=== PATIENT | male | born 2000 | race Caucasian/White ===

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

== ENCOUNTER 2019-06-29 08:34 | Observation (INO) ==
[2019-06-29 09:09] LABS: Basophils % 0.2 % (0.1-2.0); Eosinophils # 0.2 K/mm3 (0.0-0.4); Eosinophils % 1.6 % (0.1-12.0); Hemoglobin 16.1 g/dL (14.1-18.0); Lymphocytes # 2.2 K/mm3 (0.7-4.5); Lymphocytes % 22.7 % (10-50); Mean Corpuscular HGB Conc 34.2 g/dL (31.8-35.4); Mean Corpuscular Volume 86.5 fl (80-94); Mean Platelet Volume 7.3 fl (7.4-10.4); Monocytes # 0.6 K/mm3 (0.1-1.0); Monocytes % 6.2 % (1.7-9.3); Neutrophils # 6.8 K/mm3 (1.8-7.8); Neutrophils % 69.3 % (37.0-80.0); Platelet Count 238 K/mm3 (142-424); Red Blood Count 5.43 M/mm3 (4.60-6.20); Red Cell Distribution Width 12.7 % (11.5-17.5); White Blood Count 9.8 K/mm3 (4.5-13.0)
--- NOTE | 2019-06-29 09:09 | Emergency Department Note ---
ED Disposition Clinical Impression: Pneumothorax Qualifiers: Pneumothorax type: spontaneous, primary Qualified Code(s): J93.11 - Primary spontaneous pneumothorax Disposition: Admitted as Observation Condition on Discharge: Good - Critical Care Critical Care Time: No Attestation: On 06/29/19, the high probability of a clinically significant, sudden or life threatening deterioration of the following system(s) required my full and direct attention, intervention and personal management. The time I documented below is in addition to time spent performing reported procedures but includes the following listed in this critical care notation. Medical Decision Making - Chinmay Inquiry Pt receiving controlled substance: No Chinmay was queried for this patient: No Vital Signs: 06/29/19 08:35 06/29/19 09:31 06/29/19 10:00 Temperature 98.5 F Temperature Source Oral Pulse Rate [Left Radial] 89 69 80 Respiratory Rate 16 20 16 Blood Pressure [Right Arm] 116/36 L 124/65 120/65 Blood Pressure Mean [Right Arm] 62 84 83 Blood Pressure Source [Right Arm] Automatic Cuff Blood Pressure Position [Right Arm] Sitting Sitting Sitting 02 Sat by Pulse Oximetry 99 100 99 Oxygen Delivery Method Room Air Non-Rebreather Non-Rebreather - Lab Data Lab Results 06/29/19 08:35: WBC 9.8, RBC 5.43, Hgb 16.1, Hct 47.0, MCV 86.5, MCH 29.6, MCHC 34.2, RDW 12.7, Plt Count 238, MPV 7.3 L, Neut % (Auto) 69.3, Lymph % (Auto) 22.7, [place] % (Auto) 6.2, Eos % (Auto) 1.6, Baso % (Auto) 0.2, Neut # (Auto) 6.8, Lymph # (Auto) 2.2, [place] # (Auto) 0.6, Eos # (Auto) 0.2, Baso # (Auto) 0.0 06/29/19 08:35: Sodium 139, Potassium 3.2 L, Chloride 103, Carbon Dioxide 27, Anion Gap 12.2, BUN 7 L, Creatinine 0.80, Estimated Creat Clear 138, Estimated GFR 125, Est GFR ( Amer) 151, Glucose 115 H, Calcium 10.0, Troponin I < 0.01 Result diagrams: 06/29/19 08:35 06/29/19 08:35 Orders (Tests/Meds): ED MEDICATIONS Generic Name Dose Route Start Last Admin Trade Name Freq PRN Reason Stop Dose Admin Acetaminophen 500 mg 06/29/19 10:28 Tylenol 500mg Tablet PO 06/29/19 10:29 ONCE ONE Morphine Sulfate 4 mg 06/29/19 10:28 Morphine 4mg/Ml Syringe IV 07/29/19 09:04 Q2HP PRN Moderate to Severe Pain Discontinued Medications Generic Name Dose Route Start Last Admin Trade Name Freq PRN Reason Stop Dose Admin Acetaminophen 500 mg 06/29/19 10:24 Tylenol 500mg Tablet PO 06/29/19 10:25 ONCE ONE Morphine Sulfate 4 mg 06/29/19 09:05 06/29/19 09:05 Morphine 4mg/Ml Syringe IV 07/29/19 09:04 4 mg Q2HP PRN Administration Moderate to Severe Pain Morphine Sulfate 4 mg 06/29/19 09:08 06/29/19 09:11 Morphine 4mg/Ml Syringe IV 06/29/19 09:09 Not Given ONCE ONE Morphine Sulfate 4 mg 06/29/19 10:24 Morphine 4mg/Ml Syringe IV 07/29/19 09:04 Q2HP PRN Moderate to Severe Pain Ondansetron HCl 4 mg 06/29/19 09:09 06/29/19 09:05 Zofran 4mg/2ml Vial IV 06/29/19 09:10 4 mg ONCE ONE Administration ORDERS Category Date Time Status Chest XR 2 view (NOT portable) [XR chest 2V] Stat Exams 06/29/19 16:00 Ordered Troponin I Q3H Lab 06/29/19 12:00 Ordered Troponin I Q3H Lab 06/29/19 15:00 Ordered Medical Decision Narrative: In summary patient is a 18-year-old male in obvious pain, who presents the emergency department for evaluation of chest pain. Given patient's history of multiple pneumothorax, concerns for repeat spontaneous pneumothorax. CBC, CMP, troponin panel, chest x-ray, EKG. Patient complains of significant left-sided chest pain. Patient given IV morphine for symptomatic control here in the emergency department. EKG shows normal sinus rhythm, no ST elevation, depression, or QT prolongation noted. Patient's chest x-ray shows small left apical pneumothorax. Placed on 100% oxygen using nonrebreather. Labs returned and are nonactionable. Discussion had with Dr. Herman he agrees to admit the patient for further evaluation, pain control, and repeat chest x-ray. Patient admitted. Chest Pain HPI - General Chief Complaint: Chest Pain Stated Complaint: chest pain Time Seen by Provider: 06/29/19 08:40 Mode of Arrival: Ambulatory Limitations: No Limitations Description of Symptoms (Recalled from ER Triage Doc. by RN): to ed per pvt car with c/o sharp lt side chest pain radiating into back starting lastnight. pain worse with movement and inspiration. pt denies nausea, vomiting, fever, cough. - History of Present Illness HPI narrative: Patient is a 18-year-old male with a past medical history of 3 previous spontaneous pneumothorax's who presents to the emergency department for evaluation of chest pain. Patient states his chest pain started yesterday he localizes it to the left side of his chest. Patient states the chest pain radiates to his back. Is pleuritic in nature, also worse with movement. He denies any fevers, chills, shortness of breath, recent travel outside of the state or country, or contact with someone positive for the new novel coronavirus. Patient denies any cardiac history, or significant family history of cardiac disease. - Related Data Home Medications Medication Instructions Recorded Confirmed No Known Home Medications 06/29/19 06/29/19 Allergies Allergy/AdvReac Type Severity Reaction Status Date / Time ibuprofen [From Motrin] Allergy Verified 12/01/18 14:30 [facility] History - Hepatitis A Screen Drug use history?: No High risk sexual behaviors?: No History of sexually transmitted infection?: No Currently employed?: No Childcare worker?: No Do you have indoor plumbing?: Yes Do you have electricity?: Yes Attestation statement:: This patient has been screened for Hepatitis A risk factors. I have reviewed the patient's past medical history: Yes 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: Denies:: Diabetes Mellitus Type 1, Diabetes Mellitus Type 2, Hypertension Comment: pneumothorax 2x Other Surgeries: Yes: Other Comment: pneumothorax x2 - Social History Smoking Status: Current every day smoker Tobacco Type: cigarettes # Packs/Day (cigarettes): 1 Alcohol Intake: never Substance Use Type: marijuana, former substance user, denies use Occupational Status: other Housing: house Household Members: significant other Family Hx:: Stroke, Other ROS Obtained: Yes All systems reviewed & no additional complaints Physical Exam - General General appearance: alert Comment: in pain - Neck Neck exam: Present: normal inspection - Chest Chest inspection: Present: normal inspection - Respiratory Respiratory exam: Present: normal lung sounds bilaterally - Cardiovascular Cardiovascular exam: Present: regular rate, normal rhythm - Abdominal Exam Abdominal exam: Present: soft. Absent: distention, tenderness - Neurological Exam Neurological exam: Present: alert, oriented X3, CN II-XII intact - Psychiatric Psychiatric exam: Present: normal affect, normal mood
[2019-06-29 09:17] LABS: Chloride 103 mmol/L (98-107); Sodium 139 mmol/L (136-145)
[2019-06-29 09:20] LABS: Anion Gap 12.2 mEq/L (5-15); Blood Urea Nitrogen 7 mg/dl (9-20); Carbon Dioxide 27 mmol/L (22.0-30.0)
[2019-06-29 09:21] LABS: Glucose 115 mg/dl (74-100)
--- NOTE | 2019-06-29 12:00 | History & Physical Report ---
HPI HPI: Patient is a 18-year-old male who is well-known to me. Approximately 2 years ago he had developed a spontaneous right pneumothorax requiring chest tube. In September 2018 he had developed spontaneous left-sided pneumothorax which required chest tube placement. He ultimately convalesced and had been doing well. When he followed up in the office in October he was having some recurrent left-sided chest pain and he once again was found to have a recurrent left-sided pneumothorax at that time. This resolved without intervention however completely. Incidentally, the patient had presented to the emergency department in April of this year with chest pain and underwent chest x-ray and CT scan which revealed no evidence of any acute findings. He was in his usual state of health until overnight at which time he developed some left-sided pleuritic chest pain radiating to the left shoulder. He had increasing pain and presented to the emergency department today at which time he underwent chest x-ray which revealed small left apical pneumothorax. [facility] History 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: Denies:: Cancer, Diabetes Mellitus Type 1, Diabetes Mellitus Type 2, Hypertension, MRSA *Have you ever received a pneumonia vaccine?: No *Have you received a flu vaccine this season?: No Other Surgeries: Yes: Other Amputation: No Fractures: No - *Social History Educational Level: Completed High School Smoking Status: Current every day smoker Tobacco Type: cigarettes # Packs/Day (cigarettes): 1 Alcohol Intake: current Alcohol Intake Frequency:: holidays/special occasions only Substance Use Type: marijuana, former substance user, denies use *Occupational Status:: employed Housing: house Household Members: family *Travel in the last 8 weeks: None Family Hx:: Diabetes Review of Systems - Review of Systems Review of systems:: pertinent systems reviewed and negative unless documented below Meds Home Medications Medication Instructions Recorded Confirmed Type No Known Home Medications 06/29/19 06/29/19 History Allergies Allergy/AdvReac Type Severity Reaction Status Date / Time ibuprofen [From Motrin] Allergy Verified 12/01/18 14:30 Exam Vital signs and Labs for Last 24 Hours: Temp Pulse Resp BP Pulse Ox 98 F 78 16 120/69 99 06/29/19 11:15 06/29/19 11:15 06/29/19 11:15 06/29/19 11:15 06/29/19 10:00 Laboratory Results - last 24 hr 06/29/19 08:35: WBC 9.8, RBC 5.43, Hgb 16.1, Hct 47.0, MCV 86.5, MCH 29.6, MCHC 34.2, RDW 12.7, Plt Count 238, MPV 7.3 L, Neut % (Auto) 69.3, Lymph % (Auto) 22.7, [place] % (Auto) 6.2, Eos % (Auto) 1.6, Baso % (Auto) 0.2, Neut # (Auto) 6.8, Lymph # (Auto) 2.2, [place] # (Auto) 0.6, Eos # (Auto) 0.2, Baso # (Auto) 0.0 06/29/19 08:35: Sodium 139, Potassium 3.2 L, Chloride 103, Carbon Dioxide 27, Anion Gap 12.2, BUN 7 L, Creatinine 0.80, Estimated Creat Clear 138, Estimated GFR 125, Est GFR ( Amer) 151, Glucose 115 H, Calcium 10.0, Troponin I < 0.01 I & O for Last 24 hours: Intake & Output 06/26/19 06/27/19 06/28/19 06/29/19 11:59 11:59 11:59 11:59 Weight 145 lb - *Routine HEENT Exam Head: Present: normocephalic Eye: Present: EOMI, PERRL ENT: Present: mucous membranes moist - *Routine Neck Exam Present: supple. Absent: lymphadenopathy - *Routine Respiratory Exam Present: CTA bilaterally - *Routine Cardiovascular Exam Present: RRR - *Routine Abdominal Exam Present: soft, normoactive bowel sounds. Absent: tenderness - *Routine Extremities Exam Absent: cyanosis, clubbing, edema - *Routine Skin Exam Present: warm. Absent: rash - *Routine Neurological Exam Present: alert, oriented X3 Results - Results Lab Results Last 24 Hours:: Laboratory Results - last 24 hr 06/29/19 08:35: WBC 9.8, RBC 5.43, Hgb 16.1, Hct 47.0, MCV 86.5, MCH 29.6, MCHC 34.2, RDW 12.7, Plt Count 238, MPV 7.3 L, Neut % (Auto) 69.3, Lymph % (Auto) 22.7, [place] % (Auto) 6.2, Eos % (Auto) 1.6, Baso % (Auto) 0.2, Neut # (Auto) 6.8, Lymph # (Auto) 2.2, [place] # (Auto) 0.6, Eos # (Auto) 0.2, Baso # (Auto) 0.0 06/29/19 08:35: Sodium 139, Potassium 3.2 L, Chloride 103, Carbon Dioxide 27, Anion Gap 12.2, BUN 7 L, Creatinine 0.80, Estimated Creat Clear 138, Estimated GFR 125, Est GFR ( Amer) 151, Glucose 115 H, Calcium 10.0, Troponin I < 0.01 Assessment and Plan - Assessment and plan all Dx Assessment and Plan for all problems:: He does have very small spontaneous left pneumothorax. Plan will be for admission for observation with serial chest x-ray and supplemental oxygen. He seems to be aerating quite well with good breath sounds. I will give him Toradol for pain. Hopefully this resolves without the need for intervention.
--- NOTE | 2019-06-30 09:01 | Progress Note ---
Subjective Patient reports: feels better Exam Vital signs and Labs for Last 24 Hours: Temp Pulse Resp BP Pulse Ox 97.5 F L 50 L 20 112/58 L 100 06/30/19 07:33 06/30/19 07:55 06/30/19 07:55 06/30/19 07:33 06/30/19 07:55 Laboratory Results - last 24 hr 06/29/19 08:35: WBC 9.8, RBC 5.43, Hgb 16.1, Hct 47.0, MCV 86.5, MCH 29.6, MCHC 34.2, RDW 12.7, Plt Count 238, MPV 7.3 L, Neut % (Auto) 69.3, Lymph % (Auto) 22.7, [place] % (Auto) 6.2, Eos % (Auto) 1.6, Baso % (Auto) 0.2, Neut # (Auto) 6.8, Lymph # (Auto) 2.2, [place] # (Auto) 0.6, Eos # (Auto) 0.2, Baso # (Auto) 0.0 06/29/19 08:35: Sodium 139, Potassium 3.2 L, Chloride 103, Carbon Dioxide 27, Anion Gap 12.2, BUN 7 L, Creatinine 0.80, Estimated Creat Clear 138, Estimated GFR 125, Est GFR ( Amer) 151, Glucose 115 H, Calcium 10.0, Troponin I < 0.01 06/29/19 12:10: Troponin I < 0.01 06/29/19 15:15: Troponin I < 0.01 I & O for Last 24 hours: Intake & Output 06/27/19 06/28/19 06/29/19 06/30/19 11:59 11:59 11:59 11:59 Intake Total 540 / 540 Balance 540 / 540 Weight 129 lb 8 oz 130 lb 8 oz - *Routine Respiratory Exam Present: CTA bilaterally Progress Note: A&P Assessment and Plan for All Diagnoses:: Discharge home.
--- NOTE | 2019-06-30 09:05 | Discharge Summary ---
General - General Admission date:: 06/29/19 Discharge date: 06/30/19 HPI HPI: Patient is a 18-year-old male smoker who is well-known to me. Approximately 2 years ago he had developed a spontaneous right pneumothorax requiring chest tube. In September 2018 he had developed spontaneous left-sided pneumothorax which required chest tube placement. He ultimately convalesced and had been doing well. When he followed up in the office in October he was having some recurrent left-sided chest pain and he once again was found to have a recurrent left-sided pneumothorax at that time. This resolved without intervention however completely. Incidentally, the patient had presented to the emergency department in April of this year with chest pain and underwent chest x-ray and CT scan which revealed no evidence of any acute findings. He was in his usual state of health until overnight at which time he developed some left-sided pleuritic chest pain radiating to the left shoulder. He had increasing pain and presented to the emergency department today at which time he underwent chest x-ray which revealed small left apical pneumothorax. Hospital Course Hospital Course: Patient was found to have a small apical left pneumothorax, spontaneous. This measured approximately 1.5 cm. He was admitted for inpatient management. He has some pleuritic pain. He was started on Toradol. He was given nonrebreather supplemental oxygen. Approximately 6 hours after presentation to the emergency department he underwent follow-up chest x-ray which revealed no evidence of any progression with a stable pneumothorax. He continued on oxygen supplement overnight. Following morning he was feeling better with minimal pleuritic pain. He underwent PA and lateral chest x-ray which revealed smaller pneumothorax at the apex measuring approximately 1 cm. Oxygen saturations were good. Plan was made for discharge home with close outpatient follow-up. Patient was instructed to discontinue smoking. He is to refrain from work activity for the next few days. He is to follow-up in the office in 3 days with chest x-ray. Objective Vital signs: Temp Pulse Resp BP Pulse Ox 97.5 F L 50 L 20 112/58 L 100 06/30/19 07:33 06/30/19 07:55 06/30/19 07:55 06/30/19 07:33 06/30/19 07:55 Results Labs on day of discharge: Labs from last 24 hours 04/06/20 04/06/20 04/06/20 15:15 12:10 08:35 WBC RBC Hgb Hct MCV MCH MCHC RDW Plt Count MPV Neut % (Auto) Lymph % (Auto) [place] % (Auto) Eos % (Auto) Baso % (Auto) Neut # (Auto) Lymph # (Auto) [place] # (Auto) Eos # (Auto) Baso # (Auto) Sodium 139 Potassium 3.2 L Chloride 103 Carbon Dioxide 27 Anion Gap 12.2 BUN 7 L Creatinine 0.80 Estimated Creat Clear 138 Estimated GFR 125 Est GFR ( Amer) 151 Glucose 115 H Calcium 10.0 Troponin I < 0.01 < 0.01 < 0.01 06/29/19 08:35 WBC 9.8 RBC 5.43 Hgb 16.1 Hct 47.0 MCV 86.5 MCH 29.6 MCHC 34.2 RDW 12.7 Plt Count 238 MPV 7.3 L Neut % (Auto) 69.3 Lymph % (Auto) 22.7 [place] % (Auto) 6.2 Eos % (Auto) 1.6 Baso % (Auto) 0.2 Neut # (Auto) 6.8 Lymph # (Auto) 2.2 [place] # (Auto) 0.6 Eos # (Auto) 0.2 Baso # (Auto) 0.0 Sodium Potassium Chloride Carbon Dioxide Anion Gap BUN Creatinine Estimated Creat Clear Estimated GFR Est GFR ( Amer) Glucose Calcium Troponin I Discharge Plan - Patient Discharge Instructions ACTIVITY: No heavy lifting DIET: regular diet Additional Instructions: No work until after follow-up appointment. Patient Instructions: Pneumothorax, How to Quit Smoking - Follow up Plan Follow up with: Benny Herman MD [Staff Physician] - 07/03/19 Disposition: Home, Self-Alf Medications: Home Medications Medication Instructions Recorded Confirmed Type No Known Home Medications 06/29/19 06/29/19 History Prescriptions/Medication Reconciliation: Continued No Known Home Medications - Problem Reconciliation Problems Reviewed?: Yes
--- NOTE | 2019-06-30 14:59 | Electrocardiograph Report ---
APPROVED REPORT Exam: Resting ECG HR:79 bpm ECG Measurements Heart Rate 79 AXES AR 150 P 56 QRSd 84 QRS 69 QT 368 T58 QTc 421 <Conclusion> Normal sinus rhythm with sinus arrhythmia Normal ECG Electronically signed by : Tonny Cool, 06/30/2019 14:59:26
== END 2019-06-30 09:35 | disposition home or self-care (01) ==
LOC: 2ND 08:34 → ER 08:34 → 2ND 11:19
PROVIDERS: ADMIT Surgery; ATTEND Surgery
CPT/HCPCS: 36415; 71020; 71046; 80048; 84484; 85025; 93005; 96374; 96375; 96376; 99284; G0378; J2405

== ENCOUNTER → 2019-07-03 10:27 | Outpatient (CLI) | payer MEDICAID, SELFPAY ==
--- NOTE | 2019-07-03 10:34 | XR_ITS ---
PROCEDURE: XR CHEST 2V CLINICAL HISTORY: pneumothorax Follow-up pneumothorax COMPARISON: CT CHEST WO CON from 05/05/2019 XR CHEST 2V from 06/29/2019 XR CHEST 2V from 06/29/2019 XR CHEST 2V from 06/30/2019 FINDINGS: The cardiomediastinal silhouette and pulmonary vascularity are within normal limits. Left apical pneumothorax is no longer identified. There is some minimal pleural thickening at the apex consistent with a fashion adviser shadow. A pleural stripe however is no longer apparent. The right lung is clear. No acute bony abnormalities. IMPRESSION: Resolved left-sided pneumothorax Dictated by: Fortunato Sparks MD 07/03/2019 10:58 Electronically signed by Fortunato Sparks MD in [place] 07/03/2019 10:58
== END ==
PROVIDERS: PCP Emergency Medicine; Visit Provider Surgery
DX: J93.9 Pneumothorax, unspecified (principal)
CPT/HCPCS: 71046

== ENCOUNTER 2019-07-12 07:50 | Emergency (ER) | payer MEDICAID, SELFPAY ==
[2019-07-12 07:51] VITALS: BP 138/68; PULSE 66; RESP 18; TEMP 36.6; O2SAT 100; BMI 18.1
--- NOTE | 2019-07-12 08:02 | XR_ITS ---
PROCEDURE: XR CHEST 2V Patient Age:18Y CLINICAL HISTORY: PAIN Left chest pain COMPARISON: CT CHEST WO CON from 05/05/2019 XR CHEST 2V from 06/29/2019 XR CHEST 2V from 06/30/2019 XR CHEST 2V from 07/03/2019 CT CHEST WO CON from 07/12/2019 FINDINGS: A tiny recurrence left apical pneumothorax barely appreciable is suggested on this CXR. Noting the thin line just above the posterior 3rd rib reflecting the left lung apex and small pneumothorax. This PTX subsequent confirmed on CT chest studies from today.. It seemed to resolve on the 07/03/2019 CXR but is again evident today On the lungs otherwise clear with no new focal infiltrate. No evident pleural effusion. Ribs appear intact. Heart and mediastinal structures satisfactory. The small 5 mm calcified granuloma at the medial aspect of the left lung seen on CT is not readily apparent on this CXR, but I suspect may be faintly seen projected over the aortic arch and medial aspect posterior 5th rib. Associated small faint calcified nodes AP window faintly seen new 2 to who IMPRESSION: Very small left apical pneumothorax again evident Appears recurrence pneumothorax when compared to July 03 2019 CXR Dictated by: Jose Alberto Cabrales MD 07/12/2019 10:40 Electronically signed by Jose Alberto Cabrales MD in [place] 07/12/2019 10:40
--- NOTE | 2019-07-12 08:20 | CT_ITS ---
PROCEDURE: CT ANGIO CHEST Patient Age:18Y CLINCIAL INDICATION: PAIN left-sided chest pain. Previous pneumothorax on left last week is as seen on CXR 06/29/2019 COMPARISON: XR CHEST 2V from 06/29/2019 XR CHEST 2V from 06/29/2019 XR CHEST 2V from 07/03/2019 CT CHEST WO CON from 07/12/2019 XR CHEST 2V from 07/12/2019 TECHNIQUE: IV Contrast: 70ML OPTIRAY 350 bolus administration followed by 40 mL normal saline bolus Thin-section helical axial images obtained the thickened axial images along with volume slabMIPP sagittal and coronal reformats. All CT scans at the facility use one or more dose reduction, viz: automated exposure control, ma/kV adjustment per patient size (including targeted exams where dose is matched to indication, i.e. head), or iterative reconstruction technique. FINDINGS: Lungs small apical pneumothorax is evident.. best seen coronal images 28-the 36. It measures up to 11 mm maximum height on coronal image 29 This thin apical pneumothorax can also be seen on today's CT automotive service writer view.-using this along with today's CXR image this small apical pneumothorax it does appear to have recurred and again become evident vs 07/02/2009 CXR. Otherwise the lungs appear well expanded and clear with no focal infiltrate. No lesion evident. Airways unremarkable. No pleural effusion. No pleural lesions or abnormalities evident PULMONARY ARTERIES: Unremarkable. Good opacification and visualization of pulmonary arteries withNo pulmonary embolus evident. AORTA: Incidentally note aberrant right subclavian artery.-which arises last from the aortic arch and then passes posterior to the esophagus and trachea. On this can be a source of dysphagia or chest pain particularly as the patient mature and potential progressive ectasia of this vessel. I am not aware of the increased incidence of pneumothorax with this condition but it may be worth investigating HEART: Unremarkable. Normal heart size. No significant pericardial effusion. MEDIASTINAL AND HILAR STRUCTURES:Reema and mediastinal structures appear satisfactory No mediastinal or hilar mass evident. No pathologic nor dominant adenopathy I would note several calcified granulomatous nodes at the AP window region. . BONY STRUCTURES: No acute bony abnormalities apparent. But no rib fractures or lesions UPPER ABDOMEN: Unremarkable. IMPRESSION: 1.Small left Apical Pneumothorax (Appears to be small recurrence pneumothorax when comparing today's studies to the recent 07/03/2019 CXR) 2.Lungs otherwise clear. No pulmonary lesions evident. No pleural effusion 3 no evidence of pulmonary embolism on this CTA chest 4.Additional incidental observation: Aberrant Right Subclavian Artery. With this note right subclavian artery passing posterior to the trachea and esophagus Dictated by: Jose Alberto Cabrales MD 07/12/2019 10:08 Electronically signed by Jose Alberto Cabrales MD in [place] 07/12/2019 10:08
[2019-07-12 08:33] LABS: Basophils % 0.3 % (0.1-2.0); Eosinophils # 0.2 K/mm3 (0.0-0.4); Eosinophils % 2.3 % (0.1-12.0); Hematocrit 45.1 % (42.0-52.0); Hemoglobin 15.7 g/dL (14.1-18.0); Lymphocytes # 1.9 K/mm3 (0.7-4.5); Lymphocytes % 24.3 % (10-50); Mean Corpuscular HGB Conc 34.7 g/dL (31.8-35.4); Mean Corpuscular Hemoglobin 30.6 pg (27.0-31.2); Mean Corpuscular Volume 88.2 fl (80-94); Mean Platelet Volume 7.9 fl (7.4-10.4); Monocytes # 0.5 K/mm3 (0.1-1.0); Monocytes % 6.5 % (1.7-9.3); Neutrophils # 5.3 K/mm3 (1.8-7.8); Neutrophils % 66.6 % (37.0-80.0); Platelet Count 202 K/mm3 (142-424); Red Blood Count 5.11 M/mm3 (4.60-6.20); Red Cell Distribution Width 13.2 % (11.5-17.5); White Blood Count 7.9 K/mm3 (4.5-13.0)
--- NOTE | 2019-07-12 08:33 | PC.NURSE ---
PT TO RAD
--- NOTE | 2019-07-12 08:34 | CT_ITS ---
PROCEDURE: CT CHEST WO CON Patient Age:18Y CLINICAL INDICATION: PAIN left chest pain. Recent left pneumothorax COMPARISON: CT CHEST WO CON from 05/05/2019 CT ANGIO CHEST from 07/12/2019 TECHNIQUE: Helical axial images obtained with sagittal and coronal reformats. No IV contrast utilized on this CT chest study All CT scans at the facility use one or more dose reduction, viz: automated exposure control, ma/kV adjustment per patient size (including targeted exams where dose is matched to indication, i.e. head), or iterative reconstruction technique. FINDINGS: Lungs small apical pneumothorax is evident.. This small PTX actually appears slightly larger on this pre contrast CT chest study than on the subsequent CTA chest performed, and dictated in a separate report. The slight larger appearance of this PTX may reflect of may reflect the thicker summation slab image technique used on CTA, along with some slight variations in the degree of inspiration for this scan Of the PTX is best seen on coronal images on which it measures up to 15 mm height maximally at apical cap and 13 mm overlying the medial aspect left lung the apex. No associated pleural effusion. lungs otherwise appear clear with with no acute findings. No focal pneumonia. Airways upper normal thickness . Old granulomatous disease is evident.: With this a 5 mm calcified granuloma is seen anterior medial aspect of the left upper lobe (axial and coronal slice 22,). There are associated a few calcified granulomatous hilar nodes at the left AP window. The largest measures up to 7.5 mm.. As mentioned no pleural effusion. No pleural lesions or abnormalities evident AORTA: Incidentally note aberrant right subclavian artery even better seen on subsequent CTA the chest.-. This right subclavian artery arises last from the aortic arch and then passes posterior to the esophagus and trachea where typically yield slight indentation upon posterior esophagus. Thus may on this can be a source of dysphagia or chest pain particularly as the patient mature and and there is potential progressive ectasia of this vessel. HEART: Unremarkable. Normal heart size. No significant pericardial effusion. MEDIASTINAL AND HILAR STRUCTURES: Minimal residual thymus anteriorly appears normal daniele and mediastinal structures appear satisfactory No mediastinal or hilar mass evident. No pathologic nor dominant adenopathy I would note several calcified granulomatous nodes at the AP window region. . BONY STRUCTURES: No acute bony abnormalities apparent.. No rib fractures or lesions UPPER ABDOMEN: Unremarkable on this noncontrast sequence. IMPRESSION: 1.SMALL LEFT APICAL PNEUMOTHORAX-appears to be a recurrence pneumothorax (This PTX appears very slightly larger and slight more evident on this noncontrast CT chest than subsequent CTA chest. On this study it measuring 15 mm height overlying the left apical cap. I suspect this study is most u.s. representative.) 2.Lungs otherwise with no active disease. No pulmonary lesions evident. No pleural effusion 3. Old Granulomatous Disease is noted-with 5 mm calcified granuloma at medial/anterior aspect of the left lung apex; and associated small calcified nodes at the AP window 4. Aberrant Right Subclavian Artery incidentally noted IMPRESSION: Dictated by: Jose Alberto Cabrales MD 07/12/2019 10:32 Electronically signed by Jose Alberto Cabrales MD in [place] 07/12/2019 10:32
[2019-07-12 08:37] LABS: Chloride 103 mmol/L (98-107)
[2019-07-12 08:38] LABS: Sodium 140 mmol/L (136-145)
[2019-07-12 08:40] LABS: Alanine Aminotransferase 20 U/L (12-78); Alkaline Phosphatase 57 U/L (38-126); Aspartate Amino Transferase 25 U/L (17-59); Bilirubin,Total 0.4 mg/dl (0.2-1.3); Blood Urea Nitrogen 8 mg/dl (9-20); Creatinine Clearance Estimated 124 mL/min (50-200); Estimated Glomerular Filt Rate 125 ml/min (>60); GFR (African American) 151 ML/MIN (>60)
[2019-07-12 08:41] LABS: Albumin Level 4.7 g/dl (3.5-5.0); Albumin/Globulin Ratio 1.6 (1.1-1.8); Calcium 9.8 mg/dl (8.4-10.2); Carbon Dioxide 28 mmol/L (22.0-30.0); Glucose 115 mg/dl (74-100); Total Protein,Serum 7.7 g/dl (6.3-8.2)
[2019-07-12 08:51] VITALS: BP 125/87; PULSE 70; RESP 20; O2SAT 100
[2019-07-12 10:34] VITALS: BP 120/68; PULSE 62; RESP 20; O2SAT 100
[2019-07-12 11:04] VITALS: BP 123/87; PULSE 75; RESP 20; O2SAT 98
--- NOTE | 2019-07-12 11:10 | [facility].EDGENADL ---
ED Disposition Clinical Impression: Recurrent spontaneous pneumothorax Disposition: Home, Self-Care Condition on Discharge: Good Instructions: DI for Acute Pain -- Adult Additional Instructions: If condition starts to worsen as an shortness of breath more pain or tachycardia please return to the emergency department immediately Prescriptions: Ketorolac Tromethamine [Toradol 10mg tablet] 10 mg PO Q6H 5 Days #20 tab Transmission Status: Pending to [id number] Referrals: Gray Sharp MD [Primary Care Provider] - - Critical Care Critical Care Time: No Attestation: On 07/12/19, the high probability of a clinically significant, sudden or life threatening deterioration of the following system(s) required my full and direct attention, intervention and personal management. The time I documented below is in addition to time spent performing reported procedures but includes the following listed in this critical care notation. Medical Decision Making - Medical Records Medical records reviewed: Yes: I reviewed the patient's medical records. - [place] Inquiry Pt receiving controlled substance: No Vital Signs: 07/12/19 07:51 07/12/19 08:51 07/12/19 10:34 Temperature 97.8 F Temperature Source Oral Pulse Rate [Right] 66 70 62 Respiratory Rate 18 20 20 Blood Pressure [Right Arm] 138/68 125/87 120/68 Blood Pressure Mean [Right Arm] 91 99 85 02 Sat by Pulse Oximetry 100 100 100 Oxygen Delivery Method Room Air 07/12/19 11:04 Temperature Temperature Source Pulse Rate [Right] 75 Respiratory Rate 20 Blood Pressure [Right Arm] 123/87 Blood Pressure Mean [Right Arm] 99 02 Sat by Pulse Oximetry 98 Oxygen Delivery Method Room Air - Lab Data Lab results reviewed: Yes: I reviewed the patient's lab results. Lab Results 07/12/19 08:30: WBC 7.9, RBC 5.11, Hgb 15.7, Hct 45.1, MCV 88.2, MCH 30.6, MCHC 34.7, RDW 13.2, Plt Count 202, MPV 7.9, Neut % (Auto) 66.6, Lymph % (Auto) 24.3, [place] % (Auto) 6.5, Eos % (Auto) 2.3, Baso % (Auto) 0.3, Neut # (Auto) 5.3, Lymph # (Auto) 1.9, [place] # (Auto) 0.5, Eos # (Auto) 0.2, Baso # (Auto) 0.0 07/12/19 08:30: Sodium 140, Potassium 4.0, Chloride 103, Carbon Dioxide 28, Anion Gap 13.0, BUN 8 L, Creatinine 0.80, Estimated Creat Clear 124, Estimated GFR 125, Est GFR ( Amer) 151, Glucose 115 H, Calcium 9.8, Total Bilirubin 0.4, AST 25, ALT 20, Alkaline Phosphatase 57, Total Protein 7.7, Albumin 4.7, Globulin 3.0, Albumin/Globulin Ratio 1.6 Result diagrams: 07/12/19 08:30 07/12/19 08:30 Orders (Tests/Meds): ED MEDICATIONS Discontinued Medications Generic Name Dose Route Start Last Admin Trade Name Freq PRN Reason Stop Dose Admin Fentanyl Citrate 50 mcg 07/12/19 10:58 07/12/19 11:04 Fentanyl 100mcg/2ml Vial IV 07/12/19 10:59 50 mcg ONCE ONE Administration Ioversol 70 ml 07/12/19 09:10 07/12/19 09:11 Rad-Optiray 350 100ml Vial IV 07/12/19 09:11 70 ml ONCE ONE Administration Protocol Sodium Chloride 50 ml 07/12/19 09:10 07/12/19 09:11 Rad-Ns 50ml Vial IV 07/12/19 09:11 50 ml ONCE ONE Administration Sodium Chloride 10 ml 07/12/19 09:10 07/12/19 09:11 Rad-Saline Flush 10ml Syringe IV 07/12/19 09:11 10 ml ONCE ONE Administration - Radiology Data #1 Image(s): Chest Preliminary Findings: Abnormal (Patient has a very small apical pneumothorax on the left side.) Medical Decision Narrative: I explained to the patient that with a very small pneumothorax like the one he is presenting with that the medical management for this is watchful waiting and if symptoms progress please return to the ER for intervention. General Adult HPI - General Chief complaint: PAIN Stated complaint: lung pain Time Seen by Provider: 07/12/19 11:10 Mode of Arrival: Ambulatory Limitations: No Limitations Description of Symptoms (Recalled from ER Triage Doc. by RN): C/O SHARP PAIN IN HIS LEFT RIB HAT RADIATES TO
[2019-07-12 11:17] VITALS: BP 112/87; PULSE 70; RESP 20; TEMP 36.8; O2SAT 98
== END 2019-07-12 11:23 | disposition home or self-care (01) ==
PROVIDERS: Emergency Provider Family Medicine; PCP Emergency Medicine
DX: J93.83 Other pneumothorax (principal); F12.10 Cannabis abuse, uncomplicated; Z87.891 Personal history of nicotine dependence
CPT/HCPCS: 71046; 71250; 71275; 80053; 85025; 96374; 99283; Q9967

== ENCOUNTER 2019-10-25 14:25 | Emergency (ER) | payer MEDICAID, SELFPAY ==
[2019-10-25 15:03] VITALS: BP 117/70; PULSE 72; RESP 20; TEMP 36.8; O2SAT 98
--- NOTE | 2019-10-25 15:13 | HMH.EDUTC ---
[facility] [place] Disposition Clinical Impression: Viral gastritis Disposition: Home, Self-Care Condition on Discharge: Good Instructions: Gastritis (Alternative Therapy) Additional Instructions: Monitor temperature. Seek treatment if fever develops. Follow-up immediately if new or worse symptoms worsen or no noticeable improvement over 48 hours. Increase fluids such as water, Gatorade, Powerade, juice or Pedialyte with limited formula/dietary in children No food is okay as long as you are drinking. Once ready to eat start bland such as bananas, rice, applesauce, toast. Contagious until no diarrhea, vomiting, fever times 48 hours without medication Avoid antidiarrheals unless told otherwise. Best to let the virus run its course. Follow-up immediately for new or worsening symptoms or no noticeable improvement over the next 48 hours. Prescriptions: ondansetron HCL [Zofran 4mg Tab*] 4 mg PO Q8 PRN 4 Days #8 tab PRN Reason: Nausea Prescription Printed Referrals: Gray Sharp MD [Primary Care Provider] - Time of Disposition: 15:26 Medical Decision Making - Chinmay Inquiry Pt receiving controlled substance: No Vital Signs: 10/25/19 15:03 Temperature 98.3 F Temperature Source Oral Pulse Rate [Right Brachial] 72 Respiratory Rate 20 Blood Pressure [Right Arm] 117/70 Blood Pressure Mean [Right Arm] 85 Blood Pressure Source [Right Arm] Automatic Cuff Blood Pressure Position [Right Arm] Sitting 02 Sat by Pulse Oximetry 98 Oxygen Delivery Method Room Air [facility] [place] HPI - General Chief complaint: [facility] Stated complaint: stomch twisting feeling, vomiting Time Seen by Provider: 10/25/19 15:13 Mode of Arrival: Ambulatory Source of Information: Patient Limitations: No Limitations Description of Symptoms (Recalled from Triage Doc. by RN): PATIENT C/O NAUSEA, VOMITING AND STOMACH CRAMPS SINCE LAST NIGHT. NO FEVER, NO KNOWN SICK CONTACTS HEENT Symptoms (Recalled from RN notes): No Resp Symptoms (Recalled from RN notes): No Skin Symptoms (Recalled from RN notes): No MS Symptoms (Recalled from RN notes): No Functional Status (Recalled from RN notes): WNL - History of Present Illness Provider Complaint: 19 yr old male presents for nausea and vomiting x 3 today. pt states he was awaken in the night with cramping and started vomiting. pt denies fever or any other symptoms. or ill contacts - Related Data Previous Rx's Medication Instructions Recorded ondansetron HCL [Zofran 4mg Tab*] 4 mg PO Q8 PRN 4 Days #8 tab 10/25/19 Allergies Allergy/AdvReac Type Severity Reaction Status Date / Time ibuprofen [From Motrin] Allergy Verified 07/03/19 10:51 - Worker's Comp Is this a Worker's Comp case?: No H History - Hepatitis A Screen Drug use history?: No High risk sexual behaviors?: No History of sexually transmitted infection?: No Currently employed?: No Childcare worker?: No Do you have indoor plumbing?: Yes Do you have electricity?: Yes Attestation statement:: This patient has been screened for Hepatitis A risk factors. I have reviewed the patient's past medical history: No 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: Denies:: Cancer, Diabetes Mellitus Type 1, Diabetes Mellitus Type 2, Hypertension, MRSA Comment: pneumothorax 2x Other Surgeries: Yes: Other Amputation: No Fractures: No Comment: pneumothorax x2 - Social History Smoking Status: Current every day smoker Tobacco Type: cigarettes # Packs/Day (cigarettes): 1 Alcohol Intake: never Alcohol Intake Frequency:: holidays/special occasions only Substance Use Type: marijuana, former substance user, denies use Occupational Status: other Housing: house Household Members: family Family Hx:: Diabetes ROS Obtained: Yes Systems reviewed as appropriate & no additional complaints - Constitutional Constitutional: Reports system reviewed and no additional complaints, except as docu, Denies chills, Denies fatigue, Denies fever(s) - Eyes Eyes: Reports system reviewed
[2019-10-25 15:38] VITALS: BP 117/70; PULSE 72; RESP 20; TEMP 36.8; O2SAT 98
== END 2019-10-25 15:39 | disposition home or self-care (01) ==
PROVIDERS: Emergency Provider Nurse Practitioner Family; PCP Emergency Medicine
DX: K29.70 Gastritis, unspecified, without bleeding (principal); F17.210 Nicotine dependence, cigarettes, uncomplicated
CPT/HCPCS: 99201

== ENCOUNTER 2019-10-26 15:57 | Emergency (ER) | payer MEDICAID, SELFPAY ==
--- NOTE | 2019-10-26 15:54 | ECG_ITS ---
APPROVED REPORT Exam: Resting ECG HR:89 bpm ECG Measurements Heart Rate 89 AXES IA 168 P 79 QRSd 84 QRS 73 QT 342 T 65 QTc 416 <Conclusion> Normal sinus rhythm with sinus arrhythmia Normal ECG Electronically signed by : Jose Draper, 10/28/2019 06:43:26
[2019-10-26 15:57] VITALS: BP 123/70; PULSE 111; RESP 17; TEMP 37.2; O2SAT 99; BMI 27.0
--- NOTE | 2019-10-26 16:00 | XR_ITS ---
PROCEDURE: XR CHEST PORTABLE CLINICAL HISTORY: hx spontaneous pneumothorax, chest pain COMPARISON: XR CHEST 2V from 06/30/2019 XR CHEST 2V from 07/03/2019 CT ANGIO CHEST from 07/12/2019 XR CHEST 2V from 07/12/2019 FINDINGS: Inspiration and expiration images are obtained. The cardiomediastinal silhouette and pulmonary vascularity are within normal limits. There is no obvious apical pneumothorax. There is a curvilinear area of increased density in the left lung base at the CP angle. This does not have a typical appearance 4 pneumothorax as there are lung markings peripheral to this region however, a loculated anterior or posterior pneumothorax would be included in the differential diagnosis. This may be due to artifact such is something upon the patient. Pleural scarring is also consideration. IMPRESSION: 1. No evidence of apical pneumothorax. 2. Unusual density in the left lung base which could conceivably represent a loculated pneumothorax. Artifact is also consideration. Recommend follow-up. CT may provide more thorough evaluation. Alternatively, follow-up chest x-ray may also be of benefit. Dictated by: Fortunato Sparks MD 10/26/2019 17:24 Electronically signed by Fortunato Sparks MD in [place] 10/26/2019 17:24
--- NOTE | 2019-10-26 16:13 | HMH.EDGENADL ---
ED Disposition Clinical Impression: Palpitations, Marijuana use, Tobacco use disorder URI (upper respiratory infection) Qualifiers: URI type: unspecified viral URI Qualified Code(s): J06.9 - Acute upper respiratory infection, unspecified Disposition: Home, Self-Care Condition on Discharge: Good Additional Instructions: You have been evaluated for palpitations and atypical chest pain. You have been swabbed for COVID. Please self isolate until you have results. Take Tylenol for pain. Avoid tobacco use. Avoid marijuana. Return to the emergency department if you have any new or worsening symptoms, chest pain, shortness of breath, other concerns. Time of Disposition: 16:23 - Critical Care Critical Care Time: No Attestation: On , the high probability of a clinically significant, sudden or life threatening deterioration of the following system(s) required my full and direct attention, intervention and personal management. The time I documented below is in addition to time spent performing reported procedures but includes the following listed in this critical care notation. Medical Decision Making - Medical Records Medical records reviewed: Yes: I reviewed the patient's medical records. - Chinmay Inquiry Pt receiving controlled substance: No Vital Signs: 10/26/19 15:57 Temperature 99.0 F Temperature Source Oral Pulse Rate [Right Radial] 111 H Respiratory Rate 17 Blood Pressure [Right Arm] 123/70 Blood Pressure Mean [Right Arm] 87 02 Sat by Pulse Oximetry 99 Oxygen Delivery Method Room Air Orders (Tests/Meds): ORDERS Category Date Time Status SARS-CoV-2, ASHLEY Stat Lab 10/26/19 16:30 Received - ECG Data Tracing #1 Sinus rhythm with ventricular rate of 89 bpm. Sinus arrhythmia. No significant ST segment elevation or other abnormality. - JEANIE Score for Non-Stemi Age of Patient: <30 years old Heart Rate: 110-149 bpm Systolic Blood Pressure: 120-139 mmhg Serum Creatinine: 0.80-1.19 mg/dl CHF [place] Class: I-No CHF Other Risk Factors: None Non-Stemi Risk Score: 65 Medical Decision Narrative: In summary this is a 19-year-old male with history of spontaneous pneumothoraces presenting to the emergency department with shortness of breath. and palpitations. Patient is tachycardic to 110 on arrival. Other vital signs are stable. Oxygen saturations are 100% on room air. No tachypnea. Differential diagnoses include spontaneous pneumothorax, palpitations, anxiety, marijuana reaction, upper respiratory infection, COVID. Plan to obtain EKG and chest x-ray. Bedside ultrasound shows lung sliding present bilaterally. No significant pneumothorax. Limited echo shows adequate systolic ejection, no RV dilation. EKG shows sinus tachycardia. chest x-ray shows no large pneumothorax. There is a subtle irregularity at the left lung base that could be an old loculated pneumo. Patient recommended to follow-up with his primary physician.. COVID swab obtained. Patient counseled that his palpitations are likely due to anxiety, could be worsened by daily marijuana use. Recommended to avoid drugs and alcohol. Do not smoke. Self quarantine. Follow-up with PCP. General Adult HPI - General Chief complaint: Chest Pain Stated complaint: chest pain Time Seen by Provider: 10/26/19 16:03 Mode of Arrival: Ambulatory Limitations: No Limitations Description of Symptoms (Recalled from ER Triage Doc. by RN): pt presents to ed with c/o left chest pain that started last night and it is now radiating into his left back. pt states he has had 6 spontaneous pneumothorax and he feels like this is another one. - History of Present Illness HPI narrative: 19-year-old male with history of spontaneous pneumothoraces presenting to the emergency department with palpitations and shortness of breath. Symptoms started this morning. He felt well yesterday. Feels like it is difficult to take a deep breath. He and his girlfriend b
[2019-10-26 17:41] VITALS: BP 123/70; PULSE 111; RESP 17; TEMP 37.2; O2SAT 99
[2019-10-28 13:00] LABS: Covid-19 Nasal PCR Sendout Lex Not Detected
== END 2019-10-26 17:43 | disposition home or self-care (01) ==
PROVIDERS: Emergency Provider Emergency Medicine; PCP Emergency Medicine
DX: R00.2 Palpitations (principal); J06.9 Acute upper respiratory infection, unspecified; F12.10 Cannabis abuse, uncomplicated; F17.210 Nicotine dependence, cigarettes, uncomplicated
CPT/HCPCS: 71045; 93005; 99282; 99283; U0004

== ENCOUNTER 2019-11-10 14:31 | Emergency (ER) | payer MEDICAID, SELFPAY ==
[2019-11-10 15:11] VITALS: BP 119/74; PULSE 61; RESP 14; TEMP 36.9; O2SAT 99; BMI 20.5
--- NOTE | 2019-11-10 15:16 | HMH.EDUTC ---
[facility] [place] Disposition Clinical Impression: Nausea and vomiting Qualifiers: Vomiting type: unspecified Vomiting Intractability: unspecified Qualified Code(s): R11.2 - Nausea with vomiting, unspecified Disposition: Home, Self-Care Condition on Discharge: Good Instructions: DI for Nausea -- Adult, Nausea and Vomiting-Adult, Ondansetron Additional Instructions: ? Drink extra fluids with and between meals. If you have difficulty drinking, try very small amounts of water or suck on ice chips. ? Avoid fruit juices, as these do not replace minerals and can actually increase diarrhea. ? Children and adults can use sports drinks to replenish electrolytes. Younger children and infants should use products formulated for children, like oral rehydration solutions. ? Eat food in small amounts and let your stomach recover. ? Get lots of rest. You may feel tired or weak. ? No greasy or fried foods for the next 24-48 hours BRAT diet Bananas Rice Apples and [place] ? Make sure to drink plenty of liquids ? Return if needed ? Straight to ER if any life threatening symptoms ? Zofran as prescribed ? Follow up with family doctor in the next 48-72 hours if no improvement or any worsening of symptoms Prescriptions: Ondansetron [Zofran 4mg ODT] 4 mg PO Q8HP PRN #6 tab.rapdis PRN Reason: Nausea Transmission Status: Pending to [facility] Referrals: Gray Sharp MD [Primary Care Provider] - As needed Forms: Work/School Release Medical Decision Making - Chinmay Inquiry Pt receiving controlled substance: No Chinmay was queried for this patient: No Vital Signs: 11/10/19 15:11 Temperature 98.4 F Temperature Source Oral Pulse Rate [Right Brachial] 61 Respiratory Rate 14 Blood Pressure [Right Arm] 119/74 Blood Pressure Mean [Right Arm] 89 Blood Pressure Source [Right Arm] Automatic Cuff Blood Pressure Position [Right Arm] Sitting 02 Sat by Pulse Oximetry 99 Oxygen Delivery Method Room Air [facility] [place] HPI - General Stated complaint: abd pain voming Time Seen by Provider: 11/10/19 15:16 Mode of Arrival: Ambulatory Source of Information: Patient Limitations: No Limitations Description of Symptoms (Recalled from Triage Doc. by RN): PATIENT C/O VOMITING HEENT Symptoms (Recalled from RN notes): No Resp Symptoms (Recalled from RN notes): No Skin Symptoms (Recalled from RN notes): No MS Symptoms (Recalled from RN notes): No Functional Status (Recalled from RN notes): WNL - History of Present Illness Provider Complaint: Patient states that he woke up this morning sick at his stomach with nausea and had some vomiting States that he vomited several times after he got up and was unable to go to work States that he hasnt had any vomiting since around 9am but still having some nausea Denies abdominal pain - Related Data Previous Rx's Medication Instructions Recorded ondansetron HCL [Zofran 4mg Tab*] 4 mg PO Q8 PRN 4 Days #8 tab 10/25/19 Ondansetron [Zofran 4mg ODT] 4 mg PO Q8HP PRN #6 tab.rapdis 11/10/19 Allergies Allergy/AdvReac Type Severity Reaction Status Date / Time ibuprofen [From Motrin] Allergy Verified 07/03/19 10:51 - Worker's Comp Is this a Worker's Comp case?: No [facility] History - Hepatitis A Screen Drug use history?: No High risk sexual behaviors?: No History of sexually transmitted infection?: No Currently employed?: No Childcare worker?: No Do you have indoor plumbing?: Yes Do you have electricity?: Yes Attestation statement:: This patient has been screened for Hepatitis A risk factors. I have reviewed the patient's past medical history: Yes 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: Denies:: Cancer, Diabetes Mellitus Type 1, Diabetes Mellitus Type 2, Hypertension, MRSA Comment: pneumothorax 2x Other Surgeries: Yes: Other Amputation: No Fractures: No Comment: pneumothorax x2 - Social History Smoking Status: Current every day smoker Tobacco Type: cigarettes # Packs/Day (cigarettes): 1 Alcohol Intake: never
[2019-11-10 15:37] VITALS: BP 119/74; PULSE 61; RESP 14; TEMP 36.9; O2SAT 99
== END 2019-11-10 15:42 | disposition home or self-care (01) ==
PROVIDERS: Emergency Provider Nurse Practitioner; PCP Emergency Medicine
DX: R11.2 Nausea with vomiting, unspecified (principal); F17.210 Nicotine dependence, cigarettes, uncomplicated; F12.90 Cannabis use, unspecified, uncomplicated; Z88.6 Allergy status to analgesic agent
CPT/HCPCS: 99201

== ENCOUNTER 2019-11-19 16:46 | Emergency (ER) | payer MEDICAID, SELFPAY ==
--- NOTE | 2019-11-19 16:42 | ECG_ITS ---
APPROVED REPORT Exam: Resting ECG HR:87 bpm ECG Measurements Heart Rate 87 AXES MO 170 P 73 QRSd 82 QRS 74 QT 342 T 60 QTc 411 <Conclusion> Normal sinus rhythm with sinus arrhythmia Normal ECG Electronically signed by : Jose Draper, 11/21/2019 07:01:30
[2019-11-19 16:46] VITALS: BP 150/88; PULSE 97; RESP 18; O2SAT 97; BMI 21.1
--- NOTE | 2019-11-19 16:51 | XR_ITS ---
PROCEDURE: XR CHEST 2V CLINICAL HISTORY: shoulder pain Right-sided chest pain radiating into the shoulder, history of pneumothorax COMPARISON: CR XR CHEST 2V from 07/03/[address] ANGIO CHEST from 07/12/2019 CR XR CHEST 2V from 07/12/2019 CR XR CHEST PORTABLE from 10/26/2019 FINDINGS: The cardiomediastinal silhouette and pulmonary vascularity are within normal limits. The lungs are clear without infiltrates, suspicious nodules, or pleural effusions. No evidence of pneumothorax. No acute bony abnormalities. IMPRESSION: No acute findings. Dictated by: Fortunato Sparks MD 11/20/2019 06:45 Fortunato Sparks MD in [place] 11/20/2019 06:45
--- NOTE | 2019-11-19 16:54 | HMH.EDGENADL ---
ED Disposition Clinical Impression: Non-cardiac chest pain Disposition: Home, Self-Care Condition on Discharge: Good Instructions: How to Measure Pain-Adult Additional Instructions: You were seen on an emergency basis. It is very important that you follow up with your primary care provider and/or specialist as we discussed within 2 days. All labs and imaging were obtained and interpreted here to rule out life threatening emergencies, but your final results should be reviewed by your primary doctor at your follow up appointment. Please return to the emergency department if any of your symptoms worsen, or if they do not improve as we discussed. Referrals: Gray Sharp MD [Primary Care Provider] - - Critical Care Critical Care Time: No Attestation: On 11/19/19, the high probability of a clinically significant, sudden or life threatening deterioration of the following system(s) required my full and direct attention, intervention and personal management. The time I documented below is in addition to time spent performing reported procedures but includes the following listed in this critical care notation. Medical Decision Making - Chinmay Inquiry Pt receiving controlled substance: No Vital Signs: 11/19/19 16:46 11/19/19 17:26 11/19/19 17:53 Pulse Rate [Radial] 97 H 77 69 Respiratory Rate 18 Blood Pressure [Right Arm] 150/88 H 123/66 Blood Pressure Mean [Right Arm] 108 85 Blood Pressure Source [Right Arm] Automatic Cuff Automatic Cuff Blood Pressure Position [Right Arm] Sitting Sitting 02 Sat by Pulse Oximetry 97 97 97 Oxygen Delivery Method Room Air Non-Rebreather Room Air 11/19/19 18:31 Pulse Rate [Radial] 69 Respiratory Rate Blood Pressure [Right Arm] 121/66 Blood Pressure Mean [Right Arm] 84 Blood Pressure Source [Right Arm] Automatic Cuff Blood Pressure Position [Right Arm] Sitting 02 Sat by Pulse Oximetry 97 Oxygen Delivery Method - Lab Data Lab Results 11/19/19 16:50: WBC 7.5, RBC 5.14, Hgb 15.7, Hct 44.8, MCV 87.1, MCH 30.6, MCHC 35.2, RDW 12.6, Plt Count 204, MPV 7.0 L, Neut % (Auto) 65.7, Lymph % (Auto) 25.3, [place] % (Auto) 7.4, Eos % (Auto) 1.2, Baso % (Auto) 0.4, Neut # (Auto) 4.9, Lymph # (Auto) 1.9, [place] # (Auto) 0.6, Eos # (Auto) 0.1, Baso # (Auto) 0.0 11/19/19 16:50: Sodium 142, Potassium 3.5, Chloride 103, Carbon Dioxide 28, Anion Gap 14.5, BUN 11, Creatinine 0.80, Estimated Creat Clear 135, Estimated GFR 123, Est GFR ( Amer) 149, Glucose 103 H, Calcium 9.8, Total Bilirubin 0.6, AST 24, ALT 17, Alkaline Phosphatase 56, Total Protein 8.1, Albumin 4.9, Globulin 3.2, Albumin/Globulin Ratio 1.5 Result diagrams: 11/19/19 16:50 11/19/19 16:50 Orders (Tests/Meds): ED MEDICATIONS Discontinued Medications Generic Name Dose Route Start Last Admin Trade Name Freq PRN Reason Stop Dose Admin Hydrocodone Bitart/Acetaminophen 1 tab 11/19/19 16:52 11/19/19 16:56 [place] 5/325mg Tablet PO 11/19/19 16:53 1 tab ONCE ONE Administration ORDERS Category Date Time Status Chest XR 2 view (NOT portable) [XR chest 2V] Stat Exams 11/19/19 16:51 Taken Medical Decision Narrative: 19-year-old male with history of multiple pneumothoraces in the past presenting with right chest pain. Nontoxic, afebrile, hemodynamically stable, oxygenating well on room air, atraumatic. Bedside ultrasound by me was negative for pneumothorax. 2 views of the chest were likewise negative for pneumothorax and acute disease. CBC and CMP are nonactionable. Patient had symptomatic relief with 5 mg of oral [place]. Will follow up with PCP. General Adult HPI - General Chief complaint: PAIN Stated complaint: pain Time Seen by Provider: 11/19/19 16:54 Mode of Arrival: Ambulatory Limitations: No Limitations Description of Symptoms (Recalled from ER Triage Doc. by RN): right shoulder pain x 2 days. History of spontaneous pneumothorax. - History of Present Illness HPI narrative: This
[2019-11-19 17:04] LABS: Basophils % 0.4 % (0.1-2.0); Chloride 103 mmol/L (98-107); Eosinophils # 0.1 K/mm3 (0.0-0.4); Eosinophils % 1.2 % (0.1-12.0); Hematocrit 44.8 % (42.0-52.0); Hemoglobin 15.7 g/dL (14.1-18.0); Lymphocytes # 1.9 K/mm3 (0.7-4.5); Lymphocytes % 25.3 % (10-50); Mean Corpuscular HGB Conc 35.2 g/dL (31.8-35.4); Mean Corpuscular Hemoglobin 30.6 pg (27.0-31.2); Mean Corpuscular Volume 87.1 fl (80-94); Monocytes # 0.6 K/mm3 (0.1-1.0); Monocytes % 7.4 % (1.7-9.3); Neutrophils # 4.9 K/mm3 (1.8-7.8); Neutrophils % 65.7 % (37.0-80.0); Platelet Count 204 K/mm3 (142-424); Red Blood Count 5.14 M/mm3 (4.60-6.20); Red Cell Distribution Width 12.6 % (11.5-17.5); Sodium 142 mmol/L (136-145); White Blood Count 7.5 K/mm3 (4.5-13.0)
[2019-11-19 17:05] LABS: Potassium 3.5 mmoL/L (3.5-5.1)
[2019-11-19 17:07] LABS: Alanine Aminotransferase 17 U/L (12-78); Albumin Level 4.9 g/dl (3.5-5.0); Albumin/Globulin Ratio 1.5 (1.1-1.8); Alkaline Phosphatase 56 U/L (38-126); Anion Gap 14.5 mEq/L (5-15); Aspartate Amino Transferase 24 U/L (17-59); Bilirubin,Total 0.6 mg/dl (0.2-1.3); Blood Urea Nitrogen 11 mg/dl (9-20); Carbon Dioxide 28 mmol/L (22.0-30.0); Creatinine Clearance Estimated 135 mL/min (50-200); Estimated Glomerular Filt Rate 123 ml/min (>60); GFR (African American) 149 ML/MIN (>60); Globulin 3.2 g/dL (1.3-3.2); Total Protein,Serum 8.1 g/dl (6.3-8.2)
[2019-11-19 17:08] LABS: Calcium 9.8 mg/dl (8.4-10.2); Glucose 103 mg/dl (74-100)
--- NOTE | 2019-11-19 17:13 | PC.NURSE ---
Pt to rad.
--- NOTE | 2019-11-19 17:15 | PC.NURSE ---
Pt returned from rad.
[2019-11-19 17:26] VITALS: PULSE 77; O2SAT 97
[2019-11-19 17:53] VITALS: BP 123/66; PULSE 69; O2SAT 97
[2019-11-19 18:31] VITALS: BP 121/66; PULSE 69; O2SAT 97
[2019-11-19 19:36] VITALS: BP 136/65; PULSE 65; RESP 16; TEMP 36.9; O2SAT 98
== END 2019-11-19 19:36 | disposition home or self-care (01) ==
PROVIDERS: Emergency Provider Physician Assistant; PCP Emergency Medicine
DX: R07.89 Other chest pain (principal); M25.511 Pain in right shoulder; F17.290 Nicotine dependence, other tobacco product, uncomplicated
CPT/HCPCS: 71046; 80053; 85025; 93005; 99283

== ENCOUNTER 2019-12-18 20:23 | Emergency (ER) | payer MEDICAID, SELFPAY ==
--- NOTE | 2019-12-18 20:20 | ECG_ITS ---
APPROVED REPORT Exam: Resting ECG HR:82 bpm ECG Measurements Heart Rate 82 AXES [place] 170 P 66 QRSd 88 QRS 86 QT 356 T 40 QTc 415 <Conclusion> Normal sinus rhythm with sinus arrhythmia Normal ECG Electronically signed by : Jose Draper, 12/19/2019 06:23:46
[2019-12-18 20:23] VITALS: BP 145/79; PULSE 94; RESP 15; TEMP 36.8; O2SAT 98; BMI 19.5
--- NOTE | 2019-12-18 20:28 | XR_ITS ---
PROCEDURE: XR CHEST 2V CLINICAL HISTORY: chest pain COMPARISON: CT CT ANGIO CHEST from 07/12/2019 CR XR CHEST 2V from 07/12/2019 CR XR CHEST PORTABLE from 10/26/2019 CR XR CHEST 2V from 11/19/2019 FINDINGS: The cardiomediastinal silhouette and pulmonary vascularity are within normal limits. The lungs are clear without infiltrates, suspicious nodules, or pleural effusions. No acute bony abnormalities. IMPRESSION: No acute findings. Dictated by: Fortunato Sparks MD 12/19/2019 06:04 Fortunato Sparks MD in [place] 12/19/2019 06:04
--- NOTE | 2019-12-18 20:32 | PC.NURSE ---
patient to xray
--- NOTE | 2019-12-18 20:33 | PC.NURSE ---
pt back from xray
[2019-12-18 20:38] LABS: Basophils % 0.3 % (0.1-2.0); Eosinophils # 0.1 K/mm3 (0.0-0.4); Eosinophils % 0.7 % (0.1-12.0); Hematocrit 43.6 % (42.0-52.0); Hemoglobin 15.3 g/dL (14.1-18.0); Lymphocytes # 3.3 K/mm3 (0.7-4.5); Lymphocytes % 28.2 % (10-50); Mean Corpuscular HGB Conc 35.2 g/dL (31.8-35.4); Mean Corpuscular Hemoglobin 30.4 pg (27.0-31.2); Mean Corpuscular Volume 86.3 fl (80-94); Mean Platelet Volume 6.6 fl (7.4-10.4); Monocytes # 0.9 K/mm3 (0.1-1.0); Monocytes % 7.6 % (1.7-9.3); Neutrophils # 7.4 K/mm3 (1.8-7.8); Neutrophils % 63.2 % (37.0-80.0); Platelet Count 221 K/mm3 (142-424); Red Blood Count 5.05 M/mm3 (4.60-6.20); Red Cell Distribution Width 12.8 % (11.5-17.5); White Blood Count 11.7 K/mm3 (4.5-13.0)
[2019-12-18 20:39] LABS: Chloride 102 mmol/L (98-107)
[2019-12-18 20:40] LABS: Sodium 142 mmol/L (136-145)
[2019-12-18 20:42] LABS: Blood Urea Nitrogen 8 mg/dl (9-20); Creatinine Clearance Estimated 132 mL/min (50-200); Estimated Glomerular Filt Rate 123 ml/min (>60); GFR (African American) 149 ML/MIN (>60)
[2019-12-18 20:43] LABS: Anion Gap 12.9 mEq/L (5-15); Calcium 9.5 mg/dl (8.4-10.2); Carbon Dioxide 30 mmol/L (22.0-30.0); Glucose 112 mg/dl (74-100)
[2019-12-18 20:44] LABS: Potassium 2.9 mmoL/L (3.5-5.1)
--- NOTE | 2019-12-18 20:45 | HMH.EDGENADL ---
ED Disposition Clinical Impression: Hypokalemia Disposition: Home, Self-Care Condition on Discharge: Good Referrals: Gray Sharp MD [Primary Care Provider] - - Critical Care Critical Care Time: No Attestation: On 12/18/19, the high probability of a clinically significant, sudden or life threatening deterioration of the following system(s) required my full and direct attention, intervention and personal management. The time I documented below is in addition to time spent performing reported procedures but includes the following listed in this critical care notation. Medical Decision Making - Medical Records Medical records reviewed: Yes: I reviewed the patient's medical records. - Chinmay Inquiry Pt receiving controlled substance: No Vital Signs: 12/18/19 20:23 12/18/19 20:53 12/18/19 21:32 Temperature 98.3 F Temperature Source Oral Pulse Rate [Right Brachial] 94 H 72 73 Respiratory Rate 15 16 Blood Pressure [Right Arm] 145/79 H 123/69 120/57 L Blood Pressure Mean [Right Arm] 101 87 78 Blood Pressure Source [Right Arm] Automatic Cuff Automatic Cuff Blood Pressure Position [Right Arm] Sitting 02 Sat by Pulse Oximetry 98 96 98 Oxygen Delivery Method Room Air Room Air 12/18/19 22:30 Temperature Temperature Source Pulse Rate [Right Brachial] 70 Respiratory Rate 16 Blood Pressure [Right Arm] 110/63 Blood Pressure Mean [Right Arm] 78 Blood Pressure Source [Right Arm] Automatic Cuff Blood Pressure Position [Right Arm] Sitting 02 Sat by Pulse Oximetry 98 Oxygen Delivery Method Room Air - Lab Data Lab Results 12/18/19 20:25: WBC 11.7, RBC 5.05, Hgb 15.3, Hct 43.6, MCV 86.3, MCH 30.4, MCHC 35.2, RDW 12.8, Plt Count 221, MPV 6.6 L, Neut % (Auto) 63.2, Lymph % (Auto) 28.2, [place] % (Auto) 7.6, Eos % (Auto) 0.7, Baso % (Auto) 0.3, Neut # (Auto) 7.4, Lymph # (Auto) 3.3, [place] # (Auto) 0.9, Eos # (Auto) 0.1, Baso # (Auto) 0.0 12/18/19 20:25: Sodium 142, Potassium 2.9 L*, Chloride 102, Carbon Dioxide 30, Anion Gap 12.9, BUN 8 L, Creatinine 0.80, Estimated Creat Clear 132, Estimated GFR 123, Est GFR ( Amer) 149, Glucose 112 H, Calcium 9.5 12/18/19 20:25: Troponin I < 0.01 Result diagrams: 12/18/19 20:25 12/18/19 20:25 Orders (Tests/Meds): ED MEDICATIONS Discontinued Medications Generic Name Dose Route Start Last Admin Trade Name Yesi PRN Reason Stop Dose Admin Acetaminophen 1,000 mg 12/18/19 21:47 12/18/19 21:49 Tylenol 500mg Tablet PO 12/18/19 21:48 1,000 mg ONCE ONE Administration Magnesium Sulfate 2 gm/ Sodium 104 mls @ 100 mls/hr 12/18/19 21:04 12/18/19 21:14 Chloride IV 12/18/19 22:06 100 mls/hr ONCE ONE Administration Potassium Chloride 40 meq 12/18/19 21:03 12/18/19 21:14 Klor-Con 10meq Tablet PO 12/18/19 21:04 40 meq ONCE ONE Administration ORDERS Category Date Time Status XR chest 2V Stat Exams 12/18/19 20:28 Taken ECG Request by /Nse Stat Y 12/18/19 20:27 Ordered Medical Decision Narrative: 19-year-old male past medical history of pneumothorax presenting for right-sided chest pain after lifting furniture. Patient's pain is no musculoskeletal per patient. Patient has full range of motion of 6 extremities, she will EKG demonstrating [place] depressions in inferior and anterior leads with U wave in anteroseptal leads, upright, nonpathologic, likely related hypokalemia. Labs demonstrating potassium of 2.9, normal creatinine, normal bicarb and chloride, no concern for ongoing acidosis or alkalosis at this time. Patient not had any vomiting or diarrhea. Patient was given potassium, and magnesium supplements in the ER, patient will need to follow-up with his primary care doctor for further work-up. Other blood work nonactionable. Ultrasound demonstrating no pneumothorax. At this point, the exact cause of the patient's current symptom complex is unknown. At the present time, I doubt pulmonary embolus secondary to the lack of tachy
[2019-12-18 20:53] VITALS: BP 123/69; PULSE 72; O2SAT 96
--- NOTE | 2019-12-18 21:11 | PC.NURSE ---
Pt voiced no needs at this time, sitting up in bed resting
[2019-12-18 21:32] VITALS: BP 120/57; PULSE 73; RESP 16; O2SAT 98
[2019-12-18 22:30] VITALS: BP 110/63; PULSE 70; RESP 16; O2SAT 98
[2019-12-18 22:32] LABS: Troponin I < 0.01 ng/ml (0.00-0.034)
[2019-12-18 22:52] VITALS: BP 110/63; PULSE 63; RESP 18; TEMP 36.9; O2SAT 98
== END 2019-12-18 22:58 | disposition home or self-care (01) ==
PROVIDERS: Emergency Provider Emergency Medicine; PCP Emergency Medicine
DX: R07.9 Chest pain, unspecified (principal); E87.6 Hypokalemia; F12.10 Cannabis abuse, uncomplicated; F17.290 Nicotine dependence, other tobacco product, uncomplicated
CPT/HCPCS: 71046; 80048; 84484; 85025; 93005; 96365; 99284

== ENCOUNTER 2019-12-20 18:48 | Emergency (ER) | payer MEDICAID, SELFPAY ==
[2019-12-20 18:49] VITALS: BP 156/88; PULSE 108; RESP 20; TEMP 36.9; O2SAT 99; BMI 20.2
--- NOTE | 2019-12-20 18:52 | XR_ITS ---
PROCEDURE: XR CHEST 2V CLINICAL HISTORY: chest pain, palpitations COMPARISON: CT CT ANGIO CHEST from 07/12/2019 CR XR CHEST PORTABLE from 10/26/2019 CR XR CHEST 2V from 11/19/2019 CR XR CHEST 2V from 12/18/2019 FINDINGS: The cardiomediastinal silhouette and pulmonary vascularity are within normal limits. The lungs are clear without infiltrates, suspicious nodules, or pleural effusions. No acute bony abnormalities. IMPRESSION: No acute findings. Dictated by: Fortunato Sparks MD 12/20/2019 21:45 Fortunato Sparks MD in [place] 12/20/2019 21:45
--- NOTE | 2019-12-20 18:52 | ECG_ITS ---
APPROVED REPORT Exam: Resting ECG HR:87 bpm ECG Measurements Heart Rate 87 AXES NM 170 P 69 QRSd 84 QRS 69 QT 342 T 44 QTc 411 <Conclusion> Normal sinus rhythm RSR' or QR pattern in V1 suggests right ventricular conduction delay Borderline ECG Electronically signed by : Jose Draper, 12/21/2019 15:39:02
[2019-12-20 19:02] LABS: Microscopic, Urine URINE MICROSCOPIC (MICROSCOPIC)
[2019-12-20 19:05] LABS: Basophils % 0.4 % (0.1-2.0); Eosinophils # 0.1 K/mm3 (0.0-0.4); Eosinophils % 0.8 % (0.1-12.0); Hematocrit 44.8 % (42.0-52.0); Hemoglobin 15.8 g/dL (14.1-18.0); Lymphocytes # 2.9 K/mm3 (0.7-4.5); Lymphocytes % 27.8 % (10-50); Mean Corpuscular HGB Conc 35.3 g/dL (31.8-35.4); Mean Corpuscular Hemoglobin 30.6 pg (27.0-31.2); Mean Corpuscular Volume 86.7 fl (80-94); Mean Platelet Volume 6.7 fl (7.4-10.4); Monocytes # 0.7 K/mm3 (0.1-1.0); Monocytes % 6.2 % (1.7-9.3); Neutrophils # 6.8 K/mm3 (1.8-7.8); Neutrophils % 64.8 % (37.0-80.0); Platelet Count 225 K/mm3 (142-424); Red Blood Count 5.17 M/mm3 (4.60-6.20); Red Cell Distribution Width 12.9 % (11.5-17.5); White Blood Count 10.6 K/mm3 (4.5-13.0)
[2019-12-20 19:06] LABS: Appearance,Urine CLEAR (Clear); Bilirubin,Urine Negative (Negative); Blood, Urine Negative (Negative); Color,Urine YELLOW (Yellow); Glucose,Urine (UA) Negative (Negative); Ketones,Urine Negative (Negative); Leukocyte Esterase,Urine Negative (Negative); Nitrate,Urine Negative (Negative); Protein,Urine Negative (Negative)
--- NOTE | 2019-12-20 19:07 | PC.NURSE ---
received report from day nurse
[2019-12-20 19:14] LABS: Alanine Aminotransferase 17 U/L (12-78); Albumin Level 5.2 g/dl (3.5-5.0); Albumin/Globulin Ratio 1.5 (1.1-1.8); Alkaline Phosphatase 68 U/L (38-126); Anion Gap 14.1 mEq/L (5-15); Aspartate Amino Transferase 33 U/L (17-59); Bilirubin,Total 0.6 mg/dl (0.2-1.3); Blood Urea Nitrogen 13 mg/dl (9-20); Carbon Dioxide 29 mmol/L (22.0-30.0); Chloride 101 mmol/L (98-107); Creatinine Clearance Estimated 137 mL/min (50-200); Estimated Glomerular Filt Rate 123 ml/min (>60); GFR (African American) 149 ML/MIN (>60); Globulin 3.5 g/dL (1.3-3.2); Glucose 111 mg/dl (74-100); Potassium 3.1 mmoL/L (3.5-5.1); Sodium 141 mmol/L (136-145); Total Protein,Serum 8.7 g/dl (6.3-8.2)
[2019-12-20 19:16] LABS: Barbiturates Screen,Urine Negative ng/ml (<200)
[2019-12-20 19:17] LABS: Amorphous Sediment,Urine 2+ /lpf; Benzodiazepines Screen,Urine Negative ng/ml (<200); Squamous Epithelial Cell,Urine Occasional #/hpf (0-5); WBC,Urine Occasional #/hpf (0-3)
[2019-12-20 19:18] LABS: Amphetamine/Metha Screen,Urine Negative ng/ml (<1000); Cannabinoid Screen,Urine Positive ng/ml (<50)
[2019-12-20 19:19] LABS: C-Reactive Protein 0.4 mg/L (0-4); Cocaine Screen,Urine Negative ng/ml (<300)
[2019-12-20 19:20] LABS: Methadone Screen,Urine Negative ng/ml (<300); Opiate Screen,Urine Negative ng/ml (<300)
[2019-12-20 19:21] LABS: Phencyclidine Screen,Urine Negative ng/ml (<25)
[2019-12-20 19:30] LABS: Troponin I < 0.01 ng/ml (0.00-0.034)
[2019-12-20 19:33] LABS: Free T4 (Free Thyroxine) 1.08 ng/dl (0.78-2.19)
[2019-12-20 19:35] VITALS: BP 124/71; PULSE 86; RESP 18; O2SAT 97
[2019-12-20 19:40] LABS: Erythrocyte Sedimentation Rate 3 mm/hr (0-15)
[2019-12-20 19:46] LABS: Thyroid Stimulating Hormone 3.36 uIU/mL (0.465-4.68)
--- NOTE | 2019-12-20 19:50 | HMH.EDGENADL ---
ED Disposition Clinical Impression: Hypokalemia Chest pain Qualifiers: Chest pain type: chest pain on breathing Qualified Code(s): R07.1 - Chest pain on breathing Disposition: Still a Patient Condition on Discharge: Good Instructions: DI for Atypical Chest Pain, DI for Hypokalemia Additional Instructions: Additional instructions for CHEST PAIN: See your physician as soon as possible for further evaluation. Return immediately if worsening chest pain, vomiting, shortness of breath, fever, coughing of blood. Prescriptions: Potassium Chloride [K-Tab ER 20 mEq] 20 meq PO DAILY #7 tab Transmission Status: Received by [facility] Referrals: PCP,No [Primary Care Provider] - - Critical Care Critical Care Time: No Attestation: On 12/20/19, the high probability of a clinically significant, sudden or life threatening deterioration of the following system(s) required my full and direct attention, intervention and personal management. The time I documented below is in addition to time spent performing reported procedures but includes the following listed in this critical care notation. Medical Decision Making - Chinmay Inquiry Pt receiving controlled substance: No Vital Signs: 12/20/19 18:49 12/20/19 19:35 12/20/19 20:05 Temperature 98.5 F Temperature Source Oral Pulse Rate [Right Radial] 108 H 86 73 Respiratory Rate 20 18 18 Blood Pressure [Right Arm] 156/88 H 124/71 134/71 Blood Pressure Mean [Right Arm] 110 88 92 02 Sat by Pulse Oximetry 99 97 95 Oxygen Delivery Method Room Air Room Air Room Air - Lab Data Lab Results 12/20/19 18:55: Urine Color Yellow, Urine Appearance Clear, Urine pH 7.0, Ur Specific [place] 1.020, Urine Protein Negative, Urine Glucose (UA) Negative, Urine Ketones Negative, Urine Blood Negative, Urine Nitrate Negative, Urine Bilirubin Negative, Urine Urobilinogen 1.0, Ur Leukocyte Esterase Negative, Urine WBC Occasional, Ur Squamous Epith Cells Occasional, Amorphous Sediment 2+ 12/20/19 18:55: WBC 10.6, RBC 5.17, Hgb 15.8, Hct 44.8, MCV 86.7, MCH 30.6, MCHC 35.3, RDW 12.9, Plt Count 225, MPV 6.7 L, Neut % (Auto) 64.8, Lymph % (Auto) 27.8, [place] % (Auto) 6.2, Eos % (Auto) 0.8, Baso % (Auto) 0.4, Neut # (Auto) 6.8, Lymph # (Auto) 2.9, [place] # (Auto) 0.7, Eos # (Auto) 0.1, Baso # (Auto) 0.0, ESR 3 12/20/19 18:55: Sodium 141, Potassium 3.1 L, Chloride 101, Carbon Dioxide 29, Anion Gap 14.1, BUN 13 D, Creatinine 0.80, Estimated Creat Clear 137, Estimated GFR 123, Est GFR ( Amer) 149, Glucose 111 H, Calcium 10.0, Total Bilirubin 0.6, AST 33, ALT 17, Alkaline Phosphatase 68, Troponin I < 0.01, C-Reactive Protein 0.4, Total Protein 8.7 H, Albumin 5.2 H, Globulin 3.5 H, Albumin/Globulin Ratio 1.5, TSH 3.36 12/20/19 18:55: Free T4 1.08 12/20/19 18:55: Urine Opiates Screen Negative, Urine Methadone Screen Negative, Ur Barbituates Screen Negative, Ur Phencyclidine Scrn Negative, Ur Amphetamines Screen Negative, U Benzodiazepines Scrn Negative, Urine Cocaine Screen Negative, U Marijuana (THC) Screen Positive H Result diagrams: 12/20/19 18:55 12/20/19 18:55 Orders (Tests/Meds): ED MEDICATIONS Discontinued Medications Generic Name Dose Route Start Last Admin Trade Name Freq PRN Reason Stop Dose Admin Potassium Chloride 40 meq 12/20/19 20:00 12/20/19 20:06 Klor-Con 20meq Tablet PO 12/20/19 20:01 40 meq ONCE ONE Administration ORDERS Category Date Time Status XR chest 2V Stat Exams 12/20/19 18:52 Taken D-Dimer Stat Lab 12/20/19 18:55 Received Troponin I Q3H Lab 12/20/19 22:00 Ordered Troponin I Q3H Lab 12/21/19 01:00 Ordered - Radiology Data #1 Image(s): Chest Image Reviewed: Yes I reviewed the patient's radiology image Chest x-ray: No infiltrate, pneumothorax, pleural effusion, or wide mediastinum. - ECG Data Tracing #1 EKG interpreted by Vivek Saba MD: Rhythm: sinus Rate: 87 [place]: normal Ectopy: none Condu
[2019-12-20 20:05] VITALS: BP 134/71; PULSE 73; RESP 18; O2SAT 95
[2019-12-20 20:12] LABS: D-Dimer 0.55 ug/mL (0.15-8.0)
[2019-12-20 20:25] VITALS: BP 134/81; PULSE 88; RESP 18; TEMP 36.9; O2SAT 95
== END 2019-12-20 20:26 | disposition still patient (30) ==
PROVIDERS: Emergency Provider Emergency Medicine
DX: R07.9 Chest pain, unspecified (principal); E87.6 Hypokalemia; F12.10 Cannabis abuse, uncomplicated; F17.290 Nicotine dependence, other tobacco product, uncomplicated
CPT/HCPCS: 71046; 80053; 80305; 81001; 84439; 84443; 84484; 85025; 85378; 85651; 86140; 93005; 99284

== ENCOUNTER 2020-01-17 14:08 | Emergency (ER) | payer MEDICAID, SELFPAY ==
--- NOTE | 2020-01-17 14:06 | ECG_ITS ---
APPROVED REPORT Exam: Resting ECG HR:113 bpm ECG Measurements Heart Rate 113 AXES [place] 194 P 77 QRSd 86 QRS 78 QT 322 T 62 QTc 441 Conclusion Sinus tachycardia Otherwise normal ECG Electronically signed by : Tonny Cool, 01/22/2020 11:34:22
[2020-01-17 14:08] VITALS: BP 126/79; PULSE 122; RESP 17; TEMP 36.8; O2SAT 99; BMI 21.4
--- NOTE | 2020-01-17 14:19 | XR_ITS ---
PROCEDURE: XR CHEST PORTABLE CLINICAL HISTORY: cough COMPARISON: CT CT ANGIO CHEST from 07/12/2019 CR XR CHEST 2V from 11/19/2019 CR XR CHEST 2V from 12/18/2019 CR XR CHEST 2V from 12/20/2019 FINDINGS: The cardiomediastinal silhouette and pulmonary vascularity are within normal limits. The lungs are clear without infiltrates, suspicious nodules, or pleural effusions. The upper lung chambers are somewhat hyperlucent but there is no pneumothorax seen. No acute bony abnormalities. IMPRESSION: No acute findings. Dictated by: Dr. Sukumar Matta MD 01/17/2020 14:45 Dr. Sukumar Matta MD in [place] 01/17/2020 14:45
--- NOTE | 2020-01-17 14:29 | HMH.EDCP ---
ED Disposition Clinical Impression: Nonspecific chest pain Disposition: Home, Self-Care Condition on Discharge: Good Instructions: DI for Atypical Chest Pain Referrals: PCP,No [Primary Care Provider] - Gray Sharp MD [Staff Physician] - - Critical Care Critical Care Time: No Attestation: On , the high probability of a clinically significant, sudden or life threatening deterioration of the following system(s) required my full and direct attention, intervention and personal management. The time I documented below is in addition to time spent performing reported procedures but includes the following listed in this critical care notation. Medical Decision Making - Medical Records Medical records reviewed: Yes: I reviewed the patient's medical records. - Chinmay Inquiry Pt receiving controlled substance: No Vital Signs: 01/17/20 14:08 Temperature 98.2 F Temperature Source Oral Pulse Rate [Right Radial] 122 H Respiratory Rate 17 Blood Pressure [Right Arm] 126/79 Blood Pressure Mean [Right Arm] 94 02 Sat by Pulse Oximetry 99 Oxygen Delivery Method Room Air - Lab Data Lab Results 01/17/20 14:31: WBC 10.1, RBC 5.18, Hgb 15.1, Hct 45.2, MCV 87.3, MCH 29.1, MCHC 33.3, RDW 13.0, Plt Count 207, MPV 7.1 L, Neut % (Auto) 84.3 H, Lymph % (Auto) 12.1, [place] % (Auto) 3.4, Eos % (Auto) 0.1, Baso % (Auto) 0.1, Neut # (Auto) 8.5 H, Lymph # (Auto) 1.2, [place] # (Auto) 0.3, Eos # (Auto) 0.0, Baso # (Auto) 0.0 01/17/20 14:31: Sodium 141, Potassium 3.7, Chloride 104, Carbon Dioxide 27, Anion Gap 13.7, BUN 8 L, Creatinine 0.80, Estimated Creat Clear 133, Estimated GFR 123, Est GFR ( Amer) 149, Glucose 108 H, Calcium 10.0, Total Bilirubin 0.6, AST 26, ALT 15, Alkaline Phosphatase 69, Troponin I < 0.01, Total Protein 8.0, Albumin 5.1 H, Globulin 2.9, Albumin/Globulin Ratio 1.8, Lipase 48 Result diagrams: 01/17/20 14:31 01/17/20 14:31 Orders (Tests/Meds): ED MEDICATIONS Generic Name Dose Route Start Last Admin Trade Name Freq PRN Reason Stop Dose Admin Sodium Chloride 1,000 mls @ 999 mls/hr 01/17/20 14:30 01/17/20 14:23 Sod Chlor 0.9% 1000ml Bag IV 01/17/20 15:30 999 mls/hr .Q1H1M XIOMARA Administration Discontinued Medications Generic Name Dose Route Start Last Admin Trade Name Freq PRN Reason Stop Dose Admin Ondansetron HCl 4 mg 01/17/20 14:20 01/17/20 14:23 Ondansetron 4mg/2ml Vial IV 01/17/20 14:21 4 mg ONCE ONE Administration ORDERS Category Date Time Status Troponin I Q3H Lab 01/17/20 17:30 Ordered Troponin I Q3H Lab 01/17/20 20:30 Ordered - Radiology Data #1 Image(s): Chest Image Reviewed: Yes I reviewed the patient's radiology results, Yes I reviewed the patient's radiology image, Yes I have reviewed radiologist's interpretation Preliminary Findings: Normal/NAD - ECG Data Tracing #1 ECG initial impression date: 01/17/20 ECG initial impression time: 14:04 Arrhythmias present: sinus tach - Reevaluation(s) Time: 15:23 Reevaluation #1: On reevaluation, patient is feeling much better. Repeat exam is normal. Normal EKG. No significant ST changes. Patient is to follow-up with PCP. Given strict return precautions. Verbalized understanding. Chest Pain HPI - General Chief Complaint: Chest Pain Stated Complaint: CHEST PAIN/VOMITING Time Seen by Provider: 01/17/20 14:10 Mode of Arrival: Ambulatory Limitations: No Limitations Description of Symptoms (Recalled from ER Triage Doc. by RN): PT PRESENTS TO ED WITH C/O CHEST PAIN AND VOMITING. PT HAS HX SPONTANEOUS PNEUMOTHORAX. - History of Present Illness HPI narrative: Is a 19-year-old male presented to the emergency department with chest discomfort. The patient has a chronic history of chest pain. He is a person that has had spontaneous pneumothoraces in the past. Patient states that he frequently gets chest pain from time to time. He was at work today when he had some chest discomfort an
[2020-01-17 14:47] LABS: Basophils % 0.1 % (0.1-2.0); Eosinophils % 0.1 % (0.1-12.0); Hematocrit 45.2 % (42.0-52.0); Hemoglobin 15.1 g/dL (14.1-18.0); Lymphocytes # 1.2 K/mm3 (0.7-4.5); Lymphocytes % 12.1 % (10-50); Mean Corpuscular HGB Conc 33.3 g/dL (31.8-35.4); Mean Corpuscular Hemoglobin 29.1 pg (27.0-31.2); Mean Corpuscular Volume 87.3 fl (80-94); Mean Platelet Volume 7.1 fl (7.4-10.4); Monocytes # 0.3 K/mm3 (0.1-1.0); Monocytes % 3.4 % (1.7-9.3); Neutrophils # 8.5 K/mm3 (1.8-7.8); Neutrophils % 84.3 % (37.0-80.0); Platelet Count 207 K/mm3 (142-424); Red Blood Count 5.18 M/mm3 (4.60-6.20); White Blood Count 10.1 K/mm3 (4.5-13.0)
[2020-01-17 14:52] LABS: Alanine Aminotransferase 15 U/L (12-78); Albumin Level 5.1 g/dl (3.5-5.0); Albumin/Globulin Ratio 1.8 (1.1-1.8); Alkaline Phosphatase 69 U/L (38-126); Anion Gap 13.7 mEq/L (5-15); Aspartate Amino Transferase 26 U/L (17-59); Bilirubin,Total 0.6 mg/dl (0.2-1.3); Blood Urea Nitrogen 8 mg/dl (9-20); Carbon Dioxide 27 mmol/L (22.0-30.0); Chloride 104 mmol/L (98-107); Creatinine Clearance Estimated 133 mL/min (50-200); Estimated Glomerular Filt Rate 123 ml/min (>60); GFR (African American) 149 ML/MIN (>60); Globulin 2.9 g/dL (1.3-3.2); Glucose 108 mg/dl (74-100); Lipase 48 U/L (23-300); Potassium 3.7 mmoL/L (3.5-5.1); Sodium 141 mmol/L (136-145)
[2020-01-17 15:06] LABS: Troponin I < 0.01 ng/ml (0.00-0.034)
[2020-01-17 15:32] VITALS: BP 116/76; PULSE 79; RESP 16; TEMP 36.8; O2SAT 99
== END 2020-01-17 15:32 | disposition home or self-care (01) ==
PROVIDERS: Emergency Provider Emergency Medicine
DX: R07.89 Other chest pain (principal); R10.13 Epigastric pain; F17.290 Nicotine dependence, other tobacco product, uncomplicated
CPT/HCPCS: 71045; 80053; 83690; 84484; 85025; 93005; 96365; 96375; 99282; J2405

== ENCOUNTER 2020-03-11 18:52 | Emergency (ER) | payer MEDICAID, SELFPAY ==
--- NOTE | 2020-03-11 18:49 | ECG_ITS ---
APPROVED REPORT Exam: Resting ECG HR:85 bpm ECG Measurements Heart Rate 85 AXES ME 164 P 79 QRSd 82 QRS 77 QT 348 T 61 QTc 414 Conclusion Normal sinus rhythm with sinus arrhythmia Normal ECG Electronically signed by : Jose Draper, 03/12/2020 07:55:04
[2020-03-11 18:52] VITALS: BP 147/91; PULSE 98; RESP 20; TEMP 37.4; O2SAT 98; BMI 19.0
--- NOTE | 2020-03-11 18:53 | HMH.EDCP ---
ED Disposition Clinical Impression: Atypical chest pain Chest pain Qualifiers: Chest pain type: pleurodynia Qualified Code(s): R07.81 - Pleurodynia Disposition: Home, Self-Care Condition on Discharge: Good Instructions: DI for Atypical Chest Pain Additional Instructions: You have been evaluated for chest pain with inspiration. Does not appear to be a pneumothorax or cardiac related problem. Please take anti-inflammatories as prescribed. Follow-up with your primary care doctor. Return to the emergency department if you have any new or worsening symptoms. Time of Disposition: 19:53 - Critical Care Critical Care Time: No Attestation: On , the high probability of a clinically significant, sudden or life threatening deterioration of the following system(s) required my full and direct attention, intervention and personal management. The time I documented below is in addition to time spent performing reported procedures but includes the following listed in this critical care notation. Medical Decision Making - Medical Records Medical records reviewed: Yes: I reviewed the patient's medical records. - Chinmay Inquiry Pt receiving controlled substance: No Vital Signs: 03/11/20 18:52 Temperature 99.3 F Temperature Source Oral Pulse Rate [Radial] 98 H Respiratory Rate 20 Blood Pressure [Right Arm] 147/91 H Blood Pressure Mean [Right Arm] 109 Blood Pressure Position [Right Arm] Sitting 02 Sat by Pulse Oximetry 98 Oxygen Delivery Method Room Air - Lab Data Lab Results 03/11/20 19:15: WBC 7.8, RBC 5.19, Hgb 15.7, Hct 44.4, MCV 85.4, MCH 30.3, MCHC 35.5 H, RDW 13.1, Plt Count 240, MPV 6.9 L, Neut % (Auto) 70.5, Lymph % (Auto) 23.0, [place] % (Auto) 5.5, Eos % (Auto) 0.6, Baso % (Auto) 0.3, Neut # (Auto) 5.5, Lymph # (Auto) 1.8, [place] # (Auto) 0.4, Eos # (Auto) 0.0, Baso # (Auto) 0.0 03/11/20 19:15: Sodium 141, Potassium 3.5, Chloride 105, Carbon Dioxide 26, BUN 5 L, Creatinine 0.70, Estimated Creat Clear 151, Estimated GFR 144, Est GFR ( Amer) 174, Glucose 113 H, Calcium 10.0, Troponin I < 0.01 Result diagrams: 03/11/20 19:15 03/11/20 19:15 Orders (Tests/Meds): ORDERS Category Date Time Status CXR 2 view (NOT portable) [XR chest 2V] Stat Exams 03/11/20 18:54 Taken BMP [Basic Metabolic Panel] Stat Lab 03/11/20 19:15 Results Trop I [Troponin I] Stat Lab 03/11/20 19:15 Results Troponin I Q3H Lab 03/11/20 22:00 Ordered Troponin I Q3H Lab 03/12/20 01:00 Ordered - ECG Data Tracing #1 Sinus rhythm with ventricular rate of 85 bpm. QRS 82, QTc 414. Sinus arrhythmia. No ST segment changes. - JEANIE Score for Non-Stemi Age of Patient: <30 years old Heart Rate: 70-89 bpm Systolic Blood Pressure: 140-159 mmHg Serum Creatinine: 0.40-0.79 mg/dl CHF [place] Class: I-No CHF Other Risk Factors: None Non-Stemi Risk Score: 37 Medical Decision Narrative: In summary this is a 19-year-old male presenting to the emergency department with chest pain, pain with inspiration. Patient clinically stable on arrival. Vital signs within normal limits. Concern for spontaneous pneumothorax, vasospasm, ACS, bronchitis. Will obtain CBC, CMP, chest x-ray, EKG, troponin profile. Chest x-ray performed immediately on patient arrival. No pneumothorax. No focal infiltrate. No other abnormality Initial laboratory results are reassuring. No elevation in troponin. No leukocytosis. EKG shows sinus rhythm with slight arrhythmia. No ST segment changes. Patient given 325mg acetaminophen. On reassessment his pain was stable. Continued to have some pain with inspiration. But no pain at rest. Pain does not radiate to the arm or jaw. Also is not described as ripping or tearing. PERC negative. Pain could be due to scar tissue. He feels comfortable going home. He was mostly worried about pneumothorax. Counseled to take anti-inflammatories. Given return precautions. Stable for discharge. Chest Pain HPI -
--- NOTE | 2020-03-11 18:54 | XR_ITS ---
PROCEDURE: XR CHEST 2V CLINICAL HISTORY: chest pain, hx of pneumothorax, chest pain, worse on inspiration, history of spontaneous pneumothorax COMPARISON: CT CT ANGIO CHEST from 07/12/2019 CR XR CHEST 2V from 12/18/2019 CR XR CHEST 2V from 12/20/2019 CR XR CHEST PORTABLE from 01/17/2020 FINDINGS: The cardiomediastinal silhouette and pulmonary vascularity are within normal limits. The lungs are clear without infiltrates, suspicious nodules, or pleural effusions. No acute bony abnormalities. IMPRESSION: No acute findings. Dictated by: Fortunato Sparks MD 03/12/2020 06:37 Fortunato Sparks MD in [place] 03/12/2020 06:37
[2020-03-11 19:10] VITALS: BP 130/77; PULSE 81; RESP 16; O2SAT 96
[2020-03-11 19:29] LABS: Basophils % 0.3 % (0.1-2.0); Chloride 105 mmol/L (98-107); Eosinophils % 0.6 % (0.1-12.0); Hematocrit 44.4 % (42.0-52.0); Hemoglobin 15.7 g/dL (14.1-18.0); Lymphocytes # 1.8 K/mm3 (0.7-4.5); Mean Corpuscular HGB Conc 35.5 g/dL (31.8-35.4); Mean Corpuscular Hemoglobin 30.3 pg (27.0-31.2); Mean Corpuscular Volume 85.4 fl (80-94); Mean Platelet Volume 6.9 fl (7.4-10.4); Monocytes # 0.4 K/mm3 (0.1-1.0); Monocytes % 5.5 % (1.7-9.3); Neutrophils # 5.5 K/mm3 (1.8-7.8); Neutrophils % 70.5 % (37.0-80.0); Platelet Count 240 K/mm3 (142-424); Red Blood Count 5.19 M/mm3 (4.60-6.20); Red Cell Distribution Width 13.1 % (11.5-17.5); White Blood Count 7.8 K/mm3 (4.5-13.0)
[2020-03-11 19:30] VITALS: BP 111/72; PULSE 71; RESP 15; O2SAT 95
[2020-03-11 19:30] LABS: Potassium 3.5 mmoL/L (3.5-5.1); Sodium 141 mmol/L (136-145)
[2020-03-11 19:32] LABS: Blood Urea Nitrogen 5 mg/dl (9-20); Creatinine Clearance Estimated 151 mL/min (50-200); Estimated Glomerular Filt Rate 144 ml/min (>60); GFR (African American) 174 ML/MIN (>60)
[2020-03-11 19:33] LABS: Glucose 113 mg/dl (74-100)
[2020-03-11 19:47] LABS: Troponin I < 0.01 ng/ml (0.00-0.034)
[2020-03-11 20:00] VITALS: BP 120/74; PULSE 79; RESP 16; O2SAT 97
[2020-03-11 20:01] LABS: Anion Gap 13.5 mEq/L (5-15); Carbon Dioxide 26 mmol/L (22.0-30.0)
[2020-03-11 20:31] VITALS: BP 128/77; PULSE 88; RESP 16; TEMP 36.7; O2SAT 97
== END 2020-03-11 20:37 | disposition home or self-care (01) ==
PROVIDERS: Emergency Provider Emergency Medicine
DX: R07.81 Pleurodynia (principal); F17.290 Nicotine dependence, other tobacco product, uncomplicated; F12.90 Cannabis use, unspecified, uncomplicated
CPT/HCPCS: 71046; 80048; 84484; 85025; 93005; 99283

== ENCOUNTER 2020-03-28 11:55 | Emergency (ER) | payer MEDICAID, SELFPAY ==
[2020-03-28 11:55] VITALS: BP 130/63; PULSE 60; RESP 16; TEMP 36.9; O2SAT 98; BMI 20.7
[2020-03-28 12:29] VITALS: BMI 20.7
--- NOTE | 2020-03-28 12:32 | CT_ITS ---
PROCEDURE: CT ABDOMEN PELVIS W CON CLINICAL INDICATION: epigastric pain Epigastric pain with vomiting COMPARISON: No exams were available for comparison TECHNIQUE: IV Contrast: 75ML Isovue 370 Oral Contrast None Axial images obtained with sagittal and coronal reformats. All CT scans at the facility use one or more dose reduction, viz: automated exposure control, ma/kV adjustment per patient size (including targeted exams where dose is matched to indication, i.e. head), or iterative reconstruction technique. FINDINGS: LOWER THORAX: No acute finding ABDOMEN & PELVIS: The liver, spleen, adrenal glands, pancreas, and kidneys have an unremarkable appearance. No intestinal obstruction or free air. There is some hyperdensity within the stomach and may be related to recent ingested medication. No renal or ureteral calculi. Unremarkable appearing appendix. Nonspecific bowel gas pattern. The seminal vesicles are prominent on both sides. No acute bony findings. IMPRESSION: 1. The seminal vesicles are enlarged on both sides which may be seen with seminal vesiculitis. 2. Otherwise negative CT abdomen and pelvis. Dictated by: Fortunato Sparks MD 03/28/2020 13:41 Fortunato Sparks MD in [place] 03/28/2020 13:41
[2020-03-28 12:42] LABS: Microscopic, Urine URINE MICROSCOPIC (MICROSCOPIC)
[2020-03-28 12:50] LABS: Basophils % 0.2 % (0.1-2.0); Eosinophils # 0.1 K/mm3 (0.0-0.4); Eosinophils % 0.4 % (0.1-12.0); Hematocrit 47.9 % (42.0-52.0); Hemoglobin 16.4 g/dL (14.1-18.0); Lymphocytes # 1.4 K/mm3 (0.7-4.5); Lymphocytes % 13.2 % (10-50); Mean Corpuscular HGB Conc 34.2 g/dL (31.8-35.4); Mean Corpuscular Volume 87.6 fl (80-94); Mean Platelet Volume 7.1 fl (7.4-10.4); Monocytes # 0.4 K/mm3 (0.1-1.0); Monocytes % 3.4 % (1.7-9.3); Neutrophils # 8.7 K/mm3 (1.8-7.8); Neutrophils % 82.7 % (37.0-80.0); Platelet Count 201 K/mm3 (142-424); Red Blood Count 5.46 M/mm3 (4.60-6.20); White Blood Count 10.5 K/mm3 (4.5-13.0)
[2020-03-28 12:55] LABS: Alanine Aminotransferase 13 U/L (12-78); Albumin Level 5.5 g/dl (3.5-5.0); Albumin/Globulin Ratio 1.5 (1.1-1.8); Alkaline Phosphatase 77 U/L (38-126); Amylase 54 U/L (30-110); Aspartate Amino Transferase 27 U/L (17-59); Bilirubin,Total 0.6 mg/dl (0.2-1.3); Blood Urea Nitrogen 9 mg/dl (9-20); Calcium 10.3 mg/dl (8.4-10.2); Carbon Dioxide 29 mmol/L (22.0-30.0); Chloride 100 mmol/L (98-107); Creatinine Clearance Estimated 132 mL/min (50-200); Estimated Glomerular Filt Rate 123 ml/min (>60); GFR (African American) 149 ML/MIN (>60); Globulin 3.6 g/dL (1.3-3.2); Glucose 107 mg/dl (74-100); Lipase 54 U/L (23-300); Sodium 140 mmol/L (136-145); Total Protein,Serum 9.1 g/dl (6.3-8.2)
[2020-03-28 13:01] LABS: Appearance,Urine CLEAR (Clear); Bilirubin,Urine Negative (Negative); Blood, Urine Negative (Negative); Color,Urine YELLOW (Yellow); Glucose,Urine (UA) Negative (Negative); Ketones,Urine Negative (Negative); Leukocyte Esterase,Urine Negative (Negative); Nitrate,Urine Negative (Negative); PH,Urine 6.5 (5.0-8.5); Protein,Urine Negative (Negative); Urobilinogen,Urine 0.2 EU/dl (0.2)
[2020-03-28 13:08] LABS: Squamous Epithelial Cell,Urine Occasional #/hpf (0-5)
--- NOTE | 2020-03-28 13:13 | PC.NURSE ---
pt taken to CT
--- NOTE | 2020-03-28 13:23 | HMH.EDNVD ---
ED Disposition Clinical Impression: Gastritis Qualifiers: Gastritis type: unspecified gastritis Chronicity: acute Gastritis bleeding: without bleeding Qualified Code(s): K29.00 - Acute gastritis without bleeding Disposition: Home, Self-Care Condition on Discharge: Good Instructions: DI for Acute Abdominal Pain Additional Instructions: see pcp for follow up and more eval Prescriptions: Pantoprazole Sodium [Protonix 40mg tablet] 40 mg PO HS #30 tab Transmission Status: Pending to [facility] Referrals: PCP,No [Primary Care Provider] - - Critical Care Critical Care Time: No Attestation: On 03/28/20, the high probability of a clinically significant, sudden or life threatening deterioration of the following system(s) required my full and direct attention, intervention and personal management. The time I documented below is in addition to time spent performing reported procedures but includes the following listed in this critical care notation. Medical Decision Making - Medical Records Medical records reviewed: Yes: I reviewed the patient's medical records. - Chinmay Inquiry Pt receiving controlled substance: No Vital Signs: 03/28/20 11:55 Temperature 98.5 F Temperature Source Oral Pulse Rate [Right] 60 Respiratory Rate 16 Blood Pressure [Right Arm] 130/63 Blood Pressure Mean [Right Arm] 85 Blood Pressure Source [Right Arm] Automatic Cuff Blood Pressure Position [Right Arm] Sitting 02 Sat by Pulse Oximetry 98 Oxygen Delivery Method Room Air - Lab Data Lab results reviewed: Yes: I reviewed the patient's lab results. Lab Results 03/28/20 12:32: Urine Color Yellow, Urine Appearance Clear, Urine pH 6.5, Ur Specific [place] 1.010, Urine Protein Negative, Urine Glucose (UA) Negative, Urine Ketones Negative, Urine Blood Negative, Urine Nitrate Negative, Urine Bilirubin Negative, Urine Urobilinogen 0.2, Ur Leukocyte Esterase Negative, Urine WBC 3-5, Ur Squamous Epith Cells Occasional 03/28/20 12:32: WBC 10.5, RBC 5.46, Hgb 16.4, Hct 47.9, MCV 87.6, MCH 30.0, MCHC 34.2, RDW 13.0, Plt Count 201, MPV 7.1 L, Neut % (Auto) 82.7 H, Lymph % (Auto) 13.2, [place] % (Auto) 3.4, Eos % (Auto) 0.4, Baso % (Auto) 0.2, Neut # (Auto) 8.7 H, Lymph # (Auto) 1.4, [place] # (Auto) 0.4, Eos # (Auto) 0.1, Baso # (Auto) 0.0 03/28/20 12:32: Sodium 140, Potassium 4.0, Chloride 100, Carbon Dioxide 29, Anion Gap 15.0, BUN 9, Creatinine 0.80, Estimated Creat Clear 132, Estimated GFR 123, Est GFR ( Amer) 149, Glucose 107 H, Calcium 10.3 H, Total Bilirubin 0.6, AST 27, ALT 13, Alkaline Phosphatase 77, Total Protein 9.1 H, Albumin 5.5 H, Globulin 3.6 H, Albumin/Globulin Ratio 1.5, Amylase 54, Lipase 54 Result diagrams: 03/28/20 12:32 03/28/20 12:32 Orders (Tests/Meds): ED MEDICATIONS Generic Name Dose Route Start Last Admin Trade Name Freq PRN Reason Stop Dose Admin Sodium Chloride 8 ml 03/28/20 13:24 Sodium Chloride 0.9% 10ml Vial IV 04/27/20 13:23 NEEDED PRN dilute pepcid Discontinued Medications Generic Name Dose Route Start Last Admin Trade Name Freq PRN Reason Stop Dose Admin Famotidine 20 mg 03/28/20 13:24 03/28/20 13:33 Famotidine 20mg/2ml Vial IV 03/28/20 13:25 20 mg ONCE ONE Administration Sodium Chloride 1,000 mls @ 999 mls/hr 03/28/20 12:45 03/28/20 13:02 Sod Chlor 0.9% 1000ml Bag IV 03/28/20 13:45 999 mls/hr .Q1H1M XIOMARA Administration Iopamidol 75 ml 03/28/20 13:11 03/28/20 13:12 Iopamidol-370 (76%);100ml Bottle IV 03/28/20 13:12 75 ml ONCE ONE Administration Metoclopramide HCl 10 mg 03/28/20 13:24 03/28/20 13:34 Metoclopramide Hcl 10mg/2ml Vial IVP 03/28/20 13:25 10 mg ONCE ONE Administration Sodium Chloride 10 ml 03/28/20 13:11 03/28/20 13:12 Sodium Chloride 0.9% 10ml Syr (Rad Only) IV 03/28/20 13:12 10 ml ONCE ONE Administration - CT Data CT Scan: Abdomen, Pelvis Time Received: 13:[address] Reviewed: Yes: I h
[2020-03-28 13:54] VITALS: BP 132/64; PULSE 84; RESP 16; TEMP 36.6; O2SAT 98
== END 2020-03-28 13:56 | disposition home or self-care (01) ==
PROVIDERS: Emergency Provider Emergency Medicine
DX: K29.00 Acute gastritis without bleeding (principal); F17.290 Nicotine dependence, other tobacco product, uncomplicated
CPT/HCPCS: 74177; 80053; 81001; 82150; 83690; 85025; 96365; 96375; 99283; Q9967

== ENCOUNTER 2020-04-19 18:45 | Emergency (ER) | payer MEDICAID, SELFPAY ==
[2020-04-19 18:45] VITALS: BP 116/61; PULSE 86; RESP 14; TEMP 36.8; O2SAT 97; BMI 19.0
--- NOTE | 2020-04-19 19:33 | HMH.EDUTC ---
[facility] Disposition Clinical Impression: Gastroenteritis Disposition: Home, Self-Care Condition on Discharge: Good Instructions: Viral Gastroenteritis, DI for Viral Gastroenteritis -- Adult Additional Instructions: Drink plenty of fluids. Take tylenol for pain or fever. Take the zofran for nausea/vomiting Follow up with your regular doctor. GO TO THE ER FOR ANY WORSENING SYMPTOMS Prescriptions: Ondansetron [Zofran 4mg ODT] 4 mg PO Q8HP PRN #12 tab.rapdis PRN Reason: Nausea Transmission Status: [facility] Referrals: PCP,No [Primary Care Provider] - Forms: Work/School Release Time of Disposition: 19:37 Medical Decision Making - Medical Records Medical records reviewed: No: I reviewed the patient's medical records. - Chinmay Inquiry Pt receiving controlled substance: No Vital Signs: 04/19/20 18:45 04/19/20 19:39 Temperature 98.2 F 98.2 F Temperature Source Oral Pulse Rate 86 Pulse Rate [Right Brachial] 86 Respiratory Rate 14 14 Blood Pressure 116/61 Blood Pressure [Right Arm] 116/61 Blood Pressure Mean [Right Arm] 79 Blood Pressure Source [Right Arm] Automatic Cuff Blood Pressure Position [Right Arm] Sitting 02 Sat by Pulse Oximetry 97 Oxygen Delivery Method Room Air [facility] [place] HPI - General Stated complaint: STOMACH PAIN,NAUSA Time Seen by Provider: 04/19/20 19:33 Mode of Arrival: Ambulatory Source of Information: Patient Limitations: No Limitations Description of Symptoms (Recalled from Triage Doc. by RN): PATIENT C/O VOMITING X 1 AND NAUSEA THIS MORNING. HE STATES THIS IS AN ON-GOING ISSUE AND HE HAS NOT FOLLOWED UP WITH GI DOCTOR HEENT Symptoms (Recalled from RN notes): No Resp Symptoms (Recalled from RN notes): No Skin Symptoms (Recalled from RN notes): No MS Symptoms (Recalled from RN notes): No Functional Status (Recalled from RN notes): WNL - History of Present Illness Provider Complaint: He states that since this morning he has n/v/d. He denies any covid exposure. He refuses a covid test today. - Related Data Previous Rx's Medication Instructions Recorded Potassium Chloride [K-Tab ER 20 20 meq PO DAILY #7 tab 12/19/20 mEq] Pantoprazole Sodium [Protonix 40mg 40 mg PO HS #30 tab 03/28/20 tablet] Ondansetron [Zofran 4mg ODT] 4 mg PO Q8HP PRN #12 tab.rapdis 04/19/20 Allergies Allergy/AdvReac Type Severity Reaction Status Date / Time ibuprofen [From Motrin] Allergy Verified 01/17/20 14:11 - Worker's Comp Is this a Worker's Comp case?: No H History - Hepatitis A Screen Drug use history?: No High risk sexual behaviors?: No History of sexually transmitted infection?: No Currently employed?: No Childcare worker?: No Do you have indoor plumbing?: Yes Do you have electricity?: Yes Attestation statement:: This patient has been screened for Hepatitis A risk factors. I have reviewed the patient's past medical history: Yes 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: Denies:: Cancer, Diabetes Mellitus Type 1, Diabetes Mellitus Type 2, Hypertension, MRSA Comment: pneumothorax 2x Other Surgeries: Yes: Other Amputation: No Fractures: No Comment: pneumothorax x2 - Social History Smoking Status: Current every day smoker Tobacco Type: e-cigarettes # Packs/Day (cigarettes): 1 Alcohol Intake: never Alcohol Intake Frequency:: holidays/special occasions only Substance Use Type: marijuana Occupational Status: other Housing: house Household Members: family Family Hx:: Diabetes ROS Obtained: Yes All systems reviewed & no additional complaints - Constitutional Constitutional: Reports system reviewed and no additional complaints, except as docu - Eyes Eyes: Reports system reviewed and no additional complaints, except as docu - ENT Ears, Nose, Mouth, and Throat: Reports system reviewed and no additional complaints, except as docu - Cardiovascular Cardiovascular: Reports system reviewed and no additional complaints, except
[2020-04-19 19:39] VITALS: BP 116/61; PULSE 86; RESP 14; TEMP 36.8; O2SAT 97
== END 2020-04-19 19:44 | disposition home or self-care (01) ==
PROVIDERS: Emergency Provider Nurse Practitioner Family
DX: K52.9 Noninfective gastroenteritis and colitis, unspecified (principal); F17.210 Nicotine dependence, cigarettes, uncomplicated
CPT/HCPCS: 99202; G0463

== ENCOUNTER 2020-06-04 18:56 | Emergency (ER) | payer MEDICAID, SELFPAY ==
[2020-06-04 18:57] VITALS: BP 126/77; PULSE 95; RESP 13; TEMP 36.6; O2SAT 98; BMI 17.2
--- NOTE | 2020-06-04 18:57 | ECG_ITS ---
APPROVED REPORT Exam: Resting ECG HR:83 bpm ECG Measurements Heart Rate 83 AXES [place] 172 P 81 QRSd 82 QRS 81 QT 352 T 72 QTc 413 Conclusion Normal sinus rhythm Left atrial abnormality RSR' or QR pattern in V1 suggests right ventricular conduction delay Borderline ECG Electronically signed by : Jose Draper, 06/05/2020 07:42:31
--- NOTE | 2020-06-04 19:03 | XR_ITS ---
PROCEDURE: XR CHEST PORTABLE CLINICAL HISTORY: cp Chest pain COMPARISON: CT CT ANGIO CHEST from 07/12/2019 CR XR CHEST 2V from 12/20/2019 CR XR CHEST PORTABLE from 01/17/2020 CR XR CHEST 2V from 03/11/2020 FINDINGS: The cardiomediastinal silhouette and pulmonary vascularity are within normal limits. The lungs are clear without infiltrates, suspicious nodules, or pleural effusions. No acute bony abnormalities. IMPRESSION: No acute findings. Dictated by: Fortunato Sparks MD 06/04/2020 19:56 Fortunato Sparks MD in [place] 06/04/2020 19:56
--- NOTE | 2020-06-04 19:04 | HMH.EDANX ---
ED Disposition Clinical Impression: Acute anxiety, Atypical chest pain Disposition: Home, Self-Care Condition on Discharge: Good Prescriptions: Cyclobenzaprine HCl [Cyclobenzaprine 5mg Tab] 5 mg PO Q8HP PRN #30 tab PRN Reason: pain/spasm Transmission Status: Pending to [facility] hydrOXYzine HCL [Hydroxyzine HCl] 50 mg PO Q8HP PRN #30 tab PRN Reason: Anxiety Transmission Status: Pending to [facility] Ketorolac Tromethamine [Toradol 10mg tablet] 10 mg PO Q6H 5 Days #20 tab Transmission Status: Pending to [facility] - Critical Care Critical Care Time: No Attestation: On , the high probability of a clinically significant, sudden or life threatening deterioration of the following system(s) required my full and direct attention, intervention and personal management. The time I documented below is in addition to time spent performing reported procedures but includes the following listed in this critical care notation. Medical Decision Making - Medical Records Medical records reviewed: Yes: I reviewed the patient's medical records. - Chinmay Inquiry Pt receiving controlled substance: No Vital Signs: 06/04/20 18:57 Temperature 97.8 F Temperature Source Oral Pulse Rate [Right Brachial] 95 H Respiratory Rate 13 Blood Pressure [Right Arm] 126/77 Blood Pressure Mean [Right Arm] 93 Blood Pressure Source [Right Arm] Automatic Cuff Blood Pressure Position [Right Arm] Sitting 02 Sat by Pulse Oximetry 98 Oxygen Delivery Method Room Air - Lab Data Lab results reviewed: Yes: I reviewed the patient's lab results. Lab Results 06/04/20 19:00: WBC 12.2, RBC 5.38, Hgb 15.9, Hct 46.9, MCV 87.3, MCH 29.6, MCHC 33.9, RDW 13.0, Plt Count 224, MPV 6.7 L, Neut % (Auto) 62.3, Lymph % (Auto) 28.3, [place] % (Auto) 7.6, Eos % (Auto) 1.3, Baso % (Auto) 0.5, Neut # (Auto) 7.6, Lymph # (Auto) 3.5, [place] # (Auto) 0.9, Eos # (Auto) 0.2, Baso # (Auto) 0.1 06/04/20 19:00: Sodium 143, Potassium 3.2 L, Chloride 103, Carbon Dioxide 30, Anion Gap 13.2, BUN 8 L, Creatinine 0.80, Estimated Creat Clear 113, Estimated GFR 123, Est GFR ( Amer) 149, Glucose 86, Calcium 10.4 H, Troponin I < 0.01 Result diagrams: 06/04/20 19:00 06/04/20 19:00 Orders (Tests/Meds): ED MEDICATIONS Discontinued Medications Generic Name Dose Route Start Last Admin Trade Name Yesi PRN Reason Stop Dose Admin Ketorolac Tromethamine 30 mg 06/04/20 19:03 06/04/20 19:18 Ketorolac 30mg/Ml Vial IV 06/04/20 19:04 30 mg ONCE ONE Administration Orphenadrine Citrate 60 mg 06/04/20 19:03 06/04/20 19:18 Orphenadrine Citrate 60mg/2ml Vial IV 06/04/20 19:04 60 mg ONCE ONE Administration ORDERS Category Date Time Status XR chest portable Stat Exams 06/04/20 19:03 Taken Troponin I Q3H Lab 06/04/20 22:15 Ordered Troponin I Q3H Lab 06/05/20 01:15 Ordered Venous Blood Gas Stat RT 06/04/20 19:03 Ordered - Radiology Data #1 Image Reviewed: Yes I reviewed the patient's radiology results Preliminary Findings: Normal/NAD - ECG Data Tracing #1 ECG initial impression date: 06/04/20 ECG initial impression time: 19:00 ECG normal with no acute: arrhythmias, ischemia, conduction abnormalities, chamber hypertrophy Normal Sinus Rhythm: Yes Anxiety HPI - General Chief Complaint: Anxiety Stated Complaint: anxiety Time Seen by Provider: 06/04/20 19:00 - History of Present Illness HPI narrative: This is a 19-year-old male that presents with ongoing chest pain x12 hours. Pain is sharp intermittent and worse with deep inspiration. Pain is in the right posterior thorax. Pain radiates down the rib margin on the right. Patient also reports shortness of breath but denies any difficulty breathing. He denies any diaphoresis or nausea vomiting. No orthopnea. - Related Data Home Medications: Previous Rx's Medication Instructions Recorded Potassium Chloride [
--- NOTE | 2020-06-04 19:04 | PC.NURSE ---
pt back from rad
[2020-06-04 19:11] LABS: Basophils # 0.1 K/mm3 (0-0.2); Basophils % 0.5 % (0.1-2.0); Eosinophils # 0.2 K/mm3 (0.0-0.4); Eosinophils % 1.3 % (0.1-12.0); Hematocrit 46.9 % (42.0-52.0); Hemoglobin 15.9 g/dL (14.1-18.0); Lymphocytes # 3.5 K/mm3 (0.7-4.5); Lymphocytes % 28.3 % (10-50); Mean Corpuscular HGB Conc 33.9 g/dL (31.8-35.4); Mean Corpuscular Hemoglobin 29.6 pg (27.0-31.2); Mean Corpuscular Volume 87.3 fl (80-94); Mean Platelet Volume 6.7 fl (7.4-10.4); Monocytes # 0.9 K/mm3 (0.1-1.0); Monocytes % 7.6 % (1.7-9.3); Neutrophils # 7.6 K/mm3 (1.8-7.8); Neutrophils % 62.3 % (37.0-80.0); Platelet Count 224 K/mm3 (142-424); Red Blood Count 5.38 M/mm3 (4.60-6.20); White Blood Count 12.2 K/mm3 (4.5-13.0)
[2020-06-04 19:19] LABS: Chloride 103 mmol/L (98-107); Potassium 3.2 mmoL/L (3.5-5.1); Sodium 143 mmol/L (136-145)
[2020-06-04 19:22] LABS: Anion Gap 13.2 mEq/L (5-15); Blood Urea Nitrogen 8 mg/dl (9-20); Calcium 10.4 mg/dl (8.4-10.2); Carbon Dioxide 30 mmol/L (22.0-30.0); Creatinine Clearance Estimated 113 mL/min (50-200); Estimated Glomerular Filt Rate 123 ml/min (>60); GFR (African American) 149 ML/MIN (>60); Glucose 86 mg/dl (74-100)
[2020-06-04 19:37] LABS: Troponin I < 0.01 ng/ml (0.00-0.034)
[2020-06-04 19:55] VITALS: BP 119/62; PULSE 78; RESP 20; TEMP 36.9; O2SAT 98
== END 2020-06-04 19:59 | disposition home or self-care (01) ==
PROVIDERS: Emergency Provider Emergency Medicine
DX: R07.89 Other chest pain (principal); F41.9 Anxiety disorder, unspecified; F12.10 Cannabis abuse, uncomplicated; F17.290 Nicotine dependence, other tobacco product, uncomplicated
CPT/HCPCS: 71045; 80048; 84484; 85025; 93005; 96374; 96375; 99282

== ENCOUNTER 2020-07-13 15:10 | Emergency (ER) | payer MEDICAID, SELFPAY ==
[2020-07-13] VITALS (11 sets, daily range): BP systolic 118–138; BP diastolic 66–78; PULSE 57–77; RESP 16; TEMP 36.8; O2SAT 99–100; BMI 18.2
--- NOTE | 2020-07-13 15:10 | ECG_ITS ---
APPROVED REPORT Exam: Resting ECG HR:71 bpm ECG Measurements Heart Rate 71 AXES MD 164 P 65 QRSd 84 QRS 72 QT 350 T 70 QTc 380 Conclusion Normal sinus rhythm Normal ECG Electronically signed by : Jose Draper, 07/13/2020 17:33:20
--- NOTE | 2020-07-13 15:13 | HMH.EDGENADL ---
ED Disposition Clinical Impression: Pneumothorax Qualifiers: Pneumothorax type: unspecified pneumothorax Qualified Code(s): J93.9 - Pneumothorax, unspecified Disposition: Home, Self-Care Condition on Discharge: Good - Critical Care Critical Care Time: No Attestation: On , the high probability of a clinically significant, sudden or life threatening deterioration of the following system(s) required my full and direct attention, intervention and personal management. The time I documented below is in addition to time spent performing reported procedures but includes the following listed in this critical care notation. Medical Decision Making - Medical Records Medical records reviewed: Yes: I reviewed the patient's medical records. - Chinmay Inquiry Pt receiving controlled substance: No Vital Signs: 07/13/20 15:11 07/13/20 16:03 Temperature 98.2 F Temperature Source Oral Pulse Rate 68 Pulse Rate [Right] 77 Respiratory Rate 16 Blood Pressure 126/77 Blood Pressure [Right Arm] 138/66 Blood Pressure Mean [Right Arm] 90 Blood Pressure Source [Right Arm] Automatic Cuff Blood Pressure Position [Right Arm] Sitting 02 Sat by Pulse Oximetry 99 100 Oxygen Delivery Method Room Air - Lab Data Lab Results 07/13/20 15:14: WBC 8.7, RBC 4.93, Hgb 14.6, Hct 43.3, MCV 87.9, MCH 29.7, MCHC 33.8, RDW 13.0, Plt Count 232, MPV 7.5, Neut % (Auto) 66.4, Lymph % (Auto) 26.1, [place] % (Auto) 5.8, Eos % (Auto) 1.4, Baso % (Auto) 0.3, Neut # (Auto) 5.8, Lymph # (Auto) 2.3, [place] # (Auto) 0.5, Eos # (Auto) 0.1, Baso # (Auto) 0.0 07/13/20 15:14: Sodium 140, Potassium 3.6, Chloride 103, Carbon Dioxide 27, Anion Gap 13.6, BUN 11, Creatinine 0.80, Estimated Creat Clear 113, Estimated GFR 123, Est GFR ( Amer) 149, Glucose 103 H, Calcium 9.7, Total Bilirubin 0.6, AST 27, ALT 15, Alkaline Phosphatase 70, Total Protein 8.1, Albumin 5.2 H, Globulin 2.9, Albumin/Globulin Ratio 1.8 Result diagrams: 07/13/20 15:14 07/13/20 15:14 Orders (Tests/Meds): ED MEDICATIONS Discontinued Medications Generic Name Dose Route Start Last Admin Trade Name Yesi PRN Reason Stop Dose Admin Hydrocodone Bitart/Acetaminophen 1 tab 07/13/20 17:05 07/13/20 17:19 Hydrocodone/Apap 5/325 Mg Tablet PO 07/13/20 17:06 1 tab ONCE ONE Administration Morphine Sulfate 4 mg 07/13/20 15:40 07/13/20 15:51 Morphine 4mg/Ml Syringe IV 07/13/20 15:41 4 mg ONCE ONE Administration ORDERS Category Date Time Status Full Resp Panel w/COVID [facility] Routine Lab 07/13/20 16:09 Received Medical Decision Narrative: Patient is a 19-year-old male presenting with chest pain. Patient does have history of spontaneous pneumothorax. Bilateral breath sounds appreciated with O2 saturations 99% on room air. EKG obtained immediately on arrival is negative for any dysrhythmia. Chest x-ray will be obtained to ensure no acute cardiopulmonary abnormality or spontaneous pneumothorax. Chest x-ray demonstrates left apical pneumothorax about 18 mm. This is rather small. Supplemental O2 applied via facemask. Discussed with on-call surgery here at [facility] and after careful discussion we both agree the patient would benefit from thoracic surgery evaluation. Reached out to [facility] and discussed this case with Dr. Rohith Munoz, thoracic surgeon. After careful discussion patient be transferred to [facility] for evaluation and possible surgical intervention. Shared plan with patient and he agrees. Patient was given morphine which did relieve his pain initially on arrival and additional p.o. [place] given for more long-lasting pain relief. Patient stable on transfer on facemask O2 with otherwise normal vital signs. Assessment: Spontaneous left-sided pneumothorax Disposition: Transfer to [facility] General Adult HPI - General Stated complaint: left rib pain Time Seen by Provider: 07/13/20 15:13 - History of Present Illness
--- NOTE | 2020-07-13 15:15 | XR_ITS ---
PROCEDURE: XR CHEST 2V CLINICAL HISTORY: left rib pain Left-sided chest pain COMPARISON: CT CT ANGIO CHEST from 07/12/2019 CR XR CHEST PORTABLE from 01/17/2020 CR XR CHEST 2V from 03/11/2020 CR XR CHEST PORTABLE from 06/04/2020 FINDINGS: The cardiomediastinal silhouette and pulmonary vascularity are within normal limits. There is a small left apical pneumothorax measuring 18 mm in thickness at the lung apex. No mediastinal shift. No diaphragmatic depression No acute bony abnormalities. IMPRESSION: Small left apical pneumothorax. The ER was notified of this finding by telephone 07/13/2020 at 4 p.m. Dictated by: Fortunato Sparks MD 07/13/2020 16:09 Fortunato Sparks MD in [place] 07/13/2020 16:09
--- NOTE | 2020-07-13 15:40 | PC.NURSE ---
pt placed on 15 NRB, pt requesting pain meds at this time.
[2020-07-13 15:49] LABS: Basophils % 0.3 % (0.1-2.0); Eosinophils # 0.1 K/mm3 (0.0-0.4); Eosinophils % 1.4 % (0.1-12.0); Hematocrit 43.3 % (42.0-52.0); Hemoglobin 14.6 g/dL (14.1-18.0); Lymphocytes # 2.3 K/mm3 (0.7-4.5); Lymphocytes % 26.1 % (10-50); Mean Corpuscular HGB Conc 33.8 g/dL (31.8-35.4); Mean Corpuscular Hemoglobin 29.7 pg (27.0-31.2); Mean Corpuscular Volume 87.9 fl (80-94); Mean Platelet Volume 7.5 fl (7.4-10.4); Monocytes # 0.5 K/mm3 (0.1-1.0); Monocytes % 5.8 % (1.7-9.3); Neutrophils # 5.8 K/mm3 (1.8-7.8); Neutrophils % 66.4 % (37.0-80.0); Platelet Count 232 K/mm3 (142-424); Red Blood Count 4.93 M/mm3 (4.60-6.20); White Blood Count 8.7 K/mm3 (4.5-13.0)
[2020-07-13 15:50] LABS: Chloride 103 mmol/L (98-107); Potassium 3.6 mmoL/L (3.5-5.1); Sodium 140 mmol/L (136-145)
[2020-07-13 15:53] LABS: Alanine Aminotransferase 15 U/L (12-78); Albumin Level 5.2 g/dl (3.5-5.0); Albumin/Globulin Ratio 1.8 (1.1-1.8); Alkaline Phosphatase 70 U/L (38-126); Anion Gap 13.6 mEq/L (5-15); Aspartate Amino Transferase 27 U/L (17-59); Bilirubin,Total 0.6 mg/dl (0.2-1.3); Blood Urea Nitrogen 11 mg/dl (9-20); Carbon Dioxide 27 mmol/L (22.0-30.0); Creatinine Clearance Estimated 113 mL/min (50-200); Estimated Glomerular Filt Rate 123 ml/min (>60); GFR (African American) 149 ML/MIN (>60); Globulin 2.9 g/dL (1.3-3.2); Total Protein,Serum 8.1 g/dl (6.3-8.2)
[2020-07-13 15:54] LABS: Calcium 9.7 mg/dl (8.4-10.2); Glucose 103 mg/dl (74-100)
--- NOTE | 2020-07-13 16:00 | PC.NURSE ---
Spoke with radiologist regarding chest x-ray findings
[2020-07-13 16:15] LABS: Adenovirus,PCR Not Detected (NotDetected); Bordetella Pertussis Not Detected (NotDetected); Chlamydophila Pneumoniae, PCR Not Detected (NotDetected); Coronavirus 19, PCR Not Detected (NotDetected); Coronavirus 229E Not Detected (NotDetected); Coronavirus NL63 Not Detected (NotDetected); Coronavirus OC43 Not Detected (NotDetected); Coronovirus HKU1,PCR Not Detected (NotDetected); Human Metapneumovirus Not Detected (NotDetected); Influenza A, PCR Not Detected (NotDetected); Influenza AH1, 2009 Not Detected (NotDetected); Influenza AH1, PCR Not Detected (NotDetected); Influenza AH3,PCR Not Detected (NotDetected); Influenza B, PCR Not Detected (NotDetected); Mycoplasma Pneumoniae, PCR Not Detected (NotDetected); Parainfluenza 1, PCR Not Detected (NotDetected); Parainfluenza 2, PCR Not Detected (NotDetected); Parainfluenza 3, PCR Not Detected (NotDetected); Parainfluenza 4, PCR Not Detected (NotDetected); Respiratory Syncytial Virus Not Detected (NotDetected); Rhinovirus/Enterovirus Not Detected (NotDetected)
--- NOTE | 2020-07-13 16:45 | PC.NURSE ---
Calling [facility] at this time.
--- NOTE | 2020-07-13 17:37 | PC.NURSE ---
Face sheet faxed to [facility]
--- NOTE | 2020-07-13 17:39 | PC.NURSE ---
EMS aware of transfer and will transport after they return from another run.
--- NOTE | 2020-07-13 18:00 | PC.NURSE ---
GAVE REPORT TO BERENICE FERRERA AT [facility]
--- NOTE | 2020-07-13 18:56 | PC.NURSE ---
AWAITING EMS TRANSFER. EMS ON ANOTHER RUN TRANSFERRING ANOTHER PATIENT PRIOR TO TRANSFERRING PATIENT
--- NOTE | 2020-07-13 19:09 | PC.NURSE ---
GAVE REPORT TO CHRYSTAL FERRERA AT THIS TIME
[2020-09-05 11:20] LABS: POC Glucose,Bedside 113 (70-110)
== END 2020-07-13 20:40 | disposition short-term general hospital (02) ==
PROVIDERS: Emergency Provider Emergency Medicine
DX: J93.9 Pneumothorax, unspecified (principal); F17.210 Nicotine dependence, cigarettes, uncomplicated
CPT/HCPCS: 71046; 80053; 82962; 85025; 87581; 87633; 87798; 93005; 96375; 99283

== ENCOUNTER 2020-07-19 15:49 | Emergency (ER) | payer MEDICAID, SELFPAY ==
[2020-07-19] VITALS (8 sets, daily range): BP systolic 119–121; BP diastolic 74–86; PULSE 78–104; RESP 13–26; TEMP 36.6; O2SAT 95–98; BMI 17.9
--- NOTE | 2020-07-19 15:54 | ECG_ITS ---
APPROVED REPORT Exam: Resting ECG HR:102 bpm ECG Measurements Heart Rate 102 AXES [place] 156 P 95 QRSd 78 QRS 86 QT 334 T 86 QTc [address] elevation, probably due to early repolarization Borderline ECG Electronically signed by : Jose Draper, 07/21/2020 21:22:37
--- NOTE | 2020-07-19 16:05 | HMH.EDGENADL ---
ED Disposition Clinical Impression: Hydropneumothorax Disposition: Home, Self-Care Condition on Discharge: Good Additional Instructions: [facility] thoracic surgery clinic will call you tomorrow morning and give you instructions on a chest x-ray followed by a clinic visit tomorrow in cardiothoracic surgery clinic. Also take your x-ray disc from this emergency department visit with you. Return to emergency department if increasing difficulty breathing. Referrals: PCP,No [Primary Care Provider] - - Critical Care Critical Care Time: No Attestation: On 07/19/20, the high probability of a clinically significant, sudden or life threatening deterioration of the following system(s) required my full and direct attention, intervention and personal management. The time I documented below is in addition to time spent performing reported procedures but includes the following listed in this critical care notation. Medical Decision Making - Medical Records Medical records reviewed: Yes: I reviewed the patient's medical records. MR Comment: At this facility 07/13/2020. Reviewed [facility] portal records. Patient had VATS, blebectomy, mechanical pleurodesis on 07/14/2020 with thoracostomy tube. Thoracostomy tube removed 07/17/2020, persistent but small and stable left apical pneumothorax at discharge. - Chinmay Inquiry Pt receiving controlled substance: No Vital Signs: 07/19/20 15:59 07/19/20 16:11 Temperature 97.9 F Temperature Source Oral Pulse Rate 92 H Pulse Rate [Right Brachial] 104 H Respiratory Rate 18 13 Blood Pressure [Right Arm] 119/86 Blood Pressure Mean [Right Arm] 97 Blood Pressure Source [Right Arm] Automatic Cuff Blood Pressure Position [Right Arm] Supine 02 Sat by Pulse Oximetry 98 96 Oxygen Delivery Method Room Air - Lab Data Lab Results 07/19/20 16:05: WBC 13.6 H, RBC 4.82, Hgb 13.9 L, Hct 41.4 L, MCV 85.9, MCH 28.8, MCHC 33.5, RDW 13.2, Plt Count 271, MPV 7.1 L, Neut % (Auto) 79.2, Lymph % (Auto) 12.5, [place] % (Auto) 6.2, Eos % (Auto) 2.0, Baso % (Auto) 0.1, Neut # (Auto) 10.8 H, Lymph # (Auto) 1.7, [place] # (Auto) 0.8, Eos # (Auto) 0.3, Baso # (Auto) 0.0 07/19/20 16:05: Sodium 136, Potassium 3.8, Chloride 98, Carbon Dioxide 26, Anion Gap 15.8 H, BUN 13, Creatinine 0.70, Estimated Creat Clear 135, Estimated GFR 144, Est GFR ( Amer) 174, Glucose 121 H, Calcium 10.1 Result diagrams: 07/19/20 16:05 07/19/20 16:05 - Radiology Data #1 Image(s): Chest Image Reviewed: Yes I reviewed the patient's radiology image, Yes I have reviewed radiologist's interpretation PROCEDURE: XR CHEST 2V CLINICAL HISTORY: R/O Pneumothorax Left-sided chest pain COMPARISON: CT CT ANGIO CHEST from 07/12/2019 CR XR CHEST 2V from 03/11/2020 CR XR CHEST PORTABLE from 06/04/2020 CR XR CHEST 2V from 07/13/2020 FINDINGS: There is a small left-sided hydropneumothorax. The pneumothorax measures 17 mm at the apex. Suture line is present within the left apex medially. There is an air-fluid level along the left lower hemithorax. Small subpleural opacity is present in the left lower lung zone laterally etiology indeterminate not readily apparent on the previous study possibly due to an area of chest tube insertion. No diaphragmatic depression or mediastinal shift evident. IMPRESSION: Small left-sided hydropneumothorax as described above The ER was notified of the above findings by telephone 07/19/2020 at 4:30 p.m. Dictated by: Fortunato Sparks MD 07/19/2020 16:32 Fortunato Sparks MD in [place] 07/19/2020 16:32 - ECG Data Tracing #1 EKG interpreted by Vivek Saba MD: Rhythm: sinus tachycardia Rate: 102 [place]: normal Ectopy: none Conduction: normal ST Segment Changes: none T Wave Changes: none Q Waves: none No evidence of acute ischemia or injury Baseline artifact and wander present, but I consider the EKG adequate for accurate interpretation. -
--- NOTE | 2020-07-19 16:09 | XR_ITS ---
PROCEDURE: XR CHEST 2V CLINICAL HISTORY: R/O Pneumothorax Left-sided chest pain COMPARISON: CT CT ANGIO CHEST from 07/12/2019 CR XR CHEST 2V from 03/11/2020 CR XR CHEST PORTABLE from 06/04/2020 CR XR CHEST 2V from 07/13/2020 FINDINGS: There is a small left-sided hydropneumothorax. The pneumothorax measures 17 mm at the apex. Suture line is present within the left apex medially. There is an air-fluid level along the left lower hemithorax. Small subpleural opacity is present in the left lower lung zone laterally etiology indeterminate not readily apparent on the previous study possibly due to an area of chest tube insertion. No diaphragmatic depression or mediastinal shift evident. IMPRESSION: Small left-sided hydropneumothorax as described above The ER was notified of the above findings by telephone 07/19/2020 at 4:30 p.m. Dictated by: Fortunato Sparks MD 07/19/2020 16:32 Fortunato Sparks MD in [place] 07/19/2020 16:32
--- NOTE | 2020-07-19 16:17 | PC.NURSE ---
pt going to rad
--- NOTE | 2020-07-19 16:20 | PC.NURSE ---
pt returning from rad.
--- NOTE | 2020-07-19 16:31 | PC.NURSE ---
Dr Sparks called to confirm pt has a small pneumthorax. ER notified.
--- NOTE | 2020-07-19 16:33 | PC.NURSE ---
@ bedside updating pt.
--- NOTE | 2020-07-19 16:37 | PC.NURSE ---
Calling [facility] to speak with thoracic surgery per ER MD request.
[2020-07-19 16:38] LABS: Chloride 98 mmol/L (98-107)
[2020-07-19 16:39] LABS: Potassium 3.8 mmoL/L (3.5-5.1); Sodium 136 mmol/L (136-145)
[2020-07-19 16:42] LABS: Anion Gap 15.8 mEq/L (5-15); Blood Urea Nitrogen 13 mg/dl (9-20); Calcium 10.1 mg/dl (8.4-10.2); Carbon Dioxide 26 mmol/L (22.0-30.0); Creatinine Clearance Estimated 135 mL/min (50-200); Estimated Glomerular Filt Rate 144 ml/min (>60); GFR (African American) 174 ML/MIN (>60); Glucose 121 mg/dl (74-100)
--- NOTE | 2020-07-19 16:42 | PC.NURSE ---
Nisreen with [facility] advised they would give us a call back.
[2020-07-19 16:45] LABS: Basophils % 0.1 % (0.1-2.0); Eosinophils # 0.3 K/mm3 (0.0-0.4); Hematocrit 41.4 % (42.0-52.0); Hemoglobin 13.9 g/dL (14.1-18.0); Lymphocytes # 1.7 K/mm3 (0.7-4.5); Lymphocytes % 12.5 % (10-50); Mean Corpuscular HGB Conc 33.5 g/dL (31.8-35.4); Mean Corpuscular Hemoglobin 28.8 pg (27.0-31.2); Mean Corpuscular Volume 85.9 fl (80-94); Mean Platelet Volume 7.1 fl (7.4-10.4); Monocytes # 0.8 K/mm3 (0.1-1.0); Monocytes % 6.2 % (1.7-9.3); Neutrophils # 10.8 K/mm3 (1.8-7.8); Neutrophils % 79.2 % (37.0-80.0); Platelet Count 271 K/mm3 (142-424); Red Blood Count 4.82 M/mm3 (4.60-6.20); Red Cell Distribution Width 13.2 % (11.5-17.5); White Blood Count 13.6 K/mm3 (4.5-13.0)
--- NOTE | 2020-07-19 17:01 | PC.NURSE ---
speaking with [facility] at this time.
== END 2020-07-19 17:42 | disposition home or self-care (01) ==
PROVIDERS: Emergency Provider Emergency Medicine
DX: J94.8 Other specified pleural conditions (principal); F17.290 Nicotine dependence, other tobacco product, uncomplicated
CPT/HCPCS: 71046; 80048; 85025; 93005; 99282

== ENCOUNTER 2020-07-27 18:48 | Emergency (ER) | payer MEDICAID, SELFPAY ==
[2020-07-27 18:49] VITALS: BP 126/73; PULSE 97; RESP 14; TEMP 36.6; O2SAT 97; BMI 18.2
--- NOTE | 2020-07-27 19:02 | XR_ITS ---
PROCEDURE INFORMATION: Exam: XR Chest Exam date and time: 07/27/2020 7:02 PM Age: 19 years old Clinical indication: Dyspnea and shortness of breath; Chest pain; On breathing; Prior surgery; Surgery date: 3-7 days post-operative; Surgery type: Surgery done at [facility] to prevent spontaneous pneumothorax. ; Patient HX: Patient has had 6 prior spontaneous pneumothorax's requiring chest tubes. ; Additional info: SOA with deep breathing TECHNIQUE: Imaging protocol: XR of the chest. Views: 2 views. Total images: 2 COMPARISON: CR XR CHEST 2V 07/19/2020 4:10 PM FINDINGS: Lungs: Normal pulmonary expansion. Pulmonary vasculature grossly normal. No gross pulmonary infiltrates. Pleural spaces: The left-sided hydropneumothorax is moderately improved. Only trace residual pneumothorax component in the medial left apex measuring 5 mm in thickness from the apical pleural margin (previously 19 mm). The pleural effusion component is nearly resolved. No signs of tension. Heart/Mediastinum: Heart size normal. Bones/joints: No acute osseous abnormalities are identified. IMPRESSION: Near resolution of the left-sided hydropneumothorax with only minimal residual pneumothorax in the medial left apex. No signs of tension.
--- NOTE | 2020-07-27 19:08 | HMH.EDGENADL ---
ED Disposition Clinical Impression: Hemopneumothorax, left Disposition: Home, Self-Care Condition on Discharge: Good Additional Instructions: Tylenol for pain. Follow-up at surgery clinic at [facility] on Saturday as scheduled. Call surgery clinic at [facility] for further concerns or any worsening. Referrals: Provider,Referral, [Primary Care Provider] - - Critical Care Critical Care Time: No Attestation: On 07/27/20, the high probability of a clinically significant, sudden or life threatening deterioration of the following system(s) required my full and direct attention, intervention and personal management. The time I documented below is in addition to time spent performing reported procedures but includes the following listed in this critical care notation. Medical Decision Making - Medical Records Medical records reviewed: Yes: I reviewed the patient's medical records. MR Comment: Reviewed emergency department visit from 07/19/2020 and at [facility] clinic visit from 07/20/2020. - Chinmay Inquiry Pt receiving controlled substance: No Vital Signs: 07/27/20 18:49 Temperature 97.9 F Temperature Source Oral Pulse Rate [Left Radial] 97 H Respiratory Rate 14 Blood Pressure [Right Arm] 126/73 Blood Pressure Mean [Right Arm] 90 Blood Pressure Source [Right Arm] Automatic Cuff Blood Pressure Position [Right Arm] Sitting 02 Sat by Pulse Oximetry 97 Oxygen Delivery Method Room Air Orders (Tests/Meds): ORDERS Category Date Time Status XR chest 2V Stat Exams 07/27/20 19:02 Taken - Radiology Data #1 Image(s): Chest Image Reviewed: Yes I reviewed the patient's radiology image Tiny residual left hydropneumothorax, improving. Medical Decision Narrative: Wounds are healing well and I do not feel there are any signs of infection. General Adult HPI - General Chief complaint: Shortness of Breath/Dyspnea Stated complaint: surgical wound painful,diff to breathe Time Seen by Provider: 07/27/20 19:02 Mode of Arrival: Ambulatory Limitations: No Limitations Description of Symptoms (Recalled from ER Triage Doc. by RN): c/o soa with deep breathing. States he has his left lung scrapped and placed against his lung wall to keep it from collapsing again. Concerned that the incision area is not looking good and his soa today. - History of Present Illness HPI narrative: Complains of left-sided chest pain and tightness in his chest, difficulty breathing. Complains that surgical incision does not look good, might be infected. The patient has a history of recurrent pneumothoraces. Seen in this emergency department on 07/13/2020 and diagnosed with a left-sided pneumothorax. Transferred to [facility] for definitive management of recurrent pneumothorax. Patient had VATS, blebectomy, mechanical pleurodesis on 07/14/2020 with thoracostomy tube. Thoracostomy tube removed 07/17/2020, persistent but small and stable left apical pneumothorax at discharge. Seen by me in this emergency department the day after discharge from the [facility], on 07/19/2020 for left-sided chest pain and difficulty breathing. He had a small persistent left pneumothorax with a new small left pleural effusion. I contacted the surgical service and he was seen the next day for follow-up the [facility]. It was felt that his residual small pneumothorax and pleural effusion were expected and did not require further treatment. The patient says that his girlfriend look at his posterior surgical incision, which she says had been closed with glue, and today he felt that it did not look good. He also says he is having a tightness in his left chest and a pain in his left anterior upper chest, which are the same pains he was complaining of the last time I saw him here. No fever. He says that he contacted the surgical service at [facility] and they told him to be seen tomorrow in
[2020-07-27 19:51] VITALS: BP 120/72; PULSE 91; RESP 14; TEMP 36.6; O2SAT 97
== END 2020-07-27 19:52 | disposition home or self-care (01) ==
PROVIDERS: Emergency Provider Emergency Medicine
DX: J94.2 Hemothorax (principal); F17.290 Nicotine dependence, other tobacco product, uncomplicated
CPT/HCPCS: 71046; 99282

== ENCOUNTER 2020-08-08 14:51 | Emergency (ER) | payer MEDICAID, SELFPAY ==
[2020-08-08 14:53] VITALS: BP 141/79; PULSE 86; RESP 18; TEMP 36.7; O2SAT 97; BMI 19.5
[2020-08-08 15:03] VITALS: BP 109/72; PULSE 99; O2SAT 97
--- NOTE | 2020-08-08 15:15 | XR_ITS ---
CLINICAL INDICATION: lightheaded, recent post op COMPARISON: CT CT ANGIO CHEST from 07/12/2019 CR XR CHEST 2V from 07/13/2020 CR XR CHEST 2V from 07/19/2020 CR XR CHEST 2V from 07/27/2020 TECHNIQUE: FINDINGS: The heart size and pulmonary vasculature are within normal limits, and the lungs are clear without focal consolidation, pleural effusion, or pneumothorax. Previously noted left apical pneumothorax is no longer apparent. Minimal scarring is present in the left lung base. No acute bony findings. IMPRESSION: No acute finding Dictated by: Fortunato Sparks MD 08/08/2020 16:20 Fortunato Sparks MD in [place] 08/08/2020 16:20
--- NOTE | 2020-08-08 15:51 | PC.NURSE ---
pt to xray
--- NOTE | 2020-08-08 15:58 | HMH.EDGENADL ---
ED Disposition Clinical Impression: Atypical chest pain Disposition: Home, Self-Care Condition on Discharge: Good Instructions: DI for Atypical Chest Pain Additional Instructions: You have been evaluated for atypical chest pain. No pneumothorax identified. Tylenol for pain. Use Lidoderm patch. Please follow-up with your primary care doctor and relay tester helper. Return to the emergency department for any new or worsening symptoms, chest pain, shortness of breath, other concerns. Referrals: Provider,Referral, [Primary Care Provider] - Time of Disposition: 16:02 - Critical Care Critical Care Time: No Attestation: On 08/08/20, the high probability of a clinically significant, sudden or life threatening deterioration of the following system(s) required my full and direct attention, intervention and personal management. The time I documented below is in addition to time spent performing reported procedures but includes the following listed in this critical care notation. Medical Decision Making - Medical Records Medical records reviewed: Yes: I reviewed the patient's medical records. - Chinmay Inquiry Pt receiving controlled substance: No Vital Signs: 08/08/20 14:53 Temperature 98.1 F Temperature Source Oral Pulse Rate [Right Radial] 86 Respiratory Rate 18 Blood Pressure [Right Arm] 141/79 H Blood Pressure Mean [Right Arm] 99 Blood Pressure Source [Right Arm] Automatic Cuff Blood Pressure Position [Right Arm] Sitting 02 Sat by Pulse Oximetry 97 Oxygen Delivery Method Room Air Orders (Tests/Meds): ORDERS Category Date Time Status XR chest 2V Stat Exams 08/08/20 15:15 Taken Complete Blood Count Auto Diff Stat Lab 08/08/20 15:05 Received Comprehensive Metabolic Panel Stat Lab 08/08/20 15:05 Received Medical Decision Narrative: In summary this is a 19-year-old male with history of frequent pneumothoraces and pleurodesis presenting to the emergency department left-sided chest pain. Patient clinically stable on arrival. Vital signs within normal limits. Pain has resolved by the time of arrival. Concern for persistent pneumothorax, musculoskeletal pain, scar mediated pain. Will pain 2 view chest x-ray. X-ray reassuring. No pneumothorax. No other abnormality. Given 600 mg ibuprofen Assessment he is feeling much better. Recommended to follow-up with his PCP as well as his relay tester helper. Given return precautions. Stable for discharge General Adult HPI - General Chief complaint: Weakness Stated complaint: post surgery lung pain, night sweats,lightheaded Time Seen by Provider: 08/08/20 15:58 Mode of Arrival: Ambulatory Limitations: No Limitations Description of Symptoms (Recalled from ER Triage Doc. by RN): Pt reports has been feeling lightheaded and have periods of cold sweats since lastnight. Pt reports he had surgery to secure his L lung to his chest wall approx 3 weeks ago r/t recurrent pneumothorax, pt reports has had his post op follow up and states he does not follow up again for 2 months. Pt denies SOA. Pt states does have some squeezing pain in L lung area but reports this has been intermittent since his surgery. - History of Present Illness HPI narrative: 19-year-old male presenting to the emergency department chest pain. Pain is located on the left side. Eckerty like a sharp pain near his rib. Did not radiate. Happened this morning when he woke up. Lasted for a few minutes and then resolved. Pain is located right near the site where he had a pleurodesis at [facility] 3 weeks ago. He suffers from frequent pneumothoraces. Denies any shortness of breath. No recent exertional chest pain. No cough, fevers, chills, nausea, vomiting. - Related Data Previous Rx's Medication Instructions Recorded hydrOXYzine HCL [Hydroxyzine HCl] 50 mg PO Q8HP PRN #30 tab 06/04/20 Allergies Allergy/AdvReac Type Severity Reaction Status Date / Time ibuprofen [From Sujatha
[2020-08-08 16:29] LABS: Basophils % 0.4 % (0.1-2.0); Eosinophils # 0.1 K/mm3 (0.0-0.4); Hematocrit 41.6 % (42.0-52.0); Hemoglobin 14.3 g/dL (14.1-18.0); Lymphocytes # 1.4 K/mm3 (0.7-4.5); Lymphocytes % 23.1 % (10-50); Mean Corpuscular HGB Conc 34.2 g/dL (31.8-35.4); Mean Corpuscular Hemoglobin 29.6 pg (27.0-31.2); Mean Corpuscular Volume 86.5 fl (80-94); Mean Platelet Volume 7.3 fl (7.4-10.4); Monocytes # 0.8 K/mm3 (0.1-1.0); Monocytes % 12.7 % (1.7-9.3); Neutrophils # 3.7 K/mm3 (1.8-7.8); Neutrophils % 62.8 % (37.0-80.0); Platelet Count 189 K/mm3 (142-424); Red Blood Count 4.81 M/mm3 (4.60-6.20); Red Cell Distribution Width 13.3 % (11.5-17.5); White Blood Count 5.9 K/mm3 (4.5-13.0)
[2020-08-08 16:41] LABS: Alanine Aminotransferase 32 U/L (12-78); Albumin Level 4.8 g/dl (3.5-5.0); Albumin/Globulin Ratio 1.7 (1.1-1.8); Alkaline Phosphatase 75 U/L (38-126); Anion Gap 13.1 mEq/L (5-15); Aspartate Amino Transferase 36 U/L (17-59); Bilirubin,Total 0.6 mg/dl (0.2-1.3); Blood Urea Nitrogen 7 mg/dl (9-20); Calcium 9.7 mg/dl (8.4-10.2); Carbon Dioxide 26 mmol/L (22.0-30.0); Chloride 105 mmol/L (98-107); Creatinine Clearance Estimated 132 mL/min (50-200); Estimated Glomerular Filt Rate 123 ml/min (>60); GFR (African American) 149 ML/MIN (>60); Globulin 2.8 g/dL (1.3-3.2); Glucose 96 mg/dl (74-100); Potassium 4.1 mmoL/L (3.5-5.1); Sodium 140 mmol/L (136-145); Total Protein,Serum 7.6 g/dl (6.3-8.2)
[2020-08-08 16:55] VITALS: BP 109/72; PULSE 77; RESP 18; O2SAT 99
[2020-08-08 17:00] VITALS: BP 118/75; PULSE 73; RESP 18; O2SAT 99
[2020-08-08 18:55] VITALS: BP 120/74; PULSE 80; RESP 16; TEMP 36.8; O2SAT 98
== END 2020-08-08 18:58 | disposition home or self-care (01) ==
PROVIDERS: Emergency Provider Emergency Medicine
DX: R07.89 Other chest pain (principal); R42 Dizziness and giddiness
CPT/HCPCS: 71046; 80053; 85025; 96365; 99282

== ENCOUNTER 2020-08-25 22:38 | Emergency (ER) | payer MEDICAID, SELFPAY ==
[2020-08-25 22:39] VITALS: BP 135/79; PULSE 69; RESP 17; TEMP 36.8; O2SAT 100; BMI 17.9
--- NOTE | 2020-08-25 22:45 | XR_ITS ---
PROCEDURE INFORMATION: Exam: XR Chest Exam date and time: 08/25/2020 10:45 PM Age: 19 years old Clinical indication: Right-sided; Patient HX: RT anterior chest pain HX of pneumothorax in past; Additional info: Right anterior chest pain, history of pneumothorax TECHNIQUE: Imaging protocol: XR of the chest. Views: 1 view. Total images: 1 COMPARISON: CR XR CHEST 2V 08/08/2020 3:44 PM FINDINGS: Lungs: Normal pulmonary expansion. Pulmonary vasculature grossly normal. No gross pulmonary infiltrates. Pleural spaces: No pleural effusion. Small right apical pneumothorax measuring 14 mm in thickness from the apical pleural margin. No signs of tension. Heart/Mediastinum: Heart size normal. No tracheal/mediastinal shift. Bones/joints: No acute osseous abnormalities are identified. IMPRESSION: 1. Small right apical pneumothorax. No signs of tension. 2. These findings initiated a critical results reporting process. An addendum will be issued at the time of clinician notification.
[2020-08-25 23:00] VITALS: BP 118/70; PULSE 79; O2SAT 97
[2020-08-25 23:00] LABS: Chloride 102 mmol/L (98-107); Potassium 3.3 mmoL/L (3.5-5.1); Sodium 142 mmol/L (136-145)
--- NOTE | 2020-08-25 23:01 | HMH.EDCP ---
ED Disposition Clinical Impression: Pneumothorax on right Disposition: Home, Self-Care Condition on Discharge: Good Instructions: DI for Pneumothorax Additional Instructions: repeat cxr in am and return if inc sx tonight Referrals: Provider,Referral, [Primary Care Provider] - - Critical Care Critical Care Time: No Attestation: On 08/25/20, the high probability of a clinically significant, sudden or life threatening deterioration of the following system(s) required my full and direct attention, intervention and personal management. The time I documented below is in addition to time spent performing reported procedures but includes the following listed in this critical care notation. Medical Decision Making - Medical Records Medical records reviewed: Yes: I reviewed the patient's medical records. - Chinmay Inquiry Pt receiving controlled substance: No Vital Signs: 08/25/20 22:39 08/25/20 23:00 08/25/20 23:30 Temperature 98.2 F Temperature Source Oral Pulse Rate 79 76 Pulse Rate [Right Brachial] 69 Respiratory Rate 17 Blood Pressure 118/70 119/71 Blood Pressure [Right Arm] 135/79 Blood Pressure Mean 77 87 Blood Pressure Mean [Right Arm] 97 Blood Pressure Source [Right Arm] Automatic Cuff Blood Pressure Position [Right Arm] Sitting 02 Sat by Pulse Oximetry 100 97 98 Oxygen Delivery Method Room Air Room Air Room Air - Lab Data Lab results reviewed: Yes: I reviewed the patient's lab results. Lab Results 08/25/20 22:41: WBC 8.5, RBC 5.20, Hgb 15.5, Hct 44.0, MCV 84.7, MCH 29.8, MCHC 35.2, RDW 13.0, Plt Count 242, MPV 7.4, Neut % (Auto) 65.3, Lymph % (Auto) 28.0, King % (Auto) 5.2, Eos % (Auto) 1.3, Baso % (Auto) 0.2, Neut # (Auto) 5.6, Lymph # (Auto) 2.4, King # (Auto) 0.4, Eos # (Auto) 0.1, Baso # (Auto) 0.0 08/25/20 22:41: Sodium 142, Potassium 3.3 L, Chloride 102, Carbon Dioxide 30, Anion Gap 13.3, BUN 6 L, Creatinine 0.70, Estimated Creat Clear 135, Estimated GFR 144, Est GFR ( Amer) 174, Glucose 81, Calcium 9.7, C-Reactive Protein 1.7 08/25/20 22:41: ESR 15 08/25/20 22:41: Total Bilirubin 0.6, Direct Bilirubin 0.4, Conjugated Bilirubin 0.0, Indirect Bilirubin 0.2, Unconjugated Bilirubin 0.2, AST 23, ALT 13, Alkaline Phosphatase 76, Total Protein 8.7 H, Albumin 5.3 H, Procalcitonin < 0.030 Result diagrams: 08/25/20 22:41 08/25/20 22:41 Orders (Tests/Meds): ED MEDICATIONS Discontinued Medications Generic Name Dose Route Start Last Admin Trade Name Duyq PRN Reason Stop Dose Admin Ketorolac Tromethamine 30 mg 08/25/20 23:51 08/25/20 23:52 Ketorolac 30mg/Ml Vial IV 08/25/20 23:52 30 mg ONCE ONE Administration ORDERS Category Date Time Status Basic Metabolic Panel Stat Lab 08/25/20 22:41 Results C-Reactive Protein Stat Lab 08/25/20 22:41 Results Troponin I Q3H Lab 08/26/20 01:45 Ordered Troponin I Q3H Lab 08/26/20 04:45 Ordered Troponin I Stat Lab 08/25/20 22:41 Results - Radiology Data #1 Image(s): Chest Image Reviewed: Yes I reviewed the patient's radiology image Preliminary Findings: Abnormal (rt apical pxt ) Medical Decision Narrative: no clinical indication for chest tube at this time - will need repeat cxr in am - will obtain as op Chest Pain HPI - General Chief Complaint: Chest Pain Stated Complaint: Chest pain Time Seen by Provider: 08/25/20 22:45 Mode of Arrival: Family Vehicle Source of Information: Patient, Medical Record Limitations: No Limitations Description of Symptoms (Recalled from ER Triage Doc. by RN): woke up with right side upper chest pain and stated he tried to wait throughout day to see if it would improve. states when he went to bed last night-he didn't have pain. pt has a history of having had collapsed lungs 6x in the past. most recent chest tube was on his left side. - History of Present Illness HPI narrative: pt with hx of pxt in past and has rt sided chest pain since this am which miguel
[2020-08-25 23:02] LABS: Basophils % 0.2 % (0.1-2.0); Eosinophils # 0.1 K/mm3 (0.0-0.4); Eosinophils % 1.3 % (0.1-12.0); Hemoglobin 15.5 g/dL (14.1-18.0); Lymphocytes # 2.4 K/mm3 (0.7-4.5); Mean Corpuscular HGB Conc 35.2 g/dL (31.8-35.4); Mean Corpuscular Hemoglobin 29.8 pg (27.0-31.2); Mean Corpuscular Volume 84.7 fl (80-94); Mean Platelet Volume 7.4 fl (7.4-10.4); Monocytes # 0.4 K/mm3 (0.1-1.0); Monocytes % 5.2 % (1.7-9.3); Neutrophils # 5.6 K/mm3 (1.8-7.8); Neutrophils % 65.3 % (37.0-80.0); Platelet Count 242 K/mm3 (142-424); White Blood Count 8.5 K/mm3 (4.5-13.0)
[2020-08-25 23:03] LABS: Anion Gap 13.3 mEq/L (5-15); Blood Urea Nitrogen 6 mg/dl (9-20); Calcium 9.7 mg/dl (8.4-10.2); Carbon Dioxide 30 mmol/L (22.0-30.0); Creatinine Clearance Estimated 135 mL/min (50-200); Estimated Glomerular Filt Rate 144 ml/min (>60); GFR (African American) 174 ML/MIN (>60); Glucose 81 mg/dl (74-100)
[2020-08-25 23:04] LABS: Alanine Aminotransferase 13 U/L (12-78); Albumin Level 5.3 g/dl (3.5-5.0); Alkaline Phosphatase 76 U/L (38-126); Aspartate Amino Transferase 23 U/L (17-59); Bilirubin,Direct 0.4 mg/dl (0.0-0.4); Bilirubin,Indirect 0.2 mg/dL (0.0-0.9); Bilirubin,Total 0.6 mg/dl (0.2-1.3); Bilirubin,Unconjugated 0.2 mg/dL (0.0-1.1); Total Protein,Serum 8.7 g/dl (6.3-8.2)
[2020-08-25 23:09] LABS: C-Reactive Protein 1.7 mg/L (0-4)
[2020-08-25 23:27] LABS: Procalcitonin < 0.030 ng/mL (0.0-2.0)
[2020-08-25 23:30] VITALS: BP 119/71; PULSE 76; O2SAT 98
[2020-08-25 23:34] LABS: Erythrocyte Sedimentation Rate 15 mm/hr (0-15)
--- NOTE | 2020-08-25 23:40 | PC.NURSE ---
paged dr vargas
[2020-08-26 00:15] VITALS: BP 114/61; PULSE 73; RESP 17; TEMP 36.8; O2SAT 99
--- NOTE | 2020-08-26 00:19 | PC.NURSE ---
Dr Son returned call, s/w Dr. Sharp
[2020-08-26 00:42] LABS: Troponin I < 0.01 ng/ml (0.00-0.034)
== END 2020-08-26 00:19 | disposition home or self-care (01) ==
PROVIDERS: Emergency Provider Emergency Medicine
DX: J93.11 Primary spontaneous pneumothorax (principal)
CPT/HCPCS: 71045; 80048; 80076; 84145; 84484; 85025; 85651; 86140; 96374; 96375; 99282

== ENCOUNTER → 2020-08-26 08:58 | Outpatient (CLI) | payer MEDICAID, SELFPAY ==
--- NOTE | 2020-08-26 09:08 | XR_ITS ---
PROCEDURE: XR CHEST 2V CLINICAL HISTORY: RECURRENT PXT COMPARISON: CT CT ANGIO CHEST from 07/12/2019 CR XR CHEST 2V from 07/27/2020 CR XR CHEST 2V from 08/08/2020 CR XR CHEST PORTABLE from 08/25/2020 FINDINGS: The cardiomediastinal silhouette and pulmonary vascularity are within normal limits. Suture line is present in the left apex medially. There is a small residual right apical pneumothorax with an apical pleural distance of 9 mm previously 14 mm. No evidence of tension. No other significant anomalies are evident. No acute bony abnormalities. IMPRESSION: Small residual right apical pneumothorax which is slightly smaller compared to the previous exam. Dictated by: Fortunato Sparks MD 08/26/2020 09:23 Fortunato Sparks MD in [place] 08/26/2020 09:23
== END ==
PROVIDERS: PCP Emergency Medicine; Visit Provider Emergency Medicine
DX: J93.11 Primary spontaneous pneumothorax (principal)
CPT/HCPCS: 71046

== ENCOUNTER 2020-08-26 22:44 | Emergency (ER) | payer MEDICAID, SELFPAY ==
[2020-08-26 22:46] VITALS: BP 122/69; PULSE 72; RESP 18; TEMP 36.6; O2SAT 98; BMI 17.9
[2020-08-26 23:24] VITALS: BMI 17.9
--- NOTE | 2020-08-26 23:25 | XR_ITS ---
PROCEDURE INFORMATION: Exam: XR Chest Exam date and time: 08/26/2020 11:25 PM Age: 19 years old Clinical indication: Shortness of breath; Patient HX: SOA, PT was dx with pneumothorax last night and has just been feeling worse; Additional info: SOA, known decreasing pneumothorax TECHNIQUE: Imaging protocol: XR of the chest. Views: 2 views. COMPARISON: CR XR CHEST 2V 08/26/2020 9:13 AM FINDINGS: Lungs: Unremarkable. No consolidation. Pleural spaces: Unremarkable. No pleural effusion. Small right apical pneumothorax. Heart/Mediastinum: Unremarkable. No cardiomegaly. Bones/joints: Unremarkable. IMPRESSION: Small right apical pneumothorax is unchanged.
--- NOTE | 2020-08-26 23:57 | HMH.EDSOB ---
ED Disposition Clinical Impression: Pneumothorax Qualifiers: Pneumothorax type: spontaneous, primary Qualified Code(s): J93.11 - Primary spontaneous pneumothorax Disposition: Home, Self-Care Condition on Discharge: Good Instructions: DI for Pneumothorax Additional Instructions: see [facility] on saturday and recheck if needed Referrals: Gray Sharp MD [Primary Care Provider] - - Critical Care Critical Care Time: No Attestation: On 08/26/20, the high probability of a clinically significant, sudden or life threatening deterioration of the following system(s) required my full and direct attention, intervention and personal management. The time I documented below is in addition to time spent performing reported procedures but includes the following listed in this critical care notation. Medical Decision Making - Medical Records Medical records reviewed: Yes: I reviewed the patient's medical records. - Chinmay Inquiry Pt receiving controlled substance: No Vital Signs: 08/26/20 22:46 Temperature 97.8 F Temperature Source Oral Pulse Rate [Right] 72 Respiratory Rate 18 Blood Pressure [Right Arm] 122/69 Blood Pressure Mean [Right Arm] 86 02 Sat by Pulse Oximetry 98 Oxygen Delivery Method Room Air - Lab Data Lab results reviewed: Yes: I reviewed the patient's lab results. Orders (Tests/Meds): ED MEDICATIONS Generic Name Dose Route Start Last Admin Trade Name Freq PRN Reason Stop Dose Admin Ketorolac Tromethamine 10 mg 08/26/20 23:30 08/27/20 00:02 Ketorolac 10mg Tablet PO 08/31/20 23:29 10 mg Q6H XIOMARA Administration - Radiology Data #1 Image(s): Chest Image Reviewed: Yes I reviewed the patient's radiology image Preliminary Findings: Abnormal (pxt about same ) Medical Decision Narrative: pt with no changes on xrays and has appt with [facility] saturday Resp/SOB HPI - General Chief Complaint: Shortness of Breath/Dyspnea Stated Complaint: diagnosed with pneumothorax/having pain Time Seen by Provider: 08/26/20 23:57 Mode of Arrival: Ambulatory Source of Information: Patient, Medical Record Limitations: No Limitations Description of Symptoms (Recalled from ER Triage Doc. by RN): Pt has a known small pneumothorax to Right lung. He was seen here in the ER last night and had a follow up CXR this am. per pt MD stated it Was smaller . Tonight, he was laying down and trying to sleep when he had a sharp pain to the posterior upper right lung. Pt also c/o SOA with deep breaths. - History of Present Illness pt with recurrent pxt and had pain and feeling of sob tonight - came for nelly RODRIGUEZ Complaint: shortness of breath, pain with inspiration, chest pain Onset (ago): day(s) Context: other (pxt ) Severity: moderate Associated symptoms: denies other symptoms Treatment prior to arrival: none - Related Data Home oxygen amount: none Previous Rx's Medication Instructions Recorded hydrOXYzine HCL [Hydroxyzine HCl] 50 mg PO Q8HP PRN #30 tab 06/04/20 Allergies Allergy/AdvReac Type Severity Reaction Status Date / Time ibuprofen [From Motrin] Allergy Verified 07/19/20 16:07 [facility] History - Hepatitis A Screen Drug use history?: No High risk sexual behaviors?: No History of sexually transmitted infection?: No Currently employed?: No Childcare worker?: No Do you have indoor plumbing?: Yes Do you have electricity?: Yes Attestation statement:: This patient has been screened for Hepatitis A risk factors. I have reviewed the patient's past medical history: Yes 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: Denies:: Cancer, Diabetes Mellitus Type 1, Diabetes Mellitus Type 2, Hypertension, MRSA Comment: pneumothorax 2x Other Surgeries: Yes: Other Amputation: No Fractures: No Comment: pneumothorax x2 - Social History Smoking Status: Current every day smoker Tobacco Type: e-cigarettes # Packs/Day (cigarettes): 1 Alcohol Intake: never Alcohol Intake Frequency:: holidays/special occasions only Substan
[2020-08-27 00:10] VITALS: BP 116/67; PULSE 61; RESP 18; TEMP 36.6; O2SAT 97
== END 2020-08-27 00:13 | disposition home or self-care (01) ==
PROVIDERS: Emergency Provider Emergency Medicine; PCP Emergency Medicine
DX: J93.11 Primary spontaneous pneumothorax (principal); F17.290 Nicotine dependence, other tobacco product, uncomplicated
CPT/HCPCS: 71046; 99282

== ENCOUNTER 2020-09-01 21:17 | Emergency (ER) | payer MEDICAID, SELFPAY ==
[2020-09-01 21:19] VITALS: BP 113/71; PULSE 84; RESP 16; TEMP 36.9; O2SAT 98; BMI 19.3
[2020-09-01 21:29] VITALS: BMI 19.3
--- NOTE | 2020-09-01 21:30 | XR_ITS ---
PROCEDURE INFORMATION: Exam: XR Chest Exam date and time: 09/01/20 09:30 PM Age: 19 years old Clinical indication: Shortness of breath and other: RO collapse lung; Patient HX: Past HX of left pneumothorax June 2020; Additional info: Rule out collapse lung pain and SOB tonight TECHNIQUE: Imaging protocol: XR of the chest. Views: 2 views. COMPARISON: CR XR CHEST 2V 08/26/20 11:30 PM FINDINGS: Lungs: Unremarkable. No consolidation. Pleural spaces: Unremarkable. No pleural effusion. No pneumothorax. Heart/Mediastinum: Unremarkable. No cardiomegaly. Bones/joints: Unremarkable. IMPRESSION: No acute findings.
--- NOTE | 2020-09-01 22:09 | HMH.EDGENADL ---
ED Disposition Clinical Impression: Pleurisy Disposition: Home, Self-Care Condition on Discharge: Good Instructions: DI for Pleurisy Additional Instructions: use advil/tyenol and see pcp for follo wup Referrals: Provider,Referral, [Primary Care Provider] - - Critical Care Critical Care Time: No Attestation: On 09/01/20, the high probability of a clinically significant, sudden or life threatening deterioration of the following system(s) required my full and direct attention, intervention and personal management. The time I documented below is in addition to time spent performing reported procedures but includes the following listed in this critical care notation. Medical Decision Making - Medical Records Medical records reviewed: Yes: I reviewed the patient's medical records. - Cihnmay Inquiry Pt receiving controlled substance: No Vital Signs: 09/01/20 21:19 Temperature 98.4 F Temperature Source Oral Pulse Rate [Left Radial] 84 Respiratory Rate 16 Blood Pressure [Right Arm] 113/71 Blood Pressure Mean [Right Arm] 85 Blood Pressure Source [Right Arm] Automatic Cuff Blood Pressure Position [Right Arm] Sitting 02 Sat by Pulse Oximetry 98 Oxygen Delivery Method Room Air - Lab Data Lab results reviewed: Yes: I reviewed the patient's lab results. - Radiology Data #1 Image(s): Chest Image Reviewed: Yes I reviewed the patient's radiology image Preliminary Findings: Normal/NAD Medical Decision Narrative: no pxt on cxr General Adult HPI - General Chief complaint: PAIN Stated complaint: right side back pain from pneuthorax Time Seen by Provider: 09/01/20 21:25 Mode of Arrival: Ambulatory Source of Information: Patient, Medical Record Limitations: No Limitations Description of Symptoms (Recalled from ER Triage Doc. by RN): Pt states he was cleaning his house and after waking from a nap he had some right rib pain. Pt hx of multiple pneumo's. Pt denies SOA. - History of Present Illness HPI narrative: rt sided rib pain with concern about pxt Onset (ago): hour(s) Location: chest Severity: moderate Quality: dull Associated symptoms: denies other symptoms - Related Data Previous Rx's Medication Instructions Recorded hydrOXYzine HCL [Hydroxyzine HCl] 50 mg PO Q8HP PRN #30 tab 06/04/20 Allergies Allergy/AdvReac Type Severity Reaction Status Date / Time ibuprofen [From Motrin] Allergy Verified 07/19/20 16:07 [facility] History - Hepatitis A Screen Drug use history?: No High risk sexual behaviors?: No History of sexually transmitted infection?: No Currently employed?: No Childcare worker?: No Do you have indoor plumbing?: Yes Do you have electricity?: Yes Attestation statement:: This patient has been screened for Hepatitis A risk factors. I have reviewed the patient's past medical history: Yes 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: Denies:: Cancer, Diabetes Mellitus Type 1, Diabetes Mellitus Type 2, Hypertension, MRSA Comment: pneumothorax 2x Other Surgeries: Yes: Other Amputation: No Fractures: No Comment: pneumothorax x2 - Social History Smoking Status: Current every day smoker Tobacco Type: e-cigarettes # Packs/Day (cigarettes): 1 Alcohol Intake: never Alcohol Intake Frequency:: holidays/special occasions only Substance Use Type: marijuana Occupational Status: other Housing: house Household Members: family Family Hx:: Diabetes ROS Obtained: Yes All systems reviewed & no additional complaints - Constitutional Constitutional: Denies fever(s) - Eyes Eyes: Denies change in vision - ENT Ears, Nose, Mouth, and Throat: Denies sore throat - Cardiovascular Cardiovascular: Reports as per HPI, Reports chest pain, Denies dyspnea - Respiratory Respiratory: Denies shortness of breath - Gastrointestinal Gastrointestingal: Denies: abdominal pain - Genitourinary Male Genitourinary: Denies hematuria - Musculoskeletal Musculoskeletal: Denies joint pain - Integumentary/Marguerite
[2020-09-01 22:44] VITALS: BP 118/68; PULSE 78; RESP 16; TEMP 36.9; O2SAT 98
== END 2020-09-01 22:46 | disposition home or self-care (01) ==
PROVIDERS: Emergency Provider Emergency Medicine
DX: R09.1 Pleurisy (principal); R07.9 Chest pain, unspecified; F17.290 Nicotine dependence, other tobacco product, uncomplicated
CPT/HCPCS: 71046; 99282

== ENCOUNTER 2020-10-21 21:53 | Emergency (ER) | payer MEDICAID, SELFPAY ==
[2020-10-21 21:54] VITALS: BP 106/73; PULSE 69; RESP 16; TEMP 36.4; O2SAT 100; BMI 19.6
--- NOTE | 2020-10-21 22:00 | XR_ITS ---
PROCEDURE INFORMATION: Exam: XR Chest Exam date and time: 10/21/2020 10:00 PM Age: 20 years old Clinical indication: On breathing; Prior surgery; Surgery date: 6+ months; Patient HX: Right sided chest pain when taking in breath after coughing, HX of pneumothorax and left sided paracentesis; Additional info: Right chest pain, history of pneumothoraces TECHNIQUE: Imaging protocol: XR of the chest. Views: 2 views. COMPARISON: CR XR CHEST 2V 09/01/2020 9:46 PM FINDINGS: Lungs: Unremarkable. No consolidation. Pleural spaces: Unremarkable. No pleural effusion. No pneumothorax. Heart/Mediastinum: Unremarkable. No cardiomegaly. Bones/joints: Unremarkable. IMPRESSION: No acute findings.
--- NOTE | 2020-10-21 22:22 | HMH.EDGENADL ---
ED Disposition Clinical Impression: Pleurisy, Chest wall pain Disposition: Home, Self-Care Condition on Discharge: Good Instructions: DI for Atypical Chest Pain Additional Instructions: You have been evaluated for chest pain, atypical. No signs of pneumothorax on chest x-ray. Please continue following up with your java sdet. Return to the emergency department at once for any new or worsening symptoms. Referrals: Provider,Johanna, [Primary Care Provider] - Time of Disposition: 23:29 - Critical Care Critical Care Time: No Attestation: On 10/21/20, the high probability of a clinically significant, sudden or life threatening deterioration of the following system(s) required my full and direct attention, intervention and personal management. The time I documented below is in addition to time spent performing reported procedures but includes the following listed in this critical care notation. Medical Decision Making - Medical Records Medical records reviewed: Yes: I reviewed the patient's medical records. - Chinmay Inquiry Pt receiving controlled substance: No Vital Signs: 10/21/20 21:54 Temperature 97.6 F Temperature Source Oral Pulse Rate [Right] 69 Respiratory Rate 16 Blood Pressure [Right Arm] 106/73 L Blood Pressure Mean [Right Arm] 84 Blood Pressure Source [Right Arm] Automatic Cuff Blood Pressure Position [Right Arm] Sitting 02 Sat by Pulse Oximetry 100 Oxygen Delivery Method Room Air - Radiology Data #1 Image(s): Chest Image Reviewed: Yes I reviewed the patient's radiology results, Yes I reviewed the patient's radiology image Preliminary Findings: Normal/NAD FINDINGS: Lungs: Unremarkable. No consolidation. Pleural spaces: Unremarkable. No pleural effusion. No pneumothorax. Heart/Mediastinum: Unremarkable. No cardiomegaly. Bones/joints: Unremarkable. IMPRESSION: No acute findings. Medical Decision Narrative: In summary this is a 20-year-old male with history of spontaneous pneumothoraces presenting to the emergency department with right-sided chest pain. Patient clinically stable on arrival. Vital signs within normal limits. Concern for pneumothorax, costochondritis, chest wall pain, pleurisy. Will obtain x-ray. Chest x-ray personally reviewed and interpreted. No pneumothorax on the right side. No other acute abnormality within the thorax. On reassessment patient says he is feeling better. Oxygen saturation appropriate. No increased inspiratory effort. No accessory muscle use. Counseled to continue following up with his java sdet. Return for any new or worsening symptoms. Stable for discharge General Adult HPI - General Chief complaint: PAIN Stated complaint: cough,chest pain Time Seen by Provider: 10/21/20 22:02 Mode of Arrival: Family Vehicle Limitations: No Limitations Description of Symptoms (Recalled from ER Triage Doc. by RN): Pt reports ~ 2114 he coughed real hard and then a stabbing pain started . Pt present to the R lateral side up to under R axilla. Pt reports he is supposed to have a pleurodesis to R lung. Pt reports some clear sinus drainage. Denies any producitve cough, fever, chills, N/V/D, or SOA. Breath sounds CTA. - History of Present Illness HPI narrative: 20-year-old male presenting to the emergency department with chest pain. Pain is located in the right anterior chest. Feels like a stabbing sensation. He was coughing and then developed sharp pain. Pain does not radiate to the back, jaw, arm. He has had pain like this before. Suffers from spontaneous pneumothoraces. Has had a pleurodesis on the left. Scheduled for a pleurodesis on the right. Currently does not have shortness of breath or difficulty breathing. No medications prior to arrival. - Related Data Previous Rx's Medication Instructions Recorded hydrOXYzine HCL [Hydroxyzine HCl] 50 mg PO Q8HP PRN #30 tab 06/04/20 Allergies Allergy/AdvReac Type Severit
[2020-10-21 23:51] VITALS: BP 122/54; PULSE 73; RESP 16; TEMP 36.6; O2SAT 99
== END 2020-10-21 23:52 | disposition home or self-care (01) ==
PROVIDERS: Emergency Provider Emergency Medicine
DX: R07.89 Other chest pain (principal); F17.290 Nicotine dependence, other tobacco product, uncomplicated
CPT/HCPCS: 71046; 99282

== ENCOUNTER 2020-12-20 01:01 | Emergency (ER) | payer MEDICAID, SELFPAY ==
[2020-12-20 01:02] VITALS: BP 132/66; PULSE 97; RESP 18; TEMP 36.6; O2SAT 97; BMI 19.5
--- NOTE | 2020-12-20 01:11 | XR_ITS ---
PROCEDURE INFORMATION: Exam: XR Chest Exam date and time: 12/20/2020 1:11 AM Age: 20 years old Clinical indication: Pain; On breathing; Patient HX: HX of pneumothorax; Additional info: Pain with breathing TECHNIQUE: Imaging protocol: XR of the chest. Views: 2 views. COMPARISON: CR XR CHEST 2V 10/21/2020 10:32 PM FINDINGS: Lungs: Suture material in the left lung apex, unchanged. No focal consolidation. No appreciable pulmonary edema. Pleural spaces: Blunting of the posterior costophrenic sulci may represent trace pleural effusions. No pneumothorax. Heart/Mediastinum: Cardiomediastinal silouhette is within normal limits. Bones/joints: No acute osseous abnormality. Soft tissues: Unremarkable. IMPRESSION: Blunting of the posterior costophrenic sulci may represent trace pleural effusions. No evidence of pneumothorax.
[2020-12-20 01:41] LABS: Coronavirus 19, PCR Not Detected (NotDetected); Influenza A, PCR Not Detected (NotDetected); Influenza B, PCR Not Detected (NotDetected)
[2020-12-20 01:46] LABS: Basophils % 0.5 % (0.1-2.0); Eosinophils # 0.1 K/mm3 (0.0-0.4); Eosinophils % 1.5 % (0.1-12.0); Hematocrit 43.9 % (42.0-52.0); Hemoglobin 14.8 g/dL (14.1-18.0); Lymphocytes # 2.6 K/mm3 (0.7-4.5); Lymphocytes % 32.7 % (10-50); Mean Corpuscular HGB Conc 33.8 g/dL (31.8-35.4); Mean Corpuscular Hemoglobin 29.8 pg (27.0-31.2); Mean Corpuscular Volume 88.1 fl (80-94); Mean Platelet Volume 7.6 fl (7.4-10.4); Monocytes # 0.5 K/mm3 (0.1-1.0); Monocytes % 6.3 % (1.7-9.3); Neutrophils # 4.6 K/mm3 (1.8-7.8); Neutrophils % 58.9 % (37.0-80.0); Platelet Count 215 K/mm3 (142-424); Red Blood Count 4.98 M/mm3 (4.60-6.20); Red Cell Distribution Width 13.1 % (11.5-17.5); White Blood Count 7.8 K/mm3 (4.8-10.8)
[2020-12-20 01:50] LABS: Alanine Aminotransferase 13 U/L (12-78); Albumin Level 4.6 g/dl (3.5-5.0); Albumin/Globulin Ratio 1.6 (1.1-1.8); Alkaline Phosphatase 50 U/L (38-126); Anion Gap 11.6 mEq/L (5-15); Aspartate Amino Transferase 23 U/L (17-59); Bilirubin,Total 0.6 mg/dl (0.2-1.3); Blood Urea Nitrogen 7 mg/dl (9-20); Calcium 9.3 mg/dl (8.4-10.2); Carbon Dioxide 29 mmol/L (22.0-30.0); Chloride 106 mmol/L (98-107); Creatinine Clearance Estimated 150 mL/min (50-200); Estimated Glomerular Filt Rate 142 ml/min (>60); GFR (African American) 172 ML/MIN (>60); Globulin 2.9 g/dL (1.3-3.2); Glucose 103 mg/dl (74-100); Potassium 3.6 mmoL/L (3.5-5.1); Sodium 143 mmol/L (136-145); Total Protein,Serum 7.5 g/dl (6.3-8.2)
--- NOTE | 2020-12-20 02:19 | HMH.EDGENADL ---
ED Disposition Clinical Impression: Atypical chest pain Disposition: Home, Self-Care Condition on Discharge: Good Instructions: DI for Atypical Chest Pain Additional Instructions: see pcp for follow up Referrals: Provider,Referral, [Primary Care Provider] - - Critical Care Critical Care Time: No Attestation: On 12/20/20, the high probability of a clinically significant, sudden or life threatening deterioration of the following system(s) required my full and direct attention, intervention and personal management. The time I documented below is in addition to time spent performing reported procedures but includes the following listed in this critical care notation. Medical Decision Making - Medical Records Medical records reviewed: Yes: I reviewed the patient's medical records. - Chinmay Inquiry Pt receiving controlled substance: No Vital Signs: 12/20/20 01:02 Temperature 97.9 F Temperature Source Oral Pulse Rate [Right Radial] 97 H Respiratory Rate 18 Blood Pressure [Right Arm] 132/66 Blood Pressure Mean [Right Arm] 88 Blood Pressure Source [Right Arm] Automatic Cuff Blood Pressure Position [Right Arm] Sitting 02 Sat by Pulse Oximetry 97 Oxygen Delivery Method Room Air - Lab Data Lab results reviewed: Yes: I reviewed the patient's lab results. Lab Results 12/20/20 01:35: WBC 7.8, RBC 4.98, Hgb 14.8, Hct 43.9, MCV 88.1, MCH 29.8, MCHC 33.8, RDW 13.1, Plt Count 215, MPV 7.6, Neut % (Auto) 58.9, Lymph % (Auto) 32.7, [place] % (Auto) 6.3, Eos % (Auto) 1.5, Baso % (Auto) 0.5, Neut # (Auto) 4.6, Lymph # (Auto) 2.6, [place] # (Auto) 0.5, Eos # (Auto) 0.1, Baso # (Auto) 0.0 12/20/20 01:35: Sodium 143, Potassium 3.6, Chloride 106, Carbon Dioxide 29, Anion Gap 11.6, BUN 7 L, Creatinine 0.70, Estimated Creat Clear 150, Estimated GFR 142, Est GFR ( Amer) 172, Glucose 103 H, Calcium 9.3, Total Bilirubin 0.6, AST 23, ALT 13, Alkaline Phosphatase 50, Total Protein 7.5, Albumin 4.6, Globulin 2.9, Albumin/Globulin Ratio 1.6 12/20/20 01:35: SARS-CoV-2 (PCR) Not detected, Influenza A Untype (PCR) Not detected, Influenza Type B (PCR) Not detected Result diagrams: 12/20/20 01:35 12/20/20 01:35 Orders (Tests/Meds): ED MEDICATIONS Discontinued Medications Generic Name Dose Route Start Last Admin Trade Name Freq PRN Reason Stop Dose Admin Ketorolac Tromethamine 30 mg 12/20/20 02:19 12/20/20 02:23 Ketorolac 30mg/Ml Vial IV 12/20/20 02:20 30 mg ONCE ONE Administration - Radiology Data #1 Image(s): Chest Image Reviewed: Yes I have reviewed radiologist's interpretation Preliminary Findings: Normal/NAD Medical Decision Narrative: no def changes on exam or xray General Adult HPI - General Chief complaint: PAIN Stated complaint: Pain when taking deep breath in left lung Time Seen by Provider: 12/20/20 02:00 Mode of Arrival: Ambulatory Source of Information: Patient, Medical Record Limitations: No Limitations Description of Symptoms (Recalled from ER Triage Doc. by RN): Pt reports awaking 30 min ago with right sided rib pain. Pt has hx of pneumothorax and says it feels similar. Pt says he has slight SOA. Denies cough. Denies radiating pain. - History of Present Illness HPI narrative: lt side chest pain with hx of pxt Onset (ago): hour(s) Location: chest Severity: moderate Associated symptoms: denies other symptoms - Related Data Previous Rx's Medication Instructions Recorded hydrOXYzine HCL [Hydroxyzine HCl] 50 mg PO Q8HP PRN #30 tab 06/04/20 Allergies Allergy/AdvReac Type Severity Reaction Status Date / Time ibuprofen [From Motrin] Allergy Verified 07/19/20 16:07 [facility] History - Hepatitis A Screen Drug use history?: No High risk sexual behaviors?: No History of sexually transmitted infection?: No Currently employed?: No Childcare worker?: No Do you have indoor plumbing?: Yes Do you have electricity?: Yes Attestation statement:: This patient has b
[2020-12-20 03:05] VITALS: BP 111/66; PULSE 63; RESP 16; TEMP 36.7; O2SAT 97
== END 2020-12-20 03:10 | disposition home or self-care (01) ==
PROVIDERS: Emergency Provider Emergency Medicine
DX: R07.89 Other chest pain (principal); F17.290 Nicotine dependence, other tobacco product, uncomplicated; F12.10 Cannabis abuse, uncomplicated; Z20.822 Contact with and (suspected) exposure to COVID-19
CPT/HCPCS: 71046; 80053; 85025; 96374; 99283; C9803; U0003; U0005

== ENCOUNTER 2021-07-05 22:53 | Emergency (ER) | payer MEDICAID, SELFPAY ==
[2021-07-05 22:54] VITALS: BP 136/74; PULSE 90; RESP 18; TEMP 36.8; O2SAT 100; BMI 19.3
--- NOTE | 2021-07-05 22:56 | ECG_ITS ---
APPROVED REPORT Exam: Resting ECG HR:78 bpm ECG Measurements Heart Rate 78 AXES W[place] 183 P 80 QRSd 89 QRS 85 QT 342 T 75 QTc 375 Conclusion SINUS RHYTHM WITH SINUS ARRHYTHMIA POSSIBLE RIGHT VENTRICULAR CONDUCTION DELAY [RSR (QR) IN V1/V2] BORDERLINE ECG UNCONFIRMED REPORT Electronically signed by : Jose Draper MD 07/06/2021 17:41:24
--- NOTE | 2021-07-05 23:04 | XR_ITS ---
PROCEDURE INFORMATION: Exam: XR Chest Exam date and time: 07/05/2021 11:04 PM Age: 20 years old Clinical indication: On breathing and right-sided; Prior surgery; Patient HX: Chest pain/ burning sensation right side, posterior pain with deep inspiration, dizziness. HX of multiple pneumothoraxes, HX of surgery to prevent future collapses TECHNIQUE: Imaging protocol: XR of the chest. Views: 2 views. COMPARISON: CR XR CHEST 2V 12/20/2020 1:07 AM FINDINGS: Lungs: Postsurgical changes of the left lung apex. Bilateral apical scarring. Pleural spaces: Unremarkable. No pleural effusion. No pneumothorax. Heart/Mediastinum: Unremarkable. No cardiomegaly. Bones/joints: Unremarkable. IMPRESSION: No acute findings.
[2021-07-05 23:20] LABS: Alanine Aminotransferase 18 U/L (12-78); Albumin Level 4.7 g/dl (3.5-5.0); Alkaline Phosphatase 62 U/L (38-126); Anion Gap 14.1 mEq/L (5-15); Aspartate Amino Transferase 24 U/L (17-59); Bilirubin,Direct 0.1 mg/dl (0.0-0.4); Bilirubin,Indirect 0.4 mg/dL (0.0-0.9); Bilirubin,Total 0.5 mg/dl (0.2-1.3); Bilirubin,Unconjugated 0.4 mg/dL (0.0-1.1); Blood Urea Nitrogen 8 mg/dl (9-20); Calcium 9.1 mg/dl (8.4-10.2); Carbon Dioxide 27 mmol/L (22.0-30.0); Chloride 102 mmol/L (98-107); Creatinine Clearance Estimated 145 mL/min (50-200); Estimated Glomerular Filt Rate 142 ml/min (>60); GFR (African American) 172 ML/MIN (>60); Glucose 94 mg/dl (74-100); Potassium 3.1 mmoL/L (3.5-5.1); Sodium 140 mmol/L (136-145); Total Protein,Serum 7.6 g/dl (6.3-8.2)
[2021-07-05 23:26] LABS: C-Reactive Protein 3.1 mg/L (0-4)
--- NOTE | 2021-07-05 23:54 | HMH.EDCP ---
ED Disposition Clinical Impression: Non-cardiac chest pain, Atypical chest pain Disposition: Home, Self-Care Condition on Discharge: Good Instructions: DI for Atypical Chest Pain Additional Instructions: see pcp for follow up Referrals: Provider,Referral, [Primary Care Provider] - - Critical Care Critical Care Time: No Attestation: On 07/05/21, the high probability of a clinically significant, sudden or life threatening deterioration of the following system(s) required my full and direct attention, intervention and personal management. The time I documented below is in addition to time spent performing reported procedures but includes the following listed in this critical care notation. Medical Decision Making - Medical Records Medical records reviewed: Yes: I reviewed the patient's medical records. - Chinmay Inquiry Pt receiving controlled substance: No Vital Signs: 07/05/21 22:54 Temperature 98.2 F Temperature Source Oral Pulse Rate [Left Brachial] 90 Respiratory Rate 18 Blood Pressure [Right Arm] 136/74 Blood Pressure Mean [Right Arm] 94 02 Sat by Pulse Oximetry 100 Oxygen Delivery Method Room Air - Lab Data Lab results reviewed: Yes: I reviewed the patient's lab results. Lab Results 07/05/21 22:56: Sodium 140, Potassium 3.1 L, Chloride 102, Carbon Dioxide 27, Anion Gap 14.1, BUN 8 L, Creatinine 0.70, Estimated Creat Clear 145, Estimated GFR 142, Est GFR ( Amer) 172, Glucose 94, Calcium 9.1, Total Bilirubin 0.5, Direct Bilirubin 0.1, Conjugated Bilirubin 0.0, Indirect Bilirubin 0.4, Unconjugated Bilirubin 0.4, AST 24, ALT 18, Alkaline Phosphatase 62, Total Protein 7.6, Albumin 4.7 Result diagrams: 07/05/21 22:56 Orders (Tests/Meds): ORDERS Category Date Time Status Basic Metabolic Panel Stat Lab 07/05/21 22:56 Results C-Reactive Protein Stat Lab 07/05/21 22:56 Results Complete Blood Count Auto Diff Stat Lab 07/05/21 22:56 Received Liver Panel Stat Lab 07/05/21 22:56 Results Troponin I Q3H Lab 07/06/21 02:15 Ordered Troponin I Q3H Lab 07/06/21 05:15 Ordered Troponin I Stat Lab 07/05/21 22:56 Results - Radiology Data #1 Image(s): Chest Image Reviewed: Yes I have reviewed radiologist's interpretation Preliminary Findings: Normal/NAD - ECG Data Tracing #1 Normal Sinus Rhythm: Yes Ischemic changes: non-specific ST-T wave changes Medical Decision Narrative: no pxt and stable exam and labs Chest Pain HPI - General Chief Complaint: Chest Pain Stated Complaint: RIGHT SIDED LUNG PAIN Time Seen by Provider: 07/05/21 23:54 Mode of Arrival: Ambulatory Source of Information: Patient, Medical Record Limitations: No Limitations Description of Symptoms (Recalled from ER Triage Doc. by RN): PT REPORTS PAIN IN RIGHT RIB CAGE WITH RADIATION TO BACK WITH INTERMITT SHARP PAINS IN CHEST. PT REPORTS HE HAS HAD 4 PREVIOUS COLLAPSED LUNGS (3 LEFT, 1 RIGHT) AND ONE SPONTANEOUS PNEUMO. PT REPORTS HE HAS QUIT VAPING APPRX. 1 MONTH AGO. PT DENIES SHORTNESS OF AIR. - History of Present Illness HPI narrative: pt with feeling of sob with hx of pxt - no fever or rash and no trauma MD complaint: chest pain Onset (ago): hour(s) Duration: intermittent Activity at onset: during rest Pain location: left chest Severity: moderate Quality: sharp Context: other (hx of pxt ) Risk Factors for CAD: Family Hx of CAD Treatments prior to or on arrival for Cardiac Chest Pain: none - JEANIE Score for Non-Stemi Age of Patient: <30 years old Heart Rate: 90-109 bpm Systolic Blood Pressure: 120-139 mmhg Serum Creatinine: 0.40-0.79 mg/dl CHF [place] Class: I-No CHF Other Risk Factors: None Non-Stemi Risk Score: 53 - Related Data Home Medications Medication Instructions Recorded Confirmed clindamycin HCL [Clindamycin HCl] 1 caplet PO TID 07/05/21 07/05/21 Allergies Allergy/AdvReac Type Severity Reaction Status Date / Time ibuprofen [From Motrin] Allergy
[2021-07-05 23:57] LABS: Troponin I < 0.01 ng/ml (0.00-0.034)
[2021-07-06 00:10] VITALS: BP 115/70; PULSE 71; RESP 16; TEMP 36.7; O2SAT 97
[2021-07-06 05:47] LABS: Hematocrit 41.1 % (42.0-52.0); Mean Corpuscular HGB Conc 34.1 g/dL (31.8-35.4); Mean Corpuscular Hemoglobin 29.2 pg (27.0-31.2); Mean Corpuscular Volume 85.8 fl (80-94); Mean Platelet Volume 9.4 fl (7.4-10.4); Platelet Count 237 K/mm3 (142-424); Red Blood Count 4.79 M/mm3 (4.60-6.20); Red Cell Distribution Width 12.2 % (11.5-17.5); White Blood Count 9.8 K/mm3 (4.8-10.8)
== END 2021-07-06 00:12 | disposition home or self-care (01) ==
PROVIDERS: Emergency Provider Emergency Medicine
DX: R07.89 Other chest pain (principal); R06.02 Shortness of breath; F17.290 Nicotine dependence, other tobacco product, uncomplicated
CPT/HCPCS: 71046; 80048; 80076; 84484; 85025; 86140; 93005; 99283

== ENCOUNTER 2021-10-15 21:30 | Emergency (ER) | payer MEDICAID, SELFPAY ==
[2021-10-15 23:18] VITALS: BP 114/69; PULSE 56; RESP 16; TEMP 36.8; O2SAT 100; BMI 22.8
[2021-10-15 23:40] LABS: Basophils % 0.3 % (0.1-2.0); Eosinophils # 0.1 K/mm3 (0.0-0.4); Eosinophils % 1.3 % (0.1-12.0); Hematocrit 43.3 % (42.0-52.0); Hemoglobin 14.8 g/dL (14.1-18.0); Lymphocytes # 1.9 K/mm3 (0.7-4.5); Lymphocytes % 22.6 % (10-50); Mean Corpuscular HGB Conc 34.1 g/dL (31.8-35.4); Mean Corpuscular Hemoglobin 29.9 pg (27.0-31.2); Mean Corpuscular Volume 87.5 fl (80-94); Mean Platelet Volume 7.2 fl (7.4-10.4); Monocytes # 0.5 K/mm3 (0.1-1.0); Monocytes % 5.5 % (1.7-9.3); Neutrophils % 70.4 % (37.0-80.0); Platelet Count 199 K/mm3 (142-424); Red Blood Count 4.95 M/mm3 (4.60-6.20); Red Cell Distribution Width 12.9 % (11.5-17.5); White Blood Count 8.6 K/mm3 (4.8-10.8)
[2021-10-15 23:52] LABS: Alanine Aminotransferase 14 U/L (12-78); Albumin Level 4.8 g/dl (3.5-5.0); Albumin/Globulin Ratio 1.5 (1.1-1.8); Alkaline Phosphatase 67 U/L (38-126); Anion Gap 11.9 mEq/L (5-15); Aspartate Amino Transferase 28 U/L (17-59); Bilirubin,Total 0.2 mg/dl (0.2-1.3); Blood Urea Nitrogen 9 mg/dl (9-20); Calcium 9.5 mg/dl (8.4-10.2); Carbon Dioxide 29 mmol/L (22.0-30.0); Chloride 104 mmol/L (98-107); Creatinine Clearance Estimated 100 mL/min (50-200); Estimated Glomerular Filt Rate 106 ml/min (>60); GFR (African American) 128 ML/MIN (>60); Globulin 3.3 g/dL (1.3-3.2); Glucose 98 mg/dl (74-100); Potassium 3.9 mmoL/L (3.5-5.1); Sodium 141 mmol/L (136-145); Total Protein,Serum 8.1 g/dl (6.3-8.2)
[2021-10-16 00:09] LABS: Erythrocyte Sedimentation Rate 4 mm/hr (0-15)
[2021-10-16 00:11] LABS: Procalcitonin < 0.030 ng/mL (0.0-2.0)
[2021-10-16 00:13] LABS: C-Reactive Protein < 0.3 mg/L (0-4)
--- NOTE | 2021-10-16 00:19 | XR_ITS ---
PROCEDURE INFORMATION: Exam: XR Chest Exam date and time: 10/16/2021 12:15 AM Age: 21 years old Clinical indication: Sternal or substernal pain; Additional info: HX spont pneumothorax TECHNIQUE: Imaging protocol: Radiologic exam of the chest. Views: 2 views. COMPARISON: CR XR CHEST 2V 07/05/2021 11:04 PM FINDINGS: Lungs: Postsurgical changes of the left lung apex. Pleural spaces: No visible pneumothorax. Heart/Mediastinum: Unremarkable. No cardiomegaly. Bones/joints: Unremarkable. IMPRESSION: No visible pneumothorax. No acute findings.
--- NOTE | 2021-10-16 01:55 | HMH.EDGENADL ---
ED Disposition Clinical Impression: Atypical chest pain Disposition: Home, Self-Care Condition on Discharge: Good Instructions: DI for Acute Pain -- Child Additional Instructions: see pcp for follow up Referrals: Provider,Referral, [Primary Care Provider] - - Critical Care Critical Care Time: No Attestation: On 10/15/21, the high probability of a clinically significant, sudden or life threatening deterioration of the following system(s) required my full and direct attention, intervention and personal management. The time I documented below is in addition to time spent performing reported procedures but includes the following listed in this critical care notation. Medical Decision Making - Medical Records Medical records reviewed: Yes: I reviewed the patient's medical records. - Chinmay Inquiry Pt receiving controlled substance: No Vital Signs: 10/15/21 23:18 Temperature 98.2 F Temperature Source Oral Pulse Rate [Right Brachial] 56 L Respiratory Rate 16 Blood Pressure [Right Arm] 114/69 Blood Pressure Mean [Right Arm] 84 Blood Pressure Source [Right Arm] Automatic Cuff Blood Pressure Position [Right Arm] Sitting 02 Sat by Pulse Oximetry 100 Oxygen Delivery Method Room Air - Lab Data Lab results reviewed: Yes: I reviewed the patient's lab results. Lab Results 10/15/21 23:30: WBC 8.6, RBC 4.95, Hgb 14.8, Hct 43.3, MCV 87.5, MCH 29.9, MCHC 34.1, RDW 12.9, Plt Count 199, MPV 7.2 L, Neut % (Auto) 70.4, Lymph % (Auto) 22.6, [place] % (Auto) 5.5, Eos % (Auto) 1.3, Baso % (Auto) 0.3, Neut # (Auto) 6.0, Lymph # (Auto) 1.9, [place] # (Auto) 0.5, Eos # (Auto) 0.1, Baso # (Auto) 0.0, ESR 4 10/15/21 23:30: C-Reactive Protein < 0.3 10/15/21 23:30: Sodium 141, Potassium 3.9, Chloride 104, Carbon Dioxide 29, Anion Gap 11.9, BUN 9, Creatinine 0.90, Estimated Creat Clear 100, Estimated GFR 106, Est GFR ( Amer) 128, Glucose 98, Calcium 9.5, Total Bilirubin 0.2, AST 28, ALT 14, Alkaline Phosphatase 67, Total Protein 8.1, Albumin 4.8, Globulin 3.3 H, Albumin/Globulin Ratio 1.5 10/15/21 23:30: Procalcitonin < 0.030 Result diagrams: 10/15/21 23:30 10/15/21 23:30 Orders (Tests/Meds): ED MEDICATIONS Generic Name Dose Route Start Last Admin Trade Name Freq PRN Reason Stop Dose Admin Sodium Chloride 1,000 mls @ 999 mls/hr 10/15/21 23:30 Sod Chlor 0.9% 1000ml Bag IV 10/16/21 00:30 .Q1H1M [facility] - Radiology Data #1 Image(s): Chest Image Reviewed: Yes I have reviewed radiologist's interpretation Preliminary Findings: Normal/NAD Medical Decision Narrative: nonspecific rt sided chest pain with stable cxr and exam General Adult HPI - General Chief complaint: PAIN Stated complaint: stabbing pain under shoulder blade Time Seen by Provider: 10/16/21 01:55 Mode of Arrival: Ambulatory Source of Information: Patient, Medical Record Limitations: No Limitations Description of Symptoms (Recalled from ER Triage Doc. by RN): patient reports sharp pain to right shoulder blade, reports similar pain with pneumothorax. Resp even and unlabored denies any shortness of breath - History of Present Illness HPI narrative: pt concerned about pxt with hx of same and has sx consistent with prev - no illness or cough or trauma Onset (ago): hour(s) Location: chest Severity: moderate Associated symptoms: denies other symptoms Treatments prior to arrival: none - Related Data Home Medications Medication Instructions Recorded Confirmed clindamycin HCL [Clindamycin HCl] 1 caplet PO TID 07/05/21 07/05/21 Allergies Allergy/AdvReac Type Severity Reaction Status Date / Time ibuprofen [From Motrin] Allergy Verified 07/19/20 16:07 [facility] History - Hepatitis A Screen Attestation statement:: This patient has been screened for Hepatitis A risk factors. I have reviewed the patient's past medical history: Yes 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: Denies:: Cancer, Diabetes Mellitus Type 1, Diabetes Mellitus T
[2021-10-16 02:02] VITALS: BP 116/69; PULSE 64; RESP 16; TEMP 36.6; O2SAT 99
== END 2021-10-16 02:09 | disposition home or self-care (01) ==
PROVIDERS: Emergency Provider Emergency Medicine
DX: R07.9 Chest pain, unspecified (principal); Z88.6 Allergy status to analgesic agent; Z72.0 Tobacco use
CPT/HCPCS: 71046; 80053; 84145; 85025; 85651; 86140; 96365; 99284

== ENCOUNTER 2021-10-21 11:27 | Emergency (ER) | payer MEDICAID, SELFPAY ==
[2021-10-21 11:28] VITALS: BP 120/66; PULSE 106; RESP 18; TEMP 37.4; O2SAT 98; BMI 17.3
--- NOTE | 2021-10-21 11:50 | CT_ITS ---
PROCEDURE INFORMATION: Exam: CT Thoracic Spine Without Contrast Exam date and time: 10/21/2021 11:57 AM Age: 21 years old Clinical indication: Pain in thoracic spine; Additional info: Back pain TECHNIQUE: Imaging protocol: Computed tomography of the thoracic spine without contrast. Radiation optimization: All CT scans at this facility use at least one of these dose optimization techniques: automated exposure control; mA and/or kV adjustment per patient size (includes targeted exams where dose is matched to clinical indication); or iterative reconstruction. COMPARISON: CT ABDOMEN PELVIS W CON 03/28/2020 1:08 PM FINDINGS: Bones/joints: Multilevel Schmorl's node formation inferior T6 through T11 vertebral endplates. Discs/Spinal canal/Neural foramina: No significant disc protrusion. No severe spinal canal stenosis. No significant neural foraminal narrowing. Soft tissues: Unremarkable. Lungs: Postoperative changes in the left lung apex. IMPRESSION: 1. No evidence of acute osseous injury. 2. Multilevel Schmorl's node formation.
--- NOTE | 2021-10-21 11:50 | CT_ITS ---
PROCEDURE INFORMATION: Exam: CT Lumbar Spine Without Contrast Exam date and time: 10/21/2021 11:59 AM Age: 21 years old Clinical indication: Low back pain TECHNIQUE: Imaging protocol: Computed tomography of the lumbar spine without contrast. Radiation optimization: All CT scans at this facility use at least one of these dose optimization techniques: automated exposure control; mA and/or kV adjustment per patient size (includes targeted exams where dose is matched to clinical indication); or iterative reconstruction. COMPARISON: CT THORACIC SPINE WO CON 10/21/2021 11:57 AM FINDINGS: Bones/joints: No acute fracture. Normal alignment. Discs/Spinal canal/Neural foramina: At L4-L5: Approximate 3 mm broad-based predominant lateral disc bulge. Findings not optimally visualized secondary to technique. Mild proximal bilateral neural foraminal stenosis. Soft tissues: Unremarkable. IMPRESSION: At L4-L5: Approximate 3 mm broad-based predominant lateral disc bulge. Mild bilateral neural foraminal stenosis.
--- NOTE | 2021-10-21 12:01 | PC.NURSE ---
PT TO CT AT THIS TIME
--- NOTE | 2021-10-21 12:14 | PC.NURSE ---
[address]
--- NOTE | 2021-10-21 12:20 | PC.NURSE ---
LABS COLLECTED AND SENT TO LAB AT THIS TIME, PT TOLERATED WELL. WARM TO TOUCH, CONTINUES TO C/O BACK PAIN. NOTIFIED. V/O RECEIVED AT THIS TIME
--- NOTE | 2021-10-21 12:27 | PC.NURSE ---
MEDICATED AT THIS TIME, COVID SWAB COLLECTED. WARM BLANKET PROVIDED. INSTRUCTED TO CALL STAFF WHEN ABLE TO VOID TO PROVIDED URINE SPECIMEN. V/U. CALL LIGHT WITHIN REACH
[2021-10-21 12:30] VITALS: BP 117/65; PULSE 100; O2SAT 100
[2021-10-21 12:34] LABS: Influenza A, PCR Not Detected (NotDetected); Influenza B, PCR Not Detected (NotDetected)
--- NOTE | 2021-10-21 12:35 | HMH.EDGENADL ---
ED Disposition Clinical Impression: COVID Sciatica Qualifiers: Laterality: bilateral Qualified Code(s): M54.31 - Sciatica, right side Disposition: Home, Self-Care Condition on Discharge: Good Instructions: Preventing the Spread of Coronavirus Discharge Instructions Prescriptions: methocarbamoL [Methocarbamol] 750 mg PO Q6 PRN #30 tab PRN Reason: Muscle Spasm Transmission Status: Received by [facility] Referrals: Provider,Referral, [Primary Care Provider] - - Critical Care Critical Care Time: No Attestation: On 10/21/21, the high probability of a clinically significant, sudden or life threatening deterioration of the following system(s) required my full and direct attention, intervention and personal management. The time I documented below is in addition to time spent performing reported procedures but includes the following listed in this critical care notation. Medical Decision Making - Chinmay Inquiry Pt receiving controlled substance: No Chinmay was queried for this patient: No Vital Signs: 10/21/21 11:28 10/21/21 12:30 10/21/21 13:50 Temperature 99.3 F 99.3 F Temperature Source Oral Oral Pulse Rate 100 H 88 Pulse Rate [Radial] 106 H Respiratory Rate 18 18 Blood Pressure 117/65 120/68 Blood Pressure [Right Arm] 120/66 Blood Pressure Mean [Right Arm] 84 Blood Pressure Source Automatic Cuff Blood Pressure Source [Right Arm] Automatic Cuff Blood Pressure Position Sitting Blood Pressure Position [Right Arm] Standing 02 Sat by Pulse Oximetry 98 100 Oxygen Delivery Method Room Air Room Air - Lab Data Lab Results 10/21/21 12:15: WBC 7.0, RBC 4.92, Hgb 14.6, Hct 42.5, MCV 86.4, MCH 29.8, MCHC 34.4, RDW 12.6, Plt Count 147, MPV 6.8 L, Neut % (Auto) 85.6 H, Lymph % (Auto) 3.7 L, [place] % (Auto) 9.9 H, Eos % (Auto) 0.6, Baso % (Auto) 0.2, Neut # (Auto) 6.0, Lymph # (Auto) 0.3 L, [place] # (Auto) 0.7, Eos # (Auto) 0.0, Baso # (Auto) 0.0, Total Counted 100, Neutrophils % (Manual) 80 H, Lymphocytes % (Manual) 11, Atypical Lymphs % 5.0, Monocytes % (Manual) 4, Platelet Estimate Slight decrease, RBC Morphology Normal, ESR 1 10/21/21 12:15: Sodium 139, Potassium 3.7, Chloride 105, Carbon Dioxide 27, Anion Gap 10.7, BUN 5 L, Creatinine 0.80, Estimated Creat Clear 112, Estimated GFR 121, Est GFR ( Amer) 146, Glucose 117 H, Calcium 9.6, Total Bilirubin 0.4, AST 20, ALT 16, Alkaline Phosphatase 79, C-Reactive Protein 8.5 H, Total Protein 7.7, Albumin 4.8, Globulin 2.9, Albumin/Globulin Ratio 1.7 10/21/21 12:15: SARS-CoV-2 (PCR) Detected A, Influenza A Untype (PCR) Not detected, Influenza Type B (PCR) Not detected 10/21/21 13:00: Urine Color Dk yellow, Urine Appearance Sl cloudy, Urine pH 8.0, Ur Specific [place] 1.020, Urine Protein Trace, Urine Glucose (UA) Negative, Urine Ketones 1+, Urine Blood Negative, Urine Nitrate Negative, Urine Bilirubin Negative, Urine Urobilinogen 1.0, Ur Leukocyte Esterase Negative, Urine WBC Occasional, Ur Squamous Epith Cells Occasional, Urine Bacteria 1+, Urine Mucus 2+ Result diagrams: 10/21/21 12:15 10/21/21 12:15 Orders (Tests/Meds): ED MEDICATIONS Discontinued Medications Generic Name Dose Route Start Last Admin Trade Name Freq PRN Reason Stop Dose Admin Acetaminophen 1,000 mg 10/21/21 12:22 10/21/21 12:28 Acetaminophen 500mg Tab PO 10/21/21 12:23 1,000 mg ONCE ONE Administration Medical Decision Narrative: In review this is a 21-year-old male who presents with back and leg pain. Hemodynamically stable and nontoxic-appearing. Patient does have bilateral straight leg raise that is positive with some symptoms concerning for lumbar radiculopathy/sciatica. We will get imaging to evaluate for possible underlying injury. He also does look little pale on exam so we will get baseline laboratory studies as well. He does complain of some random myalgias all over as well as with negative warrants getting a COVID test at t
[2021-10-21 12:36] LABS: Basophils % 0.2 % (0.1-2.0); Eosinophils % 0.6 % (0.1-12.0); Hematocrit 42.5 % (42.0-52.0); Hemoglobin 14.6 g/dL (14.1-18.0); Lymphocytes # 0.3 K/mm3 (0.7-4.5); Lymphocytes % 3.7 % (10-50); Mean Corpuscular HGB Conc 34.4 g/dL (31.8-35.4); Mean Corpuscular Hemoglobin 29.8 pg (27.0-31.2); Mean Corpuscular Volume 86.4 fl (80-94); Mean Platelet Volume 6.8 fl (7.4-10.4); Monocytes # 0.7 K/mm3 (0.1-1.0); Monocytes % 9.9 % (1.7-9.3); Neutrophils % 85.6 % (37.0-80.0); Platelet Count 147 K/mm3 (142-424); Red Blood Count 4.92 M/mm3 (4.60-6.20); Red Cell Distribution Width 12.6 % (11.5-17.5)
[2021-10-21 12:41] LABS: Chloride 105 mmol/L (98-107); Potassium 3.7 mmoL/L (3.5-5.1); Sodium 139 mmol/L (136-145)
[2021-10-21 12:43] LABS: Blood Urea Nitrogen 5 mg/dl (9-20); Creatinine Clearance Estimated 112 mL/min (50-200); Estimated Glomerular Filt Rate 121 ml/min (>60); GFR (African American) 146 ML/MIN (>60)
[2021-10-21 12:44] LABS: Alanine Aminotransferase 16 U/L (12-78); Albumin Level 4.8 g/dl (3.5-5.0); Albumin/Globulin Ratio 1.7 (1.1-1.8); Alkaline Phosphatase 79 U/L (38-126); Anion Gap 10.7 mEq/L (5-15); Aspartate Amino Transferase 20 U/L (17-59); Bilirubin,Total 0.4 mg/dl (0.2-1.3); Carbon Dioxide 27 mmol/L (22.0-30.0); Globulin 2.9 g/dL (1.3-3.2); Total Protein,Serum 7.7 g/dl (6.3-8.2)
[2021-10-21 12:45] LABS: Calcium 9.6 mg/dl (8.4-10.2); Glucose 117 mg/dl (74-100)
[2021-10-21 12:48] LABS: MANUAL DIFFERENTIAL MANUAL DIFFERENTIAL (MANUAL DIFF)
[2021-10-21 12:49] LABS: C-Reactive Protein 8.5 mg/L (0-4)
[2021-10-21 12:57] LABS: Coronavirus 19, PCR Detected (NotDetected)
--- NOTE | 2021-10-21 12:59 | PC.NURSE ---
ASSISTED TO BR TO PROVIDE URINE SPECIMEN
--- NOTE | 2021-10-21 13:02 | PC.NURSE ---
UA SENT TO LAB
[2021-10-21 13:06] LABS: Microscopic, Urine URINE MICROSCOPIC (MICROSCOPIC)
[2021-10-21 13:12] LABS: Lymphocytes % 11 % (10-50); Monocytes % 4 % (2-9); Neutrophils % 80 % (42-76); Platelet Estimate Slight Decrease; RBC Morphology Normal; Total Cells Counted 100
[2021-10-21 13:14] LABS: Appearance,Urine SL CLOUDY (Clear); Blood, Urine Negative (Negative); Color,Urine DK YELLOW (Yellow); Glucose,Urine (UA) Negative (Negative); Ketones,Urine 1+ (Negative); Leukocyte Esterase,Urine Negative (Negative); Nitrate,Urine Negative (Negative); Protein,Urine TRACE (Negative)
[2021-10-21 13:18] LABS: Erythrocyte Sedimentation Rate 1 mm/hr (0-15)
[2021-10-21 13:20] LABS: Bilirubin,Urine Negative (Negative)
[2021-10-21 13:28] LABS: Bacteria,Urine 1+ /lpf; Mucus,Urine 2+ /lpf; Squamous Epithelial Cell,Urine Occasional #/hpf (0-5); WBC,Urine Occasional #/hpf (0-3)
[2021-10-21 13:50] VITALS: BP 120/68; PULSE 88; RESP 18; TEMP 37.4; O2SAT 99
== END 2021-10-21 13:51 | disposition home or self-care (01) ==
PROVIDERS: Emergency Provider Student in an Organized Health Care Education/Training Program
DX: U07.1 COVID-19 (principal)
CPT/HCPCS: 72128; 72131; 80053; 81001; 85007; 85025; 85651; 86140; 99285; C9803; U0003; U0005

== ENCOUNTER 2022-03-15 22:56 | Emergency (ER) | payer MEDICAID, SELFPAY ==
[2022-03-15 22:58] VITALS: BP 115/78; PULSE 82; RESP 16; TEMP 36.6; O2SAT 99; BMI 16.9
--- NOTE | 2022-03-15 23:11 | ECG_ITS ---
APPROVED REPORT Exam: Resting ECG HR:86 bpm ECG Measurements Heart Rate 86 AXES DE 170 P 83 QRSd 90 QRS 88 QT 342 T 67 QTc 386 Conclusion SINUS RHYTHM WITH SINUS ARRHYTHMIA POSSIBLE LEFT ATRIAL ENLARGEMENT [-0.1mV P-WAVE IN V1/V2] POSSIBLE RIGHT VENTRICULAR CONDUCTION DELAY [RSR (QR) IN V1/V2] ST ELEVATION, PROBABLY EARLY REPOLARIZATION [ST ELEVATION WITH NORMALLY INFLECTED T-WAVE] MODERATE ST DEPRESSION [0.05+ mV ST DEPRESSION] ABNORMAL ECG UNCONFIRMED REPORT Electronically signed by : Jose Draper MD 03/16/2022 09:44:33
[2022-03-15 23:15] VITALS: BMI 16.9
--- NOTE | 2022-03-15 23:16 | XR_ITS ---
PROCEDURE INFORMATION: Exam: XR Left Shoulder Exam date and time: 03/15/2022 11:25 PM Age: 21 years old Clinical indication: Pain; Left; Patient HX: C/O shoulder numbness after picking up a box; Additional info: Shoulder injury TECHNIQUE: Imaging protocol: Radiologic exam of the Left shoulder. Views: 2 or more views. COMPARISON: CR XR CHEST 2V 03/15/2022 11:23 PM FINDINGS: Bones/joints: The glenohumeral and AC joints are normally aligned. There is no fracture or significant degenerative change. The subacromial space is preserved. Lungs: Surgical sutures are noted at the left lung apex. There is no acute abnormality of the imaged left lung or chest wall. Soft tissues: Normal. IMPRESSION: Normal left shoulder.
--- NOTE | 2022-03-15 23:16 | XR_ITS ---
PROCEDURE INFORMATION: Exam: XR Chest Exam date and time: 03/15/2022 11:23 PM Age: 21 years old Clinical indication: Pain; Other: Shoulder numbness TECHNIQUE: Imaging protocol: Radiologic exam of the chest. Views: 2 views. COMPARISON: CR XR CHEST 2V 10/16/2021 12:15 AM FINDINGS: Lungs: Unremarkable. No consolidation. Sutures at the medial left lung apex. Pleural spaces: Unremarkable. No pleural effusion. No pneumothorax. Heart/Mediastinum: Unremarkable. No cardiomegaly. Vasculature: Unremarkable. Bones/joints: Unremarkable. IMPRESSION: No acute findings.
[2022-03-15 23:25] LABS: Basophils # 0.1 K/mm3 (0-0.2); Basophils % 0.9 % (0.1-2.0); Eosinophils # 0.2 K/mm3 (0.0-0.4); Hematocrit 48.2 % (42.0-52.0); Hemoglobin 16.1 g/dL (14.1-18.0); Lymphocytes # 2.4 K/mm3 (0.7-4.5); Lymphocytes % 27.9 % (10-50); Mean Corpuscular HGB Conc 33.5 g/dL (31.8-35.4); Mean Corpuscular Hemoglobin 29.6 pg (27.0-31.2); Mean Corpuscular Volume 88.3 fl (80-94); Mean Platelet Volume 7.5 fl (7.4-10.4); Monocytes # 0.5 K/mm3 (0.1-1.0); Monocytes % 6.1 % (1.7-9.3); Neutrophils # 5.5 K/mm3 (1.8-7.8); Neutrophils % 63.1 % (37.0-80.0); Platelet Count 224 K/mm3 (142-424); Red Blood Count 5.46 M/mm3 (4.60-6.20); White Blood Count 8.7 K/mm3 (4.8-10.8)
[2022-03-15 23:30] LABS: Alanine Aminotransferase 16 U/L (12-78); Albumin Level 5.3 g/dl (3.5-5.0); Albumin/Globulin Ratio 1.7 (1.1-1.8); Alkaline Phosphatase 81 U/L (38-126); Anion Gap 14.7 mEq/L (5-15); Aspartate Amino Transferase 24 U/L (17-59); Bilirubin,Total 0.5 mg/dl (0.2-1.3); Blood Urea Nitrogen 6 mg/dl (9-20); Calcium 9.8 mg/dl (8.4-10.2); Carbon Dioxide 27 mmol/L (22.0-30.0); Chloride 103 mmol/L (98-107); Creatinine Clearance Estimated 112 mL/min (50-200); Estimated Glomerular Filt Rate 121 ml/min (>60); GFR (African American) 146 ML/MIN (>60); Globulin 3.2 g/dL (1.3-3.2); Glucose 95 mg/dl (74-100); Potassium 3.7 mmoL/L (3.5-5.1); Sodium 141 mmol/L (136-145); Total Protein,Serum 8.5 g/dl (6.3-8.2)
[2022-03-15 23:43] LABS: Troponin I < 0.01 ng/ml (0.00-0.034)
--- NOTE | 2022-03-16 00:12 | HMH.EDBACK ---
Discharge Plan Disposition Patient Disposition: Home, Self-Care Prescriptions Prescriptions: New prednisone [prednisone] 20 mg tablet 20 mg PO BID Qty: 10 0RF No Action clindamycin HCl 300 MG capsule 1 caplet PO TID methocarbamol 750 MG tablet 750 mg PO Q6 PRN (Reason: Muscle Spasm) Qty: 30 0RF Referrals Follow up/Referrals: Provider,Referral, [Primary Care Provider] - See instructions Clinical Impressions Clinical Impression: Radicular pain of thoracic region Instructions Patient Instructions: DI for Thoracic Back Pain Discharge ED Provider: Gray Sharp Back Pain HPI General Chief Complaint: Back Pain/Injury Stated Complaint: Lung surgery 6-7 months ago;numbness R Shoulder Time Seen by Provider: 03/16/22 00:12 Mode of Arrival: Ambulatory Source of Information: Patient and Medical Record Limitations: No Limitations Description of Symptoms (Recalled from ER Triage Doc. by RN): pt reports that he was working and picked up a box and that something pinched in his back and he has had numbness and pain in his left postior shoulder pain History of Present Illness HPI Narrative: lt scapular pain after lifting witth rad to lt upper ext Complaint: back pain Duration: intermittent Similar Symptoms Previously: No Location: thoracic spine Severity: moderate Associated symptoms: denies other symptoms Related Data Home Medications Medication Instructions Recorded Confirmed clindamycin HCl 300 mg capsule 1 caplet PO TID Infection 07/05/21 07/05/21 Previous Rx's Medication Instructions Recorded methocarbamol 750 mg tablet 750 mg PO Q6 PRN Muscle Spasm #30 10/21/21 tabs prednisone 20 mg tablet 20 mg PO BID #10 tabs 03/16/22 Allergies Allergy/AdvReac Type Severity Reaction Status Date / Time ibuprofen [From Motrin] Allergy Verified 07/19/20 16:07 [facility] Disclaimer: The information contained in this section may have been updated after the patient was seen, as this information can be updated by other users. Social History Smoking Status: Current some day smoker tobacco type: e-cigarettes second hand exposure: Yes alcohol intake: never substance use type: marijuana current occupational status: other Travel in the last 8 weeks: None household members: family housing: house current occupation: [employer] caffeine: Yes ROS Obtained: Yes All systems reviewed & no additional complaints except as documented Physical Exam General General appearance: alert Head Head exam: normocephalic Eye Eye exam: Present PERRL and EOMI ENT ENT exam: Present mucous membranes moist Neck Neck exam: Present trachea midline Respiratory Respiratory exam: Present normal lung sounds bilaterally; Absent respiratory distress Cardiovascular Cardiovascular exam: Present regular rate; Absent systolic murmur, rubs, gallop or clicks Abdominal Exam Abdominal exam: Present soft Extremities Exam Extremities exam: Present full ROM Back Exam Back exam: Absent CVA tenderness (L) Neurological Exam Neurological exam: Present alert, oriented X3 and CN II-XII intact Psychiatric Psychiatric exam: Present normal affect Skin Skin exam: Present intact Medical Decision Making Medical Records Medical records reviewed: Yes I reviewed the patient's medical records. Chinmay Inquiry Pt receiving controlled substance: No Vital Signs: 03/15/22 22:58 Temperature 97.9 F Temperature Source Oral Pulse Rate [Left] 82 Respiratory Rate 16 Blood Pressure [Right Arm] 115/78 Blood Pressure Mean [Right Arm] 90 02 Sat by Pulse Oximetry 99 Oxygen Delivery Method Room Air Lab Data Lab results reviewed: Yes I reviewed the patient's lab results. Lab Results 03/15/22 23:00: WBC 8.7, RBC 5.46, Hgb 16.1, Hct 48.2, MCV 88.3, MCH 29.6, MCHC 33.5, RDW 13.0, Plt Count 224, MPV 7.5, Neut % (Auto) 63.1, Lymph % (Auto) 27.9, [place] % (Auto) 6.1, Eos % (Auto) 2.0, Baso % (Auto) 0.9, Neut # (Auto
[2022-03-16 00:27] VITALS: BP 120/80; PULSE 84; RESP 18; TEMP 36.6; O2SAT 99
== END 2022-03-16 00:28 | disposition home or self-care (01) ==
PROVIDERS: Emergency Provider Emergency Medicine
DX: M54.14 Radiculopathy, thoracic region (principal); M25.512 Pain in left shoulder; R20.2 Paresthesia of skin; M62.838 Other muscle spasm; F17.290 Nicotine dependence, other tobacco product, uncomplicated; Z88.6 Allergy status to analgesic agent; Z79.52 Long term (current) use of systemic steroids
CPT/HCPCS: 71046; 73030; 80053; 84484; 85025; 93005; 99284

== ENCOUNTER 2022-05-22 16:25 | Emergency (ER) | payer MEDICAID, SELFPAY ==
[2022-05-22 16:50] VITALS: BP 117/79; PULSE 104; RESP 22; TEMP 37.1; O2SAT 100; BMI 19.5
--- NOTE | 2022-05-22 17:18 | EXP.UTC ---
Discharge Plan Disposition Patient Disposition: Home, Self-Care Condition: Good Referrals Follow up/Referrals: Gray Sharp MD [Primary Care Provider] - See instructions Activity Restrictions/Add. Instructions Additional Instructions/Restrictions: *Monitor Temp, Over the counter Motrin or Tylenol as directed/as needed Tylenol every 4 hours and Motrin every 6 hours (as long as your family doctor has told you that you can take it) for fever or pain. and straight to ER if unable to lower temp less than 101.0 after medication given *Warm salt water gargles may help to soothe the throat *Throat Lozenges? *Warm fluids like tea with honey may help to soothe the throat? *Sleep elevated *Humidifier/Vaporizer Your throat swab was sent for culture. Those results are typically sent to your primary care. Be sure to follow up in 2-3 days with your family doctor/primary care physician if no improvement so they can review those result and treat if necessary. If you don?t have a primary care doctor, I recommend you get one but in the mean time, you will have to return to a walk in clinic Follow up IMMEDIATELY for new or worsening symptoms or no Noticeable improvement over the next 48-72 hours. 911 for difficulty breathing or swallowing You were tested for today for Upper Respiratory Panel with COVID19 your test result should be back in the next 24-48 hours, you may check your results on the [facility] Clinical Impressions Clinical Impression: Viral syndrome Stand Alone Forms Stand Alone Forms: Work/School Release Instructions Patient Instructions: DI for Viral Syndrome Discharge ED Provider: Sandy Orozco [facility] HPI General Stated complaint: fever runny nose light headed Mode of Arrival: Ambulatory Source of Information: Patient Limitations: No Limitations Time Seen by Provider: 05/22/22 17:18 Description of Symptoms (Recalled from Triage Doc. by RN): PATIENT C/O FEVER, LIGHT-HEADED, RUNNY NOSE, AND FELT LIKE HIS HEART WAS RACING THAT STARTED WHEN HE WOKE UP TODAY HEENT Symptoms (Recalled from RN notes): Yes Resp Symptoms (Recalled from RN notes): No Skin Symptoms (Recalled from RN notes): No MS Symptoms (Recalled from RN notes): No Functional Status (Recalled from RN notes): WNL History of Present Illness Provider Complaint: Patient states that he hasnt felt well since yesterday States that he has been having fever, chills, body aches, headache and this morning his fever was 99.9 and he felt like his heart rate may have been up a little but got better after his fever came down States that he is feeling achy all over like he may have the flu so he came in Related Data Allergies Allergy/AdvReac Type Severity Reaction Status Date / Time ibuprofen [From Motrin] Allergy Verified 04/13/22 15:16 Worker's Comp Is this a Worker's Comp case?: No [facility] Disclaimer: The information contained in this section may have been updated after the patient was seen, as this information can be updated by other users. Social History Smoking Status: Current some day smoker tobacco type: e-cigarettes second hand exposure: Yes alcohol intake: never substance use type: marijuana current occupational status: other Travel in the last 8 weeks: None household members: family housing: house current occupation: [employer] caffeine: Yes ROS Obtained: Yes All systems reviewed & no additional complaints except as documented and Yes Systems reviewed as appropriate & no additional complaints except as documented Constitutional Constitutional: Reports system reviewed and no additional complaints, except as documented, Reports as per HPI, Reports fever(s) and Reports headache(s) ENT Ears, Nose, Mouth, and Throat: Reports system reviewed and no additional complaints, except as documented, Reports as per HPI, Reports headache(s), Reports nasal congestion, Reports nasal discharge and Reports sore throa
[2022-05-22 17:44] LABS: UTC Influenza A Antigen Negative (Negative)
[2022-05-22 17:45] LABS: UTC Influenza B Antigen Negative (Negative)
[2022-05-22 17:46] LABS: UTC Strep Screen (Rapid) Negative (Negative)
[2022-05-22 17:57] VITALS: BP 117/79; PULSE 104; RESP 22; TEMP 37.1; O2SAT 100
== END 2022-05-22 18:08 | disposition home or self-care (01) ==
PROVIDERS: Emergency Provider Nurse Practitioner; PCP Emergency Medicine
DX: B34.9 Viral infection, unspecified (principal); R50.9 Fever, unspecified; R09.89 Other specified symptoms and signs involving the circulatory and respiratory systems; R42 Dizziness and giddiness
CPT/HCPCS: 87804; 87880; 99212; 99213; C9803; G0463; U0003; U0005

== ENCOUNTER 2022-07-01 12:08 | Emergency (ER) | payer MEDICAID, SELFPAY ==
[2022-07-01 12:09] VITALS: BP 130/77; PULSE 84; RESP 17; TEMP 36.8; O2SAT 98; BMI 19.5
[2022-07-01 12:13] VITALS: BP 130/77; PULSE 79; RESP 18; O2SAT 98
--- NOTE | 2022-07-01 12:21 | XR_ITS ---
PROCEDURE INFORMATION: Exam: XR Chest Exam date and time: 07/01/2022 12:47 PM Age: 21 years old Clinical indication: Other: Syncopy per Dr fowler; Prior surgery; Surgery date: 6+ months; Surgery type: 3 chest tubes and lung wall attached to chest wall. HX of spontaneous pneumothorax's. ; Additional info: Syncope TECHNIQUE: Imaging protocol: Radiologic exam of the chest. Views: 1 view. COMPARISON: CR XR CHEST 2V 08/26/2020 11:30 PM FINDINGS: Lungs: Unremarkable. No consolidation. Pleural spaces: Unremarkable. No pleural effusion. No pneumothorax. Heart/Mediastinum: Unremarkable. No cardiomegaly. Bones/joints: Unremarkable for age. IMPRESSION: Negative chest exam.
--- NOTE | 2022-07-01 12:25 | ECG_ITS ---
APPROVED REPORT Exam: Resting ECG HR:77 bpm ECG Measurements Heart Rate 77 AXES IN 158 P 71 QRSd 90 QRS 85 QT 356 T 71 QTc 387 Conclusion SINUS RHYTHM EARLY REPOLARIZATION [ST ELEVATION WITH NORMALLY INFLECTED T-WAVE] BORDERLINE ECG UNCONFIRMED REPORT Electronically signed by : Jose Draper MD 07/01/2022 15:54:31
--- NOTE | 2022-07-01 12:30 | HMH.EDGENADL ---
Discharge Plan Disposition Patient Disposition: Home, Self-Care Chief Complaint: Dizziness Prescriptions Prescriptions: No Action hydroxyzine pamoate [Vistaril] 25 mg capsule 25 mg PO TID PRN (Reason: Anxiety) escitalopram oxalate [Lexapro] 10 mg tablet 10 mg PO DAILY Referrals Follow up/Referrals: Gray Sharp MD [Primary Care Provider] - See instructions Activity Restrictions/Add. Instructions Additional Instructions/Restrictions: At this time was felt you are safe to be discharged home. If new or worsening symptoms please do not hesitate to return to the emergency department Clinical Impressions Clinical Impression: Pre-syncope Discharge ED Provider: Oscar Penaloza General Adult HPI General Chief complaint: Dizziness Stated complaint: dizzy, lightheaded Time Seen by Provider: 07/01/22 12:20 Mode of Arrival: Ambulatory Source of Information: Patient Limitations: No Limitations Description of Symptoms (Recalled from ER Triage Doc. by RN): 21 M presents from his job, ambulatory, NAD for c/o dizziness that occurred around 0900. He states he was working when it came on suddenly. He states when he moves around it makes it worse. Patient reports he had 1/2 a biscuit this morning and has been drinking water. History of Present Illness HPI narrative: Patient is a 21-year-old male with past medical history of previous spontaneous pneumothorax who presents emergency department for evaluation of dizziness. 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 He also felt as if he was there but could not move transiently. Patient was aware throughout this episode, denies urinary incontinence. Patient did not truly lose consciousness and denies trauma. He presents here for continued evaluation. No other acute complaints at this time. Related Data Home Medications Medication Instructions Recorded Confirmed escitalopram oxalate 10 mg tablet 10 mg PO DAILY Anxiety 07/01/22 07/01/22 (Lexapro) hydroxyzine pamoate 25 mg capsule 25 mg PO TID PRN Anxiety 07/01/22 07/01/22 (Vistaril) Allergies Allergy/AdvReac Type Severity Reaction Status Date / Time ibuprofen [From Motrin] Allergy Verified 05/25/22 13:30 [facility] Disclaimer: The information contained in this section may have been updated after the patient was seen, as this information can be updated by other users. 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 (Updated 07/01/22 @ 13:29 by Oscar Penaloza MD) Patient new to facility Social History Smoking Status: Current every day smoker tobacco type: e-cigarettes second hand exposure: Yes alcohol intake: never substance use type: marijuana current occupational status: other Travel in the last 8 weeks: None household members: family housing: house current occupation: [employer] caffeine: Yes ROS Obtained: Yes Systems reviewed as appropriate & no additional complaints except as documented Physical Exam General General appearance: alert and in no apparent distress Head Head exam: atraumatic and normocephalic Eye Eye exam: Present PERRL and EOMI ENT ENT exam: Present mucous membranes moist Neck Neck exam: Present normal inspection Chest Chest inspection: Present normal inspection and symmetric chest wall rise Respiratory Respiratory exam: Present normal lung sounds bilaterally; Absent respiratory distress Cardiovascular Cardiovascular exam: Present regular rate and normal rhythm Abdominal Exam Abdominal exam: Present soft; Absent tenderness Extremities Exam Extremities exam: Present normal inspection Neurological Exam Neurological exam: Present alert and oriented X3 Psychiatric Psychiatric exam: Present normal affect Skin Skin exam: Present warm and dry Medical Decision Making Chinmay Inquiry Pt receiving controlled substance: No Vital Signs: 07/01/22 12
--- NOTE | 2022-07-01 12:41 | PC.NURSE ---
Patient ambulating well, without difficulty, or assistance. Steady gait overall
[2022-07-01 13:01] VITALS: BP 115/78; PULSE 75; RESP 20; O2SAT 98
[2022-07-01 13:25] VITALS: BP 124/76; PULSE 68; RESP 16; TEMP 36.8; O2SAT 97
== END 2022-07-01 13:32 | disposition home or self-care (01) ==
PROVIDERS: Emergency Provider Emergency Medicine; PCP Emergency Medicine
DX: R42 Dizziness and giddiness (principal)
CPT/HCPCS: 71045; 93005; 99283; 99284

== ENCOUNTER 2022-12-01 12:54 | Emergency (ER) | payer MEDICAID, SELFPAY ==
[2022-12-01 13:01] VITALS: BP 118/72; PULSE 84; RESP 18; TEMP 37.1; O2SAT 97; BMI 21.7
--- NOTE | 2022-12-01 13:16 | EXP.UTC ---
Discharge Plan Disposition Patient Disposition: Home, Self-Care Condition: Good Prescriptions Prescriptions: New amoxicillin-pot clavulanate 875-125 mg Tablet 1 tab PO Q12H Qty: 20 0RF No Action hydroxyzine pamoate [Vistaril] 25 mg capsule 25 mg PO TID PRN (Reason: Anxiety) escitalopram oxalate [Lexapro] 10 mg tablet 10 mg PO DAILY Referrals Follow up/Referrals: Gray Sharp MD [Primary Care Provider] - See instructions Activity Restrictions/Add. Instructions Additional Instructions/Restrictions: Drink plenty of fluids. Take tylenol for pain. Take the medications as directed. Follow up with your regular doctor. Follow up with your dentist as planned. GO TO THE ER FOR ANY WORSENING SYMPTOMS Clinical Impressions Clinical Impression: Dental abscess, Pain, dental Instructions Patient Instructions: Tooth Abscess, DI for Tooth Abscess Discharge ED Provider: Juan Min [facility] General Stated complaint: dental pain Mode of Arrival: Ambulatory Source of Information: Patient Limitations: No Limitations Time Seen by Provider: 12/01/22 13:16 Description of Symptoms (Recalled from Triage Doc. by RN): right sided jaw infection, and jaw pressure and swelling HEENT Symptoms (Recalled from RN notes): Yes Resp Symptoms (Recalled from RN notes): No Skin Symptoms (Recalled from RN notes): No MS Symptoms (Recalled from RN notes): No Functional Status (Recalled from RN notes): n/a History of Present Illness Provider Complaint: he c/o right sided lower jaw dental pain for the past 5 days. He states that he has multiple decayed teeth in that area. Related Data Home Medications Medication Instructions Recorded Confirmed escitalopram oxalate 10 mg tablet 10 mg PO DAILY Anxiety 07/01/22 07/01/22 (Lexapro) hydroxyzine pamoate 25 mg capsule 25 mg PO TID PRN Anxiety 07/01/22 07/01/22 (Vistaril) Previous Rx's Medication Instructions Recorded amoxicillin 875 mg-potassium 1 tab PO Q12H #20 tabs 12/01/22 clavulanate 125 mg tablet Allergies Allergy/AdvReac Type Severity Reaction Status Date / Time ibuprofen [From Motrin] Allergy Verified 12/01/22 13:07 Worker's Comp Is this a Worker's Comp case?: No [facility] Disclaimer: The information contained in this section may have been updated after the patient was seen, as this information can be updated by other users. 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 (Updated 12/01/22 @ 13:35 by Juan Min APRN) Patient new to facility Social History Smoking Status: Current every day smoker tobacco type: e-cigarettes second hand exposure: Yes alcohol intake: never substance use type: marijuana current occupational status: other Travel in the last 8 weeks: None household members: family housing: house current occupation: [employer] caffeine: Yes ROS Obtained: Yes All systems reviewed & no additional complaints except as documented Constitutional Constitutional: Denies chills and Denies fever(s) Eyes Eyes: Denies eye discharge ENT Ears, Nose, Mouth, and Throat: Denies dizziness, Denies otalgia and Denies sore throat Cardiovascular Cardiovascular: Denies chest pain Respiratory Respiratory: Denies shortness of breath, Denies chest congestion, Denies cough, Denies stridor and Denies wheezing Gastrointestinal Gastrointestingal: Denies nausea or vomiting Musculoskeletal Musculoskeletal: Reports system reviewed and no additional complaints, except as documented and Denies arthralgias Integumentary/Breasts Skin/Breast: Denies rash Neurologic Neurologic: Denies dizziness and Denies paresthesias Allergic/Immunologic Allergic/Immunologic: Denies wheezing Physical Exam General General appearance: alert and in no apparent distress Head Head exam: atraumatic, normocephalic and normal inspection Eye Eye exam: Present normal appearance, PERRL and EOMI ENT ENT exam: Present
[2022-12-01 13:36] VITALS: BP 118/72; PULSE 84; RESP 18; TEMP 37.1; O2SAT 97
== END 2022-12-01 13:36 | disposition home or self-care (01) ==
PROVIDERS: Emergency Provider Nurse Practitioner Family; PCP Emergency Medicine
DX: R68.84 Jaw pain (principal); K04.7 Periapical abscess without sinus; F17.290 Nicotine dependence, other tobacco product, uncomplicated
CPT/HCPCS: 99212; 99214; G0463

== ENCOUNTER 2023-03-05 17:25 | Emergency (ER) | payer MEDICAID, SELFPAY ==
[2023-03-05 17:27] VITALS: BP 140/76; PULSE 123; RESP 18; TEMP 38.4; O2SAT 97; BMI 18.3
--- NOTE | 2023-03-05 17:37 | XR_ITS ---
PROCEDURE INFORMATION: Exam: XR Chest Exam date and time: 03/05/2023 5:38 PM Age: 22 years old Clinical indication: Cough TECHNIQUE: Imaging protocol: Radiologic exam of the chest. Views: 1 view. COMPARISON: CR XR CHEST PORTABLE 07/01/2022 12:47 PM FINDINGS: Lungs: No evidence of acute pulmonary disease or infiltrates; lung chambers appear clear. Pleural spaces: No evidence of pleural effusion, pneumothorax, or pleural thickening in the visualized pleural spaces. Heart/Mediastinum: No evidence of mediastinal widening or cardiac silhouette enlargement; the mediastinum and heart appear within normal limits for contour and size. Bones/joints: No evidence of acute osseous abnormalities within the visualized portions of the thoracic spine and ribs. Osseous structures appear appropriate for patient age. IMPRESSION: Negative study. No acute cardiopulmonary abnormalities identified.
--- NOTE | 2023-03-05 17:40 | HMH.EDGENADL ---
Discharge Plan Disposition Patient Disposition: Home, Self-Care Chief Complaint: PAIN Prescriptions Prescriptions: No Action amoxicillin-pot clavulanate 875-125 mg Tablet 1 tab PO Q12H Qty: 20 0RF hydroxyzine pamoate [Vistaril] 25 mg capsule 25 mg PO TID PRN (Reason: Anxiety) escitalopram oxalate [Lexapro] 10 mg tablet 10 mg PO DAILY Referrals Follow up/Referrals: Julio Cotton DO [Primary Care Provider] - See instructions Activity Restrictions/Add. Instructions Additional Instructions/Restrictions: At this time it was felt you are safe to be discharged home. If new or worsening symptoms please do not hesitate to return the emergency department. If symptoms persist please follow-up with your family doctor as you are able. Clinical Impressions Clinical Impression: COVID-19 Stand Alone Forms Stand Alone Forms: Work/School Release Discharge ED Provider: Oscar Penaloza General Adult HPI General Chief complaint: PAIN Stated complaint: body aches, chills Time Seen by Provider: 03/05/23 17:28 History of Present Illness HPI narrative: Patient is a 22-year-old male with past medical history of recurrent pneumothorax, no other comorbidities who presents to the emergency department for evaluation of bodyaches. Patient has a family member that is sick with strep. Over the last 24 hours he has developed cough and diffuse myalgias. No chest pain. No significant shortness of breath. Due to persistent symptoms he presents here for continued evaluation. Related Data Home Medications Medication Instructions Recorded Confirmed escitalopram oxalate 10 mg tablet 10 mg PO DAILY Anxiety 07/01/22 07/01/22 (Lexapro) hydroxyzine pamoate 25 mg capsule 25 mg PO TID PRN Anxiety 07/01/22 07/01/22 (Vistaril) Previous Rx's Medication Instructions Recorded amoxicillin 875 mg-potassium 1 tab PO Q12H #20 tabs 12/01/22 clavulanate 125 mg tablet Allergies Allergy/AdvReac Type Severity Reaction Status Date / Time ibuprofen [From Motrin] Allergy Verified 12/01/22 13:07 [facility] Disclaimer: The information contained in this section may have been updated after the patient was seen, as this information can be updated by other users. 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 (Updated 03/05/23 @ 19:55 by Oscar Penaloza MD) Patient new to facility Social History Smoking Status: Current every day smoker tobacco type: e-cigarettes second hand exposure: Yes alcohol intake: never substance use type: marijuana current occupational status: other Travel in the last 8 weeks: None household members: family housing: house current occupation: [employer] caffeine: Yes ROS Obtained: Yes Systems reviewed as appropriate & no additional complaints except as documented Physical Exam General General appearance: alert and in no apparent distress Head Head exam: atraumatic and normocephalic Eye Eye exam: Present PERRL and EOMI ENT ENT exam: Present mucous membranes moist Neck Neck exam: Present normal inspection Chest Chest inspection: Present normal inspection and symmetric chest wall rise Respiratory Respiratory exam: Present normal lung sounds bilaterally; Absent respiratory distress Cardiovascular Cardiovascular exam: Present normal rhythm and tachycardia Abdominal Exam Abdominal exam: Present soft; Absent tenderness Extremities Exam Extremities exam: Present normal inspection Neurological Exam Neurological exam: Present alert Psychiatric Psychiatric exam: Present normal affect Skin Skin exam: Present warm and dry Medical Decision Making Chinmay Inquiry Pt receiving controlled substance: No Vital Signs: 03/05/23 17:27 03/05/23 18:22 Temperature 101.1 F H Temperature Source Oral Pulse Rate 102 H Pulse Rate [Left] 123 H Respiratory Rate 18 Blood Pressure 129/72 Blood Pressure [Left Arm] 140/76 Blood Pressure Mean [Left
--- NOTE | 2023-03-05 17:45 | PC.NURSE ---
rad was here for xray
[2023-03-05 17:47] LABS: Influenza A, PCR Not Detected (NotDetected); Influenza B, PCR Not Detected (NotDetected)
--- NOTE | 2023-03-05 18:00 | ECG_ITS ---
APPROVED REPORT Exam: Resting ECG HR:101 bpm ECG Measurements Heart Rate 101 AXES DC 180 P 82 QRSd 82 QRS 73 QT 311 T 68 QTc 369 Conclusion SINUS TACHYCARDIA LEFT ATRIAL ENLARGEMENT [-0.15mV P-WAVE IN V1/V2] POSSIBLE RIGHT VENTRICULAR CONDUCTION DELAY [RSR (QR) IN V1/V2] ABNORMAL ECG UNCONFIRMED REPORT Electronically signed by : Jose Draper MD 03/06/2023 08:56:30
[2023-03-05 18:02] LABS: Basophils % 0.2 % (0.1-2.0); Eosinophils # 0.2 K/mm3 (0.0-0.4); Eosinophils % 1.9 % (0.1-12.0); Hematocrit 43.2 % (42.0-52.0); Hemoglobin 15.5 g/dL (14.1-18.0); Lymphocytes # 0.6 K/mm3 (0.7-4.5); Lymphocytes % 6.7 % (10-50); Mean Corpuscular HGB Conc 35.8 g/dL (31.8-35.4); Mean Corpuscular Hemoglobin 30.5 pg (27.0-31.2); Mean Corpuscular Volume 85.3 fl (80-94); Mean Platelet Volume 7.8 fl (7.4-10.4); Monocytes # 0.6 K/mm3 (0.1-1.0); Monocytes % 7.5 % (1.7-9.3); Neutrophils # 6.9 K/mm3 (1.8-7.8); Neutrophils % 83.6 % (37.0-80.0); Platelet Count 176 K/mm3 (142-424); Red Blood Count 5.07 M/mm3 (4.60-6.20); Red Cell Distribution Width 12.8 % (11.5-17.5); White Blood Count 8.2 K/mm3 (4.8-10.8)
[2023-03-05 18:07] LABS: Strep Scrn Group A (Rapid) Negative (Negative)
[2023-03-05 18:08] LABS: Chloride 102 mmol/L (98-107); Potassium 3.4 mmoL/L (3.5-5.1); Sodium 138 mmol/L (136-145)
[2023-03-05 18:11] LABS: Alanine Aminotransferase 18 U/L (12-78); Albumin Level 5.1 g/dl (3.5-5.0); Albumin/Globulin Ratio 1.5 (1.1-1.8); Alkaline Phosphatase 82 U/L (38-126); Anion Gap 12.4 mEq/L (5-15); Aspartate Amino Transferase 26 U/L (17-59); Bilirubin,Total 0.7 mg/dl (0.2-1.3); Blood Urea Nitrogen 6 mg/dl (9-20); Calcium 9.1 mg/dl (8.4-10.2); Carbon Dioxide 27 mmol/L (22.0-30.0); Creatinine Clearance Estimated 105 mL/min (50-200); Estimated Glomerular Filt Rate 105 ml/min (>60); GFR (African American) 127 ML/MIN (>60); Globulin 3.4 g/dL (1.3-3.2); Glucose 110 mg/dl (74-100); Total Protein,Serum 8.5 g/dl (6.3-8.2)
[2023-03-05 18:22] VITALS: BP 129/72; PULSE 102; O2SAT 100
--- NOTE | 2023-03-05 18:47 | PC.NURSE ---
Checked with Lab on Covid swab time remaining, they state [address] Penaloza updated.
[2023-03-05 18:50] LABS: Coronavirus 19, PCR Detected (NotDetected)
--- NOTE | 2023-03-05 19:05 | CT_ITS ---
PROCEDURE INFORMATION: Exam: CTA Chest With Contrast Exam date and time: 03/05/2023 7:21 PM Age: 22 years old Clinical indication: Shortness of breath; Additional info: ruthie Pena SOA TECHNIQUE: Imaging protocol: Computed tomographic angiography of the chest with contrast. Exam focused on the arteries. 3D rendering (Not supervised by radiologist): MIP and/or 3D reconstructed images were created by the technologist. Radiation optimization: All CT scans at this facility use at least one of these dose optimization techniques: automated exposure control; mA and/or kV adjustment per patient size (includes targeted exams where dose is matched to clinical indication); or iterative reconstruction. Contrast material: ISOVUE 370; Contrast volume: 70 ml; Contrast route: INTRAVENOUS (IV); REPORTING DATA: Count of CT and Cardiac NM exams in prior 12 months: This patient has received 0 known CTs and 0 known cardiac nuclear medicine studies in the 12 months prior to the current study. COMPARISON: CT ANGIO CHEST 07/12/2019 8:47 AM FINDINGS: Pulmonary arteries: Normal. No pulmonary emboli. Aorta: Unremarkable. No aortic aneurysm. No aortic dissection. Lungs: Small right apical bleb. Minimal left apical granulomatous scarring. Minimal left lower lobe subsegmental scarring. No consolidation. No masses. Pleural spaces: Unremarkable. No pneumothorax. No pleural effusion. Heart: Unremarkable. No cardiomegaly. No pericardial effusion. Lymph nodes: Small calcified paraaortic mediastinal lymph nodes. No enlarged lymph nodes. Bones/joints: Unremarkable. No acute fracture. Soft tissues: Unremarkable. IMPRESSION: 1. No pulmonary artery embolism. 2. No acute pulmonary findings. Sequela of old granulomatous process.
--- NOTE | 2023-03-05 19:28 | PC.NURSE ---
pt returned from ct via radio mechanic and wheelchair
[2023-03-05 19:55] VITALS: BP 121/78; PULSE 83; RESP 18; TEMP 36.8; O2SAT 98
== END 2023-03-05 20:00 | disposition home or self-care (01) ==
PROVIDERS: Emergency Provider Emergency Medicine; PCP Internal Medicine
DX: U07.1 COVID-19 (principal); R05.9 Cough, unspecified; F17.290 Nicotine dependence, other tobacco product, uncomplicated; R00.0 Tachycardia, unspecified
CPT/HCPCS: 71045; 71275; 80053; 85025; 87430; 87636; 93005; 96360; 99285; Q9967

== ENCOUNTER 2023-05-18 15:29 | Emergency (ER) | payer MEDICAID, SELFPAY ==
[2023-05-18 16:00] VITALS: BP 111/70; PULSE 104; RESP 18; TEMP 36.9; O2SAT 99; BMI 19.0
[2023-05-18 16:22] VITALS: BP 111/70; PULSE 104; RESP 18; TEMP 36.9; O2SAT 99
[2023-05-18 16:32] LABS: UTC Influenza A Antigen Negative (Negative); UTC Influenza B Antigen Negative (Negative)
--- NOTE | 2023-05-18 16:33 | EXP.UTC ---
Discharge Plan Disposition Patient Disposition: Home, Self-Care Condition: Good Referrals Follow up/Referrals: Julio Cotton DO [Primary Care Provider] - See instructions Activity Restrictions/Add. Instructions Additional Instructions/Restrictions: No sign of a bacterial infection. Likely viral. Viruses can take 7-14 days to run their course. Nasal saline and bulb syringe or nose Mely to remove nasal drainage to help with nasal congestion. Hard to eat, drink, sleep with nasal congestion so important to keep this cleaned out. Monitor temp. Tylenol or Motrin as needed for pain or fever Encourage fluids, water, Gatorade, Powerade, Pedialyte if /toddler/child Warm salt water gargles Warm fluids Sore throat lozenges Sleep elevated Humidifier/vaporizer Follow-up immediately for new or worsening symptoms or no noticeable improvement over the next 48-72 hours. Clinical Impressions Clinical Impression: Viral upper respiratory illness Stand Alone Forms Stand Alone Forms: Work/School Release Instructions Patient Instructions: DI for Viral Upper Respiratory Infection-Child Discharge [facility] [place] HPI General Stated complaint: Cough,fever Mode of Arrival: Ambulatory Source of Information: Patient Limitations: No Limitations Time Seen by Provider: 05/18/23 16:33 Description of Symptoms (Recalled from Triage Doc. by RN): Pt's symptoms are fever, cough, and mid lower back pain. HEENT Symptoms (Recalled from RN notes): Yes Resp Symptoms (Recalled from RN notes): No Skin Symptoms (Recalled from RN notes): No MS Symptoms (Recalled from RN notes): No Functional Status (Recalled from RN notes): n/a History of Present Illness Provider Complaint: 22 yr old presents for fever, cough, and mid lower back pain. pt states pain is from coughing Related Data Allergies Allergy/AdvReac Type Severity Reaction Status Date / Time ibuprofen [From Motrin] Allergy Verified 05/18/23 16:18 Worker's Comp Is this a Worker's Comp case?: No [facility] Disclaimer: The information contained in this section may have been updated after the patient was seen, as this information can be updated by other users. 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) Smoking Status: Current every day smoker tobacco type: e-cigarettes second hand exposure: Yes alcohol intake: never substance use type: marijuana current occupational status: other Travel in the last 8 weeks: None household members: family housing: house current occupation: [employer] caffeine: Yes ROS Obtained: Yes All systems reviewed & no additional complaints except as documented Constitutional Constitutional: Reports system reviewed and no additional complaints, except as documented, Reports as per HPI and Reports fever(s) Eyes Eyes: Reports system reviewed and no additional complaints, except as documented ENT Ears, Nose, Mouth, and Throat: Reports system reviewed and no additional complaints, except as documented, Reports as per HPI, Reports nasal congestion, Reports nasal discharge and Reports other (clear drainage) Cardiovascular Cardiovascular: Reports system reviewed and no additional complaints, except as documented Respiratory Respiratory: Reports system reviewed and no additional complaints, except as documented Integumentary/Breasts Skin/Breast: Reports system reviewed and no additional complaints, except as documented Neurologic Neurologic: Reports system reviewed and no additional complaints, except as documented Endocrine Endocrine: Reports system reviewed and no additional complaints, except as documented Hematologic/Lymphatic Henatologic/Lymphatic: Reports system reviewed and no additional complaints, except as documented Physical Exam General General appearance: alert and in no apparent distress Head Head exam: atraumatic Eye Eye exam: Present normal appearance and PERRL ENT ENT exam: Present normal exam, normal oropharynx, mucous membranes moist and TM's normal bilaterally Respiratory Respiratory exam: Present normal lung sounds bilaterally Cardiovascular Cardiovascular exam: Present regular rate and normal rhythm Back Exam Back exam: Present normal inspection and full ROM; Absent tenderness Back 1 view image: 1. Neurological Exam Neurological exam: Present alert and oriented X3 Skin Skin exam: Present warm and intact Medical Decision Making Medical Records Medical records reviewed: Yes I reviewed the patient's medical records. Chinmay Inquiry Pt receiving controlled substance: No Chinmay was queried for this patient: No Vital Signs: 05/18/23 16:00 05/18/23 16:22 Temperature 98.4 F 98.4 F Temperature Source Oral Pulse Rate 104 H Pulse Rate [Right Radial] 104 H Respiratory Rate 18 18 Blood Pressure 111/70 Blood Pressure [Right Arm] 111/70 Blood Pressure Mean [Right Arm] 83 Blood Pressure Source [Right Arm] Automatic Cuff Blood Pressure Position [Right Arm] Sitting 02 Sat by Pulse Oximetry 99 Oxygen Delivery Method Room Air Lab Data Lab results reviewed: Yes I reviewed the patient's lab results. Lab Results 05/18/23 16:19: Influenza Type A Ag Negative, Influenza Type B Ag Negative
[2023-05-18 16:56] LABS: Adenovirus,PCR Not Detected (NotDetected); Coronavirus 19, PCR Not Detected (NotDetected); Coronavirus 229E Not Detected (NotDetected); Coronavirus NL63 Not Detected (NotDetected); Coronavirus OC43 Not Detected (NotDetected); Coronovirus HKU1,PCR Not Detected (NotDetected); Human Metapneumovirus Not Detected (NotDetected); Influenza A, PCR Not Detected (NotDetected); Influenza AH1, 2009 Not Detected (NotDetected); Influenza AH1, PCR Not Detected (NotDetected); Influenza AH3,PCR Not Detected (NotDetected); Parainfluenza 1, PCR Not Detected (NotDetected); Parainfluenza 2, PCR Not Detected (NotDetected); Parainfluenza 3, PCR Not Detected (NotDetected); Parainfluenza 4, PCR Not Detected (NotDetected); Respiratory Syncytial Virus Not Detected (NotDetected); Rhinovirus/Enterovirus Not Detected (NotDetected)
[2023-05-18 18:38] LABS: Influenza B, PCR Detected (NotDetected)
== END 2023-05-18 16:53 | disposition home or self-care (01) ==
PROVIDERS: Emergency Provider Nurse Practitioner Family; PCP Internal Medicine
DX: J10.1 Influenza due to other identified influenza virus with other respiratory manifestations (principal); R50.9 Fever, unspecified; R05.9 Cough, unspecified; R09.81 Nasal congestion; M54.6 Pain in thoracic spine; F17.290 Nicotine dependence, other tobacco product, uncomplicated
CPT/HCPCS: 87632; 87635; 87804; 99212; 99213; G0463

== ENCOUNTER 2023-05-19 13:14 | Emergency (ER) | payer MEDICAID, SELFPAY ==
[2023-05-19 14:00] VITALS: BP 123/75; PULSE 89; RESP 16; TEMP 37.4; O2SAT 97; BMI 19.0
--- NOTE | 2023-05-19 14:04 | EXP.UTC ---
Discharge Plan Disposition Patient Disposition: Home, Self-Care Condition: Good Prescriptions Prescriptions: New methylprednisolone 4 mg Tablets,Dose Pack 4 mg PO DIRECTED 6 Days Qty: 21 0RF Rx Instructions: Take 1 pack as directed for 6 days ondansetron 4 mg Tablet,Disintegrating 4 mg PO Q8H PRN (Reason: Nausea) Qty: 12 0RF Referrals Follow up/Referrals: Julio Cotton DO [Primary Care Provider] - See instructions Activity Restrictions/Add. Instructions Additional Instructions/Restrictions: Drink plenty of fluids. Take tylenol or ibuprofen for pain or fever. Take the medications as directed. Follow up with your regular doctor. GO TO THE ER FOR ANY WORSENING SYMPTOMS Clinical Impressions Clinical Impression: Influenza B Stand Alone Forms Stand Alone Forms: Work/School Release Instructions Patient Instructions: DI for Influenza -- Adult, Ondansetron, Methylprednisolone Discharge ED Provider: Juan Min [facility] [place] HPI General Stated complaint: Congestion Time Seen by Provider: 05/19/23 14:04 History of Present Illness Provider Complaint: He states that he was diagnosed with influenza b yesterday. Since then he has began to have pleuritic type chest pain. He has a history of having a spontaneous pneumothorax about 3 years ago. He states that the chest pain with breathing scares him and he would like to make sure he doesn't have another pneumothorax. He denies significant shortness of breath. Related Data Previous Rx's Medication Instructions Recorded methylprednisolone 4 mg tablets in 4 mg PO DIRECTED 6 days #21 tabs 05/19/23 a dose pack ondansetron 4 mg disintegrating 4 mg PO Q8H PRN Nausea #12 tabs 05/19/23 tablet Allergies Allergy/AdvReac Type Severity Reaction Status Date / Time ibuprofen [From Motrin] Allergy Verified 05/18/23 16:18 [facility] Disclaimer: The information contained in this section may have been updated after the patient was seen, as this information can be updated by other users. 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) Smoking Status: Current every day smoker tobacco type: e-cigarettes second hand exposure: Yes alcohol intake: never substance use type: marijuana current occupational status: other Travel in the last 8 weeks: None household members: family housing: house current occupation: [employer] caffeine: Yes ROS Obtained: Yes All systems reviewed & no additional complaints except as documented Constitutional Constitutional: Reports poor appetite Eyes Eyes: Reports system reviewed and no additional complaints, except as documented ENT Ears, Nose, Mouth, and Throat: Reports as per HPI Cardiovascular Cardiovascular: Reports as per HPI and Reports chest pain Respiratory Respiratory: Denies shortness of breath, Reports chest congestion, Reports cough, Denies stridor and Denies wheezing Gastrointestinal Gastrointestingal: Reports system reviewed and no additional complaints, except as documented; Denies abdominal pain, diarrhea or vomiting Musculoskeletal Musculoskeletal: Reports system reviewed and no additional complaints, except as documented and Denies arthralgias Integumentary/Breasts Skin/Breast: Reports system reviewed and no additional complaints, except as documented and Denies rash Neurologic Neurologic: Denies paresthesias Allergic/Immunologic Allergic/Immunologic: Denies wheezing Physical Exam General General appearance: alert and in no apparent distress Head Head exam: atraumatic, normocephalic and normal inspection Eye Eye exam: Present normal appearance, PERRL and EOMI ENT ENT exam: Present normal exam, normal oropharynx, mucous membranes moist, TM's normal bilaterally and normal external ear exam Neck Neck exam: Present normal inspection, full ROM and trachea midline; Absent meningismus or lymphadenopathy Chest Chest inspection: Present normal inspection and symmetric chest wall rise; Absent tenderness Respiratory Respiratory exam: Present normal lung sounds bilaterally; Absent respiratory distress Cardiovascular Cardiovascular exam: Present regular rate and normal rhythm; Absent JVD Abdominal Exam Abdominal exam: Present soft and normal bowel sounds; Absent distention, tenderness or guarding Extremities Exam Extremities exam: Present normal inspection, full ROM and normal capillary refill; Absent calf tenderness Back Exam Back exam: Present normal inspection; Absent tenderness Neurological Exam Neurological exam: Present alert and oriented X3 Psychiatric Psychiatric exam: Present normal affect and normal mood Skin Skin exam: Present warm, dry, intact and normal color Lymphatic Lymphatic Findings: no adenopathy Medical Decision Making Medical Records Medical records reviewed: No I reviewed the patient's medical records. Chinmay Inquiry Pt receiving controlled substance: No Lab Data Lab results reviewed: Yes I reviewed the patient's lab results. Radiology Data #1: Image(s): Chest Image Reviewed: Yes I reviewed the patient's radiology image and Yes I have reviewed radiologist's interpretation Preliminary Findings: Normal/NAD and No Infiltrates Seen PROCEDURE INFORMATION: Exam: XR Chest Exam date and time: 05/19/2023 2:16 PM Age: 22 years old Clinical indication: Cough TECHNIQUE: Imaging protocol: Radiologic exam of the chest. Views: 2 views. COMPARISON: CT ANGIO CHEST PE PROTOCOL 03/05/2023 7:21 PM FINDINGS: Lungs: Left upper lung field suture material. Pleural spaces: Unremarkable. No pleural effusion. No pneumothorax. Heart/Mediastinum: Unremarkable. No cardiomegaly. Bones/joints: Unremarkable. IMPRESSION: No acute findings.
--- NOTE | 2023-05-19 14:19 | XR_ITS ---
PROCEDURE INFORMATION: Exam: XR Chest Exam date and time: 05/19/2023 2:16 PM Age: 22 years old Clinical indication: Cough TECHNIQUE: Imaging protocol: Radiologic exam of the chest. Views: 2 views. COMPARISON: CT ANGIO CHEST PE PROTOCOL 03/05/2023 7:21 PM FINDINGS: Lungs: Left upper lung field suture material. Pleural spaces: Unremarkable. No pleural effusion. No pneumothorax. Heart/Mediastinum: Unremarkable. No cardiomegaly. Bones/joints: Unremarkable. IMPRESSION: No acute findings.
[2023-05-19 14:47] VITALS: BP 123/75; PULSE 89; RESP 16; TEMP 37.4; O2SAT 97
== END 2023-05-19 14:51 | disposition home or self-care (01) ==
PROVIDERS: Emergency Provider Nurse Practitioner Family; PCP Internal Medicine
DX: J10.1 Influenza due to other identified influenza virus with other respiratory manifestations (principal); R07.1 Chest pain on breathing; R05.9 Cough, unspecified; F17.290 Nicotine dependence, other tobacco product, uncomplicated; Z87.09 Personal history of other diseases of the respiratory system
CPT/HCPCS: 71046; 99212; 99214; G0463

== ENCOUNTER 2023-06-29 14:19 | Emergency (ER) | payer MEDICAID, SELFPAY ==
[2023-06-29 14:20] VITALS: BP 142/82; PULSE 87; RESP 18; TEMP 36.7; O2SAT 100; BMI 18.8
[2023-06-29 14:26] VITALS: BMI 18.8
[2023-06-29 14:30] VITALS: BP 121/75; PULSE 89; RESP 18; O2SAT 97
--- NOTE | 2023-06-29 14:38 | ECG_ITS ---
APPROVED REPORT Exam: Resting ECG HR:86 bpm ECG Measurements Heart Rate 86 AXES WV 170 P 68 QRSd 87 QRS 81 QT 333 T 74 QTc 376 Conclusion SINUS RHYTHM POSSIBLE RIGHT VENTRICULAR CONDUCTION DELAY [RSR (QR) IN V1/V2] EARLY REPOLARIZATION [ST ELEVATION WITH NORMALLY INFLECTED T-WAVE] Electronically signed by : CRISS BACA, 07/01/2023 07:15:02
--- NOTE | 2023-06-29 14:38 | CT_ITS ---
PROCEDURE INFORMATION: Exam: CTA Chest With Contrast Exam date and time: 06/29/2023 3:06 PM Age: 22 years old Clinical indication: Shortness of breath; Additional info: Previous pneumo/soa TECHNIQUE: Imaging protocol: Computed tomographic angiography of the chest with contrast. Exam focused on the arteries. 3D rendering (Not supervised by radiologist): MIP and/or 3D reconstructed images were created by the technologist. Radiation optimization: All CT scans at this facility use at least one of these dose optimization techniques: automated exposure control; mA and/or kV adjustment per patient size (includes targeted exams where dose is matched to clinical indication); or iterative reconstruction. Contrast material: ISOVUE; Contrast volume: 75 ml; Contrast route: INTRAVENOUS (IV); COMPARISON: 1. CT ANGIO CHEST PE PROTOCOL 03/05/2023 7:21 PM 2. CR XR CHEST PORTABLE 06/29/2023 2:42 PM FINDINGS: Pulmonary arteries: No pulmonary embolism. Aorta: Unremarkable. No aortic aneurysm. No aortic dissection. Lungs: Left upper lobe suture material. Calcified left upper lobe granuloma. Pleural spaces: Unremarkable. No pneumothorax. No pleural effusion. Heart: Unremarkable. No cardiomegaly. No pericardial effusion. Lymph nodes: Calcified mediastinal granulomata. No enlarged lymph nodes. Bones/joints: Small Schmorl's nodes of the spine. Soft tissues: Unremarkable. IMPRESSION: No pulmonary embolism.
--- NOTE | 2023-06-29 14:38 | PC.NURSE ---
Dr. Penaloza at [facility] for pt eval
--- NOTE | 2023-06-29 14:39 | XR_ITS ---
PROCEDURE INFORMATION: Exam: XR Chest Exam date and time: 06/29/2023 2:42 PM Age: 22 years old Clinical indication: Shortness of breath; Additional info: Previous pneumo/soa TECHNIQUE: Imaging protocol: Radiologic exam of the chest. Views: 1 view. COMPARISON: CR Chest 05/19/2023 2:16 PM FINDINGS: Lungs: Suture material at the left upper lung field. Pleural spaces: Unremarkable. No pleural effusion. No pneumothorax. Heart/Mediastinum: Unremarkable. No cardiomegaly. Bones/joints: Unremarkable. IMPRESSION: No acute findings.
--- NOTE | 2023-06-29 14:40 | ED_ITS ---
Discharge Plan Disposition Patient Disposition: Home, Self-Care Chief Complaint: PAIN Prescriptions Prescriptions: No Action methylprednisolone 4 mg Tablets,Dose Pack 4 mg PO DIRECTED 6 Days Qty: 21 0RF Rx Instructions: Take 1 pack as directed for 6 days ondansetron 4 mg Tablet,Disintegrating 4 mg PO Q8H PRN (Reason: Nausea) Qty: 12 0RF Referrals Follow up/Referrals: Julio Cotton DO [Primary Care Provider] - See instructions Heber Dale MD [Physician] - See instructions Activity Restrictions/Add. Instructions Additional Instructions/Restrictions: Call your family doctor to establish care for this visit to the emergency department and schedule follow-up within 48 hours to ensure improvement. If you have any worsening of your condition or any other concerning signs or symptoms, return to the emergency department or your primary care doctor for further evaluation. [employer] information listed here, call them for establishing follow-up care. Clinical Impressions Clinical Impression: Breath shortness Discharge ED Provider: Felipe Ambrosio General Adult HPI <Oscar Penaloza MD - Last Filed: 06/29/23 15:11> General Chief complaint: PAIN Stated complaint: SOA Time Seen by Provider: 06/29/23 14:21 Mode of Arrival: Ambulatory Source of Information: Patient Limitations: No Limitations Description of Symptoms (Recalled from ER Triage Doc. by RN): Patient here because he has history of pneomothorax and feels slight pain with inhalation so he was concerned he may have another pneumo. Patient states he has no other issues and has not been sick recently. Denies other symptoms. History of Present Illness HPI narrative: Patient is a 22-year-old female with past medical history of multiple previous pneumothoraces, occurring on both sides of his chest, status post left chest pleurodesis who presents emergency department for evaluation of shortness of breath. History is obtained by patient at bedside, patient has had acute worsening shortness of breath over the last 24 hours, does not complain of any chest pain. Due to persistent symptoms he presents here for continued evaluation. No other acute complaints at this time. Related Data Previous Rx's Medication Instructions Recorded methylprednisolone 4 mg tablets in 4 mg PO DIRECTED 6 days #21 tabs 05/19/23 a dose pack ondansetron 4 mg disintegrating 4 mg PO Q8H PRN Nausea #12 tabs 05/19/23 tablet Allergies Allergy/AdvReac Type Severity Reaction Status Date / Time ibuprofen [From Motrin] Allergy Verified 05/18/23 16:18 PFSH <Oscar Penaloza MD - Last Filed: 06/29/23 15:11> PFS Disclaimer: The information contained in this section may have been updated after the patient was seen, as this information can be updated by other users. 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) Smoking Status: Current every day smoker tobacco type: e-cigarettes second hand exposure: Yes alcohol intake: never substance use type: marijuana current occupational status: other Travel in the last 8 weeks: None household members: family housing: house current occupation: [employer] caffeine: Yes <Oscar Penaloza MD - Last Filed: 06/29/23 15:11> ROS Obtained: Yes Systems reviewed as appropriate & no additional complaints except as documented Physical Exam <Oscra Penaloza MD - Last Filed: 06/29/23 15:11> General General appearance: alert and in no apparent distress Head Head exam: atraumatic and normocephalic Eye Eye exam: Present PERRL ENT ENT exam: Present mucous membranes moist Neck Neck exam: Present normal inspection Chest Chest inspection: Present normal inspection and symmetric chest wall rise Respiratory Respiratory exam: Present normal lung sounds bilaterally; Absent respiratory distress Cardiovascular Cardiovascular exam: Present normal rhythm and tachycardia Abdominal Exam Abdominal exam: Present soft; Absent tenderness Extremities Exam Extremities exam: Present normal inspection Neurological Exam Neurological exam: Present alert Psychiatric Psychiatric exam: Present normal affect Skin Skin exam: Present warm and dry Medical Decision Making <Oscar Penaloza MD - Last Filed: 06/29/23 15:11> Chinmay Inquiry Pt receiving controlled substance: No Vital Signs: 06/29/23 14:20 06/29/23 14:30 06/29/23 15:11 Temperature 98.1 F Temperature Source Oral Pulse Rate 89 86 Pulse Rate [Left] 87 Respiratory Rate 18 18 18 Blood Pressure 121/75 129/69 Blood Pressure [Right Arm] 142/82 H Blood Pressure Mean 84 88 Blood Pressure Mean [Right Arm] 102 Blood Pressure Source [Right Arm] Automatic Cuff 02 Sat by Pulse Oximetry 100 97 99 Oxygen Delivery Method Room Air 06/29/23 15:30 06/29/23 16:00 Temperature Temperature Source Pulse Rate 82 68 Pulse Rate [Left] Respiratory Rate 18 18 Blood Pressure 125/59 L 105/57 L Blood Pressure [Right Arm] Blood Pressure Mean 81 73 Blood Pressure Mean [Right Arm] Blood Pressure Source [Right Arm] 02 Sat by Pulse Oximetry 96 96 Oxygen Delivery Method Lab Data Lab Results 06/29/23 13:45: WBC 7.3, RBC 5.01, Hgb 14.8, Hct 45.1, MCV 90.0, MCH 29.5, MCHC 32.7, RDW 13.4, Plt Count 217, MPV 7.4, Neut % (Auto) 67.7, Lymph % (Auto) 23.5, Emanuel % (Auto) 4.9, Eos % (Auto) 3.2, Baso % (Auto) 0.7, Neut # (Auto) 5.0, Lymph # (Auto) 1.7, Emanuel # (Auto) 0.4, Eos # (Auto) 0.2, Baso # (Auto) 0.1, Sodium 139, Potassium 3.6, Chloride 103, Carbon Dioxide 31 H, Anion Gap 8.6, BUN 8 L, Creatinine 0.90, Estimated Creat Clear 107, Estimated GFR 105, Est GFR ( Amer) 127, Glucose 73 L, Calcium 9.4, Troponin I < 0.01 06/29/23 13:45 06/29/23 13:45 Orders (Tests/Meds): ED MEDICATIONS Generic Name Dose Route Start Last Admin Trade Name Freq PRN Reason Stop Dose Admin Sodium Chloride 10 ml 06/29/23 15:05 Sodium Chloride 0.9% 10ml Syr (Rad Only) IV 07/29/23 15:04 NEEDED PRN Maintain IV Site Discontinued Medications Generic Name Dose Route Start Last Admin Trade Name Freq PRN Reason Stop Dose Admin Iopamidol 75 ml 06/29/23 15:05 06/29/23 15:06 Iopamidol-370 (76%);100ml Bottle IV 06/29/23 15:06 75 ml ONCE ONE Administration Sodium Chloride 50 ml 06/29/23 15:05 06/29/23 15:06 0.9 % Sodium Chloride 50 Ml Vial IV 06/29/23 15:06 50 ml ONCE ONE Administration ORDERS Category Date Time Status CT angio chest PE protocol Stat Cat Scan 06/29/23 14:38 Completed CXR --portable [XR chest portable] Stat Exams 06/29/23 14:39 Completed BMP [Basic Metabolic Panel] Stat Lab 06/29/23 13:45 Completed CBC w/Auto Diff [Complete Blood Count Auto Diff] Stat Lab 06/29/23 13:45 Completed Trop I [Troponin I] Stat Lab 06/29/23 13:45 Completed Troponin I Q3H Lab 06/29/23 17:45 Ordered Troponin I Q3H Lab 06/29/23 20:45 Ordered EKG Request [ECG Request] Stat Y 06/29/23 14:38 Ordered ECG Data Tracing #1: Independently interpreted by me, rate is 86, rhythm is regular, axis is normal, no ST elevation in anatomical contiguous leads, QTc 376 Medical Decision Narrative: In summary patient is a 22-year-old male with past medical history described above who presents emergency department for evaluation of shortness of breath. Patient is hemodynamically stable nontoxic-appearing upon arrival, afebrile, tachycardic heart rate 105 on my exam. Differential diagnosis includes pneumothorax, pulmonary embolism, among others. Workup will be conducted with hematologic labs, EKG, AP chest x-ray, CTA chest, single troponin. Workup was largely pending at time of transition of care to the oncoming physician, Dr. Ambrosio. <Felipe Ambrosio MD - Last Filed: 06/29/23 16:26> Vital Signs: 06/29/23 14:20 06/29/23 14:30 06/29/23 15:11 Temperature 98.1 F Temperature Source Oral Pulse Rate 89 86 Pulse Rate [Left] 87 Respiratory Rate 18 18 18 Blood Pressure 121/75 129/69 Blood Pressure [Right Arm] 142/82 H Blood Pressure Mean 84 88 Blood Pressure Mean [Right Arm] 102 Blood Pressure Source [Right Arm] Automatic Cuff 02 Sat by Pulse Oximetry 100 97 99 Oxygen Delivery Method Room Air 06/29/23 15:30 06/29/23 16:00 Temperature Temperature Source Pulse Rate 82 68 Pulse Rate [Left] Respiratory Rate 18 18 Blood Pressure 125/59 L 105/57 L Blood Pressure [Right Arm] Blood Pressure Mean 81 73 Blood Pressure Mean [Right Arm] Blood Pressure Source [Right Arm] 02 Sat by Pulse Oximetry 96 96 Oxygen Delivery Method Lab Data Lab Results 06/29/23 13:45: WBC 7.3, RBC 5.01, Hgb 14.8, Hct 45.1, MCV 90.0, MCH 29.5, MCHC 32.7, RDW 13.4, Plt Count 217, MPV 7.4, Neut % (Auto) 67.7, Lymph % (Auto) 23.5, Emanuel % (Auto) 4.9, Eos % (Auto) 3.2, Baso % (Auto) 0.7, Neut # (Auto) 5.0, Lymph # (Auto) 1.7, Emanuel # (Auto) 0.4, Eos # (Auto) 0.2, Baso # (Auto) 0.1, Sodium 139, Potassium 3.6, Chloride 103, Carbon Dioxide 31 H, Anion Gap 8.6, BUN 8 L, Creatinine 0.90, Estimated Creat Clear 107, Estimated GFR 105, Est GFR ( Amer) 127, Glucose 73 L, Calcium 9.4, Troponin I < 0.01 Orders (Tests/Meds): ED MEDICATIONS Generic Name Dose Route Start Last Admin Trade Name Freq PRN Reason Stop Dose Admin Sodium Chloride 10 ml 06/29/23 15:05 Sodium Chloride 0.9% 10ml Syr (Rad Only) IV 07/29/23 15:04 NEEDED PRN Maintain IV Site Discontinued Medications Generic Name Dose Route Start Last Admin Trade Name Freq PRN Reason Stop Dose Admin Iopamidol 75 ml 06/29/23 15:05 06/29/23 15:06 Iopamidol-370 (76%);100ml Bottle IV 06/29/23 15:06 75 ml ONCE ONE Administration Sodium Chloride 50 ml 06/29/23 15:05 06/29/23 15:06 0.9 % Sodium Chloride 50 Ml Vial IV 06/29/23 15:06 50 ml ONCE ONE Administration ORDERS Category Date Time Status CT angio chest PE protocol Stat Cat Scan 06/29/23 14:38 Completed CXR --portable [XR chest portable] Stat Exams 06/29/23 14:39 Completed BMP [Basic Metabolic Panel] Stat Lab 06/29/23 13:45 Completed CBC w/Auto Diff [Complete Blood Count Auto Diff] Stat Lab 06/29/23 13:45 Completed Trop I [Troponin I] Stat Lab 06/29/23 13:45 Completed Troponin I Q3H Lab 06/29/23 17:45 Ordered Troponin I Q3H Lab 06/29/23 20:45 Ordered EKG Request [ECG Request] Stat Y 06/29/23 14:38 Ordered Medical Decision Narrative: In summary patient is a 22-year-old male with past medical history described above who presents emergency department for evaluation of shortness of breath. Patient is hemodynamically stable nontoxic-appearing upon arrival, afebrile, tachycardic heart rate 105 on my exam. Differential diagnosis includes pneumothorax, pulmonary embolism, among others. Workup will be conducted with hematologic labs, EKG, AP chest x-ray, CTA chest, single troponin. Workup was largely pending at time of transition of care to the oncoming physician, Dr. Ambrosio. Hebert: I assumed primary responsibility for this patient after signout from previous physician. Independent or potation of workup and negative CBC and chemistry. Chest x-ray negative. CTA of the chest without acute pulmonary embolism, no pneumothorax. No acute abnormalities. Because patient at baseline without signs or symptoms of clinical decompensation, deemed appropriate for discharge. Results were relayed to patient who voiced understanding and were agreeable to outpatient management and follow up. I discussed my clinical impression with patient and answered all questions. At this time, the evidence for any other entities in the differential is insufficient to warrant any further testing or ED observation. This was explained as well. Advisory was given that persistent or worsening symptoms require further evaluation. I confirmed the understanding of this discussion. Critical Care <Oscar Penaloza MD - Last Filed: 06/29/23 15:11> Critical Care Time Critical Care Time: No
[2023-06-29] MEDS: 0.9 % SODIUM CHLORIDE 50 ML VIAL IV (15:06)
[2023-06-29] MEDS: IOPAMIDOL-370 (76%);100ML BOTTLE 75 ML IV (15:06)
[2023-06-29 15:07] LABS: Chloride 103 mmol/L (98-107); Sodium 139 mmol/L (136-145)
[2023-06-29 15:08] LABS: Potassium 3.6 mmoL/L (3.5-5.1)
[2023-06-29 15:10] LABS: Blood Urea Nitrogen 8 mg/dl (9-20); Creatinine Clearance Estimated 107 mL/min (50-200); Estimated Glomerular Filt Rate 105 ml/min (>60); GFR (African American) 127 ML/MIN (>60)
[2023-06-29 15:11] VITALS: BP 129/69; PULSE 86; RESP 18; O2SAT 99
[2023-06-29 15:11] LABS: Anion Gap 8.6 mEq/L (5-15); Calcium 9.4 mg/dl (8.4-10.2); Carbon Dioxide 31 mmol/L (22.0-30.0); Glucose 73 mg/dl (74-100)
[2023-06-29 15:14] LABS: Basophils # 0.1 K/mm3 (0-0.2); Basophils % 0.7 % (0.1-2.0); Eosinophils # 0.2 K/mm3 (0.0-0.4); Eosinophils % 3.2 % (0.1-12.0); Hematocrit 45.1 % (42.0-52.0); Hemoglobin 14.8 g/dL (14.1-18.0); Lymphocytes # 1.7 K/mm3 (0.7-4.5); Lymphocytes % 23.5 % (10-50); Mean Corpuscular HGB Conc 32.7 g/dL (31.8-35.4); Mean Corpuscular Hemoglobin 29.5 pg (27.0-31.2); Mean Platelet Volume 7.4 fl (7.4-10.4); Monocytes # 0.4 K/mm3 (0.1-1.0); Monocytes % 4.9 % (1.7-9.3); Neutrophils % 67.7 % (37.0-80.0); Platelet Count 217 K/mm3 (142-424); Red Blood Count 5.01 M/mm3 (4.60-6.20); Red Cell Distribution Width 13.4 % (11.5-17.5); White Blood Count 7.3 K/mm3 (4.8-10.8)
[2023-06-29 15:23] LABS: Troponin I < 0.01 ng/ml (0.00-0.034)
[2023-06-29 15:30] VITALS: BP 125/59; PULSE 82; RESP 18; O2SAT 96
[2023-06-29 16:00] VITALS: BP 105/57; PULSE 68; RESP 18; O2SAT 96
[2023-06-29 16:31] VITALS: BP 105/75; PULSE 83; RESP 18; TEMP 36.8; O2SAT 99
== END 2023-06-29 16:32 | disposition home or self-care (01) ==
PROVIDERS: Emergency Medicine; Emergency Provider Emergency Medicine; PCP Internal Medicine
DX: R06.02 Shortness of breath (principal); F17.290 Nicotine dependence, other tobacco product, uncomplicated; Z87.09 Personal history of other diseases of the respiratory system
CPT/HCPCS: 71045; 71275; 80048; 84484; 85025; 93005; 99285; Q9967

== ENCOUNTER 2024-05-29 15:18 | Emergency (ER) | payer MEDICAID, SELFPAY ==
[2024-05-29 15:47] VITALS: BP 146/80; PULSE 80; RESP 17; TEMP 36.8; O2SAT 99; BMI 21.4
--- NOTE | 2024-05-29 15:53 | XR_ITS ---
FINAL REPORT CLINICAL HISTORY: right rib pain. history of pneumo COMPARISON: 05/19/2023 FINDINGS: No acute pulmonary density is evident. There is no evidence of effusion or other pleural disease. The mediastinum has a normal appearance. The cardiac silhouette is unremarkable. Postoperative changes noted in the left apex, that may be secondary to the resection of pulmonary blebs. IMPRESSION: Unremarkable chest exam. Reviewed, Interpreted and Dictated by Teto Sapp MD Transcribed by Sabrina Hernandez Authenticated and [facility]
--- NOTE | 2024-05-29 17:43 | ED_ITS ---
Discharge Plan Disposition Patient Disposition: Home, Self-Care Chief Complaint: PAIN Prescriptions Prescriptions: No Action methylprednisolone 4 mg Tablets,Dose Pack 4 mg PO DIRECTED 6 Days Qty: 21 0RF Rx Instructions: Take 1 pack as directed for 6 days ondansetron 4 mg Tablet,Disintegrating 4 mg PO Q8H PRN (Reason: Nausea) Qty: 12 0RF Referrals Follow up/Referrals: Julio Cotton DO [Primary Care Provider] - See instructions Activity Restrictions/Add. Instructions Additional Instructions/Restrictions: Follow-up with your family doctor as needed for this visit to the emergency department. Clinical Impressions Clinical Impression: Acute pain of left shoulder Print Language Print Language: Russian Discharge ED Provider: Felipe Ambrosio General Adult HPI General Chief complaint: PAIN Stated complaint: hx pneumothorax, RT shoulder pain Time Seen by Provider: 05/29/24 17:10 Mode of Arrival: Ambulatory Source of Information: Patient Description of Symptoms (Recalled from ER Triage Doc. by RN): pt to the ED with intermittent sharp pains on his left ribs that started this morning and only happens when he takes deep breaths. pt reports he had a pleurodesis surgery 2 years ago for a history of multiple pneumothorax in the past. pt denies any SOB at this time History of Present Illness HPI narrative: Please note that above description of symptoms, in this electronic medical record under categorization of recalled from ER triage doctor by RN are reflective of an initial nursing assessment, however, is not reflective of my full history and physical exam that was personally taken and clarified. Cons equentially, this preceding description of symptoms, which may include the patient's categorized chief complaint in the EMR, do not reflect my personal clinical impression, and the ultimate description of history of present illness and patient stated complaints should be deferred to this section of the note. Unless stated otherwise or congruent with this section of the note, additional signs, symptoms, or incongruence should be interpreted as inaccurate with my clinical impression. Related Data Previous Rx's ?Medication ?Instructions ?Recorded methylprednisolone 4 mg tablets in 4 mg PO DIRECTED 6 days #21 tabs 05/19/23 a dose pack ondansetron 4 mg disintegrating 4 mg PO Q8H PRN Nausea #12 tabs 05/19/23 tablet Allergies Allergy/AdvReac Type Severity Reaction Status Date / Time ibuprofen (From Motrin) Allergy Verified 05/18/23 16:18 [facility] Disclaimer: The information contained in this section may have been updated after the patient was seen, as this information can be updated by other users. 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) Smoking Status: Never smoker second hand exposure: Yes alcohol intake: never substance use type: marijuana current occupational status: other Travel in the last 8 weeks: None household members: family housing: house current occupation: [employer] caffeine: Yes Have you lived/traveled outside [place] in past 30 days?: No Contact w/someone who lives/traveled outside US past 30 days?: No Exposure to someone with infectious disease in past 14 days?: No Do you have a fever (greater than 100.4 F or 38 C)?: No Have you tested positive for COVID-19: No Exposed to someone with COVID-19 in past 14 days?: No Do you have a sore throat?: No Do you have a cough?: No Do you have any weakness?: No Do you have any diarrhea?: No Are you experiencing any unusual bleeding?: No Do you have any muscle aches/pain?: No Do you have any abdominal pain?: No Are you experiencing loss of taste or smell?: No Other 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 Have you received the Flu Vaccine for this season: Yes Have you received the Pneumonia Vaccine: Yes ROS Obtained: Yes All systems reviewed & no additional complaints except as documented Physical Exam General General appearance: alert Head Head exam: atraumatic and normocephalic Eye Eye exam: Present normal appearance, PERRL and EOMI Neck Neck exam: Present trachea midline Chest Chest inspection: Present normal inspection and symmetric chest wall rise Respiratory Respiratory exam: Present normal lung sounds bilaterally; Absent respiratory distress, wheezes, stridor, accessory muscle use or prolonged expiratory phase Cardiovascular Cardiovascular exam: Present regular rate, normal rhythm and other (Pulses equal and symmetric in upper and lower extremities) Abdominal Exam Abdominal exam: Present soft; Absent distention, tenderness or pulsatile mass Extremities Exam Extremities exam: Absent edema Neurological Exam Neurological exam: Present alert, oriented X3 and CN II-XII intact Skin Skin exam: Present warm and dry; Absent cyanosis, diaphoresis or pallor Medical Decision Making Medical Records Medical records reviewed: Yes I reviewed the patient's medical records. Screening: Per USPSTF and CDC recommendations, given the prevalence of disease in our region, it is our hospital?s policy to screen for HIV and viral Hepatitis for all patients aged 18 and over and those with ongoing risk factors. Chinmay Inquiry Pt receiving controlled substance: No Chinmay was queried for this patient: No Vital Signs: 05/29/24 15:47 Temperature 98.2 F Temperature Source Oral Pulse Rate [Left Radial] 80 Respiratory Rate 17 Blood Pressure [Right Arm] 146/80 H Blood Pressure Mean [Right Arm] 102 02 Sat by Pulse Oximetry 99 Oxygen Delivery Method Room Air Orders (Tests/Meds): ORDERS Category Date Time Status XR chest 2V Stat Exams 05/29/24 15:53 Completed Medical Decision Narrative: This is a 23-year-old male presenting with left-sided chest pain. Patient has a history of 5 pneumothoraces, 3 on the left, 2 on the right. Status post pleurodesis on the left. States that he woke up with left-sided shoulder pain and states it feels similar to pneumothorax, so he came in for further evaluation. No shortness of breath, nausea, vomiting, fevers, chills, cough. No other associated symptoms. Left-sided shoulder pain does not radiate. History obtained the patient. On arrival, very clinically well-appearing. Mild tachypnea, nontachycardic, saturating appropriately on room air. Lungs are clear and symmetric bilaterally. Differential includes pneumothorax, illness anxiety disorder, pleurisy, among others. Chest x-ray to be obtained. On independent interpretation, this was negative for any acute pneumothorax or intrathoracic pathology. Because patient at baseline without signs or symptoms of clinical decompensation, deemed appropriate for discharge. Results were relayed to patient who voiced understanding and were agreeable to outpatient management and follow up. I discussed my clinical impression with patient and answered all questions. At this time, the evidence for any other entities in the differential is insufficient to warrant any further testing or ED observation. This was explained as well. Advisory was given that persistent or worsening symptoms require further evaluation. I confirmed the understanding of this discussion. Translator disclaimer Much of this encounter note is an electronic faa certified powerplant mechanic spoken language to printed text. Electronic faa certified powerplant mechanic of the spoken language may permit errors. Although I have reviewed the note, some errors may still exist. Critical Care Critical Care Time Critical Care Time: No
[2024-05-29 17:51] VITALS: BP 124/74; PULSE 74; RESP 16; TEMP 36.6; O2SAT 98
== END 2024-05-29 17:51 | disposition home or self-care (01) ==
PROVIDERS: Emergency Provider Emergency Medicine; PCP Internal Medicine
DX: M25.512 Pain in left shoulder (principal)
CPT/HCPCS: 71046; 99283

== ENCOUNTER 2024-10-02 17:51 | Emergency (ER) | payer MEDICAID, SELFPAY ==
[2024-10-02 17:55] VITALS: BP 113/75; PULSE 61; RESP 18; TEMP 36.7; O2SAT 99; BMI 19.9
--- NOTE | 2024-10-02 18:08 | ECG_ITS ---
APPROVED REPORT Exam: Resting ECG HR:53 bpm ECG Measurements Heart Rate 53 AXES OH 179 P 59 QRSd 83 QRS 77 QT 388 T 45 QTc 371 Conclusion SINUS BRADYCARDIA POSSIBLE RIGHT VENTRICULAR CONDUCTION DELAY [RSR (QR) IN V1/V2] EARLY REPOLARIZATION [ST ELEVATION WITH NORMALLY INFLECTED T-WAVE] BORDERLINE ECG UNCONFIRMED REPORT Sinus bradycardia with a ventricular rate of 53 bpm. J-point elevation but no evidence of ST elevation or depression. Electronically signed by : MARCO BLAKE, 10/02/2024 21:35:35
--- OUTSIDE RECORDS SUMMARY | 2024-10-02 18:08 | XMS_ITS | Clinical Summary ---
Author Organization [facility] Address [address] [place] [address] Care Team Providers Care Staffing Operations Manager Name Role Phone Self, Referred MD Primary Care Provider Unavaila ble Allergies No known active allergies Medications oxyCODONE-acetam inophen (Percocet) 5-325 MG tablet 1 tablet every 6 (six) hours if needed for severe pain. Active Social History Tobacco Use Types Packs/Day Years Used Date Smoking Tobacco: Never Assessed Sex and Gender Information Value Date Recorded Sex Assigned at Not on file Legal Sex Male 7:28 PM EDT Gender Identity Not on file Sexual Orientation Not on file Last Filed Vital Signs Vital Sign Reading Time Taken Comments Blood Pressure 106/71 08/29/2020 8:57 AM EDT Pulse 73 08/29/2020 8:57 AM EDT Temperature 36.6 C (97.9 F) 08/29/2020 8:57 AM EDT Respiratory Rate 20 08/29/2020 8:57 AM EDT Oxygen Saturation 99% 08/29/2020 8:57 AM EDT Inhaled Oxygen Concentration - - Weight 61.2 kg (134 lb 14.7 oz) 08/29/2020 8:57 AM EDT Height - - Body Mass Index - - Plan of Treatment Health Maintenance Due Date Last Done Comments [facility]-Depression Screening 1999 [facility]-Infant/Child/Adol SDOH Screenings 1999 [facility]-Hepatitis B Vaccines (3 of 3 - 3-dose series) 12/30/2000 11/04/2000, 1999 HPV Vaccines (1 - Male 3-dose series) 09/14/2014 [facility]- SDOH Screenings 09/14/2017 [facility]-Adult SDOH Screenings 09/14/2017 [facility]-DTaP,Tdap,and Td Vaccines (2 - Td or Tdap) 10/30/2021 10/31/2011 [id number]-WHURL-07 Vaccine (1 - 2023- season) 2023 [facility]-Influenza Vaccine (#1) 2024 [facility]-Zoster Vaccines (1 of 2) 09/14/2049 10/31/2011, 11/04/2000 [facility]-HIB Vaccines Completed 11/04/2000, , 1999 [facility]-IPV Vaccines Completed 11/21/2004, 08/2000, 02/08/2000, Additional history exists [facility]-Varicella Vaccines Completed 10/31/2011, 2000 [facility]-Hepatitis A Vaccines Completed 01/27/2019, 06/2018 [facility]-Pneumococcal Vaccine: Pediatrics (0 to 5 Years) and At-Risk Patients (6 to 49 Years) Aged Out No longer eligible based on patient's age to complete this topic [facility]-Rotavirus Vaccines Aged Out No lo nger eligible based on patient's age to complete this topic Insurance [employer] [place] Care Teams Staffing Operations Manager Relationship Specialty Start Date End Date Self, Referred, PCP - General 08/29/20
--- OUTSIDE RECORDS SUMMARY | 2024-10-02 18:08 | XMS_ITS | Encounter Summary ---
Author Organization [facility] Address [address] [place] [address] Care Team Providers Care Sports Marketing Internship Name Role Phone Self, Referred MD Primary Care Provider Halleya ble Encounter Details Date Type Department Care Team (Late st Contact Info) Description 08/12/2020 [facility] Res[facility] [address] [place] [address] Carla Marie, RN [facility] Social History Tobacco Use Types Packs/Day Years Used Date Smoking Tobacco: Never Assessed Sex and Gender Information Value Date Recorded Sex Assigned at Not on file Legal Sex Male 7:28 PM EDT Gender Identity Not on file Sexual Orientation Not on file documented as of this encounter Last Filed Vital Signs Vital Sign Reading Time Taken Comments Blood Pressure 115/68 08/01/2020 9:51 AM EDT Pulse 72 08/01/2020 9:51 AM EDT Temperature 36.7 C (98 F) 08/01/2020 9:51 AM EDT Respiratory Rate 18 08/01/2020 9:51 AM EDT Oxygen Saturation 97% 08/01/2020 9:51 AM EDT Inhaled Oxygen Concentration - - Weight 61.6 kg (135 lb 12.9 oz) 08/01/2020 9:51 AM EDT Height - - Body Mass Index - - documented in this encounter Plan of Treatment Not on file documented as of this encounter Visit Diagnoses Not on filedocumented in this encounter Care Teams Sports Marketing Internship Relationship Specialty Start Date End Date Self, ReferredMD PCP - General 08/29/20 documented as of this encounter
--- NOTE | 2024-10-02 18:10 | XR_ITS ---
PROCEDURE INFORMATION: Exam: XR Chest Exam date and time: 10/02/2024 6:41 PM Age: 24 years old Clinical indication: Pain; Right-sided; Additional info: Right upper back pain TECHNIQUE: Imaging protocol: Radiologic exam of the chest. Views: 1 view. COMPARISON: CR XR CHEST 2V 05/29/2024 3:53 PM FINDINGS: Lungs: Postsurgical changes of the left upper lobe. Bilateral apical scarring. Stigmata of old granulomatous disease. Pleural spaces: Unremarkable. No pleural effusion. No pneumothorax. Heart/Mediastinum: Unremarkable. No cardiomegaly. Bones/joints: Unremarkable. IMPRESSION: No acute findings.
--- NOTE | 2024-10-02 19:41 | ED_ITS ---
Discharge Plan Disposition Patient Disposition: Home, Self-Care Condition: Good Prescriptions Prescriptions: No Action clindamycin HCl 300 mg capsule 300 mg PO Q8H 10 Days Qty: 30 0RF Referrals Follow up/Referrals: Provider,Referral, [Primary Care Provider, Medical] - See instructions Activity Restrictions/Add. Instructions Additional Instructions/Restrictions: You were seen for upper back pain. No evidence of pneumothorax at this time. Return to the ER for any worsening or new symptoms. Clinical Impressions Clinical Impression: Acute thoracic back pain Instructions Patient Instructions: DI for Acute Pain -- Adult Print Language Print Language: Setswana Discharge ED Provider: Jacques Martinez General Adult HPI <NURIS Ashton - Last Filed: 10/02/24 19:44> General Chief complaint: PAIN Stated complaint: sharp,stabbing pain right rib cage Time Seen by Provider: 10/02/24 18:05 Mode of Arrival: Ambulatory Source of Information: Patient Description of Symptoms (Recalled from ER Triage Doc. by RN): Pt presents for evaluation sharp pain to his right shoulder blade. Pt states he has the pain when he attempts to take a deep breath. Pt states he has a hx of pneumothorax. History of Present Illness HPI narrative: Patient presents complaining of right upper back pain. He reports this was sudden onset while at work. He reports that he was not doing any lifting or twisting. He reports that he was walking when the symptoms occurred. He does report a history of multiple pneumothoraces. Denies any shortness of breath. MD complaint: right upper back pain Onset (ago): unknown (just prior to arrival ) Location: back Radiation: non-radiation Severity: mild Consistency: constant Relieving factors: none Exacerbating factors: none Associated symptoms: denies other symptoms Related Data Previous Rx's ?Medication ?Instructions ?Recorded clindamycin HCl 300 mg capsule 300 mg PO Q8H 10 days # 30 caps 08/13/24 Allergies Allergy/AdvReac Type Severity Reaction Status Date / Time ibuprofen (From Motrin) Allergy Verified 08/13/24 14:49 PFSH <NURIS Ashton - Last Filed: 10/02/24 19:44> PFS Disclaimer: The information contained in this section may have been updated after the patient was seen, as this information can be updated by other users. 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 (Updated 10/02/24 @ 19:41 by NURIS Ashton) URI (upper respiratory infection) Viral gastritis Recurrent spontaneous pneumothorax Pneumothorax Atypical chest pain Viral upper respiratory illness Strep throat Viral syndrome Pre-syncope COVID-19 Influenza B Breath shortness Acute pain of left shoulder Collapse, lung Surgical History (Updated 08/13/24 @ 14:50 by Barbara Isaacs MA) History of lung surgery Social History (Updated 08/13/24 @ 14:51 by Barbara Isaacs MA) Smoking Status: Current every day smoker tobacco type: e-cigarettes second hand exposure: Yes alcohol intake: never substance use type: marijuana current occupational status: other Travel in the last 8 weeks?: None household members: family housing: house current occupation: [employer] caffeine: Yes Have you lived/traveled outside US in past 30 days?: No Contact w/someone who lives/traveled outside US past 30 days?: No Exposure to someone with infectious disease in past 14 days?: No Do you have a fever (greater than 100.4 F or 38 C)?: No Have you tested positive for COVID-19?: No Exposed to someone with COVID-19 in past 14 days?: No Do you have a sore throat?: No Do you have a cough?: No Do you have any weakness?: No Do you have any diarrhea?: No Are you experiencing any unusual bleeding?: No Do you have any muscle aches/pain?: No Do you have any abdominal pain?: No Are you experiencing loss of taste or smell?: No Other 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 Have you received the Flu Vaccine for this season: Yes Have you received the Pneumonia Vaccine: Yes <NURIS Ashton - Last Filed: 10/02/24 19:44> ROS Obtained: Yes Systems reviewed as appropriate & no additional complaints except as documented Physical Exam <NURIS Ashton - Last Filed: 10/02/24 19:44> General General appearance: alert and in no apparent distress Head Head exam: atraumatic and normocephalic Eye Eye exam: Present normal appearance and EOMI Chest Chest inspection: Present symmetric chest wall rise Respiratory Respiratory exam: Present normal lung sounds bilaterally; Absent wheezes or stridor Cardiovascular Cardiovascular exam: Present regular rate and normal rhythm; Absent systolic murmur Neurological Exam Neurological exam: Present alert and oriented X3 Psychiatric Psychiatric exam: Present normal affect and normal mood Skin Skin exam: Present warm, dry and intact Medical Decision Making <NURIS Ashton - Last Filed: 10/02/24 19:44> Medical Records Screening: Per USPSTF and CDC recommendations, given the prevalence of disease in our region, it is our hospital?s policy to screen for HIV and viral Hepatitis for all patients aged 18 and over and those with ongoing risk factors. Chinmay Inquiry Pt receiving controlled substance: No Vital Signs: 10/02/24 17:55 10/02/24 19:47 Temperature 98.1 F 98.1 F Temperature Source Tympanic Oral Pulse Rate 78 Pulse Rate [Right] 61 Respiratory Rate 18 18 Blood Pressure 112/78 Blood Pressure [Right Arm] 113/75 Blood Pressure Mean [Right Arm] 87 Blood Pressure Source [Right Arm] Automatic Cuff Blood Pressure Position Sitting Blood Pressure Position [Right Arm] Sitting 02 Sat by Pulse Oximetry 99 Oxygen Delivery Method Room Air Room Air Orders (Tests/Meds): ORDERS Category Date Time Status Chest XR -- portable [XR chest portable] Stat Exams 10/02/24 18:10 Completed POCUS Point of Care (ER Only) Stat Exams 10/02/24 18:22 Completed Medical Decision Narrative: In summary patient is a 24-year-old male who presents the emergency department for evaluation of upper back pain. Patient is hemodynamically stable upon arrival, afebrile. Unremarkable physical exam. Differential diagnosis includes pneumothorax, musculoskeletal pain, pneumonia. Initial workup will be conducted with chest x-ray, [id number] ultrasound. Chest x-ray is clear, POCUS shows normal lung as well. Upon repeat evaluation patient continues to be stable and well appearing. <Jacques Martinez MD - Last Filed: 10/02/24 21:27> Vital Signs: 10/02/24 17:55 10/02/24 19:47 Temperature 98.1 F 98.1 F Temperature Source Tympanic Oral Pulse Rate 78 Pulse Rate [Right] 61 Respiratory Rate 18 18 Blood Pressure 112/78 Blood Pressure [Right Arm] 113/75 Blood Pressure Mean [Right Arm] 87 Blood Pressure Source [Right Arm] Automatic Cuff Blood Pressure Position Sitting Blood Pressure Position [Right Arm] Sitting 02 Sat by Pulse Oximetry 99 Oxygen Delivery Method Room Air Room Air Orders (Tests/Meds): ORDERS Category Date Time Status Chest XR -- portable [XR chest portable] Stat Exams 10/02/24 18:10 Completed POCUS Point of Care (ER Only) Stat Exams 10/02/24 18:22 Completed Medical Decision Narrative: In summary patient is a 24-year-old male who presents the emergency department for evaluation of upper back pain. Patient is hemodynamically stable upon arrival, afebrile. Unremarkable physical exam. Differential diagnosis includes pneumothorax, musculoskeletal pain, pneumonia. Initial workup will be conducted with chest x-ray, [id number] ultrasound. Chest x-ray is clear, POCUS shows normal lung as well. Upon repeat evaluation patient continues to be stable and well appearing. I was consulted by the DEBBIE, and we discussed the complexity of the problems being addressed. I approve the treatment and management plan for this patient's care in the emergency department, thus performing a substantive portion of the medical decision making. I performed [id number] ultrasound to evaluate for pneumothorax. See procedure note for details. No evidence of pneumothorax as there is lung sliding present. Chest x-ray interpreted by me personally. No pneumothorax, focal consolidation or other concerning findings on chest x-ray. Agree that patient is appropriate for discharge at this time. Jacques Martinez MD Procedures <Jacques Martinez MD - Last Filed: 10/02/24 21:27> Limited Ultrasound Interpretation:: Limited lung ultrasound A focused ultrasound exam of the pleural spaces was performed to evaluate for pneumothorax, pulmonary edema, pleural effusion and/or consolidation. The ultrasound was performed with the following indications, as noted in the H&P: Right chest wall pain, history of pneumothorax Identified structures: RIGHT thoracic cavities were examined. Findings: Lung sliding: - Left present - Right present B-lines: - Left absent - Right absent Pleural effusion: - Left absent - Right absent Consolidation: - Left absent - Right absent Impression: - Pneumothorax absent - Pleural effusion absent - B-lines absent - Consolidation absent Images were saved to permanent archive The study was technically adequate CPT 98897-97 This study was performed by me, and I personally interpreted all images/videos. Based on my clinical judgement, these images were adequate and did not not necessitate further imaging. Critical Care <NURIS Ashton - Last Filed: 10/02/24 19:44> Critical Care Time Critical Care Time: No
[2024-10-02 19:47] VITALS: BP 112/78; PULSE 78; RESP 18; TEMP 36.7; O2SAT 98
== END 2024-10-02 19:48 | disposition home or self-care (01) ==
PROVIDERS: Emergency Provider Student in an Organized Health Care Education/Training Program
DX: M54.6 Pain in thoracic spine (principal); F17.290 Nicotine dependence, other tobacco product, uncomplicated
CPT/HCPCS: 71045; 93005; 99284

== ENCOUNTER 2024-12-10 18:21 | Emergency (ER) | payer MEDICAID, SELFPAY ==
--- NOTE | 2024-12-10 18:20 | ECG_ITS ---
APPROVED REPORT Exam: Resting ECG HR:79 bpm ECG Measurements Heart Rate 79 AXES NE 160 P 84 QRSd 89 QRS 81 QT 359 T 62 QTc 393 Conclusion Normal sinus rhythm without acute ST or T wave changes concerning for ischemia Electronically signed by : Barbara Higginbotham, 12/11/2024 00:43:02
[2024-12-10 18:23] VITALS: BP 139/78; PULSE 90; RESP 20; TEMP 36.8; O2SAT 100; BMI 21.4
--- NOTE | 2024-12-10 18:26 | XR_ITS ---
PROCEDURE INFORMATION: Exam: XR Chest Exam date and time: 12/10/2024 6:51 PM Age: 24 years old Clinical indication: Shortness of breath; Additional info: Shortness of breath/cp TECHNIQUE: Imaging protocol: Radiologic exam of the chest. Views: 1 view. COMPARISON: CT ANGIO CHEST PE PROTOCOL 12/10/2024 6:49 PM FINDINGS: Lungs: Bilateral apical scarring. Stigmata of old granulomatous disease. Postsurgical changes of the left upper lobe. Pleural spaces: Unremarkable. No pleural effusion. No pneumothorax. Heart/Mediastinum: Unremarkable. No cardiomegaly. Bones/joints: Unremarkable. IMPRESSION: No acute findings.
--- NOTE | 2024-12-10 18:26 | ED_ITS ---
Discharge Plan Disposition Patient Disposition: Home, Self-Care Condition: Good Prescriptions Prescriptions: No Action No Known Home Medications tizanidine 4 mg tablet 4 mg PO Q8H PRN (Reason: muscle spasticity) Qty: 30 0RF Referrals Follow up/Referrals: Provider,Referral, [Primary Care Provider, Medical] - See instructions Activity Restrictions/Add. Instructions Additional Instructions/Restrictions: Return to the emergency department for any acute or worsening symptoms. Clinical Impressions Clinical Impression: Breath shortness Print Language Print Language: Italian Discharge ED Provider: Barbara Higginbotham General Adult HPI General Chief complaint: Chest Pain Stated complaint: L CP & SOA Time Seen by Provider: 12/10/24 18:26 History of Present Illness HPI narrative: Patient is a 24-year-old gentleman who has a past medical history of 4 spontaneous pneumothoraxes, has had a pleurodesis on the left in 2 chest tubes on the left as well as the right who presented to the emergency department with acute onset left-sided chest pain. Patient states that it started acutely and is on the entire left side. Patient is having some pleuritic chest pain. Has not any fevers cough chills or other infectious symptoms. States that he smokes marijuana but does not do any other drugs. Patient denies any vomiting diarrhea abdominal pain. Patient denies any neurologic symptoms. Related Data Home Medications ?Medication ?Instructions ?Recorded ?Confirmed No Known Home Medications 12/12/2411/24 Previous Rx's ?Medication ?Instructions ?Recorded tizanidine 4 mg tablet 4 mg PO Q8H PRN muscle spast icity 12/12/24 #30 tabs Allergies Allergy/AdvReac Type Severity Reaction Status Date / Time ibuprofen (From Motrin) Allergy Intermediate Unknown Verified 12/12/24 12:45 allergy reaction [facility] Disclaimer: The information contained in this section may have been updated after the patient was seen, as this information can be updated by other users. 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 URI (upper respiratory infection) Viral gastritis Recurrent spontaneous pneumothorax Pneumothorax Atypical chest pain Viral upper respiratory illness Strep throat Viral syndrome Pre-syncope COVID-19 Influenza B Breath shortness Acute pain of left shoulder Collapse, lung 4 times Surgical History History of lung surgery Social History Smoking Status: Current every day smoker tobacco type: e-cigarettes second hand exposure: Yes alcohol intake: never substance use type: marijuana current occupational status: other Travel in the last 8 weeks?: None household members: family housing: house current occupation: [employer] caffeine: Yes Have you lived/traveled outside US in past 30 days?: No Contact w/someone who lives/traveled outside US past 30 days?: No Exposure to someone with infectious disease in past 14 days?: No Do you have a fever (greater than 100.4 F or 38 C)?: No Have you tested positive for COVID-19?: No Exposed to someone with COVID-19 in past 14 days?: No Do you have a sore throat?: No Do you have a cough?: No Do you have any weakness?: No Do you have any diarrhea?: No Are you experiencing any unusual bleeding?: No Do you have any muscle aches/pain?: No Do you have any abdominal pain?: No Are you experiencing loss of taste or smell?: No Other 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 Have you received the Flu Vaccine for this season: Yes Have you received the Pneumonia Vaccine: Yes ROS Obtained: Yes All systems reviewed & no additional complaints except as documented and Yes Systems reviewed as appropriate & no additional complaints except as documented Physical Exam General General appearance: alert and in no apparent distress Head Head exam: atraumatic, normocephalic and normal inspection Eye Eye exam: Present normal appearance, PERRL and EOMI; Absent scleral icterus ENT ENT exam: Present normal exam and normal external ear exam Neck Neck exam: Present normal inspection and full ROM Chest Chest inspection: Present normal inspection and symmetric chest wall rise Respiratory Respiratory exam: Present normal lung sounds bilaterally; Absent respiratory distress or wheezes Cardiovascular Cardiovascular exam: Present normal rhythm, tachycardia and normal heart sounds Abdominal Exam Abdominal exam: Present soft and distention; Absent tenderness, guarding or rebound Extremities Exam Extremities exam: Present normal inspection and full ROM Back Exam Back exam: Present normal inspection and full ROM Neurological Exam Neurological exam: Present alert and oriented X3 Psychiatric Psychiatric exam: Present normal affect and normal mood Skin Skin exam: Present warm and dry Medical Decision Making Medical Records Medical records reviewed: Yes I reviewed the patient's medical records. Screening: Per USPSTF and CDC recommendations, given the prevalence of disease in our region, it is our hospital?s policy to screen for HIV and viral Hepatitis for all patients aged 18 and over and those with ongoing risk factors. Chinmay Inquiry Pt receiving controlled substance: No Vital Signs: 12/10/24 18:23 12/10/24 18:28 12/10/24 18:30 Temperature 98.3 F Temperature Source Oral Pulse Rate 74 74 Pulse Rate [Left] 90 Respiratory Rate 20 16 14 Blood Pressure 114/76 112/73 Blood Pressure [Right Arm] 139/78 Blood Pressure Mean 86 85 Blood Pressure Mean [Right Arm] 98 Blood Pressure Source Blood Pressure Position 02 Sat by Pulse Oximetry 100 99 97 Oxygen Delivery Method Room Air Room Air Room Air 12/10/24 18:53 12/10/24 20:46 Temperature 97.8 F Temperature Source Oral Pulse Rate 75 56 L Pulse Rate [Left] Respiratory Rate 16 16 Blood Pressure 107/67 L Blood Pressure [Right Arm] Blood Pressure Mean Blood Pressure Mean [Right Arm] Blood Pressure Source Automatic Cuff Blood Pressure Position Sitting 02 Sat by Pulse Oximetry 100 Oxygen Delivery Method Room Air Room Air Lab Data Lab results reviewed: Yes I reviewed the patient's lab results. Lab Results 12/10/24 18:35: WBC 9.7, RBC 4.72, Hgb 14.0 L, Hct 40.0 L, MCV 84.7, MCH 29.7, MCHC 35.0, RDW 12.2, Plt Count 186, MPV 9.2, Neut % (Auto) 67.3, Lymph % (Auto) 24.4, [place] % (Auto) 6.5, Eos % (Auto) 1.2, Baso % (Auto) 0.3, Neut # (Auto) 6.5, Lymph # (Auto) 2.4, [place] # (Auto) 0.6, Eos # (Auto) 0.1, Baso # (Auto) 0.0, Sodium 139, Potassium 3.5, Chloride 103, Carbon Dioxide 25, Anion Gap 14.5, BUN 10, Creatinine 0.70, Estimated Creat Clear 150, Estimated GFR 137, Est GFR ( Amer) 166, Glucose 99, Calcium 9.1, Total Bilirubin 0.6, AST 26, ALT 12, Alkaline Phosphatase 60, Troponin I < 0.01, Total Protein 7.7, Albumin 4.7, Globulin 3.0, Albumin/Globulin Ratio 1.6, HCV Ab BOYD w/Rflx PCR Qn Negative, HIV Ag/Ab Combo Qual Negative 12/10/24 18:35 12/10/24 18:35 Orders (Tests/Meds): ED MEDICATIONS Discontinued Medications Generic Name Dose Route Start Last Admin Trade Name Duyq PRN Reason Stop Dose Admin Acetaminophen 1,000 mg 12/10/24 18:55 12/10/24 19:00 Acetaminophen 500mg Tab PO 12/10/24 18:56 1,000 mg ONCE ONE Administration Iopamidol 80 ml 12/10/24 18:47 12/10/24 18:48 Iopamidol-370 (76%);100ml Bottle IV 12/10/24 18:48 80 ml ONCE ONE Administration Sodium Chloride 50 ml 12/10/24 18:47 12/10/24 18:48 0.9 % Sodium Chloride 50 Ml Vial IV 12/10/24 18:48 50 ml ONCE ONE Administration Sodium Chloride 10 ml 12/10/24 18:47 12/10/24 18:48 Sodium Chloride 0.9% 10ml Syr (Rad Only) IV 12/10/24 18:48 10 ml ONCE ONE Administration ORDERS Category Date Time Status CT angio chest PE protocol Stat Cat Scan 12/10/24 18:26 Completed CXR --portable [XR chest portable] Stat Exams 12/10/24 18:26 Completed CBC w/Auto Diff [Complete Blood Count Auto Diff] Stat Lab 12/10/24 18:35 Completed CMP [Comprehensive Metabolic Panel] Stat Lab 12/10/24 18:35 Completed HIV Combo Stat Lab 12/10/24 18:35 Completed Hepatitis C Ab Qual. W/ RFX Stat Lab 12/10/24 18:35 Completed Trop I [Troponin I] Stat Lab 12/10/24 18:35 Completed Medical Decision Narrative: Patient is a 24-year-old male with a past medical history of multiple pneumothoraxes with a previous pleurodesis on the left who presented to the emergency department with acute onset left-sided chest pain. On arrival, patient was tachycardic but vital signs were otherwise unremarkable. Differential includes but not limited to: Pneumothorax, pleural effusion, pulmonary embolism, pleural effusion, pneumonia, anxiety, ACS/ID, amongst others. Patient's labs were reviewed and interpreted by myself: CBC showed no leukocytosis, hemoglobin was stable. CMP was unremarkable. Initial troponin less than 0.01. CXR was reviewed and interpreted by myself and showed no acute focal consolidation, pneumothorax, pleural effusion or other acute cardiopulmonary process. CT chest was reviewed and interpreted by myself and showed no acute process. Patient's tachycardia improved in the emergency department. Given the patient's pain has been present for more than 6 hours, second troponin was not indicated. Patient was otherwise discharged home in stable condition return precautions were discussed. Critical Care Critical Care Time Critical Care Time: No
--- NOTE | 2024-12-10 18:26 | CT_ITS ---
PROCEDURE INFORMATION: Exam: CTA Chest With Contrast Exam date and time: 12/10/2024 6:49 PM Age: 24 years old Clinical indication: Pain; Other: Left sided cp, HX pleuredesis TECHNIQUE: Imaging protocol: Computed tomographic angiography of the chest with contrast. Exam focused on the arteries. 3D rendering (Not supervised by radiologist): MIP and/or 3D reconstructed images were created by the technologist. Radiation optimization: All CT scans at this facility use at least one of these dose optimization techniques: automated exposure control; mA and/or kV adjustment per patient size (includes targeted exams where dose is matched to clinical indication); or iterative reconstruction. Contrast material: ISO 370; Contrast volume: 70 ml; Contrast route: INTRAVENOUS (IV); COMPARISON: CT ANGIO CHEST PE PROTOCOL 03/05/2023 7:21 PM FINDINGS: Pulmonary arteries: No pulmonary emboli. Great vessels off aortic arch: Abberant right subclavian artery. Aorta: Unremarkable. No aortic aneurysm. No aortic dissection. Lungs: Postsurgical changes of the left upper lobe. Bilateral apical scarring. Mild chronic left lung scarring. Pleural spaces: Unremarkable. No pneumothorax. No pleural effusion. Heart: Unremarkable. No cardiomegaly. No pericardial effusion. Lymph nodes: Unremarkable. No enlarged lymph nodes. Bones/joints: Unremarkable. No acute fracture. Soft tissues: Unremarkable. Other findings: Stigmata of old granulomatous disease. IMPRESSION: No pulmonary emboli.
[2024-12-10 18:28] VITALS: BP 114/76; PULSE 74; RESP 16; O2SAT 99
[2024-12-10 18:30] VITALS: BP 112/73; PULSE 74; RESP 14; O2SAT 97
--- OUTSIDE RECORDS SUMMARY | 2024-12-10 18:32 | XMS_ITS | Clinical Summary ---
Author Organization [facility] Address [address] [place] [address] Care Team Providers Care Member [employer] Name Role Phone Self, Referred MD Primary [...] (2 - Td or Tdap) 10/30/2021 10/31/2011 [id number] Vaccine (1 - 2023- season) 2024 [facility]-Influenza Vaccine (#1) 2024 [facility]-Zoster Vaccines (1 [...] topic Insurance [employer] [place] Care Teams Member Of [employer] Relationship Specialty Start Date End Date Self, Referred, PCP - General 08/29/20
--- OUTSIDE RECORDS SUMMARY | 2024-12-10 18:32 | XMS_ITS | Encounter Summary ---
Author Organization [facility] Address [address] [place] [address] Care Team Providers Care Headhunter Name Role Phone Self, Referred MD Primary Care Provider Halleya ble Encounter Details Date Type Department Care Team (Late st Contact Info) Description 08/12/2020 [facility] [address] [place] [address] Carla Marie, RN [facility] [...] on filedocumented in this encounter Care Teams Headhunter Relationship Specialty Start Date End Date Self, ReferredMD PCP - General 08/29/20 documented as of this encounter
[2024-12-10 18:45] LABS: Hematocrit 40.0 % (42.0-52.0); Hemoglobin 14.0 g/dL (14.1-18.0); Immature Granulocytes % 0.3 %; Mean Corpuscular HGB Conc 35.0 g/dL (31.8-35.4); Mean Corpuscular Hemoglobin 29.7 pg (27.0-31.2); Mean Corpuscular Volume 84.7 fl (80-94); Nucleated Red Blood Cells % 0 %; Platelet Count 186 K/mm3 (142-424); Red Blood Count 4.72 M/mm3 (4.60-6.20); Red Cell Distribution Width-SD 37.6 fL; White Blood Count 9.7 K/mm3 (4.8-10.8)
[2024-12-10] MEDS: 0.9 % SODIUM CHLORIDE 50 ML VIAL IV (18:48)
[2024-12-10] MEDS: IOPAMIDOL-370 (76%);100ML BOTTLE 80 ML IV (18:48)
[2024-12-10] MEDS: SODIUM CHLORIDE 0.9% 10ML SYR (RAD ONLY) 10 ML IV (18:48)
[2024-12-10 18:53] VITALS: PULSE 75; RESP 16; O2SAT 100
[2024-12-10] MEDS: ACETAMINOPHEN 500MG TAB 1000 MG PO (19:00)
[2024-12-10 19:08] LABS: Albumin Level 4.7 g/dl (3.5-5.0); Chloride 103 mmol/L (98-107); Potassium 3.5 mmoL/L (3.5-5.1); Sodium 139 mmol/L (136-145)
[2024-12-10 19:11] LABS: Alanine Aminotransferase 12 U/L (12-78); Albumin/Globulin Ratio 1.6 (1.1-1.8); Alkaline Phosphatase 60 U/L (38-126); Anion Gap 14.5 mEq/L (5-15); Aspartate Amino Transferase 26 U/L (17-59); Bilirubin,Total 0.6 mg/dl (0.2-1.3); Blood Urea Nitrogen 10 mg/dl (9-20); Calcium 9.1 mg/dl (8.4-10.2); Carbon Dioxide 25 mmol/L (22.0-30.0); Creatinine Clearance Estimated 150 mL/min (50-200); Creatinine,Serum 0.70 mg/dl (0.66-1.25); Estimated Glomerular Filt Rate 137 ml/min (>60); GFR (African American) 166 ML/MIN (>60); Globulin 3.0 g/dL (1.3-3.2); Glucose 99 mg/dl (74-100); Total Protein,Serum 7.7 g/dl (6.3-8.2)
[2024-12-10 20:01] LABS: Hepatitis C Ab Qual. W/ RFX NEGATIVE (Negative)
[2024-12-10 20:04] LABS: Troponin I < 0.01 ng/ml (0.00-0.034)
[2024-12-10 20:46] VITALS: BP 107/67; PULSE 56; RESP 16; TEMP 36.6; O2SAT 98
== END 2024-12-10 20:58 | disposition home or self-care (01) ==
PROVIDERS: Emergency Provider Student in an Organized Health Care Education/Training Program
DX: R07.89 Other chest pain (principal); R06.02 Shortness of breath; R00.0 Tachycardia, unspecified; F12.90 Cannabis use, unspecified, uncomplicated; F17.290 Nicotine dependence, other tobacco product, uncomplicated; Z87.09 Personal history of other diseases of the respiratory system
CPT/HCPCS: 71045; 71275; 80053; 84484; 85025; 86803; 87389; 93005; 99285; Q9967

== ENCOUNTER 2024-12-13 20:06 | Emergency (ER) | payer MEDICAID, SELFPAY ==
[2024-12-13] VITALS (8 sets, daily range): BP systolic 109–132; BP diastolic 61–89; PULSE 64–121; RESP 8–20; TEMP 36.6–37.1; O2SAT 98–100; BMI 19.9
--- NOTE | 2024-12-13 20:11 | ECG_ITS ---
APPROVED REPORT Exam: Resting ECG HR:125 bpm ECG Measurements Heart Rate 125 AXES GA 174 P 81 QRSd 89 QRS 80 QT 407 T 76 QTc 481 Conclusion Benjamin tachycardia without acute ST or T wave changes concerning for ischemia Electronically signed by : Barbara Higginbotham, 12/14/2024 00:47:51
--- NOTE | 2024-12-13 20:11 | XR_ITS ---
PROCEDURE INFORMATION: Exam: XR Chest Exam date and time: 12/13/2024 8:17 PM Age: 24 years old Clinical indication: Pain; Chest pressure; Additional info: Chest pain TECHNIQUE: Imaging protocol: Radiologic exam of the chest. Views: 2 views. COMPARISON: CR XR CHEST PORTABLE 12/10/2024 6:51 PM FINDINGS: Tubes, catheters and devices: Leads overlying chest. Lungs: No consolidation. Chain sutures within LEFT upper lobe. Pleural spaces: No significant pleural effusion. No pneumothorax. Heart/Mediastinum: No cardiomegaly. Bones/joints: No displaced fracture. Soft tissues: Unremarkable. IMPRESSION: No definite acute cardiopulmonary disease.
--- NOTE | 2024-12-13 20:13 | HMH.EDGENADL ---
Discharge Plan Disposition Patient Disposition: Home, Self-Care Condition: Good Prescriptions Prescriptions: No Action No Known Home Medications tizanidine 4 mg tablet 4 mg PO Q8H PRN (Reason: muscle spasticity) Qty: 30 0RF Referrals Follow up/Referrals: Luis Singh MD [Staff Physician, Cardiology] - See instructions Provider,MD Johanna [Primary Care Provider, Medical] - See instructions Activity Restrictions/Add. Instructions Additional Instructions/Restrictions: Call Dr. Singh tomorrow to schedule an appointment. Let him know that you need an appointment for tachycardia and arrhythmias. Return to the emergency department for any acute or worsening symptoms. Clinical Impressions Clinical Impression: Vertigo, Tachycardia Print Language Print Language: Occitan Discharge ED Provider: Barbara Higginbotham General Adult HPI General Chief complaint: Chest Pain Stated complaint: chest pain Time Seen by Provider: 12/13/24 20:10 History of Present Illness HPI narrative: Patient is a 24-year-old male with a past medical history of spontaneous pneumothoraxes x 4 who presented to the emergency department with lightheadedness and tachycardia as well as chest pain. Patient states that he woke up and had acute symptoms of tachycardia and felt lightheaded. Patient has some mild chest pain. Patient denies any shortness of breath at this time. Patient denies any nausea vomiting or diarrhea. Patient denies any abdominal pain. Patient denies any headache or vision changes. Patient denies any blood in his stools. Related Data Home Medications ?Medication ?Instructions ?Recorded ?Confirmed No Known Home Medications 12/12/24 12/15/24 Previous Rx's ?Medication ?Instructions ?Recorded tizanidine 4 mg tablet 4 mg PO Q8H PRN muscle spasticity 12/12/24 #30 tabs Allergies Allergy/AdvReac Type Severity Reaction Status Date / Time ibuprofen (From Motrin) Allergy Intermediate Unknown Verified 12/15/24 09:06 allergy reaction [facility] Disclaimer: The information contained in this section may have been updated after the patient was seen, as this information can be updated by other users. 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 URI (upper respiratory infection) Viral gastritis Recurrent spontaneous pneumothorax Pneumothorax Atypical chest pain Viral upper respiratory illness Strep throat Viral syndrome Pre-syncope COVID-19 Influenza B Breath shortness Acute pain of left shoulder Collapse, lung 4 times Surgical History History of lung surgery Social History Smoking Status: Never smoker second hand exposure: Yes alcohol intake: never substance use type: marijuana current occupational status: other Travel in the last 8 weeks?: None household members: family housing: house current occupation: [employer] caffeine: Yes Other 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 Have you received the Flu Vaccine for this season: Yes Have you received the Pneumonia Vaccine: Yes ROS Obtained: Yes All systems reviewed & no additional complaints except as documented and Yes Systems reviewed as appropriate & no additional complaints except as documented Physical Exam General General appearance: alert and in no apparent distress Head Head exam: atraumatic, normocephalic and normal inspection Eye Eye exam: Present normal appearance, PERRL and EOMI; Absent scleral icterus ENT ENT exam: Present normal exam and normal external ear exam Neck Neck exam: Present normal inspection and full ROM Chest Chest inspection: Present normal inspection and symmetric chest wall rise Respiratory Respiratory exam: Present normal lung sounds bilaterally; Absent respiratory distress or wheezes Cardiovascular Cardiovascular exam: Present normal rhythm, tachycardia and normal heart sounds Abdominal Exam Abdominal exam: Present soft and distention; Absent tenderness, guarding or rebound Extremities Exam Extremities exam: Present normal inspection and full ROM Back Exam Back exam: Present normal inspection and full ROM Neurological Exam Neurological exam: Present alert and oriented X3 Psychiatric Psychiatric exam: Present normal affect and normal mood Skin Skin exam: Present warm and dry Medical Decision Making Medical Records Medical records reviewed: Yes I reviewed the patient's medical records. Screening: Per USPSTF and CDC recommendations, given the prevalence of disease in our region, it is our hospital?s policy to screen for HIV and viral Hepatitis for all patients aged 18 and over and those with ongoing risk factors. Chinmay Inquiry Pt receiving controlled substance: No Vital Signs: 12/13/24 20:11 12/13/24 20:44 12/13/24 21:00 Temperature 97.9 F Temperature Source Oral Pulse Rate 121 H 93 H Pulse Rate [Right] 97 H Respiratory Rate 12 14 15 Blood Pressure 132/80 132/79 Blood Pressure [Right Arm] 127/81 Blood Pressure Mean [Right Arm] 96 Blood Pressure Source Blood Pressure Position 02 Sat by Pulse Oximetry 98 99 100 Oxygen Delivery Method Room Air 12/13/24 21:11 12/13/24 21:30 12/13/24 22:00 Temperature Temperature Source Pulse Rate 98 H 81 72 Pulse Rate [Right] Respiratory Rate 20 14 8 L Blood Pressure 132/79 124/69 120/71 Blood Pressure [Right Arm] Blood Pressure Mean [Right Arm] Blood Pressure Source Automatic Cuff Blood Pressure Position Sitting 02 Sat by Pulse Oximetry 99 99 99 Oxygen Delivery Method Room Air 12/13/24 22:30 12/13/24 22:56 Temperature 98.7 F Temperature Source Oral Pulse Rate 65 64 Pulse Rate [Right] Respiratory Rate 12 18 Blood Pressure 109/61 L 129/89 Blood Pressure [Right Arm] Blood Pressure Mean [Right Arm] Blood Pressure Source Blood Pressure Position 02 Sat by Pulse Oximetry 98 Oxygen Delivery Method Room Air Lab Data Lab results reviewed: Yes I reviewed the patient's lab results. Lab Results 12/13/24 20:09: D-Dimer 0.47, Sodium 139, Potassium 3.1 L, Chloride 101, Carbon Dioxide 24, Anion Gap 17.1 H, BUN 8 L, Creatinine 0.80, Estimated Creat Clear 122, Estimated GFR 118, Est GFR ( Amer) 143, Glucose 131 H, Calcium 9.4, Magnesium 1.8, Total Bilirubin 1.0, AST 27, ALT 14, Alkaline Phosphatase 67, Troponin I < 0.01, Total Protein 7.9, Albumin 5.0, Globulin 2.9, Albumin/Globulin Ratio 1.7, TSH 1.91, Free T4 1.27 12/13/24 21:16: Urine Opiates Screen Negative, Urine Methadone Screen Negative, Ur Barbituates Screen Negative, Ur Phencyclidine Scrn Negative, Ur Amphetamines Screen Negative, U Benzodiazepines Scrn Negative, Urine Cocaine Screen Negative, U Marijuana (THC) Screen Positive H 12/13/24 20:09 Orders (Tests/Meds): ED MEDICATIONS Discontinued Medications Generic Name Dose Route Start Last Admin Trade Name Freq PRN Reason Stop Dose Admin Sodium Chloride 1,000 mls @ 999 mls/hr 12/13/24 20:11 12/13/24 21:30 Sod Chlor 0.9% 1000ml Bag IV 12/13/24 21:11 Infused .Q1H1M ONE Infusion Lorazepam 0.5 mg 12/13/24 20:22 12/13/24 20:24 Lorazepam 0.5mg Tablet PO 12/13/24 20:23 0.5 mg ONCE ONE Administration Meclizine HCl 25 mg 12/13/24 22:02 12/13/24 22:04 Meclizine 25mg Tablet PO 12/13/24 22:03 25 mg ONCE ONE Administration Potassium Chloride 40 meq 12/13/24 21:57 12/13/24 22:03 Potassium Chloride 20meq Tab PO 12/13/24 21:58 40 meq ONCE ONE Administration ORDERS Category Date Time Status CXR 2 view (NOT portable) [XR chest 2V] Stat Exams 12/13/24 20:11 Completed CMP [Comprehensive Metabolic Panel] Stat Lab 12/13/24 20:09 Completed D-Dimer Stat Lab 12/13/24 20:09 Completed Free T4 (Free Thyroxine) Stat Lab 12/13/24 20:09 Completed MAG [Magnesium] Stat Lab 12/13/24 20:09 Completed TSH [Thyroid Stimulating Hormone] Stat Lab 12/13/24 20:09 Completed Trop I [Troponin I] Stat Lab 12/13/24 20:09 Completed UDS [Drug Screen,Urine] Stat Lab 12/13/24 21:16 Completed ECG holter monitor 48 Besson Stat Y 12/13/24 21:57 Completed Medical Decision Narrative: Patient is a 24-year-old male with a past medical history of spontaneous pneumothorax's x 4 with prior left-sided pleurodesis who presents to the emergency department with lightheadedness, tachycardia, as well as some mild chest pain. States that he had acute onset of tachycardia and felt that his heart was racing. Patient denies any shortness of breath. On arrival, patient was tachycardic but vital signs were otherwise unremarkable. Differential includes but not limited to: Dehydration, arrhythmia, ACS/FL, pneumothorax, pleural effusion, pneumothorax, anxiety, amongst others. Patient was seen 2 days prior by myself, with an unremarkable workup including CT of the chest that showed no evidence of pulmonary embolism. Patient CMP was unremarkable aside for a mild hypokalemia 3.1, mild elevated anion gap at 17.1. Initial troponin less than 0.01. Thyroid studies were unremarkable. Urine drug screen positive for marijuana. X-ray showed no acute focal consolidation, pneumothorax, pleural effusion or other acute cardiopulmonary process. Patient appeared very anxious on exam, patient was given a single dose of Ativan. Was given IV fluids. Tachycardia improved in the emergency department, I felt that single troponin was indicated given that patient's chest pain had been present for several hours. At this time, patient's workup was otherwise negative. Patient did have some dizziness and vertigo on repeat evaluation and patient was given a dose of meclizine. Had significant improvement. Patient was placed on a Holter monitor given that I have seen him twice and patient has had tachycardia both times. Patient was instructed to follow-up with Dr. Singh for cardiology appointment given his tachycardia. Patient was otherwise discharged home in stable condition, return precautions were discussed. Critical Care Critical Care Time Critical Care Time: No
[2024-12-13] MEDS: 0.9 % SODIUM CHLORIDE 1000ML 1,000 ML 999 ML IV (20:19)
--- NOTE | 2024-12-13 20:22 | PC.NURSE ---
Pt provided urinal aware of UA needed.
[2024-12-13 20:24] LABS: Magnesium 1.8 mg/dl (1.6-2.3)
--- OUTSIDE RECORDS SUMMARY | 2024-12-13 20:28 | XMS_ITS | Encounter Summary ---
Author Organization [facility] Address [address] [place] [address] Care Team Providers Care Hospital Recruiter Name Role Phone Self, Referred MD Primary Care Provider Halleya ble Encounter Details Date Type Department Care Team (Late st Contact Info) Description 08/12/2020 [facility] Head[facility] Neck & Respiratory [address] [place] [address] Carla Marie, RN [facility] [...] on filedocumented in this encounter Care Teams Hospital Recruiter Relationship Specialty Start Date End Date Self, ReferredMD PCP - General 08/29/20 documented as of this encounter
--- OUTSIDE RECORDS SUMMARY | 2024-12-13 20:28 | XMS_ITS | Clinical Summary ---
Author Organization [facility] Address [address] [place] [address] Care Team Providers Care Cardiac Cath Rn Name Role Phone Self, Referred MD Primary [...] (2 - Td or Tdap) 10/30/2021 10/31/2011 [id number] Vaccine (1 - 2023- season) 2024 [facility]-Influenza [...] topic Insurance [employer]ICA[employer] [place] Care Teams Cardiac Cath Rn Relationship Specialty Start Date End Date Self, Referred, PCP - General 08/29/20
[2024-12-13 20:29] LABS: D-Dimer 0.47 ug/mL (0.0-0.5)
[2024-12-13 20:41] LABS: Troponin I < 0.01 ng/ml (0.00-0.034)
[2024-12-13 20:50] LABS: Free T4 (Free Thyroxine) 1.27 ng/dl (0.78-2.19)
[2024-12-13 20:56] LABS: Thyroid Stimulating Hormone 1.91 uIU/mL (0.465-4.68)
[2024-12-13 21:28] LABS: Albumin Level 5.0 g/dl (3.5-5.0); Chloride 101 mmol/L (98-107); Potassium 3.1 mmoL/L (3.5-5.1); Sodium 139 mmol/L (136-145)
[2024-12-13 21:31] LABS: Alanine Aminotransferase 14 U/L (12-78); Albumin/Globulin Ratio 1.7 (1.1-1.8); Alkaline Phosphatase 67 U/L (38-126); Anion Gap 17.1 mEq/L (5-15); Aspartate Amino Transferase 27 U/L (17-59); Bilirubin,Total 1.0 mg/dl (0.2-1.3); Blood Urea Nitrogen 8 mg/dl (9-20); Calcium 9.4 mg/dl (8.4-10.2); Carbon Dioxide 24 mmol/L (22.0-30.0); Creatinine Clearance Estimated 122 mL/min (50-200); Creatinine,Serum 0.80 mg/dl (0.66-1.25); Estimated Glomerular Filt Rate 118 ml/min (>60); GFR (African American) 143 ML/MIN (>60); Globulin 2.9 g/dL (1.3-3.2); Glucose 131 mg/dl (74-100); Total Protein,Serum 7.9 g/dl (6.3-8.2)
[2024-12-13 21:39] LABS: Amphetamine/Metha Screen,Urine Negative ng/ml (<1000)
[2024-12-13 21:40] LABS: Barbiturates Screen,Urine Negative ng/ml (<200); Benzodiazepines Screen,Urine Negative ng/ml (<200)
[2024-12-13 21:42] LABS: Methadone Screen,Urine Negative ng/ml (<300)
[2024-12-13 21:43] LABS: Opiate Screen,Urine Negative ng/ml (<300)
[2024-12-13 21:44] LABS: Phencyclidine Screen,Urine Negative ng/ml (<25)
[2024-12-13] MEDS: POTASSIUM CHLORIDE 20MEQ TAB 40 MEQ PO (22:03)
[2024-12-13] MEDS: MECLIZINE 25MG TABLET 25 MG PO (22:04)
--- NOTE | 2024-12-13 22:31 | PC.NURSE ---
RT placing pt on holter monitor, pt states he still feels dizzy, HR down to 69 bpm
== END 2024-12-13 23:05 | disposition home or self-care (01) ==
PROVIDERS: Emergency Provider Student in an Organized Health Care Education/Training Program
DX: R07.9 Chest pain, unspecified (principal); E87.6 Hypokalemia; R00.0 Tachycardia, unspecified; R42 Dizziness and giddiness; F12.90 Cannabis use, unspecified, uncomplicated; Z87.09 Personal history of other diseases of the respiratory system
CPT/HCPCS: 71046; 80053; 80307; 83735; 84439; 84443; 84484; 85378; 93005; 93225; 93226; 96360; 99285; J7030

== ENCOUNTER 2024-12-15 09:27 | Outpatient (CLI) | payer MEDICAID, SELFPAY ==
--- OUTSIDE RECORDS SUMMARY | 2024-12-15 09:31 | XMS_ITS | Encounter Summary ---
Author Organization [facility] Address [address] [place] [address] Care Team Providers Care Criminal Justice Faculty Name Role Phone Self, Referred MD Primary Care Provider Halleya ble Encounter Details Date Type Department Care Team (Late st Contact Info) Description 08/12/2020 [facility] Head[facility] Neck & Respiratory [address] [place] [address] Carla Marie, RN [facility] [...] on filedocumented in this encounter Care Teams Criminal Justice Faculty Relationship Specialty Start Date End Date Self, ReferredMD PCP - General 08/29/20 documented as of this encounter
--- OUTSIDE RECORDS SUMMARY | 2024-12-15 09:31 | XMS_ITS | Clinical Summary ---
Author Organization [facility] Address [address] [place] [address] Care Team Providers Care Bessemer Converter Blower Name Role Phone Self, Referred MD Primary [...] (2 - Td or Tdap) 10/30/2021 10/31/2011 [id number] Vaccine (1 - 2023- season) 2024 [facility]-Influenza [...] topic Insurance [employer] [place] Care Teams Bessemer Converter Blower Relationship Specialty Start Date End Date Self, Referred, PCP - General 08/29/20
== END 2024-12-15 23:59 | disposition home or self-care (01) ==
LOC: RT 09:28
PROVIDERS: Visit Provider Nurse Practitioner Family
DX: I49.1 Atrial premature depolarization (principal); I49.3 Ventricular premature depolarization; R00.0 Tachycardia, unspecified
CPT/HCPCS: 93270; 93272

== ENCOUNTER 2024-12-15 20:06 | Emergency (ER) | payer MEDICAID, SELFPAY ==
--- NOTE | 2024-12-15 20:10 | ED_ITS ---
<Statement entered by Barbara Higginbotham DO - 12/17/24 23:46> I was consulted by the DEBBIE, and we discussed the complexity of problems being addressed. I approve the treatment and management plan for this patient's care in the emergency department, thus performing a substantial portion of the medical decision making. Barbara Higginbotham DO Discharge Plan Disposition Patient Disposition: Home, Self-Care Condition: Good Prescriptions Prescriptions: New hydroxyzine HCl 25 mg tablet 25 mg PO Q6H PRN (Reason: anxiety) Qty: 30 0RF No Action tizanidine 4 mg tablet 4 mg PO Q8H PRN (Reason: muscle spasticity) Qty: 30 0RF Referrals Follow up/Referrals: Provider,Referral, MD [Primary Care Provider, Medical] - See instructions Activity Restrictions/Add. Instructions Additional Instructions/Restrictions: You were evaluated on an emergency basis. It is very important that you follow- up with your primary care provider and any specialist who we discussed within the next 2 days in order to better assess your health more comprehensively. For example, incidental findings on imaging or laboratory results that were performed today may be discovered, which do not require immediate medical care, but may impact your health in the future. If your symptoms worsen or persist, please return to the emergency department immediately for reassessment. Take all medications as prescribed. In queue for allowing me to participate in your health care, and I hope you feel better soon. Clinical Impressions Clinical Impression: Anxiety Instructions Patient Instructions: DI for Anxiety -- Adult Print Language Print Language: Scottish Discharge ED Provider: Barbara Higginbotham General Adult HPI General Chief complaint: Dizziness Stated complaint: light headed Time Seen by Provider: 12/15/24 20:10 History of Present Illness HPI narrative: 24-year-old male presents the emergency department with complaints of ongoing dizziness. He has been seen several times in the emergency department with several complaints as well as followed up with cardiology. He states that he is in the process of getting an stress test and echocardiogram scheduled with cardiology. He denies nausea, vomiting, diarrhea but states he has had decreased p.o. intake for the past several days and thinks that he has lost 15 pounds within a 3-day time period. Related Data Previous Rx's ?Medication ?Instructions ?Recorded tizanidine 4 mg tablet 4 mg PO Q8H PRN muscle spast icity 09/20/25 #30 tabs hydroxyzine HCl 25 mg tablet 25 mg PO Q6H PRN anxiety #30 tabs 12/15/24 Allergies Allergy/AdvReac Type Severity Reaction Status Date / Time ibuprofen (From Motrin) Allergy Intermediate Unknown Verified 12/15/24 09:06 allergy reaction [facility] Disclaimer: The information contained in this section may have been updated after the patient was seen, as this information can be updated by other users. 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 URI (upper respiratory infection) Viral gastritis Recurrent spontaneous pneumothorax Pneumothorax Atypical chest pain Viral upper respiratory illness Strep throat Viral syndrome Pre-syncope COVID-19 Influenza B Breath shortness Acute pain of left shoulder Collapse, lung 4 times Surgical History History of lung surgery Social History Smoking Status: Never smoker second hand exposure: Yes alcohol intake: never substance use type: marijuana current occupational status: other Travel in the last 8 weeks?: None household members: family housing: house current occupation: [employer] caffeine: Yes Have you lived/traveled outside [place] in past 30 days?: No Contact w/someone who lives/traveled outside US past 30 days?: No Exposure to someone with infectious disease in past 14 days?: No Do you have a fever (greater than 100.4 F or 38 C)?: No Have you tested positive for COVID-19?: No Exposed to someone with COVID-19 in past 14 days?: No Do you have a sore throat?: No Do you have a cough?: No Do you have any weakness?: No Do you have any diarrhea?: No Are you experiencing any unusual bleeding?: No Do you have any muscle aches/pain?: No Do you have any abdominal pain?: No Are you experiencing loss of taste or smell?: No Other 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 Have you received the Flu Vaccine for this season: Yes Have you received the Pneumonia Vaccine: Yes ROS Obtained: Yes other Constitutional Constitutional: Reports weight loss ENT Ears, Nose, Mouth, and Throat: Reports dizziness Neurologic Neurologic: Reports dizziness Physical Exam Narrative Physical exam: General: Awake, aware, in no acute distress HEENT: Normal cephalic, no evidence of trauma, PERRLA, EOMI CV: RRR, no murmurs, rubs, or gallops Pulm: CTA bilaterally with no rhonchi, rales, or wheezes ABD: Nontender, no swelling, guarding, or rebound Neuro: ANO x 4, GCS 15, no focal deficits noted Psych: Appropriate mood and affect General General appearance: alert and anxious Respiratory Respiratory exam: Present normal lung sounds bilaterally Cardiovascular Cardiovascular exam: Present regular rate and clicks Neurological Exam Neurological exam: Present alert Medical Decision Making Medical Records Screening: Per USPSTF and CDC recommendations, given the prevalence of disease in our region, it is our hospital?s policy to screen for HIV and viral Hepatitis for all patients aged 18 and over and those with ongoing risk factors. Chinmay Inquiry Pt receiving controlled substance: No Vital Signs: 12/15/24 20:13 12/15/24 20:30 Temperature 98.5 F Temperature Source Oral Pulse Rate [Orthostatic Lying Right Radial] 62 Pulse Rate [Orthostatic Sitting Right Radial] 62 Pulse Rate [Orthostatic Standing Right Radial] 68 Pulse Rate [Right] 86 Respiratory Rate 18 Blood Pressure [Orthostatic Lying] 115/76 Blood Pressure [Orthostatic Sitting Right Arm] 116/81 Blood Pressure [Orthostatic Standing Right Arm] 117/86 Blood Pressure [Right Arm] 141/90 H Blood Pressure Mean [Right Arm] 107 Blood Pressure Source [Right Arm] Automatic Cuff Blood Pressure Position [Right Arm] Sitting 02 Sat by Pulse Oximetry 100 Oxygen Delivery Method Room Air Lab Data Lab Results 12/15/24 20:21: WBC 8.9, RBC 5.22, Hgb 15.2, Hct 43.8, MCV 83.9, MCH 29.1, MCHC 34.7, RDW 12.2, Plt Count 202, MPV 9.0, Neut % (Auto) 80.5 H, Lymph % (Auto) 13.1, Esmeralda % (Auto) 5.8, Eos % (Auto) 0.2, Baso % (Auto) 0.2, Neut # (Auto) 7.2, Lymph # (Auto) 1.2, Esmeralda # (Auto) 0.5, Eos # (Auto) 0.0, Baso # (Auto) 0.0, Sodium 139, Potassium 3.5, Chloride 101, Carbon Dioxide 24, Anion Gap 17.5 H, B UN 7 L, Creatinine 0.80, Estimated Creat Clear 117, Estimated GFR 118, Est GFR ( Amer) 143, Glucose 127 H, Calcium 9.7, Magnesium 1.9, Total Bilirubin 0.8, AST 32, ALT 14, Alkaline Phosphatase 64, Total Protein 8.5 H, Albumin 5.2 H , Globulin 3.3 H, Albumin/Globulin Ratio 1.6 12/15/24 21:23: Urine Color Yellow, Urine Appearance Clear, Urine pH 6.0, Ur Specific Franc[place] <= 1.005, Urine Protein Negative, Urine Glucose (UA) Negative, Urine Ketones Negative, Urine Blood Negative, Urine Nitrate Negative, Urine Bilirubin Negative, Urine Urobilinogen 0.2, Ur Leukocyte Esterase Negative, Ur Barbituates Screen Negative, Ur Amphetamines Screen Negative, U Benzodiazepines Scrn Negative 12/15/24 20:21 12/15/24 20:21 Orders (Tests/Meds): ED MEDICATIONS Discontinued Medications Generic Name Dose Route Start Last Admin Trade Name Freq PRN Reason Stop Dose Admin Hydroxyzine Pamoate 50 mg 12/15/24 20:30 12/15/24 20:38 Hydroxyzine Pamoate 25mg Capsule PO 12/15/24 20:31 50 mg ONCE ONE Administration Sodium Chloride 1,000 mls @ 999 mls/hr 12/15/24 20:22 12/15/24 20:32 Sod Chlor 0.9% 1000ml Bag IV 12/15/24 21:22 999 mls/hr .Q1H1M ONE Administration ORDERS Category Date Time Status CT head/brain wo con Stat Cat Scan 12/15/24 20:22 Completed CBC w/Auto Diff [Complete Blood Count Auto Diff] Stat Lab 12/15/24 20:21 Completed CMP [Comprehensive Metabolic Panel] Stat Lab 12/15/24 20:21 Completed Drug Screen,Urine Stat Lab 12/15/24 21:23 Results Magnesium Stat Lab 12/15/24 20:21 Completed Urinalysis and Microscopic Stat Lab 12/15/24 21:23 Results Medical Decision Narrative: Initial impression of presenting illness: 24-year-old male presents emergency department with complaints of ongoing lightheaded and dizziness. He has been seen several times recently at this emergency department with similar complaints. He is also followed up with cardiology for these complaints. He states that he is in the process of getting a stress test and echocardiogram scheduled through cardiology. He denies nausea, vomiting, diarrhea, fevers. He reports he has had decreased p.o. intake for the past 3 days and thinks that he has lost 15 pounds in that timeframe. Differential diagnosis includes but is not limited to: Anxiety, vertigo, intracranial abnormality, orthostatic hypotension, substance abuse, dehydration, electrolyte abnormality, hypoglycemia Patient arrives hemodynamically stable, afebrile, without respiratory distress with vital signs interpreted by myself. Initial physical exam unremarkable. Patient without any focal neurological deficits. Vital signs are stable. Exam Initial diagnostic plan: CT of head, laboratory studies including urinalysis and urine drug screen, normal saline bolus for hydration, hydroxyzine for anxiety, orthostatic vitals and EKG Results from initial plan were reviewed and interpreted by myself, pertinent positives include: Laboratory studies are nonactionable. Urinalysis as well as urine drug screen are pending at this time. CT of head is also pending at this time. Orthostatic vital signs were unremarkable Interventions in the ED: Patient was given normal saline bolus for hydration as well as hydroxyzine for anxiety. Patient was made aware of the results and the findings, upon reevaluation patient has remained stable throughout stay, symptoms have improved. Upon reevaluation patient states he is feeling better after receiving medication. Informed patient that we are waiting on the results from his urine studies as well as CT of his head. CT of head was unremarkable for acute findings. Patient's urinalysis was nonactionable. Advised patient that we will discharge with a prescription for hydroxyzine. Advised him to start with 25 mg twice a day and if he tolerates well he can increase to up to 4 times daily. Stressed the importance of him following up with cardiology to complete the workup that they have started. Also recommended that he follow-up with his primary care provider for further evaluation of his anxiety symptoms. Instructed him to return to the emergency department any new or worsening symptoms. Patient is agreeable to the plan of care. Critical Care Critical Care Time Critical Care Time: No
[2024-12-15 20:13] VITALS: BP 141/90; PULSE 86; RESP 18; TEMP 36.9; O2SAT 100; BMI 19.0
--- NOTE | 2024-12-15 20:14 | ECG_ITS ---
APPROVED REPORT Exam: Resting ECG HR:74 bpm ECG Measurements Heart Rate 74 AXES ME 162 P 66 QRSd 85 QRS 83 QT 356 T 67 QTc 384 Conclusion Sinus rhythm without acute ST or T wave changes concerning for ischemia Electronically signed by : Barbara Higginbotham, 12/16/2024 00:38:48
--- NOTE | 2024-12-15 20:22 | CT_ITS ---
PROCEDURE INFORMATION: Exam: CT Head Without Contrast Exam date and time: 12/15/2024 8:29 PM Age: 24 years old Clinical indication: Dizziness; Additional info: Dizzy TECHNIQUE: Imaging protocol: Computed tomography of the head without contrast. Radiation optimization: All CT scans at this facility use at least one of these dose optimization techniques: automated exposure control; mA and/or kV adjustment per patient size (includes targeted exams where dose is matched to clinical indication); or iterative reconstruction. COMPARISON: No relevant prior studies available. FINDINGS: Brain: Normal. No hemorrhage. Unremarkable white matter. No mass effect. Cerebral ventricles: No ventriculomegaly. Paranasal sinuses: Visualized sinuses are unremarkable. No fluid levels. Mastoid air cells: Visualized mastoid air cells are well aerated. Bones: Unremarkable. No acute fracture. Soft tissues: Unremarkable. IMPRESSION: No acute intracranial abnormality.
--- OUTSIDE RECORDS SUMMARY | 2024-12-15 20:22 | XMS_ITS | Encounter Summary ---
Author Organization [facility] Address [address] [place] [address] Care Team Providers Care Supervisor Drying And Softening Name Role Phone Self, Referred MD Primary Care Provider Halleya ble Encounter Details Date Type Department Care Team (Late st Contact Info) Description 08/12/2020 [facility] Res[facility] [address] [place] [address] Carla Marie, RN [facility] [...] on filedocumented in this encounter Care Teams Supervisor Drying And Softening Relationship Specialty Start Date End Date Self, ReferredMD PCP - General 08/29/20 documented as of this encounter
--- OUTSIDE RECORDS SUMMARY | 2024-12-15 20:22 | XMS_ITS | Clinical Summary ---
Author Organization [facility] Address [address] [place] [address] Care Team Providers Care Health Actuary Name Role Phone Self, Referred MD Primary [...] (2 - Td or Tdap) 10/30/2021 10/31/2011 [id number] Vaccine (1 - 2023- season) 2024 [facility]-Influenza [...] topic Insurance [employer] [place] Care Teams Health Actuary Relationship Specialty Start Date End Date Self, Referred, PCP - General 08/29/20
--- NOTE | 2024-12-15 20:26 | PC.NURSE ---
patient to radiology with radiology staff
[2024-12-15 20:28] LABS: Hematocrit 43.8 % (42.0-52.0); Hemoglobin 15.2 g/dL (14.1-18.0); Immature Granulocytes % 0.2 %; Mean Corpuscular HGB Conc 34.7 g/dL (31.8-35.4); Mean Corpuscular Hemoglobin 29.1 pg (27.0-31.2); Mean Corpuscular Volume 83.9 fl (80-94); Nucleated Red Blood Cells % 0 %; Platelet Count 202 K/mm3 (142-424); Red Blood Count 5.22 M/mm3 (4.60-6.20); Red Cell Distribution Width-SD 37.0 fL; White Blood Count 8.9 K/mm3 (4.8-10.8)
[2024-12-15 20:30] VITALS: BP 115/76; BP 116/81; BP 117/86; PULSE 62; PULSE 68
--- NOTE | 2024-12-15 20:31 | PC.NURSE ---
patient back from radiology
[2024-12-15] MEDS: 0.9 % SODIUM CHLORIDE 1000ML 1,000 ML 999 ML IV (20:32)
[2024-12-15 20:47] LABS: Albumin Level 5.2 g/dl (3.5-5.0); Chloride 101 mmol/L (98-107); Potassium 3.5 mmoL/L (3.5-5.1); Sodium 139 mmol/L (136-145)
[2024-12-15 20:49] LABS: Blood Urea Nitrogen 7 mg/dl (9-20); Creatinine Clearance Estimated 117 mL/min (50-200); Creatinine,Serum 0.80 mg/dl (0.66-1.25); Estimated Glomerular Filt Rate 118 ml/min (>60); GFR (African American) 143 ML/MIN (>60)
[2024-12-15 20:50] LABS: Alanine Aminotransferase 14 U/L (12-78); Albumin/Globulin Ratio 1.6 (1.1-1.8); Alkaline Phosphatase 64 U/L (38-126); Anion Gap 17.5 mEq/L (5-15); Aspartate Amino Transferase 32 U/L (17-59); Bilirubin,Total 0.8 mg/dl (0.2-1.3); Calcium 9.7 mg/dl (8.4-10.2); Carbon Dioxide 24 mmol/L (22.0-30.0); Globulin 3.3 g/dL (1.3-3.2); Glucose 127 mg/dl (74-100); Magnesium 1.9 mg/dl (1.6-2.3); Total Protein,Serum 8.5 g/dl (6.3-8.2)
--- NOTE | 2024-12-15 21:04 | PC.NURSE ---
patient made aware fo the need for a urine sample. patient requested a second bottle of water. water provided. no further needs at this time.
[2024-12-15 21:31] LABS: Microscopic, Urine URINE MICROSCOPIC (MICROSCOPIC)
[2024-12-15 21:33] LABS: Bilirubin,Urine Negative (Negative); Color,Urine YELLOW (Yellow); Glucose,Urine (UA) Negative (Negative); Ketones,Urine Negative (Negative); Leukocyte Esterase,Urine Negative (Negative); PH,Urine 6.0 (5.0-8.5); Protein,Urine Negative (Negative); Specific Gravity, Urine <= 1.005 (1.005-1.030); Urobilinogen,Urine 0.2 EU/dl (0.2)
[2024-12-15 21:51] LABS: Benzodiazepines Screen,Urine Negative ng/ml (<200)
[2024-12-15 21:52] LABS: Amphetamine/Metha Screen,Urine Negative ng/ml (<1000); Barbiturates Screen,Urine Negative ng/ml (<200)
[2024-12-15 21:53] LABS: Methadone Screen,Urine Negative ng/ml (<300)
[2024-12-15 21:55] LABS: Opiate Screen,Urine Negative ng/ml (<300)
[2024-12-15 21:56] LABS: Phencyclidine Screen,Urine Negative ng/ml (<25)
[2024-12-15 21:58] LABS: Bacteria,Urine 1+ /lpf; RBC,Urine Occasional #/hpf (0-3); WBC,Urine Occasional #/hpf (0-3)
[2024-12-15 22:03] VITALS: BP 110/69; PULSE 69; RESP 11; TEMP 36.8; O2SAT 100
== END 2024-12-15 22:07 | disposition home or self-care (01) ==
PROVIDERS: Nurse Practitioner Family; Emergency Provider Student in an Organized Health Care Education/Training Program
DX: R42 Dizziness and giddiness (principal); F41.9 Anxiety disorder, unspecified
CPT/HCPCS: 70450; 80053; 80307; 81001; 83735; 85025; 93005; 96360; 99284; J7030

== ENCOUNTER 2024-12-27 09:08 | Emergency (ER) | payer SELFPAY ==
[2024-12-27 09:15] VITALS: BP 121/73; PULSE 89; RESP 16; TEMP 36.9; O2SAT 98; BMI 18.6
--- OUTSIDE RECORDS SUMMARY | 2024-12-27 09:20 | XMS_ITS | Clinical Summary ---
Author Organization [facility] Address [address] [place] [address] Care Team Providers Care Emergency Department Aide Name Role Phone Self, Referred MD Primary [...] (2 - Td or Tdap) 10/30/2021 10/31/2011 [id number] Vaccine (1 - 2023- season) 2024 [facility]-Influenza [...] topic Insurance [employer] [place] Care Teams Emergency Department Aide Relationship Specialty Start Date End Date Self, Referred, PCP - General 08/29/20
--- OUTSIDE RECORDS SUMMARY | 2024-12-27 09:20 | XMS_ITS | Encounter Summary ---
Author Organization [facility] Address [address] [place] [address] Care Team Providers Care Geological Specialist Name Role Phone Self, Referred MD Primary Care Provider Halleya ble Encounter Details Date Type Department Care Team (Late st Contact Info) Description 08/12/2020 [facility] Head[facility] Neck [facility] Respiratory [address] [place] [address] Carla Marie, RN [facility] [...] on filedocumented in this encounter Care Teams Geological Specialist Relationship Specialty Start Date End Date Self, ReferredMD PCP - General 08/29/20 documented as of this encounter
[2024-12-27 09:32] VITALS: BP 117/70; PULSE 81; O2SAT 96
--- NOTE | 2024-12-27 10:02 | ECG_ITS ---
APPROVED REPORT Exam: Resting ECG HR:71 bpm ECG Measurements Heart Rate 71 AXES WI 175 P 75 QRSd 88 QRS 87 QT 352 T 79 QTc 375 Conclusion Normal sinus rhythm Normal axis Normal intervals No STEMI Benign early repolarization Electronically signed by : Gadiel Thornton, 12/28/2024 15:49:49
[2024-12-27 10:07] VITALS: BP 113/68; BP 114/66; BP 121/67; PULSE 71; PULSE 85; PULSE 98
[2024-12-27] MEDS: LACTATED RINGERS 1000ML 1,000 ML 999 ML IV (10:30)
--- NOTE | 2024-12-27 11:19 | ED_ITS ---
Discharge Plan Disposition Patient Disposition: Home, Self-Care Condition: Good Prescriptions Prescriptions: No Action tizanidine 4 mg tablet 4 mg PO Q8H PRN (Reason: muscle spasticity) Qty: 30 0RF hydroxyzine HCl 25 mg tablet 25 mg PO Q6H PRN (Reason: anxiety) Qty: 30 0RF Referrals Follow up/Referrals: Provider,Referral, MD [Primary Care Provider, Medical] - See instructions Activity Restrictions/Add. Instructions Additional Instructions/Restrictions: Please follow-up with cardiology as previously scheduled. If you have any new or worsening symptoms please return Clinical Impressions Clinical Impression: Orthostatic dizziness Print Language Print Language: Taiwanese Discharge ED Provider: Gadiel Thornton Adult HPI General Chief complaint: Dizziness Stated complaint: light headed, dizzy Time Seen by Provider: 12/27/24 09:45 Mode of Arrival: Ambulatory Source of Information: Patient Description of Symptoms (Recalled from ER Triage Doc. by RN): Patient states that about 30 minutes ago he was at work and started to feel light-headed and dizzy. Patient denies loss of consciousness, states he ate breakfast. Was here a few weeks ago for similar complaint and was told it was his anxiety. States he takes hydroxyzine, and took that about an hour and a half ago. History of Present Illness HPI narrative: Is a 24-year-old male patient, with past medical history of recurrent spontaneous pneumothoraces, was present to the emergency department today for evaluation of lightheadedness with standing. Patient has been seen here in our emergency department multiple times in the last month. He has undergone numerous laboratory test and has been worked up for intracranial pathology, cardiac ischemia, and each time his workup is negative. At various of these Emergency Department visits he has been seen for lightheadedness as well as for palpitations and shortness of breath. Today he tells me that he was at work and he stood up quickly and experienced transient lightheadedness that resolved over period of several seconds. He has never experienced this sensation before. He did have some palpitations during this episode of orthostatic near syncope. He has not had any chest pain or shortness of breath associated with this. No swelling in his lower extremities. No fevers or chills Related Data Previous Rx's ?Medication ?Instructions ?Recorded tizanidine 4 mg tablet 4 mg PO Q8H PRN muscle spast icity 12/12/24 #30 tabs hydroxyzine HCl 25 mg tablet 25 mg PO Q6H PRN anxiety #30 tabs 12/15/24 Allergies Allergy/AdvReac Type Severity Reaction Status Date / Time ibuprofen (From Motrin) Allergy Intermediate Unknown Verified 12/27/24 09:17 allergy reaction [facility] Disclaimer: The information contained in this section may have been updated after the patient was seen, as this information can be updated by other users. 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 URI (upper respiratory infection) Viral gastritis Recurrent spontaneous pneumothorax Pneumothorax Atypical chest pain Viral upper respiratory illness Strep throat Viral syndrome Pre-syncope COVID-19 Influenza B Breath shortness Acute pain of left shoulder Collapse, lung 4 times Surgical History History of lung surgery Social History Smoking Status: Current every day smoker tobacco type: e-cigarettes second hand exposure: Yes alcohol intake: never substance use type: marijuana current occupational status: other Travel in the last 8 weeks?: None household members: family housing: house current occupation: [employer] caffeine: Yes Have you lived/traveled outside US in past 30 days?: No Contact w/someone who lives/traveled outside US past 30 days?: No Exposure to someone with infectious disease in past 14 days?: No Do you have a fever (greater than 100.4 F or 38 C)?: No Have you tested positive for COVID-19?: No Exposed to someone with COVID-19 in past 14 days?: No Do you have a sore throat?: No Do you have a cough?: No Do you have any weakness?: No Do you have any diarrhea?: No Are you experiencing any unusual bleeding?: No Do you have any muscle aches/pain?: No Do you have any abdominal pain?: No Are you experiencing loss of taste or smell?: No Other 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 Have you received the Flu Vaccine for this season: Yes Have you received the Pneumonia Vaccine: Yes ROS Obtained: Yes Systems reviewed as appropriate & no additional complaints except as documented Physical Exam General General appearance: other (See MDM) Respiratory Respiratory exam: Present other (See MDM) Cardiovascular Cardiovascular exam: Present other (See MDM) Neurological Exam Neurological exam: Present other (See MDM) Medical Decision Making Medical Records Medical records reviewed: Yes I reviewed the patient's medical records. Screening: Per USPSTF and CDC recommendations, given the prevalence of disease in our region, it is our hospital?s policy to screen for HIV and viral Hepatitis for all patients aged 18 and over and those with ongoing risk factors. Chinmay Inquiry Pt receiving controlled substance: No Chinmay was queried for this patient: No Vital Signs: 12/27/24 09:15 12/27/24 09:32 12/27/24 10:07 Temperature 98.4 F Temperature Source Oral Pulse Rate 81 Pulse Rate [Orthostatic Lying] 71 Pulse Rate [Orthostatic Sitting] 85 Pulse Rate [Orthostatic Standing] 98 H Pulse Rate [Right Brachial] 89 Respiratory Rate 16 Blood Pressure 117/70 Blood Pressure [Orthostatic Lying] 114/66 Blood Pressure [Orthostatic Sitting] 113/68 Blood Pressure [Orthostatic Standing] 121/67 Blood Pressure [Right Arm] 121/73 Blood Pressure Mean [Right Arm] 89 Blood Pressure Source [Right Arm] Automatic Cuff Blood Pressure Position [Right Arm] Sitting 02 Sat by Pulse Oximetry 98 96 Oxygen Delivery Method Room Air Room Air 12/27/24 12:40 Temperature 98.4 F Temperature Source Pulse Rate 63 Pulse Rate [Orthostatic Lying] Pulse Rate [Orthostatic Sitting] Pulse Rate [Orthostatic Standing] Pulse Rate [Right Brachial] Respiratory Rate 16 Blood Pressure 117/70 Blood Pressure [Orthostatic Lying] Blood Pressure [Orthostatic Sitting] Blood Pressure [Orthostatic Standing] Blood Pressure [Right Arm] Blood Pressure Mean [Right Arm] Blood Pressure Source [Right Arm] Blood Pressure Position [Right Arm] 02 Sat by Pulse Oximetry Oxygen Delivery Method Orders (Tests/Meds): ED MEDICATIONS Discontinued Medications Generic Name Dose Route Start Last Admin Trade Name Freq PRN Reason Stop Dose Admin Lactated Ringer's 1,000 mls @ 999 mls/hr 12/27/24 10:12 12/27/24 12:42 Lactated Ringer's 1000 Ml Bag IV 12/27/24 11:12 Infused .Q1H1M ONE Infusion ORDERS Category Date Time Status 12-lead EKG Request [ECG Request] Stat Y 12/27/24 09:54 Ordered ECG Data Tracing #1: I reviewed this ECG and interpreted as documented below: EKG personally interpreted by me demonstrates normal sinus rhythm with a rate of 71 bpm, normal axis, no OR prolongation, narrow QRS, no QTc prolongation. There is evidence of benign early repolarization. No Medical Decision Narrative: In summary, this is a 24-year-old male patient who is presenting to the emergency department today for evaluation of a single episode of lightheadedness with standing. This happened prior to arrival and resolved after a few seconds. The patient's only comorbidities include a past medical history of recurrent spontaneous pneumothoraces. On initial evaluation of the patient they were resting comfortably in no acute distress and nontoxic in appearance. They are hemodynamically stable, saturating well room air, and are neurologically intact. On physical examination the patient appears anxious. His heart and lungs are clear to auscultation bilaterally. No abdominal tenderness palpation. No lower extremity erythema or edema. Differential diagnosis includes orthostatic syncope, cardiac arrhythmia, among others. The patient is Wells score is low risk and his PERC score is 0 so I do not feel that pulmonary embolism is likely. We did obtain EKG which showed no evidence of cardiac arrhythmia and no evidence of tachycardia. There is no T wave inversions in the inferior leads. There is benign early repolarization. We proceeded with orthostatic vitals and found that the patient's heart rate increased greater than 20 bpm with standing. At this point I had a shared decision-making discussion with the patient on oral rehydration versus IV rehydration. He stated that he does not have transportation to a store to obtain electrolyte solutions for oral rehydration so he would like IV rehydration. Therefore we have established IV access and are administering 1 L of lactated Ringer's. After administering 1 L of lactated Ringer's the patient is been able to stand independently without experiencing any palpitations or lightheadedness. He feels much improved. I have urged him to follow-up with cardiology as previously scheduled. At this time all questions have been answered and all parties are agreeable with the decision to discharge home Critical Care Critical Care Time Critical Care Time: No
[2024-12-27 12:40] VITALS: BP 117/70; PULSE 63; RESP 16; TEMP 36.9; O2SAT 97
== END 2024-12-27 12:57 | disposition home or self-care (01) ==
PROVIDERS: Emergency Provider Student in an Organized Health Care Education/Training Program
DX: R42 Dizziness and giddiness (principal); F17.290 Nicotine dependence, other tobacco product, uncomplicated
CPT/HCPCS: 93005; 96360; 99284; J7120

== ENCOUNTER 2025-01-07 01:30 | Emergency (ER) | payer SELFPAY ==
--- NOTE | 2025-01-07 01:35 | XR_ITS ---
PROCEDURE INFORMATION: Exam: XR Chest Exam date and time: 01/07/2025 1:40 AM Age: 24 years old Clinical indication: Shortness of breath; Additional info: SOA palpitations TECHNIQUE: Imaging protocol: Radiologic exam of the chest. Views: 2 views. COMPARISON: CR Chest 12/13/2024 8:17 PM FINDINGS: Lungs: Unremarkable. No consolidation. Pleural spaces: Unremarkable. No pleural effusion. No pneumothorax. Heart/Mediastinum: Unremarkable. No cardiomegaly. Bones/joints: Unremarkable. IMPRESSION: No acute findings.
--- NOTE | 2025-01-07 01:38 | ECG_ITS ---
APPROVED REPORT Exam: Resting ECG HR:114 bpm ECG Measurements Heart Rate 114 AXES ID 164 P 83 QRSd 82 QRS 81 QT 319 T 56 QTc 386 Conclusion SINUS TACHYCARDIA ABNORMAL RHYTHM ECG Electronically signed by : BAYLEE HDEZ, 01/08/2025 07:09:42
--- OUTSIDE RECORDS SUMMARY | 2025-01-07 01:42 | XMS_ITS | Encounter Summary ---
Author Organization [facility] Address [address] [place] [address] Care Team Providers Care Student Development Dean Name Role Phone Self, Referred MD Primary Care Provider Halleya ble Encounter Details Date Type Department Care Team (Late st Contact Info) Description 08/12/2020 [facility] Head[facility] Neck [facility] Respiratory [address] [place] [address] Carla Marie, RN [facility] [...] on filedocumented in this encounter Care Teams Student Development Dean Relationship Specialty Start Date End Date Self, ReferredMD PCP - General 08/29/20 documented as of this encounter
--- OUTSIDE RECORDS SUMMARY | 2025-01-07 01:42 | XMS_ITS | Clinical Summary ---
Author Organization [facility] Address [address] [place] [address] Care Team Providers Care Powder Blender Name Role Phone Self, Referred MD Primary [...] Date Last Done Comments [facility]-Depression Screening 1999 [facility]-/Child/Adol SDOH Screenings 1999 [facility]-Hepatitis B Vaccines (3 of 3 - 3-dose series) 12/30/2000 11/04/2000, 1999 HPV Vaccines (1 - Male 3-dose series) 09/14/2014 [facility]- SDOH Screenings 09/14/2017 [facility]-Adult SDOH Screenings 09/14/2017 [facility]-DTaP,Tdap,and Td Vaccines (2 - Td or Tdap) 10/30/2021 10/31/2011 [id number] Vaccine (1 - 2023- season) 2024 [facility]-Influenza [...] topic Insurance [employer] [place] Care Teams Powder Blender Relationship Specialty Start Date End Date Self, Referred, PCP - General 08/29/20
[2025-01-07 01:53] VITALS: BP 146/85; PULSE 116; RESP 20; TEMP 37; O2SAT 98; BMI 18.5
[2025-01-07 01:53] LABS: Hematocrit 40.6 % (42.0-52.0); Hemoglobin 14.2 g/dL (14.1-18.0); Immature Granulocytes % 0.2 %; Mean Corpuscular HGB Conc 35.0 g/dL (31.8-35.4); Mean Corpuscular Hemoglobin 29.7 pg (27.0-31.2); Mean Corpuscular Volume 84.9 fl (80-94); Nucleated Red Blood Cells % 0 %; Platelet Count 224 K/mm3 (142-424); Red Blood Count 4.78 M/mm3 (4.60-6.20); Red Cell Distribution Width-SD 37.0 fL; White Blood Count 10.3 K/mm3 (4.8-10.8)
--- NOTE | 2025-01-07 01:53 | PC.NURSE ---
Contacted respiratory r/t VBG sent to lab
[2025-01-07 01:57] LABS: Lactate Venous 1.7 mmol/L (0.4-2.0); VBG HCO3 25.2 mmol/L (23-30); VBG PCO2 50.1 mmol/L (35-51); VBG PH 7.32 mmol/L (7.31-7.41); VBG PO2 47.1 mmol/L (28-40)
[2025-01-07 02:03] LABS: INR 1.04 (0.9-1.1); Prothrombin Time 11.5 seconds (10.1-12.5)
[2025-01-07 02:06] LABS: Alanine Aminotransferase 25 U/L (12-78); Albumin Level 4.6 g/dl (3.5-5.0); Albumin/Globulin Ratio 1.6 (1.1-1.8); Alkaline Phosphatase 72 U/L (38-126); Anion Gap 15.5 mEq/L (5-15); Aspartate Amino Transferase 44 U/L (17-59); Bilirubin,Total 0.7 mg/dl (0.2-1.3); Blood Urea Nitrogen 11 mg/dl (9-20); Calcium 8.9 mg/dl (8.4-10.2); Carbon Dioxide 25 mmol/L (22.0-30.0); Chloride 102 mmol/L (98-107); Creatinine Clearance Estimated 117 mL/min (50-200); Creatinine,Serum 0.80 mg/dl (0.66-1.25); Estimated Glomerular Filt Rate 118 ml/min (>60); GFR (African American) 143 ML/MIN (>60); Globulin 2.8 g/dL (1.3-3.2); Glucose 117 mg/dl (74-100); Potassium 3.5 mmoL/L (3.5-5.1); Sodium 139 mmol/L (136-145); Total Protein,Serum 7.4 g/dl (6.3-8.2)
[2025-01-07] MEDS: LACTATED RINGERS 1000ML 1,000 ML 999 ML IV (02:08)
[2025-01-07 02:11] VITALS: BP 130/72; PULSE 77; RESP 10; O2SAT 100
[2025-01-07 02:13] LABS: D-Dimer 0.52 ug/mL (0.0-0.5)
[2025-01-07 02:18] LABS: NT Pro Brain Natriuretic Pep. < 20.0 pg/mL (0-125)
[2025-01-07 02:21] LABS: Troponin I < 0.01 ng/ml (0.00-0.034)
[2025-01-07 02:30] VITALS: BP 116/71; BP 125/78; BP 132/80; PULSE 70; PULSE 71; PULSE 88
[2025-01-07] MEDS: ONDANSETRON 4MG/2ML VIAL 4 MG IV (02:53)
[2025-01-07 02:54] LABS: Magnesium 1.8 mg/dl (1.6-2.3)
[2025-01-07 02:55] VITALS: BP 126/72; PULSE 68; RESP 15; O2SAT 99
--- NOTE | 2025-01-07 03:01 | ED_ITS ---
Discharge Plan Disposition Patient Disposition: Home, Self-Care Condition: Good Prescriptions Prescriptions: No Action paroxetine HCl 10 mg tablet 10 mg PO DAILY Qty: 30 2RF hydroxyzine HCl 25 mg tablet 25 mg PO Q6H PRN (Reason: anxiety) Qty: 30 3RF Referrals Follow up/Referrals: Jose Nicole MD [Primary Care Provider, Family Practice] - See instructions Activity Restrictions/Add. Instructions Additional Instructions/Restrictions: You were evaluated in the ER and are believed to be appropriate for discharge at this time. Continue taking your home medications as prescribed. Drink plenty of water, Gatorade, Pedialyte to stay hydrated. Avoid caffeine use and cut back on drinking pop as discussed. Follow-up with cardiology as scheduled, also follow-up with your primary care doctor to continue discussing anxiety and your current medications. Return to the ER with any new, worsening, or otherwise concerning symptoms. Clinical Impressions Clinical Impression: Tachycardia, Anxiety Print Language Print Language: Irish Discharge ED Provider: Inga Argueta General Adult HPI General Chief complaint: Shortness of Breath/Dyspnea Stated complaint: racing heart, soa Time Seen by Provider: 01/07/25 01:37 Mode of Arrival: Ambulatory Source of Information: Patient Description of Symptoms (Recalled from ER Triage Doc. by RN): PT presents to Ed for evaluation of feeling of racing heart, SOB and dizziness. PT stated he woke up out of his sleep with s/s. PT has a dx of anxiety and has recently switched anxiety medication. PT is currently wearing a heart monitor and sees javy. PT is noted to be shaking and diaphoretic. History of Present Illness HPI narrative: 24-year-old male presents to the ER complaining of sensation of racing heart, shortness of breath, and dizziness. Patient reports he jumped awake like something scared him and has had these symptoms since. He has a history of anxiety and recently a new medication was added to his daily regimen. He states he started taking it 24 hours ago. Patient states he is being followed by cardiology and is currently wearing a heart monitor. Patient is very anxious on arrival. He has had nausea and vomiting in the ER. No abdominal pain. No numbness, tingling, or weakness. Denies chest pain. Reviewed most recent family medicine note from 01/05/2025 demonstrates patient has a history of dizzy spells, feeling jittery, presyncopal events, sometimes hydroxyzine helps with symptoms. At that visit they started paroxetine which is the new medication that patient reports taking. No fevers or chills, no recent illness. No other complaints or concerns. Related Data Previous Rx's ?Medication ?Instructions ?Recorded hydroxyzine HCl 25 mg tablet 25 mg PO Q6H PRN anxiety #30 tabs 01/05/25 paroxetine HCl 10 mg tablet 10 mg PO DAILY #30 tabs Allergies Allergy/AdvReac Type Severity Reaction Status Date / Time ibuprofen (From Motrin) Allergy Intermediate Unknown Verified 01/05/25 13:[facility] Disclaimer: The information contained in this section may have been updated after the patient was seen, as this information can be updated by other users. 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 (Updated 01/07/25 @ 04:27 by Inga Argueta MD) Marijuana use Hydropneumothorax Hemopneumothorax, left Pneumothorax on right COVID Anxiety URI (upper respiratory infection) Viral gastritis Recurrent spontaneous pneumothorax Pneumothorax Atypical chest pain Viral upper respiratory illness Strep throat Viral syndrome Pre-syncope COVID-19 Influenza B Breath shortness Acute pain of left shoulder Collapse, lung Surgical History History of lung surgery Social History Smoking Status: Current every day smoker tobacco type: e-cigarettes second hand exposure: Yes alcohol intake: never substance use type: marijuana current occupational status: other Travel in the last 8 weeks?: None household members: family housing: house current occupation: [employer] caffeine: Yes Have you lived/traveled outside [place] in past 30 days?: No Contact w/someone who lives/traveled outside US past 30 days?: No Exposure to someone with infectious disease in past 14 days?: No Do you have a fever (greater than 100.4 F or 38 C)?: No Have you tested positive for COVID-19?: No Exposed to someone with COVID-19 in past 14 days?: No Do you have a sore throat?: No Do you have a cough?: No Do you have any weakness?: No Do you have any diarrhea?: No Are you experiencing any unusual bleeding?: No Do you have any muscle aches/pain?: No Do you have any abdominal pain?: No Are you experiencing loss of taste or smell?: No Other 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 Have you received the Flu Vaccine for this season: Yes Have you received the Pneumonia Vaccine: No ROS Obtained: Yes Systems reviewed as appropriate & no additional complaints except as documented Per HPI Physical Exam General General appearance: alert, in no apparent distress and anxious Head Head exam: atraumatic and normocephalic Eye Eye exam: Present PERRL and EOMI; Absent nystagmus ENT ENT exam: Present mucous membranes moist Neck Neck exam: Present normal inspection and full ROM Chest Chest inspection: Present symmetric chest wall rise Respiratory Respiratory exam: Present normal lung sounds bilaterally; Absent respiratory distress, wheezes or stridor Cardiovascular Cardiovascular exam: Present regular rate and normal rhythm Abdominal Exam Abdominal exam: Present soft; Absent distention or tenderness Extremities Exam Extremities exam: Present full ROM; Absent edema Neurological Exam Neurological exam: Present alert, oriented X3 and other (Normal finger-nose and [id number]); Absent motor sensory deficit Psychiatric Psychiatric exam: Present normal affect and anxious Skin Skin exam: Present warm and dry Medical Decision Making Medical Records Medical records reviewed: Yes I reviewed the patient's medical records. Screening: Per USPSTF and CDC recommendations, given the prevalence of disease in our region, it is our hospital?s policy to screen for HIV and viral Hepatitis for all patients aged 18 and over and those with ongoing risk factors. MR Comment: I reviewed the note from cardiology from 12/15/2024 which demonstrates a 30-day event monitor was placed on the patient for tachycardia and palpitations, echo was ordered, GXT only to rule out ischemia due to chest pain, possible pulmonology referral, plan for return to clinic in 3 to 4 weeks. Chinmay Inquiry Pt receiving controlled substance: No Vital Signs: 01/07/25 01:53 01/07/25 02:11 01/07/25 02:30 Temperature 98.6 F Temperature Source Tympanic Pulse Rate 77 Pulse Rate [Orthostatic Lying] 70 Pulse Rate [Orthostatic Sitting] 71 Pulse Rate [Orthostatic Standing] 88 Pulse Rate [Right] 116 H Respiratory Rate 20 10 L Blood Pressure 130/72 Blood Pressure [Orthostatic Lying] 116/71 Blood Pressure [Orthostatic Sitting] 125/78 Blood Pressure [Orthostatic Standing] 132/80 Blood Pressure [Right Arm] 146/85 H Blood Pressure Mean [Right Arm] 105 02 Sat by Pulse Oximetry 98 100 Oxygen Delivery Method Room Air Room Air 01/07/25 02:55 01/07/25 04:28 Temperature 98.6 F Temperature Source Oral Pulse Rate 68 70 Pulse Rate [Orthostatic Lying] Pulse Rate [Orthostatic Sitting] Pulse Rate [Orthostatic Standing] Pulse Rate [Right] Respiratory Rate 15 16 Blood Pressure 126/72 116/68 Blood Pressure [Orthostatic Lying] Blood Pressure [Orthostatic Sitting] Blood Pressure [Orthostatic Standing] Blood Pressure [Right Arm] Blood Pressure Mean [Right Arm] 02 Sat by Pulse Oximetry 99 Oxygen Delivery Method Room Air Room Air Lab Data Lab Results 01/07/25 01:41: WBC 10.3, RBC 4.78, Hgb 14.2, Hct 40.6 L, MCV 84.9, MCH 29.7, MCHC 35.0, RDW 12.1, Plt Count 224, MPV 9.1, Neut % (Auto) 51.4, Lymph % (Auto) 38.2, [place] % (Auto) 7.1, Eos % (Auto) 2.6, Baso % (Auto) 0.5, Neut # (Auto) 5.3, Lymph # (Auto) 3.9, [place] # (Auto) 0.7, Eos # (Auto) 0.3, Baso # (Auto) 0.1, PT 11.5, INR 1.04, D-Dimer 0.52 H, Sodium 139, Potassium 3.5, Chloride 102, Carbon Dioxide 25, Anion Gap 15.5 H, BUN 11, Creatinine 0.80, Estimated Creat Clear 117, Estimated GFR 118, Est GFR ( Amer) 143, Glucose 117 H, Calcium 8.9, Magnesium 1.8, Total Bilirubin 0.7, AST 44, ALT 25, Alkaline Phosphatase 72, Troponin I < 0.01, NT-Pro-B Natriuret Pep < 20.0, Total Protein 7.4, Albumin 4.6, Globulin 2.8, Albumin/Globulin Ratio 1.6, HCV Ab BOYD w/Rflx PCR Qn Negative, HIV Ag/Ab Combo Qual Negative 01/07/25 01:52: VBG pH 7.32, VBG pCO2 50.1, VBG pO2 47.1 H, VBG HCO3 25.2, VBG Total CO2 26.8, VBG O2 Saturation 80.3 H, VBG Base Excess -0.9, VBG Lactic Acid 1.7 01/07/25 01:41 01/07/25 01:41 Orders (Tests/Meds): ED MEDICATIONS Discontinued Medications Generic Name Dose Route Start Last Admin Trade Name Freq PRN Reason Stop Dose Admin Hydroxyzine Pamoate 50 mg 01/07/25 02:42 01/07/25 02:52 Hydroxyzine Pamoate 25mg Capsule PO 01/07/25 02:43 50 mg ONCE ONE Administration Lactated Ringer's 1,000 mls @ 999 mls/hr 01/07/25 01:35 01/07/25 03:15 Lactated Ringer's 1000 Ml Bag IV 01/07/25 02:35 Infused .Q1H1M ONE Infusion Ondansetron HCl 4 mg 01/07/25 02:42 01/07/25 02:53 Ondansetron 4mg/2ml Vial IV 01/07/25 02:43 4 mg ONCE ONE Administration ORDERS Category Date Time Status XR chest 2V Stat Exams 01/07/25 01:35 Completed Complete Blood Count Auto Diff Stat Lab 01/07/25 01:41 Completed Comprehensive Metabolic Panel Stat Lab 01/07/25 01:41 Completed D-Dimer Stat Lab 01/07/25 01:41 Completed HIV Combo Stat Lab 01/07/25 01:41 Completed Hepatitis C Ab Qual. W/ RFX Stat Lab 01/07/25 01:41 Completed Magnesium Stat Lab 01/07/25 01:41 Completed NT Pro Brain Natriuretic Pep. Stat Lab 01/07/25 01:41 Completed Prothrombin Time INR Stat Lab 01/07/25 01:41 Completed Troponin I Stat Lab 01/07/25 01:41 Completed Venous Blood Gas Stat RT 01/07/25 01:52 Completed HEART Score History (anamnesis): Slightly suspicious ECG: Normal Age: <45 years Risk factors: No known risk factors Troponin: </= normal limit HEART Score: 0 Medical Decision Narrative: In summary, this 24-year-old male with comorbidities including anxiety, vertigo, history of palpitations, tobacco use disorder presents to the emergency department today with rapid heart rate, shortness of breath, sensation of dizziness/lightheadedness. On initial evaluation patient is tachycardic but otherwise hemodynamically stable, afebrile, GCS 15, no neurologic deficits, no cerebellar symptoms, no nystagmus. Benign abdominal exam, no murmurs, no peripheral edema, no chest wall tenderness. differential diagnosis includes but is not limited to tachycardia, other arrhythmia, orthostatic hypotension, ACS, PE, electrolyte abnormality, dehydration, anxiety, panic attack, medication side effect. I considered the possibility of viral syndrome, with single episode of nausea and emesis I considered acute intra-abdominal pathology but patient has a benign abdominal exam. Patient is already wearing a Holter monitor from cardiology and has close follow-up with them. Based on these concerns, I ordered hematologic and serum labs, cardiac workup, D-dimer, chest x-ray. Ruling out the most morbid conditions drove my assessment. ECG personally interpreted demonstrates sinus tachycardia, rate 114, normal axis, normal VA and QTc, no STEMI. Patient received IV fluids, hydroxyzine, Zofran for treatment. Labs personally reviewed demonstrate no leukocytosis or anemia, normal platelets, PT/INR normal, D-dimer 0.52 by years criteria PE is excluded, VBG with normal pH, no hypercarbia, VBG lactic normal, CMP not acutely actionable, anion gap is 15.5 which is only slightly elevated, potentially related to mild volume depletion or emesis. Initial troponin undetectably low less than 0.01 significantly reassuring in the setting of low heart score, nonischemic ECG, and patient's duration of symptoms. BNP undetectable. XR personally interpreted demonstrates no acute intrathoracic abnormality, see radiology read for final interpretation.. Patient was reassessed after receiving all medications. He feels significantly improved, tachycardia is resolved. He is tolerating oral intake. Asymptomatic from the symptoms that brought him to the ER at this time and he would like to go home. I believe he is appropriate for discharge at this time. He has follow-up scheduled with cardiology. I encouraged him to also follow-up with his primary care doctor who recently prescribed the paroxetine. Patient was given instructions on symptomatic management, follow up instructions, and return precautions for the emergency department. Patient indicated understanding and was discharged in stable condition. Critical Care Critical Care Time Critical Care Time: No
[2025-01-07 03:10] LABS: Hepatitis C Ab Qual. W/ RFX NEGATIVE (Negative)
[2025-01-07 04:28] VITALS: BP 116/68; PULSE 70; RESP 16; TEMP 37; O2SAT 98
== END 2025-01-07 04:32 | disposition home or self-care (01) ==
PROVIDERS: Emergency Provider Emergency Medicine; PCP Family Medicine
DX: R06.02 Shortness of breath (principal); R00.0 Tachycardia, unspecified; F41.1 Generalized anxiety disorder; R42 Dizziness and giddiness; F17.290 Nicotine dependence, other tobacco product, uncomplicated
CPT/HCPCS: 71046; 80053; 82803; 83735; 83880; 84484; 85025; 85378; 85610; 86803; 87389; 93005; 96361; 96374; 99285; J2405; J7120

== ENCOUNTER 2025-01-20 20:42 | Emergency (ER) | payer SELFPAY ==
[2025-01-20 20:45] VITALS: BP 133/71; PULSE 99; RESP 18; TEMP 36.9; O2SAT 99; BMI 19.0
--- NOTE | 2025-01-20 20:46 | ED_ITS ---
<Statement entered by Barbara Higginbotham DO - 01/21/25 00:28> I was consulted by the DEBBIE, and we discussed the complexity of problems being addressed. I approve the treatment and management plan for this patient's care in the emergency department, thus performing a substantial portion of the medical decision making. Barbara Higginbotham DO Discharge Plan Disposition Patient Disposition: Home, Self-Care Condition: Good Prescriptions Prescriptions: No Action hydroxyzine HCl 25 mg tablet 25 mg PO Q6H PRN (Reason: anxiety) Qty: 30 3RF clotrimazole [Antifungal (clotrimazole)] 1 % cream 1 applic topical BID 28 Days Qty: 45 0RF Referrals Follow up/Referrals: Jose Nicole MD [Primary Care Provider, Family Practice] - See instructions Raúl Hairston MD [Physician, Ear, Nose, Throat] - See instructions Activity Restrictions/Add. Instructions Additional Instructions/Restrictions: You were evaluated on an emergency basis. It is very important that you follow- up with your primary care provider and any specialist who we discussed within the next 2 days in order to better assess your health more comprehensively. For example, incidental findings on imaging or laboratory results that were performed today may be discovered, which do not require immediate medical care, but may impact your health in the future. If your symptoms worsen or persist, please return to the emergency department immediately for reassessment. Take all medications as prescribed. In queue for allowing me to participate in your health care, and I hope you feel better soon. Clinical Impressions Clinical Impression: Tinnitus Instructions Patient Instructions: DI for Tinnitus Print Language Print Language: Yi Discharge ED Provider: Barbara Higginbotham General Adult HPI General Chief complaint: Ear Stated complaint: ringing in right ear Time Seen by Provider: 01/20/25 20:46 History of Present Illness HPI narrative: 24-year-old male presents to the emergency department with complaints of ringing to his right ear. He states his symptoms have been intermittent over the past 2 weeks however have become consistent over the past hour. He denies any recent trauma to his ear. He also denies any exposure to loud noises or frequent headphone use. Related Data Previous Rx's ?Medication ?Instructions ?Recorded hydroxyzine HCl 25 mg tablet 25 mg PO Q6H PRN anxiety #30 tabs 01/05/25 clotrimazole 1 % topical cream 1 applic topical BID 4 weeks #45 10/16/25 (Antifungal (clotrimazole)) grams Allergies Allergy/AdvReac Type Severity Reaction Status Date / Time ibuprofen (From Motrin) Allergy Intermediate Unknown Verified 01/18/25 11:03 allergy reaction [facility] Disclaimer: The information contained in this section may have been updated after the patient was seen, as this information can be updated by other users. 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 Marijuana use Hydropneumothorax Hemopneumothorax, left Pneumothorax on right COVID Anxiety URI (upper respiratory infection) Viral gastritis Recurrent spontaneous pneumothorax Pneumothorax Atypical chest pain Viral upper respiratory illness Strep throat Viral syndrome Pre-syncope COVID-19 Influenza B Breath shortness Acute pain of left shoulder Collapse, lung 4 times Surgical History History of lung surgery Social History Smoking Status: Current every day smoker tobacco type: e-cigarettes second hand exposure: Yes alcohol intake: never substance use type: marijuana current occupational status: other Travel in the last 8 weeks?: None household members: family housing: house current occupation: [employer] caffeine: Yes Other 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 Have you received the Flu Vaccine for this season: Yes Have you received the Pneumonia Vaccine: No ROS Obtained: Yes other ENT Ears, Nose, Mouth, and Throat: Reports tinnitus Physical Exam Narrative Physical exam: General: Awake, aware, in no acute distress HEENT: Normocephalic, no evidence of trauma. Bilateral TMs are intact. No erythema, drainage, swelling noted to bilateral ear canals. CV: RRR, no murmurs, rubs, or gallops Pulm: CTA bilaterally with no rhonchi, rales, wheezes ABD: Nontender, no swelling, guarding, or rebound tenderness Psych, appropriate mood and affect General General appearance: alert Respiratory Respiratory exam: Present normal lung sounds bilaterally Cardiovascular Cardiovascular exam: Present regular rate Neurological Exam Neurological exam: Present alert Medical Decision Making Medical Records Screening: Per USPSTF and CDC recommendations, given the prevalence of disease in our region, it is our hospital?s policy to screen for HIV and viral Hepatitis for all patients aged 18 and over and those with ongoing risk factors. Chinmay Inquiry Pt receiving controlled substance: No Vital Signs: 01/20/25 20:45 Temperature 98.4 F Temperature Source Temporal Artery Scan Pulse Rate [Right] 99 H Respiratory Rate 18 Blood Pressure [Right Arm] 133/71 Blood Pressure Mean [Right Arm] 91 Blood Pressure Source [Right Arm] Automatic Cuff Blood Pressure Position [Right Arm] Sitting 02 Sat by Pulse Oximetry 99 Oxygen Delivery Method Room Air Medical Decision Narrative: Initial impression of presenting illness: 24-year-old male presents emergency department complaints of ringing in his ear. He reports symptoms have been intermittent over the past 2 weeks and have become consistent over the past hour. He denies any recent trauma to his ear. He also denies frequent headphone use or exposure to loud noises. Differential diagnosis includes but is not limited to: Otitis media, otitis externa, tinnitus Patient arrives hemodynamically stable, afebrile, without respiratory distress with vital signs interpreted by myself. Initial physical exam unremarkable. Bilateral TMs are intact. No erythema, drainage or swelling noted to bilateral ear canals. Patient denies pain on palpation surrounding his ears or neck. Hearing appears intact bilaterally. Disposition: Advised patient no acute abnormalities were noted on his physical exam. Commended that he avoid any loud noises or frequent headphone use. Instructed him that he may try white noise at night to help with sleeping. Recommended he follow-up with his primary care provider for an ENT referral. Him to return to the emergency department any new or worsening symptoms. Patient was agreeable to plan of care. Critical Care Critical Care Time Critical Care Time: No
--- OUTSIDE RECORDS SUMMARY | 2025-01-20 20:53 | XMS_ITS | Clinical Summary ---
Author Organization [facility] Address [address] [place] [address] Care Team Providers Care Dried Yeast Supervisor Name Role Phone Self, Referred MD Primary [...] (2 - Td or Tdap) 10/30/2021 10/31/2011 [id number] Vaccine (1 - 2023- season) 2024 [id number] [...] topic Insurance [employer] [place] Care Teams Dried Yeast Supervisor Relationship Specialty Start Date End Date Self, Referred, PCP - General 08/29/20
--- OUTSIDE RECORDS SUMMARY | 2025-01-20 20:53 | XMS_ITS | Encounter Summary ---
Author Organization [facility] Address [address] [place] [address] Care Team Providers Care Fire Prevention Inspector Name Role Phone Self, Referred MD Primary Care Provider Halleya ble Encounter Details Date Type Department Care Team (Late st Contact Info) Description 08/12/2020 [facility] [address] [place] [address] Carla Marie, RN [facility] [...] on filedocumented in this encounter Care Teams Fire Prevention Inspector Relationship Specialty Start Date End Date Self, ReferredMD PCP - General 08/29/20 documented as of this encounter
[2025-01-20 21:13] VITALS: BP 133/71; PULSE 99; RESP 18; TEMP 36.9; O2SAT 99
== END 2025-01-20 21:14 | disposition home or self-care (01) ==
PROVIDERS: Emergency Provider Student in an Organized Health Care Education/Training Program; PCP Family Medicine
DX: H93.11 Tinnitus, right ear (principal)
CPT/HCPCS: 99282; 99283

== ENCOUNTER 2025-01-22 11:51 | Emergency (ER) | payer SELFPAY ==
[2025-01-22 11:55] VITALS: BP 134/74; PULSE 94; RESP 18; TEMP 37.1; O2SAT 98; BMI 18.6
--- NOTE | 2025-01-22 12:02 | ECG_ITS ---
APPROVED REPORT Exam: Resting ECG HR:91 bpm ECG Measurements Heart Rate 91 AXES OH 158 P 85 QRSd 79 QRS 84 QT 325 T 60 QTc 373 Conclusion SINUS RHYTHM POSSIBLE LEFT ATRIAL ENLARGEMENT [-0.1mV P-WAVE IN V1/V2] POSSIBLE RIGHT VENTRICULAR CONDUCTION DELAY [RSR (QR) IN V1/V2] EARLY REPOLARIZATION [ST ELEVATION WITH NORMALLY INFLECTED T-WAVE] MODERATE ST DEPRESSION [0.05+ mV ST DEPRESSION] ABNORMAL ECG UNCONFIRMED REPORT Normal sinus rhythm. J-point elevation but no ST elevation or depression. QTc 373 Electronically signed by : MARCO BLAKE, 01/22/2025 13:47:48
--- NOTE | 2025-01-22 12:20 | XR_ITS ---
FINAL REPORT CLINICAL HISTORY: short of breath COMPARISON: 12/10/2024 FINDINGS: The heart size is normal. The mediastinum is normal. There is no focal infiltrate or edema. There are no pleural effusions. There is no pneumothorax. There is no osseous abnormality. IMPRESSION: No acute cardiopulmonary process Reviewed, Interpreted and Dictated by Gilbert Lemons MD Transcribed by Siobhan Garza Authenticated and [facility]
--- NOTE | 2025-01-22 12:24 | ED_ITS ---
<Statement entered by Jacques Martinez MD - 01/22/25 19:57> I was consulted by the DEBBIE, and we discussed the complexity of the problems being addressed. I approve the treatment and management plan for this patient's care in the emergency department, thus performing a substantive portion of the medical decision making. Jacques Martinez MD Discharge Plan Disposition Chief Complaint: PAIN Prescriptions Prescriptions: No Action hydroxyzine HCl 25 mg tablet 25 mg PO Q6H PRN (Reason: anxiety) Qty: 30 3RF clotrimazole [Antifungal (clotrimazole)] 1 % cream 1 applic topical BID 28 Days Qty: 45 0RF Referrals Follow up/Referrals: Jose Nicole MD [Primary Care Provider, Family Practice] - See instructions Print Language Print Language: Serbian Discharge ED Provider: Jacques Maritnez General Adult HPI <Sho Chrisalisia (ED), [employer] WORKER - Last Filed: 01/22/25 16:23> General Chief complaint: PAIN Stated complaint: [id number] upper L chest, back Time Seen by Provider: 01/22/25 12:13 Mode of Arrival: Ambulatory Source of Information: Patient Description of Symptoms (Recalled from ER Triage Doc. by RN): patient presents from work for sharp chest pain that started after he lifted a heavy box at work which led to his sharp pain. this just happened within the last hour. patient says the pain is not cardiac related but does radiate around and into his back. History of Present Illness HPI narrative: 24-year-old male presents to the ED today with complaint for lifting a box while working in suddenly having sharp chest pain and shortness of breath. Patient has no pain with movement. Patient does have history of tachycardia, hydropneumothorax, spontaneous pneumo. Patient went to cardiology and had a Holter monitor completed and then he was supposed to have a stress test and echo on the but was unable to afford the cost. Related Data Previous Rx's ?Medication ?Instructions ?Recorded hydroxyzine HCl 25 mg tablet 25 mg PO Q6H PRN anxiety #30 tabs 01/05/25 clotrimazole 1 % topical cream 1 applic topical BID 4 weeks #45 01/07/25 (Antifungal (clotrimazole)) grams Allergies Allergy/AdvReac Type Severity Reaction Status Date / Time ibuprofen (From Motrin) Allergy Intermediate Unknown Verified 01/18/25 11:03 allergy reaction PFSH <Sho Weber (ED), [employer] WORKER - Last Filed: 01/22/25 16:23> PFS Disclaimer: The information contained in this section may have been updated after the patient was seen, as this information can be updated by other users. 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 Marijuana use Hydropneumothorax Hemopneumothorax, left Pneumothorax on right COVID Anxiety URI (upper respiratory infection) Viral gastritis Recurrent spontaneous pneumothorax Pneumothorax Atypical chest pain Viral upper respiratory illness Strep throat Viral syndrome Pre-syncope COVID-19 Influenza B Breath shortness Acute pain of left shoulder Collapse, lung 4 times Surgical History History of lung surgery Social History Smoking Status: Light tobacco smoker tobacco type: e-cigarettes second hand exposure: Yes alcohol intake: never substance use type: marijuana current occupational status: other Travel in the last 8 weeks?: None household members: family housing: house current occupation: [employer] caffeine: Yes Have you lived/traveled outside [place] in past 30 days?: No Contact w/someone who lives/traveled outside US past 30 days?: No Exposure to someone with infectious disease in past 14 days?: No Do you have a fever (greater than 100.4 F or 38 C)?: No Have you tested positive for COVID-19?: No Exposed to someone with COVID-19 in past 14 days?: No Do you have a sore throat?: No Do you have a cough?: No Do you have any weakness?: No Do you have any diarrhea?: No Are you experiencing any unusual bleeding?: No Do you have any muscle aches/pain?: No Do you have any abdominal pain?: No Are you experiencing loss of taste or smell?: No Other 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 Have you received the Flu Vaccine for this season: Yes Have you received the Pneumonia Vaccine: No <Sho Weber (ED), [employer] WORKER - Last Filed: 01/22/25 16:23> ROS Obtained: Yes Systems reviewed as appropriate & no additional complaints except as documented Constitutional Constitutional: Reports as per HPI Physical Exam <Sho Navabill (ED), [employer] WORKER - Last Filed: 01/22/25 16:23> General General appearance: alert and in no apparent distress Head Head exam: normocephalic Eye Eye exam: Present PERRL ENT ENT exam: Present mucous membranes moist Neck Neck exam: Present trachea midline Chest Chest inspection: Present symmetric chest wall rise Respiratory Respiratory exam: Present normal lung sounds bilaterally Cardiovascular Cardiovascular exam: Present regular rate, normal rhythm, normal heart sounds, +S1 and +S2 Extremities Exam Extremities exam: Present normal inspection, full ROM and normal capillary refill Back Exam Back exam: Present full ROM Neurological Exam Neurological exam: Present alert and oriented X3 Psychiatric Psychiatric exam: Present normal affect and normal mood Skin Skin exam: Present warm and dry Medical Decision Making <Sho Navabill (ED), [employer] WORKER - Last Filed: 01/22/25 16:23> Medical Records Screening: Per USPSTF and CDC recommendations, given the prevalence of disease in our region, it is our hospital?s policy to screen for HIV and viral Hepatitis for all patients aged 18 and over and those with ongoing risk factors. Chinmay Inquiry Pt receiving controlled substance: No Chinmay was queried for this patient: No Vital Signs: 01/22/25 11:55 01/22/25 13:54 01/22/25 15:22 Temperature 98.7 F Temperature Source Oral Pulse Rate 62 70 Pulse Rate [Right Radial] 94 H Respiratory Rate 18 16 18 Blood Pressure 95/62 L 103/62 L Blood Pressure [Right Arm] 134/74 Blood Pressure Mean [Right Arm] 94 Blood Pressure Source Automatic Cuff Automatic Cuff Blood Pressure Source [Right Arm] Automatic Cuff Blood Pressure Position Sitting Sitting Blood Pressure Position [Right Arm] Sitting 02 Sat by Pulse Oximetry 98 98 97 Oxygen Delivery Method Room Air Room Air Room Air Lab Data Lab Results 01/22/25 12:30: WBC 9.5, RBC 4.93, Hgb 14.4, Hct 42.3, MCV 85.8, MCH 29.2, MCHC 34.0, RDW 12.3, Plt Count 208, MPV 8.8, Neut % (Auto) 78.5, Lymph % (Auto) 13.9, [place] % (Auto) 5.7, Eos % (Auto) 1.3, Baso % (Auto) 0.3, Neut # (Auto) 7.5, Lymph # (Auto) 1.3, [place] # (Auto) 0.5, Eos # (Auto) 0.1, Baso # (Auto) 0.0, D-Dimer 0.60 H, Sodium 137, Potassium 3.7, Chloride 102, Carbon Dioxide 28, Anion Gap 10.7, BUN 11, Creatinine 0.70, Estimated Creat Clear 135, Estimated GFR 137, Est GFR ( Amer) 166, Glucose 88, Calcium 9.0, Magnesium 1.9, Total Bilirubin 0.4, AST 30, ALT 25, Alkaline Phosphatase 61, Troponin I < 0.01, Total Protein 8.4 H, Albumin 5.6 H, Globulin 2.8, Albumin/Globulin Ratio 2.0 H, Lipase 123 01/22/25 15:34: Troponin I 0.02 01/22/25 12:30 01/22/25 12:30 Orders (Tests/Meds): ED MEDICATIONS Discontinued Medications Generic Name Dose Route Start Last Admin Trade Name Yesi PRN Reason Stop Dose Admin Aspirin 325 mg 01/22/25 12:20 01/22/25 12:26 Aspirin 325mg Tablet PO 01/22/25 12:21 325 mg ONCE ONE Administration Dexamethasone Sodium Phosphate 8 mg 01/22/25 12:20 01/22/25 12:29 Dexamethasone 4mg/Ml 1ml Vial IV 01/22/25 12:21 8 mg ONCE ONE Administration Orphenadrine Citrate 30 mg 01/22/25 12:20 01/22/25 12:26 Orphenadrine Citrate 60mg/2ml Vial IV 01/22/25 12:21 30 mg ONCE ONE Administration ORDERS Category Date Time Status Chest XR -- portable [XR chest portable] Stat Exams 01/22/25 12:20 Completed CBC [Complete Blood Count Auto Diff] Stat Lab 01/22/25 12:30 Completed Comprehensive Metabolic Panel Stat Lab 01/22/25 12:30 Completed D-Dimer Stat Lab 01/22/25 12:30 Completed Lipase Stat Lab 01/22/25 12:30 Completed Magnesium Stat Lab 01/22/25 12:30 Completed Trop I [Troponin I] Stat Lab 01/22/25 12:30 Completed Troponin I Q3H Lab 01/22/25 15:34 Completed Troponin I Q3H Lab 01/22/25 18:30 Ordered Medical Decision Narrative: patient is a 24-year-old male presenting to the emergency department for evaluation of chest pain after lifting a box at work. Patient is hemodynamically stable and nontoxic-appearing upon arrival, afebrile. Differential diagnosis includes ACS, pleurisy, costochondritis among others. Workup will be conducted with hematologic labs, specific imaging, provocative tests. Initial inventions include analgesics, antibiotics. Initial workup reviewed by me hematologic labs are remarkable for normal white count at 9.5 D-dimer 0.60, years criteria determine that PE is unlikely normal electrolytes. Chest x-ray read by me is normal with no acute findings. Chest x-ray read by radiology no acute cardiopulmonary process. Patient and I discussed following back up with cardiology as soon as he can. Patient says he is working on getting insurance and will do that as soon as he has it. Patient safe for discharge home <Jacques Martinez MD - Last Filed: 01/22/25 12:35> Vital Signs: 01/22/25 11:55 01/22/25 13:54 01/22/25 15:22 Temperature 98.7 F Temperature Source Oral Pulse Rate 62 70 Pulse Rate [Right Radial] 94 H Respiratory Rate 18 16 18 Blood Pressure 95/62 L 103/62 L Blood Pressure [Right Arm] 134/74 Blood Pressure Mean [Right Arm] 94 Blood Pressure Source Automatic Cuff Automatic Cuff Blood Pressure Source [Right Arm] Automatic Cuff Blood Pressure Position Sitting Sitting Blood Pressure Position [Right Arm] Sitting 02 Sat by Pulse Oximetry 98 98 97 Oxygen Delivery Method Room Air Room Air Room Air Lab Data Lab Results 01/22/25 12:30: WBC 9.5, RBC 4.93, Hgb 14.4, Hct 42.3, MCV 85.8, MCH 29.2, MCHC 34.0, RDW 12.3, Plt Count 208, MPV 8.8, Neut % (Auto) 78.5, Lymph % (Auto) 13.9, [place] % (Auto) 5.7, Eos % (Auto) 1.3, Baso % (Auto) 0.3, Neut # (Auto) 7.5, Lymph # (Auto) 1.3, [place] # (Auto) 0.5, Eos # (Auto) 0.1, Baso # (Auto) 0.0, D-Dimer 0.60 H, Sodium 137, Potassium 3.7, Chloride 102, Carbon Dioxide 28, Anion Gap 10.7, BUN 11, Creatinine 0.70, Estimated Creat Clear 135, Estimated GFR 137, Est GFR ( Amer) 166, Glucose 88, Calcium 9.0, Magnesium 1.9, Total Bilirubin 0.4, AST 30, ALT 25, Alkaline Phosphatase 61, Troponin I < 0.01, Total Protein 8.4 H, Albumin 5.6 H, Globulin 2.8, Albumin/Globulin Ratio 2.0 H, Lipase 123 01/22/25 15:34: Troponin I 0.02 Orders (Tests/Meds): ED MEDICATIONS Discontinued Medications Generic Name Dose Route Start Last Admin Trade Name Freq PRN Reason Stop Dose Admin Aspirin 325 mg 01/22/25 12:20 01/22/25 12:26 Aspirin 325mg Tablet PO 01/22/25 12:21 325 mg ONCE ONE Administration Dexamethasone Sodium Phosphate 8 mg 01/22/25 12:20 01/22/25 12:29 Dexamethasone 4mg/Ml 1ml Vial IV 01/22/25 12:21 8 mg ONCE ONE Administration Orphenadrine Citrate 30 mg 01/22/25 12:20 01/22/25 12:26 Orphenadrine Citrate 60mg/2ml Vial IV 01/22/25 12:21 30 mg ONCE ONE Administration ORDERS Category Date Time Status Chest XR -- portable [XR chest portable] Stat Exams 01/22/25 12:20 Completed CBC [Complete Blood Count Auto Diff] Stat Lab 01/22/25 12:30 Completed Comprehensive Metabolic Panel Stat Lab 01/22/25 12:30 Completed D-Dimer Stat Lab 01/22/25 12:30 Completed Lipase Stat Lab 01/22/25 12:30 Completed Magnesium Stat Lab 01/22/25 12:30 Completed Trop I [Troponin I] Stat Lab 01/22/25 12:30 Completed Troponin I Q3H Lab 01/22/25 15:34 Completed Troponin I Q3H Lab 01/22/25 18:30 Ordered ECG Data Tracing #1: I reviewed this ECG and interpreted as documented below: Normal sinus rhythm. J-point elevation but no ST elevation or depression. QTc normal at 373 Critical Care <Sho Weber (ED), [employer] WORKER - Last Filed: 01/22/25 16:23> Critical Care Time Critical Care Time: No
[2025-01-22] MEDS: ORPHENADRINE CITRATE 60MG/2ML VIAL 30 MG IV (12:26)
[2025-01-22] MEDS: ASPIRIN 325MG TABLET 325 MG PO (12:26)
[2025-01-22] MEDS: DEXAMETHASONE 4MG/ML 1ML VIAL 8 MG IV (12:29)
[2025-01-22 12:39] LABS: Hematocrit 42.3 % (42.0-52.0); Hemoglobin 14.4 g/dL (14.1-18.0); Immature Granulocytes % 0.3 %; Mean Corpuscular HGB Conc 34.0 g/dL (31.8-35.4); Mean Corpuscular Hemoglobin 29.2 pg (27.0-31.2); Mean Corpuscular Volume 85.8 fl (80-94); Nucleated Red Blood Cells % 0 %; Platelet Count 208 K/mm3 (142-424); Red Blood Count 4.93 M/mm3 (4.60-6.20); Red Cell Distribution Width-SD 38.7 fL; White Blood Count 9.5 K/mm3 (4.8-10.8)
[2025-01-22 12:49] LABS: Albumin Level 5.6 g/dl (3.5-5.0); Chloride 102 mmol/L (98-107); Potassium 3.7 mmoL/L (3.5-5.1); Sodium 137 mmol/L (136-145)
[2025-01-22 12:52] LABS: Alanine Aminotransferase 25 U/L (12-78); Albumin/Globulin Ratio 2.0 (1.1-1.8); Alkaline Phosphatase 61 U/L (38-126); Anion Gap 10.7 mEq/L (5-15); Aspartate Amino Transferase 30 U/L (17-59); Bilirubin,Total 0.4 mg/dl (0.2-1.3); Blood Urea Nitrogen 11 mg/dl (9-20); Calcium 9.0 mg/dl (8.4-10.2); Carbon Dioxide 28 mmol/L (22.0-30.0); Creatinine Clearance Estimated 135 mL/min (50-200); Creatinine,Serum 0.70 mg/dl (0.66-1.25); Estimated Glomerular Filt Rate 137 ml/min (>60); GFR (African American) 166 ML/MIN (>60); Globulin 2.8 g/dL (1.3-3.2); Glucose 88 mg/dl (74-100); Lipase 123 U/L (23-300); Total Protein,Serum 8.4 g/dl (6.3-8.2)
[2025-01-22 12:53] LABS: Magnesium 1.9 mg/dl (1.6-2.3)
[2025-01-22 12:56] LABS: D-Dimer 0.60 ug/mL (0.0-0.5)
[2025-01-22 13:06] LABS: Troponin I < 0.01 ng/ml (0.00-0.034)
[2025-01-22 13:54] VITALS: BP 95/62; PULSE 62; RESP 16; O2SAT 98
[2025-01-22 15:22] VITALS: BP 103/62; PULSE 70; RESP 18; O2SAT 97
[2025-01-22 16:07] LABS: Troponin I 0.02 ng/ml (0.00-0.034)
[2025-01-22 16:28] VITALS: BP 104/67; PULSE 68; RESP 18; TEMP 36.4; O2SAT 98
== END 2025-01-22 16:29 | disposition home or self-care (01) ==
PROVIDERS: Nurse Practitioner; Emergency Provider Student in an Organized Health Care Education/Training Program; PCP Family Medicine
DX: R07.9 Chest pain, unspecified (principal); R06.02 Shortness of breath
CPT/HCPCS: 71045; 80053; 83690; 83735; 84484; 85025; 85378; 93005; 96374; 96375; 99284; J1100; J2360

== ENCOUNTER 2025-01-25 21:19 | Emergency (ER) | payer SELFPAY ==
--- OUTSIDE RECORDS SUMMARY | 2025-01-25 21:23 | XMS_ITS | Encounter Summary ---
Author Organization [facility] Address [address] [place] [address] Care Team Providers Care [employer] Worker Name Role Phone Self, Referred MD Primary Care Provider Halleya ble Encounter Details Date Type Department Care Team (Late st Contact Info) Description 08/12/2020 [facility] [address] [place] [address] Carla Marie, RN [facility] [...] on filedocumented in this encounter Care Teams [employer] Worker Relationship Specialty Start Date End Date Self, ReferredMD PCP - General 08/29/20 documented as of this encounter
--- OUTSIDE RECORDS SUMMARY | 2025-01-25 21:24 | XMS_ITS | Clinical Summary ---
Author Organization [facility] Address [address] [place] [address] Care Team Providers Care Cord Splicer Name Role Phone Self, Referred MD Primary [...] (2 - Td or Tdap) 10/30/2021 10/31/2011 [id number] Vaccine (1 - 2023- season) 2024 [id number] [...] topic Insurance [employer] [place] Care Teams Cord Splicer Relationship Specialty Start Date End Date Self, Referred, PCP - General 08/29/20
[2025-01-25 21:25] VITALS: BP 132/88; PULSE 67; RESP 18; TEMP 37.1; O2SAT 97; BMI 19.2
[2025-01-25 21:29] VITALS: BP 127/78; PULSE 64; RESP 17; TEMP 37.1; O2SAT 97; O2SAT 98
--- NOTE | 2025-01-25 21:31 | [facility].EDCP ---
Discharge Plan Disposition Patient Disposition: Home, Self-Care Prescriptions Prescriptions: No Action hydroxyzine HCl 25 mg tablet 25 mg PO Q6H PRN (Reason: anxiety) Qty: 30 3RF clotrimazole [Antifungal (clotrimazole)] 1 % cream 1 applic topical BID 28 Days Qty: 45 0RF Referrals Follow up/Referrals: Jose Nicole MD [Primary Care Provider, Family Practice] - See instructions Activity Restrictions/Add. Instructions Additional Instructions/Restrictions: Encourage you to drink plenty of fluids, including water, sugar-free Gatorade and Pedialyte. Follow-up with your primary care physician. If you develop any new or worsening symptoms, or if you become concerned for your health for any reason, return to the emergency department for evaluation. Clinical Impressions Clinical Impression: Chest pain, Breath shortness, Dizziness Print Language Print Language: Singaporean Discharge ED Provider: Jacques Martinez General Chief Complaint: Shortness of Breath/Dyspnea Stated Complaint: SOA, dizziness Time Seen by Provider: 01/25/25 21:21 Mode of Arrival: Ambulatory Description of Symptoms (Recalled from ER Triage Doc. by RN): Patient states around 2200 he began to have a hard time catching his breath. States he then began to get dizzy. States the room is spinning. States he feels like he cannot get a deep enough breath. States this has happened several times in the past. Advised the only different symptom is his left ear is ringing. History of Present Illness HPI narrative: Mundo Herrera is a 24y male with a history of previous pneumothorax status post pleurodesis who presents to the emergency department for complaints of chest pain, shortness of breath and dizziness. Patient states that he was just sitting down approximately 50 minutes prior to arrival and developed sudden onset dizziness, left-sided chest pain and shortness of breath. He also states that he started having a dry cough at this time. He is not sure if this feels like when he had a collapsed lung in the past. He states that he was seen here on the for the burning left-sided chest pain was diagnosed with a muscle strain has been taking a muscle relaxer. Related Data Previous Rx's ?Medication ?Instructions ?Recorded hydroxyzine HCl 25 mg tablet 25 mg PO Q6H PRN anxiety #30 tabs 10/14/25 clotrimazole 1 % topical cream 1 applic topical BID 4 weeks #45 01/07/25 (Antifungal (clotrimazole)) grams Allergies Allergy/AdvReac Type Severity Reaction Status Date / Time ibuprofen (From Motrin) Allergy Intermediate Unknown Verified 01/18/25 11:03 allergy reaction [facility] Disclaimer: The information contained in this section may have been updated after the patient was seen, as this information can be updated by other users. 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 Marijuana use Hydropneumothorax Hemopneumothorax, left Pneumothorax on right COVID Anxiety URI (upper respiratory infection) Viral gastritis Recurrent spontaneous pneumothorax Pneumothorax Atypical chest pain Viral upper respiratory illness Strep throat Viral syndrome Pre-syncope COVID-19 Influenza B Breath shortness Acute pain of left shoulder Collapse, lung 4 times Surgical History History of lung surgery Social History Smoking Status: Current every day smoker tobacco type: e-cigarettes second hand exposure: Yes alcohol intake: never substance use type: marijuana current occupational status: other Travel in the last 8 weeks?: None household members: family housing: house current occupation: [employer] caffeine: Yes Have you lived/traveled outside US in past 30 days?: No Contact w/someone who lives/traveled outside US past 30 days?: No Exposure to someone with infectious disease in past 14 days?: No Do you have a fever (greater than 100.4 F or 38 C)?: No Have you tested positive for COVID-19?: No Exposed to someone with COVID-19 in past 14 days?: No Do you have a sore throat?: No Do you have a cough?: No Do you have any weakness?: No Do you have any diarrhea?: No Are you experiencing any unusual bleeding?: No Do you have any muscle aches/pain?: No Do you have any abdominal pain?: No Are you experiencing loss of taste or smell?: No Other 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 Have you received the Flu Vaccine for this season: Yes Have you received the Pneumonia Vaccine: No ROS Obtained: Yes Systems reviewed as appropriate & no additional complaints except as documented Physical Exam General General appearance: alert, in no apparent distress and anxious Head Head exam: atraumatic Eye Eye exam: Present normal appearance ENT ENT exam: Present normal external ear exam Neck Neck exam: Present full ROM Chest Chest inspection: Present symmetric chest wall rise Respiratory Respiratory exam: Present normal lung sounds bilaterally; Absent respiratory distress, wheezes or stridor Cardiovascular Cardiovascular exam: Present regular rate and normal rhythm Abdominal Exam Abdominal exam: Present soft; Absent tenderness or guarding exam: Present deferred Extremities Exam Extremities exam: Present normal inspection Back Exam Back exam: Present normal inspection Neurological Exam Neurological exam: Present alert and oriented X3 Psychiatric Psychiatric exam: Present normal affect Skin Skin exam: Present warm and dry HEART Score HEART Score HEART Score assessment performed?: Yes History (anamnesis): Slightly suspicious ECG: Normal Age: <45 years Risk factors: No known risk factors Troponin: </= normal limit HEART Score: 0 Procedures Limited Ultrasound Indication:: Limited cardiac ultrasound Indication: -Chest pain -Shortness of breath - Dizziness Identified cardiac views: -Cardiac parasternal long axis -Cardiac parasternal short axis -Cardiac apical four-chamber -Cardiac subxiphoid Findings: -Cardiac activity present -Wall motion grossly normal -Pericardial effusion absent -Right heart strain absent Impression: - From above Images were saved to permanent archive The study was technically adequate CPT: 04748 This study was performed by me, Jacques Martinez MD, and I personally interpreted all images/videos. Based on my clinical judgement, these images were adequate and did not necessitate further imaging. Limited lung ultrasound A focused ultrasound exam of the pleural spaces was performed to evaluate for pneumothorax, pulmonary edema, pleural effusion and/or consolidation. The ultrasound was performed with the following indications, as noted in the H&P: -Dyspnea -Chest pain Identified structures: RIGHT and/or LEFT thoracic cavities were examined. Findings: Lung sliding: - Left present - Right present B-lines: - Left absent - Right absent Pleural effusion: - Left absent - Right absent Consolidation: - Left absent - Right absent Impression: - Pneumothorax absent - Pleural effusion absent - B-lines absent - Consolidation absent Images were saved to permanent archive The study was technically adequate CPT 86079-33 This study was performed by [place], and I personally interpreted all images/videos. Based on my clinical judgement, these images were adequate and did not necessitate further imaging. Critical Care Critical Care Time Critical Care Time: No Medical Decision Making Chinmay Inquiry Pt receiving controlled substance: No Vital Signs Vital Signs: 01/25/25 21:25 01/25/25 21:29 01/25/25 21:29 Temperature 98.8 F 98.7 F Temperature Source Oral Oral Pulse Rate 64 Pulse Rate [Left] 67 Respiratory Rate 18 17 Blood Pressure 127/78 Blood Pressure [Right Arm] 132/88 Blood Pressure Mean [Right Arm] 102 02 Sat by Pulse Oximetry 97 97 98 Oxygen Delivery Method Room Air Room Air Room Air Lab Data Labs: Lab Results 01/25/25 21:39: WBC 8.1, RBC 4.70, Hgb 13.7 L, Hct 39.9 L, MCV 84.9, MCH 29.1, MCHC 34.3, RDW 12.0, Plt Count 213, MPV 8.9, Neut % (Auto) 57.1, Lymph % (Auto) 32.1, Edgar % (Auto) 8.4, Eos % (Auto) 2.0, Baso % (Auto) 0.2, Neut # (Auto) 4.6, Lymph # (Auto) 2.6, Edgar # (Auto) 0.7, Eos # (Auto) 0.2, Baso # (Auto) 0.0, D-Dimer 0.59 H, VBG pH 7.37, VBG pCO2 50.0, VBG pO2 39.6, VBG HCO3 28.1, VBG Total CO2 29.7 H, VBG O2 Saturation 74.7 H, VBG Base Excess 2.8 H, VBG Lactic Acid 1.1, Sodium 140, Potassium 3.2 L, Chloride 102, Carbon Dioxide 29, Anion Gap 12.2, BUN 9, Creatinine 0.80, Estimated Creat Clear 118, Estimated GFR 118, Est GFR ( Amer) 143, Glucose 114 H, Calcium 9.3, Total Bilirubin 0.4, AST 35, ALT 28, Alkaline Phosphatase 62, Troponin I < 0.01, Total Protein 8.1, Albumin 4.7, Globulin 3.4 H, Albumin/Globulin Ratio 1.4 01/25/25 21:39 01/25/25 21:39 Response Orders (Tests/Meds): ED MEDICATIONS Discontinued Medications Generic Name Dose Route Start Last Admin Trade Name Freq PRN Reason Stop Dose Admin Potassium Chloride 20 meq 01/25/25 22:32 01/25/25 22:36 Potassium Chloride 20meq Tab PO 01/25/25 22:33 20 meq ONCE ONE Administration ORDERS Category Date Time Status POCUS Point of Care (ER Only) Stat Exams 01/25/25 21:22 Ordered CBC w/Auto Diff [Complete Blood Count Auto Diff] Stat Lab 01/25/25 21:39 Completed CMP [Comprehensive Metabolic Panel] Stat Lab 01/25/25 21:39 Completed D-Dimer Stat Lab 01/25/25 21:39 Completed Rapid PCR Covid and Flu A/B Stat Lab 01/25/25 21:44 Received Trop I [Troponin I] Stat Lab 01/25/25 21:39 Completed Troponin I Q3H Lab 01/26/25 00:30 Ordered Troponin I Q3H Lab 01/26/25 03:30 Ordered VBG [Venous Blood Gas] Stat RT 01/25/25 21:39 Completed ECG Data Tracing #1: Attestation: I reviewed this ECG and interpreted as documented below: ECG Narrative: Normal sinus rhythm. Early repolarization but no ST elevation or depression. QTc of 385 MDM Narrative Medical Decision Narrative: Mundo Herrera is a 24y male with a history of previous pneumothorax status post pleurodesis who presents to the emergency department for complaints of chest pain, shortness of breath and dizziness. Patient states that he was just sitting down approximately 50 minutes prior to arrival and developed sudden onset dizziness, left-sided chest pain and shortness of breath. He also states that he started having a dry cough at this time. He is not sure if this feels like when he had a collapsed lung in the past. He states that he was seen here on the for the burning left-sided chest pain was diagnosed with a muscle strain has been taking a muscle relaxer. On arrival, patient is normotensive with blood pressure 124/81, oxygen saturation 98% on room air, heart rate within normal limits. Physical exam, as stated above, reveals a very anxious appearing male in no respiratory distress. Breath sounds are clear bilaterally. No murmurs or rubs. The remainder of his exam is grossly unremarkable. Differential diagnosis includes, but is not limited to: Pneumothorax, ACS, pericarditis, myocarditis, pneumonia, viral respiratory illness, anxiety attack, pulmonary embolism, pericardial effusion, among others. The most morbid conditions were considered and workup was based on these. Workup in the emergency department clued: Dhdum-ju-xuvl cardiac and lung ultrasound, CBC, CMP, troponin, D-dimer, rapid COVID and flu testing, VBG Bkyow-zh-xthe lung ultrasound showed lung sliding bilaterally without B-lines. No effusions or consolidations. See procedure note for details. Cardiac ultrasound is unremarkable with no pericardial effusion. See procedure note for details. Patient has had 49 chest x-rays since July 2018, and most recently 4 days ago, which was interpreted by me and was unremarkable without focal consolidation, pneumothorax, widening of the mediastinum. Patient has had significant mount of radiation exposure between x-ray imaging and CT imaging over the last several years, and I discussed this with him and we will defer x-ray imaging at this time given he has no pneumothorax, pneumonia or effusion on ultrasound imaging and I have low concern for any aortic pathology. EKG without evidence of ischemia. See interpretation above. Patient's workup showed no leukocytosis, hemoglobin very mildly low at 13.7, 39.9 hematocrit. Platelets within normal limits. D-dimer steady at 0.59 and negative per years criteria. VBG without acidosis or hypercarbia. Lactate normal at 1.1. Mild hypokalemia at 3.2 and was replaced with 20 mill equivalents of potassium chloride. No DALE. Electrolytes otherwise within normal limits. Troponin less than 0.01. On reassessment, patient remains in stable condition. I feel that he is appropriate for discharge at this time with plan to follow with his primary care physician. Return precautions were given. All questions were answered. He demonstrated understanding and was in agreement this plan. He was then discharged from the emergency department in stable condition peer
--- NOTE | 2025-01-25 21:44 | ECG_ITS ---
APPROVED REPORT Exam: Resting ECG HR:76 bpm ECG Measurements Heart Rate 76 AXES WV 148 P 79 QRSd 89 QRS 88 QT 355 T 77 QTc 385 Conclusion SINUS RHYTHM POSSIBLE RIGHT VENTRICULAR CONDUCTION DELAY [RSR (QR) IN V1/V2] EARLY REPOLARIZATION [ST ELEVATION WITH NORMALLY INFLECTED T-WAVE] BORDERLINE ECG UNCONFIRMED REPORT Normal sinus rhythm. No ST elevation or depression. QTc normal at 385 Electronically signed by : MARCO BLAKE, 01/28/2025 20:12:39
[2025-01-25 21:51] LABS: Hematocrit 39.9 % (42.0-52.0); Hemoglobin 13.7 g/dL (14.1-18.0); Immature Granulocytes % 0.2 %; Mean Corpuscular HGB Conc 34.3 g/dL (31.8-35.4); Mean Corpuscular Hemoglobin 29.1 pg (27.0-31.2); Mean Corpuscular Volume 84.9 fl (80-94); Nucleated Red Blood Cells % 0 %; Platelet Count 213 K/mm3 (142-424); Red Blood Count 4.70 M/mm3 (4.60-6.20); Red Cell Distribution Width-SD 37.0 fL; White Blood Count 8.1 K/mm3 (4.8-10.8)
[2025-01-25 21:53] LABS: Lactate Venous 1.1 mmol/L (0.4-2.0); VBG HCO3 28.1 mmol/L (23-30); VBG PCO2 50.0 mmol/L (35-51); VBG PH 7.37 mmol/L (7.31-7.41); VBG PO2 39.6 mmol/L (28-40)
[2025-01-25 22:10] LABS: Alanine Aminotransferase 28 U/L (12-78); Albumin Level 4.7 g/dl (3.5-5.0); Albumin/Globulin Ratio 1.4 (1.1-1.8); Alkaline Phosphatase 62 U/L (38-126); Anion Gap 12.2 mEq/L (5-15); Aspartate Amino Transferase 35 U/L (17-59); Bilirubin,Total 0.4 mg/dl (0.2-1.3); Blood Urea Nitrogen 9 mg/dl (9-20); Calcium 9.3 mg/dl (8.4-10.2); Carbon Dioxide 29 mmol/L (22.0-30.0); Chloride 102 mmol/L (98-107); Creatinine Clearance Estimated 118 mL/min (50-200); Creatinine,Serum 0.80 mg/dl (0.66-1.25); Estimated Glomerular Filt Rate 118 ml/min (>60); GFR (African American) 143 ML/MIN (>60); Globulin 3.4 g/dL (1.3-3.2); Glucose 114 mg/dl (74-100); Potassium 3.2 mmoL/L (3.5-5.1); Sodium 140 mmol/L (136-145); Total Protein,Serum 8.1 g/dl (6.3-8.2)
[2025-01-25 22:15] LABS: D-Dimer 0.59 ug/mL (0.0-0.5)
[2025-01-25 22:16] LABS: Coronavirus 19, PCR Not Detected (NotDetected); Influenza A, PCR Not Detected (NotDetected); Influenza B, PCR Not Detected (NotDetected)
[2025-01-25 22:28] LABS: Troponin I < 0.01 ng/ml (0.00-0.034)
[2025-01-25] MEDS: POTASSIUM CHLORIDE 20MEQ TAB 20 MEQ PO (22:36)
[2025-01-25 23:06] VITALS: BP 128/78; PULSE 74; RESP 18; TEMP 36.6; O2SAT 98
== END 2025-01-25 23:08 | disposition home or self-care (01) ==
PROVIDERS: Emergency Provider Student in an Organized Health Care Education/Training Program; PCP Family Medicine
DX: R07.9 Chest pain, unspecified (principal); R06.02 Shortness of breath; E87.6 Hypokalemia; R42 Dizziness and giddiness; F17.290 Nicotine dependence, other tobacco product, uncomplicated
CPT/HCPCS: 80053; 82803; 84484; 85025; 85378; 87636; 93005; 99284; 99285

== ENCOUNTER 2025-02-04 12:02 | Emergency (ER) | payer SELFPAY ==
[2025-02-04 12:09] VITALS: BP 133/80; PULSE 86; O2SAT 99
--- NOTE | 2025-02-04 12:11 | ED_ITS ---
<Statement entered by Danya Dunn MD - 02/04/25 15:36> I was consulted by the DEBBIE, and we discussed the complexity of the problems being addressed. I approved the treatment and management plan for this patient's care in the emergency department, thus performing a substantive portion of the medical decision making. Danya Dunn MD, ROSCOE, FACEP Discharge Plan Disposition Patient Disposition: Home, Self-Care Condition: Good Prescriptions Prescriptions: New ondansetron 4 mg tablet,disintegrating 4 mg PO Q6H PRN (Reason: nausea and vomiting) Qty: 14 0RF No Action hydroxyzine HCl 25 mg tablet 25 mg PO Q6H PRN (Reason: anxiety) Qty: 30 3RF clotrimazole [Antifungal (clotrimazole)] 1 % cream 1 applic topical BID 28 Days Qty: 45 0RF Referrals Follow up/Referrals: Jose Nicole MD [Primary Care Provider, Family Practice] - See instructions Activity Restrictions/Add. Instructions Additional Instructions/Restrictions: Please return to the emergency department with with any worsening signs or symptoms. I recommend good p.o. intake with oral fluids and oral solids as tolerated. Please use antinausea medication as needed. Please follow-up with your PCP in the upcoming days/weeks. Clinical Impressions Clinical Impression: Nausea & vomiting Instructions Patient Instructions: DI for Nausea in Adults, DI for Vomiting in Adults Print Language Print Language: Greenlandic Discharge ED Provider: Danya Dunn General Adult HPI General Chief complaint: Abdominal Pain Stated complaint: stomach pain, vomiting Time Seen by Provider: 02/04/25 12:06 Mode of Arrival: Ambulatory Source of Information: Patient Limitations: No Limitations History of Present Illness HPI narrative: 24-year-old male presents the emergency department with 1 episode of nausea and vomiting and abdominal discomfort that occurred several hours ago while the patient was at work , patient denies any changes in his diet, denies any recent sick contacts, denies any fever chills cough congestion chest pain shortness of breath, denies any diarrhea constipation, denies any urinary symptomatology, patient is a current everyday smoker (vapes), denies any alcohol or drug use, patient has no other real relevant past medical history with the exception of anxiety for which he takes medication for at home. Also of note, patient is a data deficient history of what sounds like spontaneous pneumothorax, some requiring intervention with thoracostomy. Initial triage vitals notable for tachycardia otherwise unremarkable. Please note that above description of symptoms, in this electronic medical record under categorization of recalled from ER triage doctor by RN are reflective of an initial nursing assessment, however, is not reflective of my full history and physical exam that was personally taken and clarified. Consequentially, this preceding description of symptoms, which may include the patient's categorized chief complaint in the EMR, do not reflect my personal clinical impression, and the ultimate description of history of present illness and patient stated complaints should be deferred to this section of the note. Unless stated otherwise or congruent with this section of the note, additional signs, symptoms, or incongruence should be interpreted as inaccurate with my clinical impression. Onset (ago): hour(s) Related Data Previous Rx's ?Medication ?Instructions ?Recorded hydroxyzine HCl 25 mg tablet 25 mg PO Q6H PRN anxiety #30 tabs 01/05/25 clotrimazole 1 % topical cream 1 applic topical BID 4 weeks #45 01/07/25 (Antifungal (clotrimazole)) grams ondansetron 4 mg disintegrating 4 mg PO Q6H PRN nausea and 02/04/25 tablet vomiting #14 tabs Allergies Allergy/AdvReac Type Severity Reaction Status Date / Time ibuprofen (From Motrin) Allergy Intermediate Unknown Verified 01/18/25 11:03 allergy reaction [facility] Disclaimer: The information contained in this section may have been updated after the patient was seen, as this information can be updated by other users. 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 Marijuana use Hydropneumothorax Hemopneumothorax, left Pneumothorax on right COVID Anxiety URI (upper respiratory infection) Viral gastritis Recurrent spontaneous pneumothorax Pneumothorax Atypical chest pain Viral upper respiratory illness Strep throat Viral syndrome Pre-syncope COVID-19 Influenza B Breath shortness Acute pain of left shoulder Collapse, lung 4 times Surgical History History of lung surgery Social History Smoking Status: Current every day smoker tobacco type: e-cigarettes second hand exposure: Yes alcohol intake: never substance use type: marijuana current occupational status: other Travel in the last 8 weeks?: None household members: family housing: house current occupation: [employer] caffeine: Yes Have you lived/traveled outside US in past 30 days?: No Contact w/someone who lives/traveled outside US past 30 days?: No Exposure to someone with infectious disease in past 14 days?: No Do you have a fever (greater than 100.4 F or 38 C)?: No Have you tested positive for COVID-19?: No Exposed to someone with COVID-19 in past 14 days?: No Do you have a sore throat?: No Do you have a cough?: No Do you have any weakness?: No Do you have any diarrhea?: No Are you experiencing any unusual bleeding?: No Do you have any muscle aches/pain?: No Do you have any abdominal pain?: No Are you experiencing loss of taste or smell?: No Other 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 Have you received the Flu Vaccine for this season: Yes Have you received the Pneumonia Vaccine: No ROS Obtained: Yes All systems reviewed & no additional complaints except as documented Physical Exam General General appearance: alert and in no apparent distress Head Head exam: atraumatic and normocephalic Eye Eye exam: Present PERRL and EOMI ENT ENT exam: Present mucous membranes moist Neck Neck exam: Present normal inspection Chest Chest inspection: Present normal inspection and symmetric chest wall rise Respiratory Respiratory exam: Present normal lung sounds bilaterally; Absent respiratory distress, wheezes or stridor Cardiovascular Cardiovascular exam: Present regular rate and normal rhythm Abdominal Exam Abdominal exam: Present soft; Absent tenderness, guarding, rebound or rigidity Extremities Exam Extremities exam: Present normal inspection Neurological Exam Neurological exam: Present alert and oriented X3 Psychiatric Psychiatric exam: Present normal affect Skin Skin exam: Present warm and dry Medical Decision Making Medical Records Medical records reviewed: Yes I reviewed the patient's medical records. Screening: Per USPSTF and CDC recommendations, given the prevalence of disease in our region, it is our hospital?s policy to screen for HIV and viral Hepatitis for all patients aged 18 and over and those with ongoing risk factors. Chinmay Inquiry Pt receiving controlled substance: No Chinmay was queried for this patient: No Vital Signs: 02/04/25 12:09 02/04/25 12:30 02/04/25 12:34 Temperature 98.3 F Temperature Source Oral Pulse Rate 86 77 Pulse Rate [Left Radial] 111 H Respiratory Rate 23 Blood Pressure 133/80 113/66 Blood Pressure [Right Arm] 133/80 Blood Pressure Mean [Right Arm] 97 02 Sat by Pulse Oximetry 99 98 100 Oxygen Delivery Method Room Air Lab Data Lab results reviewed: Yes I reviewed the patient's lab results. Lab Results 02/04/25 12:07: Urine Color Yellow, Urine Appearance Slightly cloudy, Urine pH 7.5, Ur Specific Lejunior 1.020, Urine Protein Negative, Urine Glucose (UA) Negative, Urine Ketones Negative, Urine Blood Negative, Urine Nitrate Negative, Urine Bilirubin Negative, Urine Urobilinogen 1.0, Ur Leukocyte Esterase Negative, Urine RBC Occasional, Urine WBC Occasional, Ur Squamous Epith Cells 10-20, Urine Bacteria Trace, Urine Opiates Screen Negative, Urine Methadone Screen Negative, Ur Barbituates Screen Negative, Ur Phencyclidine Scrn Negative, Ur Amphetamines Screen Negative, U Benzodiazepines Scrn Negative, Urine Cocaine Screen Negative, U Marijuana (THC) Screen Positive H 02/04/25 12:11: WBC 6.5, RBC 4.90, Hgb 14.4, Hct 42.0, MCV 85.7, MCH 29.4, MCHC 34.3, RDW 12.5, Plt Count 215, MPV 9.0, Neut % (Auto) 73.3, Lymph % (Auto) 18.0, Barrow % (Auto) 6.8, Eos % (Auto) 1.4, Baso % (Auto) 0.3, Neut # (Auto) 4.8, Lymph # (Auto) 1.2, Barrow # (Auto) 0.4, Eos # (Auto) 0.1, Baso # (Auto) 0.0, Sodium 138, Potassium 3.5, Chloride 100, Carbon Dioxide 30, Anion Gap 11.5, BUN 8 L, Creatinine 0.80, Estimated GFR 118, Est GFR ( Amer) 143, Glucose 82, L actate 0.5 L, Calcium 9.4, Total Bilirubin 0.5, AST 28, ALT 22, Alkaline Phosphatase 61, Total Protein 8.4 H, Albumin 5.1 H, Globulin 3.3 H, Albumin/Globulin Ratio 1.5 02/04/25 12:11 02/04/25 12:11 Orders (Tests/Meds): ED MEDICATIONS Discontinued Medications Generic Name Dose Route Start Last Admin Trade Name Freq PRN Reason Stop Dose Admin Ondansetron HCl 4 mg 02/04/25 12:18 02/04/25 12:30 Ondansetron 4mg/2ml Vial IV 02/04/25 12:19 4 mg ONCE ONE Administration ORDERS Category Date Time Status Complete Blood Count Auto Diff Stat Lab 02/04/25 12:11 Completed Comprehensive Metabolic Panel Stat Lab 02/04/25 12:11 Completed Drug Screen,Urine Stat Lab 02/04/25 12:07 Completed Lactic Acid Stat Lab 02/04/25 12:11 Completed Lipase Stat Lab 02/04/25 12:11 Received Magnesium Stat Lab 02/04/25 12:11 Received Urinalysis and Microscopic Stat Lab 02/04/25 12:07 Completed Medical Decision Narrative: 24-year-old male presents the emergency department with 1 episode of nausea and vomiting that occurred prior to arrival differential diagnose include but not limited to, electrolyte disturbance, gastroenteritis, colitis, psychogenic nausea and vomiting, cannabinoid hyperemesis syndrome, acute UTI, hypovolemia among others. I discussed this patient's case with the attending physician Dr. Dunn Will obtain basic laboratory studies, UDS lactic acid level lipase level magnesium level UA will give 4 mg IV Zofran for nausea. UA is unremarkable, microscopic analysis is notable for occasional RBCs occasional WBCs 10-20 squamous epithelial cells and trace bacteria. There is no lactic acidosis CBC grossly unremarkable CMP unremarkable UDS is positive for marijuana. Reexamination of the patient at approximately 12:45 PM, patient is hemodynamically stable, resting comfortably and sleeping in bed tachycardia has improved. Patient abdominal exam remains benign, no episodes of nausea and vomiting here in the emergency department he tolerated p.o. intake here in the emergency department. With 1 episode of nausea vomiting no other acute signs or symptoms laboratory studies unremarkable hemodynamically stable I think low risk for any abdominal pathology, will treat the patient with 4 mg p.o. ondansetron sublingual, as needed for nausea and vomiting. Patient was given strict return precautions. Patient voiced understanding and agreement with current treatment plan/discharge plan. Critical Care Critical Care Time Critical Care Time: No
[2025-02-04 12:20] LABS: Microscopic, Urine URINE MICROSCOPIC (MICROSCOPIC)
--- OUTSIDE RECORDS SUMMARY | 2025-02-04 12:20 | XMS_ITS | Clinical Summary ---
Author Organization [facility] Address [address] [place] [address] Care Team Providers Care Founder Chairman And Chief Creative Officer Name Role Phone Self, Referred MD Primary [...] (2 - Td or Tdap) 10/30/2021 10/31/2011 [id number] Vaccine (1 - 2023- season) 2024 UKY-Influenza [...] topic Insurance [employer] [place] Care Teams Founder Chairman And Chief Creative Officer Relationship Specialty Start Date End Date Self, Referred, PCP - General 08/29/20
--- OUTSIDE RECORDS SUMMARY | 2025-02-04 12:20 | XMS_ITS | Encounter Summary ---
Author Organization [facility] Address [address] [place] [address] Care Team Providers Care Stake Driver Name Role Phone Self, Referred MD Primary Care Provider Halleya ble Encounter Details Date Type Department Care Team (Late st Contact Info) Description 08/12/2020 [facility] Head, Neck & Respiratory [address] [place] [address] Carla Marie, RN [facility] [...] on filedocumented in this encounter Care Teams Stake Driver Relationship Specialty Start Date End Date Self, ReferredMD PCP - General 08/29/20 documented as of this encounter
[2025-02-04 12:28] LABS: Bilirubin,Urine Negative (Negative); Color,Urine YELLOW (Yellow); Glucose,Urine (UA) Negative (Negative); Ketones,Urine Negative (Negative); Leukocyte Esterase,Urine Negative (Negative); PH,Urine 7.5 (5.0-8.5); Protein,Urine Negative (Negative); Specific Gravity, Urine 1.020 (1.005-1.030); Urobilinogen,Urine 1.0 EU/dl (0.2)
[2025-02-04 12:29] LABS: Hematocrit 42.0 % (42.0-52.0); Hemoglobin 14.4 g/dL (14.1-18.0); Immature Granulocytes % 0.2 %; Mean Corpuscular HGB Conc 34.3 g/dL (31.8-35.4); Mean Corpuscular Hemoglobin 29.4 pg (27.0-31.2); Mean Corpuscular Volume 85.7 fl (80-94); Nucleated Red Blood Cells % 0 %; Platelet Count 215 K/mm3 (142-424); Red Blood Count 4.90 M/mm3 (4.60-6.20); Red Cell Distribution Width-SD 38.8 fL; White Blood Count 6.5 K/mm3 (4.8-10.8)
[2025-02-04 12:30] VITALS: BP 113/66; PULSE 77; O2SAT 98
[2025-02-04] MEDS: ONDANSETRON 4MG/2ML VIAL 4 MG IV (12:30)
[2025-02-04 12:34] VITALS: BP 133/80; PULSE 111; RESP 23; TEMP 36.8; O2SAT 100; BMI 19.8
[2025-02-04 12:34] LABS: Alanine Aminotransferase 22 U/L (12-78); Albumin Level 5.1 g/dl (3.5-5.0); Albumin/Globulin Ratio 1.5 (1.1-1.8); Alkaline Phosphatase 61 U/L (38-126); Anion Gap 11.5 mEq/L (5-15); Aspartate Amino Transferase 28 U/L (17-59); Bilirubin,Total 0.5 mg/dl (0.2-1.3); Blood Urea Nitrogen 8 mg/dl (9-20); Calcium 9.4 mg/dl (8.4-10.2); Carbon Dioxide 30 mmol/L (22.0-30.0); Chloride 100 mmol/L (98-107); Creatinine,Serum 0.80 mg/dl (0.66-1.25); Estimated Glomerular Filt Rate 118 ml/min (>60); GFR (African American) 143 ML/MIN (>60); Globulin 3.3 g/dL (1.3-3.2); Glucose 82 mg/dl (74-100); Potassium 3.5 mmoL/L (3.5-5.1); Sodium 138 mmol/L (136-145); Total Protein,Serum 8.4 g/dl (6.3-8.2)
[2025-02-04 12:36] LABS: Bacteria,Urine Trace /lpf; RBC,Urine Occasional #/hpf (0-3); WBC,Urine Occasional #/hpf (0-3)
[2025-02-04 12:37] LABS: Benzodiazepines Screen,Urine Negative ng/ml (<200)
[2025-02-04 12:38] LABS: Amphetamine/Metha Screen,Urine Negative ng/ml (<1000); Barbiturates Screen,Urine Negative ng/ml (<200)
[2025-02-04 12:40] LABS: Methadone Screen,Urine Negative ng/ml (<300)
[2025-02-04 12:41] LABS: Opiate Screen,Urine Negative ng/ml (<300)
[2025-02-04 12:42] LABS: Phencyclidine Screen,Urine Negative ng/ml (<25)
[2025-02-04 12:56] VITALS: BP 133/80; PULSE 79; RESP 20; TEMP 36.8; O2SAT 100
[2025-02-04 14:09] LABS: Lipase 139 U/L (23-300); Magnesium 1.8 mg/dl (1.6-2.3)
== END 2025-02-04 13:00 | disposition home or self-care (01) ==
PROVIDERS: Physician Assistant; Emergency Provider Student in an Organized Health Care Education/Training Program; PCP Family Medicine
DX: R11.2 Nausea with vomiting, unspecified (principal); F17.200 Nicotine dependence, unspecified, uncomplicated
CPT/HCPCS: 80053; 80307; 81001; 83605; 83690; 83735; 85025; 96374; 99285; J2405

== ENCOUNTER 2025-02-09 15:40 | Emergency (ER) | payer SELFPAY ==
[2025-02-09 15:47] VITALS: BP 132/84; PULSE 115; RESP 18; TEMP 36.8; O2SAT 99; BMI 19.2
--- NOTE | 2025-02-09 15:52 | CT_ITS ---
PROCEDURE INFORMATION: Exam: CTA Chest With Contrast Exam date and time: 02/09/2025 4:05 PM Age: 24 years old Clinical indication: Sternal or substernal pain; Additional info: Cp prev ptx multiple TECHNIQUE: Imaging protocol: Computed tomographic angiography of the chest with contrast. Exam focused on the arteries. 3D rendering (Not supervised by radiologist): MIP and/or 3D reconstructed images were created by the technologist. Radiation optimization: All CT scans at this facility use at least one of these dose optimization techniques: automated exposure control; mA and/or kV adjustment per patient size (includes targeted exams where dose is matched to clinical indication); or iterative reconstruction. Contrast material: ISOVUE 370; Contrast volume: 70 ml; Contrast route: INTRAVENOUS (IV); COMPARISON: CT ANGIO CHEST PE PROTOCOL 12/10/2024 6:49 PM FINDINGS: Pulmonary arteries: Normal. No pulmonary emboli. Aorta: Unremarkable. No aortic aneurysm. No aortic dissection. Lungs: Unremarkable. No consolidation. No masses. Pleural spaces: Unremarkable. No pneumothorax. No pleural effusion. Heart: Unremarkable. No cardiomegaly. No pericardial effusion. Lymph nodes: Unremarkable. No enlarged lymph nodes. Bones/joints: Unremarkable. No acute fracture. Soft tissues: Unremarkable. IMPRESSION: No acute findings.
--- NOTE | 2025-02-09 15:54 | ED_ITS ---
Discharge Plan Disposition Patient Disposition: Home, Self-Care Prescriptions Prescriptions: No Action hydroxyzine HCl 25 mg tablet 25 mg PO Q6H PRN (Reason: anxiety) Qty: 30 3RF clotrimazole [Antifungal (clotrimazole)] 1 % cream 1 applic topical BID 28 Days Qty: 45 0RF ondansetron 4 mg tablet,disintegrating 4 mg PO Q6H PRN (Reason: nausea and vomiting) Qty: 14 0RF Referrals Follow up/Referrals: Jose Nicole MD [Primary Care Provider, Family Practice] - See instructions Activity Restrictions/Add. Instructions Additional Instructions/Restrictions: At this time it was felt you are safe to be discharged home. If new or worsening symptoms please do not hesitate to return the emergency department. If your chest pain persist please call and schedule appoint with Dr. Nicole for continued evaluation and possible referral. Clinical Impressions Clinical Impression: Chest pain Print Language Print Language: Cypriot Discharge ED Provider: Oscar Penaloza General Adult HPI General Chief complaint: Upper Respiratory Infection Stated complaint: Cough & Burning sensation in chest Time Seen by Provider: 02/09/25 15:44 Mode of Arrival: Ambulatory Source of Information: Patient Description of Symptoms (Recalled from ER Triage Doc. by RN): Reports being at work when he began to have a burning in his chest. Complaint of coughing up green mucus. History of Present Illness HPI narrative: Patient is a 24-year-old male with past medical history of previous pneumothorax some of which requiring surgical intervention previous pleurodesis on the left, anxiety on hydroxyzine who presents to the emergency department for evaluation of shortness of breath and burning sensation in his chest. History is obtained by patient at bedside onset was acute occurring today when he started work. His chest pain only occurs when he takes a deep breath. It does not radiate. No abdominal pain no vomiting no diarrhea no other acute complaints at this time. Please note that above description of symptoms, in this electronic medical record under categorization of recalled from ER triage doctor by RN are reflective of an initial nursing assessment, however, is not reflective of my full history and physical exam that was personally taken and clarified. Consequentially, this preceding description of symptoms, which may include the patient's categorized chief complaint in the EMR, do not reflect my personal clinical impression, and the ultimate description of history of present illness and patient stated complaints should be deferred to this section of the note. Unless stated otherwise or congruent with this section of the note, additional signs, symptoms, or incongruence should be interpreted as inaccurate with my clinical impression. Related Data Previous Rx's ?Medication ?Instructions ?Recorded hydroxyzine HCl 25 mg tablet 25 mg PO Q6H PRN anxiety #30 tabs 01/05/25 clotrimazole 1 % topical cream 1 applic topical BID 4 weeks #45 01/07/25 (Antifungal (clotrimazole)) grams ondansetron 4 mg disintegrating 4 mg PO Q6H PRN nausea and 02/04/25 tablet vomiting #14 tabs Allergies Allergy/AdvReac Type Severity Reaction Status Date / Time ibuprofen (From Motrin) Allergy Intermediate Unknown Verified 01/18/25 11:03 allergy reaction [facility] Disclaimer: The information contained in this section may have been updated after the patient was seen, as this information can be updated by other users. 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 Marijuana use Hydropneumothorax Hemopneumothorax, left Pneumothorax on right COVID Anxiety URI (upper respiratory infection) Viral gastritis Recurrent spontaneous pneumothorax Pneumothorax Atypical chest pain Viral upper respiratory illness Strep throat Viral syndrome Pre-syncope COVID-19 Influenza B Breath shortness Acute pain of left shoulder Collapse, lung 4 times Surgical History History of lung surgery Social History Smoking Status: Current every day smoker tobacco type: e-cigarettes second hand exposure: Yes alcohol intake: never substance use type: marijuana current occupational status: other Travel in the last 8 weeks?: None household members: family housing: house current occupation: [employer] caffeine: Yes Have you lived/traveled outside [place] in past 30 days?: No Contact w/someone who lives/traveled outside US past 30 days?: No Exposure to someone with infectious disease in past 14 days?: No Do you have a fever (greater than 100.4 F or 38 C)?: No Have you tested positive for COVID-19?: No Exposed to someone with COVID-19 in past 14 days?: No Do you have a sore throat?: No Do you have a cough?: No Do you have any weakness?: No Do you have any diarrhea?: No Are you experiencing any unusual bleeding?: No Do you have any muscle aches/pain?: No Do you have any abdominal pain?: No Are you experiencing loss of taste or smell?: No Other 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 Have you received the Flu Vaccine for this season: Yes Have you received the Pneumonia Vaccine: No ROS Obtained: Yes Systems reviewed as appropriate & no additional complaints except as documented Physical Exam General General appearance: alert and in no apparent distress Head Head exam: atraumatic and normocephalic Eye Eye exam: Present PERRL and EOMI ENT ENT exam: Present mucous membranes moist Neck Neck exam: Present normal inspection Chest Chest inspection: Present normal inspection and symmetric chest wall rise Respiratory Respiratory exam: Present normal lung sounds bilaterally; Absent respiratory distress, wheezes or stridor Cardiovascular Cardiovascular exam: Present normal rhythm and tachycardia Abdominal Exam Abdominal exam: Present soft; Absent tenderness Extremities Exam Extremities exam: Present normal inspection Neurological Exam Neurological exam: Present alert Psychiatric Psychiatric exam: Present normal affect Skin Skin exam: Present warm and dry Medical Decision Making Medical Records Screening: Per USPSTF and CDC recommendations, given the prevalence of disease in our region, it is our hospital?s policy to screen for HIV and viral Hepatitis for all patients aged 18 and over and those with ongoing risk factors. Chinmay Inquiry Pt receiving controlled substance: No Vital Signs: 02/09/25 15:47 Temperature 98.2 F Temperature Source Oral Pulse Rate [Radial] 115 H Respiratory Rate 18 Blood Pressure [Right Arm] 132/84 Blood Pressure Mean [Right Arm] 100 Blood Pressure Source [Right Arm] Automatic Cuff Blood Pressure Position [Right Arm] Sitting 02 Sat by Pulse Oximetry 99 Oxygen Delivery Method Room Air Lab Data Lab Results 02/09/25 15:57: WBC 6.5, RBC 4.78, Hgb 14.0 L, Hct 40.7 L, MCV 85.1, MCH 29.3, MCHC 34.4, RDW 12.4, Plt Count 211, MPV 8.8, Neut % (Auto) 73.7, Lymph % (Auto) 18.3, [place] % (Auto) 6.8, Eos % (Auto) 0.9, Baso % (Auto) 0.3, Neut # (Auto) 4.8, Lymph # (Auto) 1.2, [place] # (Auto) 0.4, Eos # (Auto) 0.1, Baso # (Auto) 0.0, Sodium 145, Potassium 3.8, Chloride 101, Carbon Dioxide 28, Anion Gap 19.8 H, B UN 6 L, Creatinine 0.80, Estimated Creat Clear 118, Estimated GFR 118, Est GFR ( Amer) 143, Glucose 102 H, Calcium 9.2, Total Bilirubin 0.5, AST 26, ALT 18, Alkaline Phosphatase 62, Troponin I < 0.01, Total Protein 8.1, Albumin 4.9, Globulin 3.2, Albumin/Globulin Ratio 1.5, Free T4 1.22 02/09/25 15:57 02/09/25 15:57 Orders (Tests/Meds): ED MEDICATIONS Discontinued Medications Generic Name Dose Route Start Last Admin Trade Name Freq PRN Reason Stop Dose Admin Acetaminophen 1,000 mg 02/09/25 15:52 02/09/25 16:16 Acetaminophen 500mg Tab PO 02/09/25 15:53 1,000 mg ONCE ONE Administration Iopamidol 70 ml 02/09/25 16:06 02/09/25 16:07 Iopamidol-370 (76%);100ml Bottle IV 02/09/25 16:07 70 ml ONCE ONE Administration Ketorolac Tromethamine 30 mg 02/09/25 15:52 02/09/25 16:16 Ketorolac 30mg/Ml Vial IV 02/09/25 15:53 30 mg ONCE ONE Administration Sodium Chloride 10 ml 02/09/25 16:06 02/09/25 16:06 Sodium Chloride 0.9% 10ml Syr (Rad Only) IV 02/09/25 16:07 10 ml ONCE ONE Administration Sodium Chloride 50 ml 02/09/25 16:06 02/09/25 16:06 0.9 % Sodium Chloride 50 Ml Vial IV 02/09/25 16:07 50 ml ONCE ONE Administration ORDERS Category Date Time Status CTA Chest [CT angio chest PE protocol] Stat Cat Scan 02/09/25 15:52 Completed CBC w/Auto Diff [Complete Blood Count Auto Diff] Stat Lab 02/09/25 15:57 Completed CMP [Comprehensive Metabolic Panel] Stat Lab 02/09/25 15:57 Results Free T4 (Free Thyroxine) Stat Lab 02/09/25 15:57 Completed TSH [Thyroid Stimulating Hormone] Stat Lab 02/09/25 15:57 Results Trop I [Troponin I] Stat Lab 02/09/25 15:57 Results Troponin I Q3H Lab 02/09/25 19:00 Ordered Troponin I Q3H Lab 02/09/25 22:00 Ordered ECG Data Tracing #1: Independently interpreted by me rate is 100, rhythm is regular, axis is normal, no ST elevation in anatomical contiguous leads, QTc 371, sinus tachycardia. Medical Decision Narrative: In summary patient is a 24-year-old male with past medical history of scrota above who presents emergency department for evaluation of shortness of breath and pleuritic chest pain. Patient is hemodynamically stable nontoxic-appearing upon arrival, afebrile, tachycardia heart rate 115. Differential diagnosis includes cardiac chest pain, pneumothorax, pulmonary embolism, metabolic derangement, noncardiac chest pain, anxiety, among others. Workup will be conducted with hematologic labs, EKG, CT pulmonary embolism protocol. Initial inventions include Tylenol, Toradol (although patient is allergic to Motrin he states he can tolerate Toradol). Initial work reviewed by me hematologic labs are nonactionable no significant leukocytosis no transfusable anemia no DALE or critical electrolyte abnormality initial troponin undetectably low free T4 within normal limits. CT imaging informally interpreted by me no acute large pneumothorax, no saddle pulmonary embolism. Formal read no acute pathology. Given this it was felt that all emergent conditions were ruled out at this time and patient is appropriate for outpatient management was given return precautions. Primary Special Educator disclaimer Much of this encounter note is an electronic communications department chair spoken language to printed text. Electronic communications department chair of the spoken language may permit errors. Although I have reviewed the note, some errors may still exist. Critical Care Critical Care Time Critical Care Time: No
--- NOTE | 2025-02-09 16:02 | ECG_ITS ---
APPROVED REPORT Exam: Resting ECG HR:100 bpm ECG Measurements Heart Rate 100 AXES AK 183 P 83 QRSd 80 QRS 83 QT 314 T 63 QTc 371 Conclusion SINUS TACHYCARDIA POSSIBLE RIGHT VENTRICULAR CONDUCTION DELAY [RSR (QR) IN V1/V2] EARLY REPOLARIZATION [ST ELEVATION WITH NORMALLY INFLECTED T-WAVE] ABNORMAL RHYTHM ECG Electronically signed by : SAADIA TERRELL, 02/14/2025 07:37:54
[2025-02-09 16:04] LABS: Hematocrit 40.7 % (42.0-52.0); Hemoglobin 14.0 g/dL (14.1-18.0); Immature Granulocytes % 0 %; Mean Corpuscular HGB Conc 34.4 g/dL (31.8-35.4); Mean Corpuscular Hemoglobin 29.3 pg (27.0-31.2); Mean Corpuscular Volume 85.1 fl (80-94); Nucleated Red Blood Cells % 0 %; Platelet Count 211 K/mm3 (142-424); Red Blood Count 4.78 M/mm3 (4.60-6.20); Red Cell Distribution Width-SD 38.3 fL; White Blood Count 6.5 K/mm3 (4.8-10.8)
[2025-02-09] MEDS: 0.9 % SODIUM CHLORIDE 50 ML VIAL IV (16:06)
[2025-02-09] MEDS: SODIUM CHLORIDE 0.9% 10ML SYR (RAD ONLY) 10 ML IV (16:06)
[2025-02-09] MEDS: IOPAMIDOL-370 (76%);100ML BOTTLE 70 ML IV (16:07)
[2025-02-09] MEDS: KETOROLAC 30MG/ML VIAL 30 MG IV (16:16)
[2025-02-09] MEDS: ACETAMINOPHEN 500MG TAB 1000 MG PO (16:16)
[2025-02-09 16:18] LABS: Albumin Level 4.9 g/dl (3.5-5.0); Chloride 101 mmol/L (98-107); Sodium 145 mmol/L (136-145)
[2025-02-09 16:19] LABS: Potassium 3.8 mmoL/L (3.5-5.1)
[2025-02-09 16:21] LABS: Alanine Aminotransferase 18 U/L (12-78); Albumin/Globulin Ratio 1.5 (1.1-1.8); Alkaline Phosphatase 62 U/L (38-126); Anion Gap 19.8 mEq/L (5-15); Aspartate Amino Transferase 26 U/L (17-59); Bilirubin,Total 0.5 mg/dl (0.2-1.3); Blood Urea Nitrogen 6 mg/dl (9-20); Carbon Dioxide 28 mmol/L (22.0-30.0); Creatinine Clearance Estimated 118 mL/min (50-200); Creatinine,Serum 0.80 mg/dl (0.66-1.25); Estimated Glomerular Filt Rate 118 ml/min (>60); GFR (African American) 143 ML/MIN (>60); Globulin 3.2 g/dL (1.3-3.2); Total Protein,Serum 8.1 g/dl (6.3-8.2)
[2025-02-09 16:22] LABS: Calcium 9.2 mg/dl (8.4-10.2); Glucose 102 mg/dl (74-100)
[2025-02-09 16:37] LABS: Free T4 (Free Thyroxine) 1.22 ng/dl (0.78-2.19)
[2025-02-09 16:50] LABS: Troponin I < 0.01 ng/ml (0.00-0.034)
[2025-02-09 16:51] LABS: Thyroid Stimulating Hormone 1.27 uIU/mL (0.465-4.68)
[2025-02-09 17:06] VITALS: BP 117/72; PULSE 77; RESP 18; TEMP 36.8; O2SAT 100
== END 2025-02-09 17:07 | disposition home or self-care (01) ==
PROVIDERS: Emergency Provider Emergency Medicine; PCP Family Medicine
DX: R07.1 Chest pain on breathing (principal); R00.0 Tachycardia, unspecified; F17.290 Nicotine dependence, other tobacco product, uncomplicated
CPT/HCPCS: 71275; 80053; 84439; 84443; 84484; 85025; 93005; 96374; 99284; J1885; Q9967

== ENCOUNTER 2025-02-11 00:09 | Emergency (ER) | payer SELFPAY ==
[2025-02-11] VITALS (10 sets, daily range): BP systolic 103–129; BP diastolic 75–84; PULSE 67–87; RESP 18–20; TEMP 36.5–36.6; O2SAT 97–100; BMI 19.2
--- OUTSIDE RECORDS SUMMARY | 2025-02-11 00:23 | XMS_ITS | Clinical Summary ---
Author Organization [facility] Address [address] [place] [address] Care Team Providers Care Propagator Laborer Name Role Phone Self, Referred MD Primary [...] (2 - Td or Tdap) 10/30/2021 10/31/2011 [id number] Vaccine (1 - 2024- season) 2024 UKY-Influenza Vaccine (#1) 2024 UKY-Zoster [...] topic Insurance [employer] [place] Care Teams Propagator Laborer Relationship Specialty Start Date End Date Self, Referred, PCP - General 08/29/20
--- OUTSIDE RECORDS SUMMARY | 2025-02-11 00:23 | XMS_ITS | Encounter Summary ---
Author Organization [facility] Address [address] [place] [address] Care Team Providers Care Amr Physician Name Role Phone Self, Referred MD Primary Care Provider Halleya ble Encounter Details Date Type Department Care Team (Late st Contact Info) Description 08/12/2020 Abstract [facility] Head, Neck & Respiratory [address] [place] [address] Carla Marie, RN AMB-[facility]MO INFUSION [facility] None Social History Tobacco Use Types Packs/Day Years [...] on filedocumented in this encounter Care Teams Amr Physician Relationship Specialty Start Date End Date Self, ReferredMD PCP - General 08/29/20 documented as of this encounter
[2025-02-11] MEDS: ONDANSETRON 4MG ODT 4 MG SL (00:43)
[2025-02-11] MEDS: BELLADONNA ALKALOIDS 60 ML ML PO (00:52)
--- NOTE | 2025-02-11 01:41 | HMH.EDGENADL ---
Discharge Plan Disposition Patient Disposition: Home, Self-Care Condition: Good Prescriptions Prescriptions: New ondansetron 4 mg tablet,disintegrating 4 mg PO Q6H PRN (Reason: nausea and vomiting) Qty: 10 0RF No Action hydroxyzine HCl 25 mg tablet 25 mg PO Q6H PRN (Reason: anxiety) Qty: 30 3RF clotrimazole [Antifungal (clotrimazole)] 1 % cream 1 applic topical BID 28 Days Qty: 45 0RF ondansetron 4 mg tablet,disintegrating 4 mg PO Q6H PRN (Reason: nausea and vomiting) Qty: 14 0RF Referrals Follow up/Referrals: Jose Nicole MD [Primary Care Provider, Family Practice] - See instructions Luis Gooden II, MD [Staff Physician, Gastroenterology] - See instructions Referral Note: Follow-up recurrent heartburn, nausea Activity Restrictions/Add. Instructions Additional Instructions/Restrictions: You were evaluated in the ER and are believed to be appropriate for discharge at this time. 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 I sent in a new prescription for this medication in case the other prescription has . Take Zofran as directed for nausea. Eat a bland diet including plain rice, toast, bananas until your symptoms subside and you can gradually progress your diet. Follow-up with your primary care doctor for reevaluation. I also placed a referral to GI, call Dr. Gooden office and make an appointment for further evaluation. Return to the ER with any new, worsening, or otherwise concerning symptoms. Clinical Impressions Clinical Impression: Nausea and vomiting Instructions Patient Instructions: DI for Diarrhea and Traveler's Diarrhea in Adults, DI for Diarrhea and Traveler's Diarrhea in Children, DI for Nausea in Adults, DI for Nausea in Children Print Language Print Language: Comoran Discharge ED Provider: Inga Argueta General Adult HPI General Chief complaint: Nausea/Vomiting/Diarrhea Stated complaint: vomiting, heartburn Time Seen by Provider: 02/11/25 00:20 Mode of Arrival: Ambulatory Source of Information: Patient Description of Symptoms (Recalled from ER Triage Doc. by RN): pt reports being seen in the ED yesterday for heartburn and was told to return if worsened, pt reports a couple hours ago it began again and he vomitted History of Present Illness HPI narrative: 24-year-old male presents to the ER complaining of nausea, vomiting, heartburn. Patient has been evaluated twice in the last week for similar symptoms. He states his symptoms are stable and unchanged. He was evaluated on the for nausea and vomiting and states he has not picked up the Zofran that was prescribed. He did not take any medications prior to arrival. He had 1 episode of nonbloody, nonbilious emesis. He states the heartburn type symptoms that he had yesterday never went away and have been stable since that time. He states he has not taken his hydroxyzine tonight and is very anxious. He describes a burning sensation in the chest, no other chest pain, no difficulty breathing, no diarrhea or constipation. Denies abdominal pain and states he just feels nauseous. No headache or dizziness. No numbness, tingling, or weakness. Related Data Previous Rx's ?Medication ?Instructions ?Recorded hydroxyzine HCl 25 mg tablet 25 mg PO Q6H PRN anxiety #30 tabs 01/05/25 clotrimazole 1 % topical cream 1 applic topical BID 4 weeks #45 01/07/25 (Antifungal (clotrimazole)) grams ondansetron 4 mg disintegrating 4 mg PO Q6H PRN nausea and 02/04/25 tablet vomiting #14 tabs ondansetron 4 mg disintegrating 4 mg PO Q6H PRN nausea and 02/11/25 tablet vomiting #10 tabs Allergies Allergy/AdvReac Type Severity Reaction Status Date / Time ibuprofen (From Motrin) Allergy Intermediate Unknown Verified 01/18/25 11:03 allergy reaction [facility] Disclaimer: The information contained in this section may have been updated after the patient was seen, as this information can be updated by other users. 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 Marijuana use Hydropneumothorax Hemopneumothorax, left Pneumothorax on right COVID Anxiety URI (upper respiratory infection) Viral gastritis Recurrent spontaneous pneumothorax Pneumothorax Atypical chest pain Viral upper respiratory illness Strep throat Viral syndrome Pre-syncope COVID-19 Influenza B Breath shortness Acute pain of left shoulder Collapse, lung 4 times Surgical History History of lung surgery Social History Smoking Status: Current every day smoker tobacco type: e-cigarettes second hand exposure: Yes alcohol intake: never substance use type: marijuana current occupational status: other Travel in the last 8 weeks?: None household members: family housing: house current occupation: [employer]: Yes Have you lived/traveled outside US in past 30 days?: No Contact w/someone who lives/traveled outside US past 30 days?: No Exposure to someone with infectious disease in past 14 days?: No Do you have a fever (greater than 100.4 F or 38 C)?: No Have you tested positive for COVID-19?: No Exposed to someone with COVID-19 in past 14 days?: No Do you have a sore throat?: No Do you have a cough?: No Do you have any weakness?: No Do you have any diarrhea?: No Are you experiencing any unusual bleeding?: No Do you have any muscle aches/pain?: No Do you have any abdominal pain?: Yes Are you experiencing loss of taste or smell?: No Other 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 Have you received the Flu Vaccine for this season: Yes Have you received the Pneumonia Vaccine: No ROS Obtained: Yes Systems reviewed as appropriate & no additional complaints except as documented Per HPI Physical Exam General General appearance: alert, in no apparent distress and anxious Head Head exam: atraumatic and normocephalic Eye Eye exam: Present PERRL and EOMI ENT ENT exam: Present mucous membranes moist Neck Neck exam: Present normal inspection and full ROM Chest Chest inspection: Present symmetric chest wall rise; Absent tenderness Respiratory Respiratory exam: Present normal lung sounds bilaterally; Absent respiratory distress, wheezes or stridor Cardiovascular Cardiovascular exam: Present regular rate and normal rhythm Abdominal Exam Abdominal exam: Present soft; Absent distention, tenderness, guarding or rebound Extremities Exam Extremities exam: Present full ROM Neurological Exam Neurological exam: Present alert and oriented X3; Absent motor sensory deficit Psychiatric Psychiatric exam: Absent homicidal ideation or suicidal ideation Skin Skin exam: Present warm and dry Medical Decision Making Medical Records Medical records reviewed: Yes I reviewed the patient's medical records. Screening: Per USPSTF and CDC recommendations, given the prevalence of disease in our region, it is our hospital?s policy to screen for HIV and viral Hepatitis for all patients aged 18 and over and those with ongoing risk factors. Chinmay Inquiry Pt receiving controlled substance: No Vital Signs: 11/20/25 00:16 02/11/25 00:30 02/11/25 00:45 Temperature 97.7 F Temperature Source Oral Pulse Rate 69 82 Pulse Rate [Right] 85 Respiratory Rate 20 Blood Pressure 103/84 L 109/77 L Blood Pressure [Right Arm] 127/80 Blood Pressure Mean 87 87 Blood Pressure Mean [Right Arm] 95 02 Sat by Pulse Oximetry 99 98 98 Oxygen Delivery Method Room Air 02/11/25 01:00 02/11/25 01:15 Temperature Temperature Source Pulse Rate 80 69 Pulse Rate [Right] Respiratory Rate Blood Pressure 108/78 L 119/75 Blood Pressure [Right Arm] Blood Pressure Mean 85 92 Blood Pressure Mean [Right Arm] 02 Sat by Pulse Oximetry 99 99 Oxygen Delivery Method Orders (Tests/Meds): ED MEDICATIONS Discontinued Medications Generic Name Dose Route Start Last Admin Trade Name Freq PRN Reason Stop Dose Admin Belladonna Alkaloids 60 ml 02/11/25 00:22 02/11/25 00:52 Belladonna Alkaloids 60 Ml Ml PO 02/11/25 00:23 60 ml ONCE ONE Administration Hydroxyzine Pamoate 50 mg 02/11/25 01:28 02/11/25 01:29 Hydroxyzine Pamoate 25mg Capsule PO 02/11/25 01:29 50 mg ONCE ONE Administration Ondansetron HCl 4 mg 02/11/25 00:22 02/11/25 00:43 Ondansetron 4mg Odt SL 02/11/25 00:23 4 mg ONCE ONE Administration Medical Decision Narrative: In summary, this 24-year-old male with comorbidities described in the HPI presents to the emergency department today with nausea, vomiting. On initial evaluation patient is anxious but otherwise hemodynamically stable, afebrile, overall well-appearing. Physical exam is otherwise benign aside from anxiety. No abdominal tenderness, cardiopulmonary exam benign. Differential diagnosis includes but is not limited to anxiety, patient was evaluated for the same complaints in the last day as well as a few days ago and had benign workups so I have very low suspicion for acute dangerous pathology such as bowel obstruction, appendicitis, or other surgical abnormality. I did consider the possibility of viral syndrome patient has standing prescription for Zofran which she has not picked up or taken yet.. I reviewed labs from and the when he had workups here for similar complaints which demonstrate nonactionable CBC and CMP, undetectable troponin, reassuring thyroid studies, UA without findings of infection, marijuana positive on UDS lipase and previous workup also negative at 139 reassuring against pancreatitis. I do not believe patient has acute pancreatitis since he has no abdominal tenderness or pain.. CTAPE from the 18th negative for acute intrathoracic abnormality. Without tenderness in the abdomen, rebound, or guarding or any complaint of pain I do not believe any new labs or radiographic imaging are indicated. Will administer symptomatic management and reassess. Patient received Zofran and GI cocktail. He is no longer nauseous and the burning sensation has subsided. He states his anxiety is worse and he needs his hydroxyzine because he has not yet taken it. 50 mg hydroxyzine provided. He is on further reassessment significantly improved, resting comfortably, tolerating oral intake. I believe he is appropriate for discharge at this time and he is comfortable with this plan. 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 I also recommended a bland diet and follow-up with GI, referral was provided. Patient was given instructions on symptomatic management, follow up instructions, and return precautions for the emergency department. Patient indicated understanding and was discharged in stable condition. Critical Care Critical Care Time Critical Care Time: No
== END 2025-02-11 02:47 | disposition home or self-care (01) ==
PROVIDERS: Emergency Provider Emergency Medicine; PCP Family Medicine
DX: R11.2 Nausea with vomiting, unspecified (principal); K21.9 Gastro-esophageal reflux disease without esophagitis; F41.1 Generalized anxiety disorder; F17.210 Nicotine dependence, cigarettes, uncomplicated
CPT/HCPCS: 99284; Q0162

== ENCOUNTER 2025-02-16 22:04 | Emergency (ER) | payer SELFPAY ==
[2025-02-16 22:31] VITALS: BP 120/80; PULSE 77; RESP 18; TEMP 36.9; O2SAT 100; BMI 18.6
--- OUTSIDE RECORDS SUMMARY | 2025-02-16 22:33 | XMS_ITS | Encounter Summary ---
Author Organization [facility] Address [address] [place] [address] Care Team Providers Care Hot Tamale Worker Name Role Phone Self, Referred MD Primary Care Provider Halleya ble Encounter Details Date Type Department Care Team (Late st Contact Info) Description 08/12/2020 [facility] [address] [place] [address] Carla Marie, RN [facility] [...] on filedocumented in this encounter Care Teams Hot Tamale Worker Relationship Specialty Start Date End Date Self, ReferredMD PCP - General 08/29/20 documented as of this encounter
--- OUTSIDE RECORDS SUMMARY | 2025-02-16 22:33 | XMS_ITS | Clinical Summary ---
Author Organization [facility] Address [address] [place] [address] Care Team Providers Care Safety And Security Officer Name Role Phone Self, Referred MD [...] (2 - Td or Tdap) 10/30/2021 10/31/2011 [id number] Vaccine (1 - 2024- season) 2024 [facility]-Influenza [...] topic Insurance [employer] [place] Care Teams Safety And Security Officer Relationship Specialty Start Date End Date Self, Referred, PCP - General 08/29/20
--- NOTE | 2025-02-16 22:53 | ED_ITS ---
Discharge Plan Disposition Patient Disposition: Home, Self-Care Prescriptions Prescriptions: New amoxicillin-pot clavulanate 875-125 mg tablet 1 tab PO BID 7 Days Qty: 14 0RF meclizine 25 mg tablet 25 mg PO TID PRN (Reason: dizziness or vertigo) Qty: 30 0RF No Action hydroxyzine HCl 25 mg tablet 25 mg PO Q6H PRN (Reason: anxiety) Qty: 30 3RF clotrimazole [Antifungal (clotrimazole)] 1 % cream 1 applic topical BID 28 Days Qty: 45 0RF ondansetron 4 mg tablet,disintegrating 4 mg PO Q6H PRN (Reason: nausea and vomiting) Qty: 14 0RF ondansetron 4 mg tablet,disintegrating 4 mg PO Q6H PRN (Reason: nausea and vomiting) Qty: 10 0RF Referrals Follow up/Referrals: Dipti Seth APRN [Nurse Practitioner, Ear, Nose, Throat] - See instructions Jose Nicole MD [Primary Care Provider, Family Practice] - See instructions Activity Restrictions/Add. Instructions Additional Instructions/Restrictions: Please take the antibiotics as prescribed for possible dental infection. Please take meclizine as needed for vertigo. Please follow-up with our ear nose and throat team for further assessment. Clinical Impressions Clinical Impression: Vertigo, Tinnitus, Dental infection Instructions Patient Instructions: DI for Vertigo, DI for Tinnitus Print Language Print Language: Kyrgyz Discharge ED Provider: Magno Tian General Adult HPI General Chief complaint: Dizziness Stated complaint: dizzy,ringing in ears Time Seen by Provider: 02/16/25 22:53 Mode of Arrival: Ambulatory Source of Information: Patient Description of Symptoms (Recalled from ER Triage Doc. by RN): Pt presents to ED for dizziness & bilateral ear ringing. Pt states this started approx 3 hours ago while he was working. Pt states this has not happened before. Pt is A&O*4 and rates pain 0/10 History of Present Illness HPI narrative: 24-year-old male, frequent visitor to the ER, presents for dizziness and tinnitus. He reports has been ongoing for the last couple of months and has been seen for this in the past. Today it has been worse while he is at work for the last 3 hours. He is now feeling better. Denies any pain. Denies any visual changes, focal numbness weakness, or other neurologic changes. The tinnitus and dizziness come and go together. He is also concerned about his teeth. He felt like he chipped a tooth earlier today and it has been getting more painful and swollen. Related Data Previous Rx's ?Medication ?Instructions ?Recorded hydroxyzine HCl 25 mg tablet 25 mg PO Q6H PRN anxiety #30 tabs 01/05/25 clotrimazole 1 % topical cream 1 applic topical BID 4 weeks #45 01/07/25 (Antifungal (clotrimazole)) grams ondansetron 4 mg disintegrating 4 mg PO Q6H PRN nausea and 02/04/25 tablet vomiting #14 tabs ondansetron 4 mg disintegrating 4 mg PO Q6H PRN nausea and 02/11/25 tablet vomiting #10 tabs amoxicillin 875 mg-potassium 1 tab PO BID 7 days #14 t abs 02/16/25 clavulanate 125 mg tablet meclizine 25 mg tablet 25 mg PO TID PRN dizziness o r 02/16/25 vertigo #30 tabs Allergies Allergy/AdvReac Type Severity Reaction Status Date / Time ibuprofen (From Motrin) Allergy Intermediate Unknown Verified 01/18/25 11:03 allergy reaction [facility] Disclaimer: The information contained in this section may have been updated after the patient was seen, as this information can be updated by other users. 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 Marijuana use Hydropneumothorax Hemopneumothorax, left Pneumothorax on right COVID Anxiety URI (upper respiratory infection) Viral gastritis Recurrent spontaneous pneumothorax Pneumothorax Atypical chest pain Viral upper respiratory illness Strep throat Viral syndrome Pre-syncope COVID-19 Influenza B Breath shortness Acute pain of left shoulder Collapse, lung 4 times Surgical History History of lung surgery Social History Smoking Status: Current every day smoker tobacco type: e-cigarettes second hand exposure: Yes alcohol intake: never substance use type: marijuana current occupational status: other Travel in the last 8 weeks?: None household members: family housing: house current occupation: [employer]: Yes Have you lived/traveled outside US in past 30 days?: No Contact w/someone who lives/traveled outside US past 30 days?: No Exposure to someone with infectious disease in past 14 days?: No Do you have a fever (greater than 100.4 F or 38 C)?: No Have you tested positive for COVID-19?: No Exposed to someone with COVID-19 in past 14 days?: No Do you have a sore throat?: No Do you have a cough?: No Do you have any weakness?: No Do you have any diarrhea?: No Are you experiencing any unusual bleeding?: No Do you have any muscle aches/pain?: No Do you have any abdominal pain?: No Are you experiencing loss of taste or smell?: No Other 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 Have you received the Flu Vaccine for this season: Yes Have you received the Pneumonia Vaccine: No ROS Obtained: Yes All systems reviewed & no additional complaints except as documented Physical Exam General General appearance: alert and in no apparent distress Head Head exam: atraumatic and normocephalic Eye Eye exam: Present normal appearance, PERRL and EOMI ENT ENT exam: Present TM's normal bilaterally and normal external ear exam; Absent n ormal oropharynx (Poor dentition, extensive caries, exposed dentin. Mild redness of the anterior maxillary gums) Neck Neck exam: Present normal inspection and full ROM Chest Chest inspection: Present normal inspection and symmetric chest wall rise; Absent tenderness Respiratory Respiratory exam: Present normal lung sounds bilaterally; Absent respiratory distress Cardiovascular Cardiovascular exam: Present regular rate and normal rhythm Abdominal Exam Abdominal exam: Present soft; Absent distention, tenderness or guarding Extremities Exam Extremities exam: Present normal inspection; Absent edema or joint swelling Back Exam Back exam: Present normal inspection; Absent tenderness Neurological Exam Neurological exam: Present alert and oriented X3; Absent motor sensory deficit Psychiatric Psychiatric exam: Present normal affect and normal mood Skin Skin exam: Present warm, dry and normal color Lymphatic Lymphatic Findings: no adenopathy Medical Decision Making Medical Records Medical records reviewed: Yes I reviewed the patient's medical records. Screening: Per USPSTF and CDC recommendations, given the prevalence of disease in our [place], it is our hospital?s policy to screen for HIV and viral Hepatitis for all patients aged 18 and over and those with ongoing risk factors. Chinmay Inquiry Pt receiving controlled substance: No Chinmay was queried for this patient: No Vital Signs: 02/16/25 22:31 Temperature 98.4 F Temperature Source Oral Pulse Rate [Left] 77 Respiratory Rate 18 Blood Pressure [Right Arm] 120/80 Blood Pressure Mean [Right Arm] 93 02 Sat by Pulse Oximetry 100 Oxygen Delivery Method Room Air Lab Data Lab results reviewed: Yes I reviewed the patient's lab results. Orders (Tests/Meds): ED MEDICATIONS Discontinued Medications Generic Name Dose Route Start Last Admin Trade Name Yesi PRN Reason Stop Dose Admin Amoxicillin/Clavulanate Potassium 1 each 02/16/25 23:02 Amoxicillin/Clavulanate Potassium 875/125mg Tablet PO 02/16/25 23:03 ONCE ONE Meclizine HCl 25 mg 02/16/25 23:02 Meclizine 25mg Tablet PO 02/16/25 23:03 ONCE ONE Medical Decision Narrative: 24-year-old male presents for paroxysmal tinnitus and dizziness as well as tooth pain. History was obtained via interactive discussion with patient, chart. On arrival, patient is [afebrile, hemodynamically stable, satting appropriately, alert, oriented x4, GCS 15], moving all extremities spontaneously. Full physical exam performed and significant for no significant physical exam abnormalities besides extremely poor dentition. Differential includes but is not limited to M?ni?re's, acoustic neuroma, otitis, odontogenic infection. Patient was given meclizine for his paroxysmal vertigo as well as Augmentin for his possible dental infection. I considered doing labs but I do not think they will provide any useful information. I also considered doing a CT scan of the head, but patient had a CT scan less than 2 months ago while he was having the symptoms. Given this, I do not think further imaging is indicated at this time. I recommended that he follow-up with our ENT team for further assessment. Discharge prescription for meclizine and Augmentin. Procedures Risk/Benefits of Procedure(s) Were Explained: Yes Critical Care Critical Care Time Critical Care Time: No
[2025-02-16] MEDS: AMOXICILLIN/CLAVULANATE POTASSIUM 875/125MG TABLET 1 EACH PO (23:13)
[2025-02-16] MEDS: MECLIZINE 25MG TABLET 25 MG PO (23:13)
[2025-02-16 23:18] VITALS: BP 132/83; PULSE 75; RESP 16; TEMP 36.9; O2SAT 98
== END 2025-02-16 23:18 | disposition home or self-care (01) ==
PROVIDERS: Emergency Provider Emergency Medicine; PCP Family Medicine
DX: R42 Dizziness and giddiness (principal); F17.210 Nicotine dependence, cigarettes, uncomplicated; K08.89 Other specified disorders of teeth and supporting structures
CPT/HCPCS: 99283

== ENCOUNTER 2025-02-18 17:34 | Emergency (ER) | payer SELFPAY ==
[2025-02-18 17:38] VITALS: BP 144/81; PULSE 95; O2SAT 98
[2025-02-18 17:40] VITALS: BP 144/81; PULSE 96; RESP 19; TEMP 36.8; O2SAT 97; BMI 19.2
[2025-02-18 17:42] LABS: Coronavirus 19, PCR Not Detected (NotDetected); Influenza A, PCR Not Detected (NotDetected); Influenza B, PCR Not Detected (NotDetected)
--- NOTE | 2025-02-18 17:43 | ED_ITS ---
<Statement entered by Barbara Higginbotham DO - 02/18/25 23:58> I was consulted by the DEBBIE, and we discussed the complexity of problems being addressed. I approve the treatment and management plan for this patient's care in the emergency department, thus performing a substantial portion of the medical decision making. Barbara Higginbotham DO Discharge Plan Disposition Patient Disposition: Home, Self-Care Prescriptions Prescriptions: No Action hydroxyzine HCl 25 mg tablet 25 mg PO Q6H PRN (Reason: anxiety) Qty: 30 3RF clotrimazole [Antifungal (clotrimazole)] 1 % cream 1 applic topical BID 28 Days Qty: 45 0RF amoxicillin-pot clavulanate 875-125 mg tablet 1 tab PO BID 7 Days Qty: 14 0RF meclizine 25 mg tablet 25 mg PO TID PRN (Reason: dizziness or vertigo) Qty: 30 0RF ondansetron 4 mg tablet,disintegrating 4 mg PO Q6H PRN (Reason: nausea and vomiting) Qty: 14 0RF ondansetron 4 mg tablet,disintegrating 4 mg PO Q6H PRN (Reason: nausea and vomiting) Qty: 10 0RF Referrals Follow up/Referrals: Jose Nicole MD [Primary Care Provider, Family Practice] - See instructions Activity Restrictions/Add. Instructions Additional Instructions/Restrictions: Increase fluids and rest. Take Tylenol for pain and fevers if needed. May take [id number] cold medicines. Return to the ED or see PCP in follow-up. Clinical Impressions Clinical Impression: Viral respiratory illness Instructions Patient Instructions: Cough, DI for Headache Print Language Print Language: Urdu Discharge ED Provider: Barbara Higginbotham General Adult HPI General Chief complaint: Headache Stated complaint: headache,fever Time Seen by Provider: 02/18/25 17:39 Mode of Arrival: Ambulatory Source of Information: Patient Description of Symptoms (Recalled from ER Triage Doc. by RN): Pt states around 45 min ago he had a hot flash and developed an intense headache right after. History of Present Illness HPI narrative: 24-year-old male presents to the ED today for complaint of headache 1 hour prior to arrival he took Motrin this morning for his headache that started 1 hour prior to arrival. He also complains of a fever of 99 6 that he got prior to arrival. Patient has no other symptoms today. No nausea, vomiting or diarrhea. No chest pain or shortness of breath. He does complain of a cough. Denies any other symptoms. Related Data Previous Rx's ?Medication ?Instructions ?Recorded hydroxyzine HCl 25 mg tablet 25 mg PO Q6H PRN anxiety #30 tabs 01/05/25 clotrimazole 1 % topical cream 1 applic topical BID 4 weeks #45 01/07/25 (Antifungal (clotrimazole)) grams ondansetron 4 mg disintegrating 4 mg PO Q6H PRN nausea and 02/04/25 tablet vomiting #14 tabs ondansetron 4 mg disintegrating 4 mg PO Q6H PRN nausea and 02/11/25 tablet vomiting #10 tabs amoxicillin 875 mg-potassium 1 tab PO BID 7 days #14 t abs 02/16/25 clavulanate 125 mg tablet meclizine 25 mg tablet 25 mg PO TID PRN dizziness o r 02/16/25 vertigo #30 tabs Allergies Allergy/AdvReac Type Severity Reaction Status Date / Time ibuprofen (From Motrin) Allergy Intermediate Unknown Verified 01/18/25 11:03 allergy reaction [facility] Disclaimer: The information contained in this section may have been updated after the patient was seen, as this information can be updated by other users. 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 Marijuana use Hydropneumothorax Hemopneumothorax, left Pneumothorax on right COVID Anxiety URI (upper respiratory infection) Viral gastritis Recurrent spontaneous pneumothorax Pneumothorax Atypical chest pain Viral upper respiratory illness Strep throat Viral syndrome Pre-syncope COVID-19 Influenza B Breath shortness Acute pain of left shoulder Collapse, lung 4 times Surgical History History of lung surgery Social History Smoking Status: Current every day smoker tobacco type: e-cigarettes second hand exposure: Yes alcohol intake: never substance use type: marijuana current occupational status: other Travel in the last 8 weeks?: None household members: family housing: house current occupation: [employer]: Yes Have you lived/traveled outside [place] in past 30 days?: No Contact w/someone who lives/traveled outside US past 30 days?: No Exposure to someone with infectious disease in past 14 days?: No Do you have a fever (greater than 100.4 F or 38 C)?: No Have you tested positive for COVID-19?: No Exposed to someone with COVID-19 in past 14 days?: No Do you have a sore throat?: No Do you have a cough?: No Do you have any weakness?: No Do you have any diarrhea?: No Are you experiencing any unusual bleeding?: No Do you have any muscle aches/pain?: No Do you have any abdominal pain?: No Are you experiencing loss of taste or smell?: No Other 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 Have you received the Flu Vaccine for this season: Yes Have you received the Pneumonia Vaccine: No ROS Obtained: Yes Systems reviewed as appropriate & no additional complaints except as documented Constitutional Constitutional: Reports as per HPI Physical Exam General General appearance: alert and in no apparent distress Head Head exam: normocephalic Eye Eye exam: Present PERRL and EOMI ENT ENT exam: Present normal oropharynx and mucous membranes moist Neck Neck exam: Present full ROM and trachea midline Respiratory Respiratory exam: Present normal lung sounds bilaterally Cardiovascular Cardiovascular exam: Present regular rate, normal rhythm, normal heart sounds, +S1 and +S2 Abdominal Exam Abdominal exam: Present soft and normal bowel sounds Extremities Exam Extremities exam: Present full ROM and normal capillary refill Neurological Exam Neurological exam: Present alert, oriented X3 and normal gait Skin Skin exam: Present warm and dry Medical Decision Making Medical Records Screening: Per USPSTF and CDC recommendations, given the prevalence of disease in our region, it is our hospital?s policy to screen for HIV and viral Hepatitis for all patients aged 18 and over and those with ongoing risk factors. Chinmay Inquiry Pt receiving controlled substance: No Chinmay was queried for this patient: No Vital Signs: 02/18/25 17:38 02/18/25 17:40 02/18/25 18:00 Temperature 98.3 F Temperature Source Oral Pulse Rate 95 H 82 Pulse Rate [Right] 96 H Respiratory Rate 19 Blood Pressure 144/81 H 110/74 Blood Pressure [Right Arm] 144/81 H Blood Pressure Mean [Right Arm] 102 Blood Pressure Source [Right Arm] Automatic Cuff Blood Pressure Position [Right Arm] Sitting 02 Sat by Pulse Oximetry 98 97 99 Oxygen Delivery Method Room Air Room Air Room Air Lab Data Lab Results 02/18/25 17:38: SARS-CoV-2 (PCR) Not detected, Influenza A Untype (PCR) Not detected, Influenza Type B (PCR) Not detected Orders (Tests/Meds): ED MEDICATIONS Discontinued Medications Generic Name Dose Route Start Last Admin Trade Name Yesi PRN Reason Stop Dose Admin Acetaminophen 1,000 mg 02/18/25 17:42 02/18/25 17:55 Acetaminophen 500mg Tab PO 02/18/25 17:43 1,000 mg ONCE ONE Administration ORDERS Category Date Time Status Rapid PCR Covid and Flu A/B Stat Lab 02/18/25 17:38 Completed Medical Decision Narrative: patient is a 24-year-old male presenting to the emergency department for evaluation of headache and 99.6 temp. Patient is hemodynamically stable and nontoxic-appearing upon arrival, afebrile. Differential diagnosis includes viral illness, headache. Workup will be conducted with viral swab. Initial inventions include analgesics. Patient is stable. Swabs are negative. Patient will be discharged with follow-up Critical Care Critical Care Time Critical Care Time: No
--- OUTSIDE RECORDS SUMMARY | 2025-02-18 17:43 | XMS_ITS | Clinical Summary ---
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
--- OUTSIDE RECORDS SUMMARY | 2025-02-18 17:43 | XMS_ITS | Encounter Summary ---
Author Organization [facility] Address [address] 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
[2025-02-18] MEDS: ACETAMINOPHEN 500MG TAB 1000 MG PO (17:55)
[2025-02-18 18:00] VITALS: BP 110/74; PULSE 82; O2SAT 99
[2025-02-18 18:44] VITALS: BP 110/74; PULSE 84; RESP 18; TEMP 37; O2SAT 95
== END 2025-02-18 18:46 | disposition home or self-care (01) ==
PROVIDERS: Emergency Provider Student in an Organized Health Care Education/Training Program; PCP Family Medicine
DX: R51.9 Headache, unspecified (principal); R50.9 Fever, unspecified; B34.9 Viral infection, unspecified; F17.290 Nicotine dependence, other tobacco product, uncomplicated
CPT/HCPCS: 87636; 99283; 99284

== ENCOUNTER 2025-02-28 21:46 | Emergency (ER) | payer SELFPAY ==
[2025-02-28 21:48] VITALS: BP 128/71; PULSE 110; RESP 18; TEMP 37.1; O2SAT 100; BMI 19.9
--- NOTE | 2025-02-28 22:22 | CT_ITS ---
PROCEDURE INFORMATION: Exam: CT Head Without Contrast Exam date and time: 02/28/2025 10:49 PM Age: 24 years old Clinical indication: Pain; Dizziness; Headache; Additional info: ROTHMAN for 2 months TECHNIQUE: Imaging protocol: Computed tomography of the head without contrast. Radiation optimization: All CT scans at this facility use at least one of these dose optimization techniques: automated exposure control; mA and/or kV adjustment per patient size (includes targeted exams where dose is matched to clinical indication); or iterative reconstruction. COMPARISON: CT HEAD/BRAIN WO CON 12/15/2024 8:29 PM FINDINGS: Limitations: Beam hardening and streak artifact somewhat limits assessment. Brain: Normal. No hemorrhage. Unremarkable white matter. No mass effect. Cerebral ventricles: No ventriculomegaly. Paranasal sinuses: There is mild mucosal thickening of the sinuses. No air-fluid level identified. Mastoid air cells: Visualized mastoid air cells are well aerated. Bones: Unremarkable. No acute fracture. Soft tissues: Unremarkable. IMPRESSION: No acute process, mass, or bleed.
--- NOTE | 2025-02-28 22:24 | HMH.EDGENADL ---
Discharge Plan Disposition Patient Disposition: Home, Self-Care Prescriptions Prescriptions: No Action hydroxyzine HCl 25 mg tablet 25 mg PO Q6H PRN (Reason: anxiety) Qty: 30 3RF clotrimazole [Antifungal (clotrimazole)] 1 % cream 1 applic topical BID 28 Days Qty: 45 0RF amoxicillin-pot clavulanate 875-125 mg tablet 1 tab PO BID 7 Days Qty: 14 0RF meclizine 25 mg tablet 25 mg PO TID PRN (Reason: dizziness or vertigo) Qty: 30 0RF ondansetron 4 mg tablet,disintegrating 4 mg PO Q6H PRN (Reason: nausea and vomiting) Qty: 14 0RF ondansetron 4 mg tablet,disintegrating 4 mg PO Q6H PRN (Reason: nausea and vomiting) Qty: 10 0RF Referrals Follow up/Referrals: Jose Nicole MD [Primary Care Provider, [facility]] - See instructions Activity Restrictions/Add. Instructions Additional Instructions/Restrictions: You have been seen and evaluated in the emergency department. Please follow-up with your primary care physician tomorrow. Your head CT was reassuring. At the onset of headache, take 1000 mg of Tylenol (can be repeated every 6 hours) and 600 mg of ibuprofen (can be repeated every 4-6 hours). Return to the ED with markedly worsening symptoms. Clinical Impressions Clinical Impression: Headache Qualifiers: Headache type: tension-type Headache chronicity pattern: chronic headache Intractability: not intractable Qualified Code(s): G44.229 - Chronic tension-type headache, not intractable Instructions Patient Instructions: DI for Headache Print Language Print Language: Brazilian Discharge ED Provider: Lashay Fried Adult HPI General Chief complaint: Headache Stated complaint: headache and dizziness Time Seen by Provider: 02/28/25 22:16 Mode of Arrival: Ambulatory Source of Information: Patient Description of Symptoms (Recalled from ER Triage Doc. by RN): Pt presents with c/o an intense headache in the back of his head strating earlier today. Pt took medication for the headache earlier, but states it hasnt helped at all. History of Present Illness HPI narrative: This is a 24-year-old male with reported history of baseline tremor on hydroxyzine who presents emergency department with 2 months of worsening headache. He has had intermittent headaches with occasional vision changes that began approximately 8 weeks ago. Denies any associated nausea, vomiting, numbness, weakness, tingling, or any recent head trauma. He does have a baseline tremor for which he takes hydroxyzine. Of note, he has a listed allergy in the chart to ibuprofen, however he states he is not allergic to this medication and takes it frequently. No recent fever, nasal congestion, cough, photophobia, or phonophobia. Related Data Previous Rx's ?Medication ?Instructions ?Recorded hydroxyzine HCl 25 mg tablet 25 mg PO Q6H PRN anxiety #30 tabs 01/05/25 clotrimazole 1 % topical cream 1 applic topical BID 4 weeks #45 01/07/25 (Antifungal (clotrimazole)) grams ondansetron 4 mg disintegrating 4 mg PO Q6H PRN nausea and 02/04/25 tablet vomiting #14 tabs ondansetron 4 mg disintegrating 4 mg PO Q6H PRN nausea and 02/11/25 tablet vomiting #10 tabs amoxicillin 875 mg-potassium 1 tab PO BID 7 days #14 tabs 02/16/25 clavulanate 125 mg tablet meclizine 25 mg tablet 25 mg PO TID PRN dizziness or 02/16/25 vertigo #30 tabs Allergies Allergy/AdvReac Type Severity Reaction Status Date / Time ibuprofen (From Motrin) Allergy Intermediate Unknown Verified 01/18/25 11:03 allergy reaction [facility] Disclaimer: The information contained in this section may have been updated after the patient was seen, as this information can be updated by other users. 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 Marijuana use Hydropneumothorax Hemopneumothorax, left Pneumothorax on right COVID Anxiety URI (upper respiratory infection) Viral gastritis Recurrent spontaneous pneumothorax Pneumothorax Atypical chest pain Viral upper respiratory illness Strep throat Viral syndrome Pre-syncope COVID-19 Influenza B Breath shortness Acute pain of left shoulder Collapse, lung 4 times Surgical History History of lung surgery Social History Smoking Status: Current every day smoker tobacco type: e-cigarettes second hand exposure: Yes alcohol intake: never substance use type: marijuana current occupational status: other Travel in the last 8 weeks?: None household members: family housing: house current occupation: [employer]: Yes Have you lived/traveled outside US in past 30 days?: No Contact w/someone who lives/traveled outside US past 30 days?: No Exposure to someone with infectious disease in past 14 days?: No Do you have a fever (greater than 100.4 F or 38 C)?: No Have you tested positive for COVID-19?: No Exposed to someone with COVID-19 in past 14 days?: No Do you have a sore throat?: No Do you have a cough?: No Do you have any weakness?: No Do you have any diarrhea?: No Are you experiencing any unusual bleeding?: No Do you have any muscle aches/pain?: No Do you have any abdominal pain?: No Are you experiencing loss of taste or smell?: No Other 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 Have you received the Flu Vaccine for this season: Yes Have you received the Pneumonia Vaccine: No ROS Obtained: Yes All systems reviewed & no additional complaints except as documented Physical Exam General General appearance: alert and in no apparent distress Head Head exam: atraumatic Eye Eye exam: Present normal appearance, PERRL and EOMI ENT ENT exam: Present mucous membranes moist Neck Neck exam: Present normal inspection and full ROM; Absent tenderness Chest Chest inspection: Present symmetric chest wall rise; Absent tenderness Respiratory Respiratory exam: Absent respiratory distress, wheezes or accessory muscle use Cardiovascular Cardiovascular exam: Present regular rate and normal rhythm Abdominal Exam Abdominal exam: Present soft; Absent tenderness or guarding Extremities Exam Extremities exam: Present full ROM; Absent tenderness Neurological Exam Neurological exam: Present alert, oriented X3 and other (No focal neurologic deficit. No facial asymmetry. Intact vision. Extraocular movements intact. Intact visual chambers. Pupils are equal round reactive bilaterally. No limb ataxia or dysmetria. Strength and sensation intact in all 4 extremities and symmetric.) Psychiatric Psychiatric exam: Present normal affect Skin Skin exam: Present warm and dry Medical Decision Making Medical Records Screening: Per USPSTF and CDC recommendations, given the prevalence of disease in our region, it is our hospital?s policy to screen for HIV and viral Hepatitis for all patients aged 18 and over and those with ongoing risk factors. Chinmay Inquiry Pt receiving controlled substance: No Chinmay was queried for this patient: No Vital Signs: 02/28/25 21:48 12/07/25 23:25 Temperature 98.7 F 98.6 F Temperature Source Temporal Artery Scan Pulse Rate 91 H Pulse Rate [Right] 110 H Respiratory Rate 18 18 Blood Pressure 124/72 Blood Pressure [Right Arm] 128/71 Blood Pressure Mean [Right Arm] 90 02 Sat by Pulse Oximetry 100 Oxygen Delivery Method Room Air Room Air Lab Data Lab Results 02/28/25 22:34: WBC 8.4, RBC 4.49 L, Hgb 13.3 L, Hct 38.8 L, MCV 86.4, MCH 29.6, MCHC 34.3, RDW 12.3, Plt Count 195, MPV 9.2, Neut % (Auto) 75.5, Lymph % (Auto) 14.9, [place] % (Auto) 7.4, Eos % (Auto) 1.8, Baso % (Auto) 0.2, Neut # (Auto) 6.4, Lymph # (Auto) 1.3, [place] # (Auto) 0.6, Eos # (Auto) 0.2, Baso # (Auto) 0.0, Sodium 142, Potassium 3.7, Chloride 104, Carbon Dioxide 24, Anion Gap 17.7 H, BUN 7 L, Creatinine 0.70, Estimated Creat Clear 140, Estimated GFR 137, Est GFR ( Amer) 166, Glucose 101 H, Calcium 9.0, Total Bilirubin 0.6, AST 29, ALT 15, Alkaline Phosphatase 56, Total Protein 7.5, Albumin 4.7, Globulin 2.8, Albumin/Globulin Ratio 1.7 02/28/25 22:34 02/28/25 22:34 Orders (Tests/Meds): ED MEDICATIONS Discontinued Medications Generic Name Dose Route Start Last Admin Trade Name Freq PRN Reason Stop Dose Admin Ketorolac Tromethamine 15 mg 02/28/25 22:22 02/28/25 22:42 Ketorolac 15mg/Ml Vial IV 02/28/25 22:23 15 mg ONCE ONE Administration ORDERS Category Date Time Status CT head/brain wo con Stat Cat Scan 02/28/25 22:22 Completed CBC w/Auto Diff [Complete Blood Count Auto Diff] Stat Lab 02/28/25 22:34 Completed CMP [Comprehensive Metabolic Panel] Stat Lab 02/28/25 22:34 Completed Medical Decision Narrative: In summary, this is a 24y/o male presenting the emergency department for 2 months of progressive waxing and waning headaches. Differential diagnosis includes but is not limited to: Tension headache, migraine headache, intracranial mass, mass effect, hydrocephalus On my initial assessment, the patient is hemodynamically stable in no acute distress. Physical exam is notable for no focal neurologic deficit. No photophobia or phonophobia. Initial workup will be focused on treating headache and obtaining CBC, CMP, and noncontrasted CT scan of the head. Patient received IV Toradol for treatment. CT head personally interpreted with no acute findings on my read. Radiology reads agreement. CBC and CMP unremarkable. On reassessment, patient reports improvement in his headache. He is comfortable with discharge home. I advised that should further headaches recur, he should take Tylenol and ibuprofen together in conjunction with a sports drink or a full bottle of water. He has a PCP follow-up tomorrow. I instructed him to return to the emergency department should he develop worsening symptoms. Critical Care Critical Care Time Critical Care Time: No
[2025-02-28] MEDS: KETOROLAC 15MG/ML VIAL 15 MG IV (22:42)
[2025-02-28 22:43] LABS: Hematocrit 38.8 % (42.0-52.0); Hemoglobin 13.3 g/dL (14.1-18.0); Immature Granulocytes % 0.2 %; Mean Corpuscular HGB Conc 34.3 g/dL (31.8-35.4); Mean Corpuscular Hemoglobin 29.6 pg (27.0-31.2); Mean Corpuscular Volume 86.4 fl (80-94); Nucleated Red Blood Cells % 0 %; Platelet Count 195 K/mm3 (142-424); Red Blood Count 4.49 M/mm3 (4.60-6.20); Red Cell Distribution Width-SD 39.0 fL; White Blood Count 8.4 K/mm3 (4.8-10.8)
[2025-02-28 22:48] LABS: Albumin Level 4.7 g/dl (3.5-5.0); Chloride 104 mmol/L (98-107); Sodium 142 mmol/L (136-145)
[2025-02-28 22:49] LABS: Potassium 3.7 mmoL/L (3.5-5.1)
[2025-02-28 22:51] LABS: Alanine Aminotransferase 15 U/L (12-78); Albumin/Globulin Ratio 1.7 (1.1-1.8); Alkaline Phosphatase 56 U/L (38-126); Anion Gap 17.7 mEq/L (5-15); Aspartate Amino Transferase 29 U/L (17-59); Bilirubin,Total 0.6 mg/dl (0.2-1.3); Blood Urea Nitrogen 7 mg/dl (9-20); Carbon Dioxide 24 mmol/L (22.0-30.0); Creatinine Clearance Estimated 140 mL/min (50-200); Creatinine,Serum 0.70 mg/dl (0.66-1.25); Estimated Glomerular Filt Rate 137 ml/min (>60); GFR (African American) 166 ML/MIN (>60); Globulin 2.8 g/dL (1.3-3.2); Total Protein,Serum 7.5 g/dl (6.3-8.2)
[2025-02-28 22:52] LABS: Calcium 9.0 mg/dl (8.4-10.2); Glucose 101 mg/dl (74-100)
[2025-02-28 23:25] VITALS: BP 124/72; PULSE 91; RESP 18; TEMP 37; O2SAT 100
== END 2025-02-28 23:25 | disposition home or self-care (01) ==
PROVIDERS: Emergency Provider Student in an Organized Health Care Education/Training Program; PCP Family Medicine
DX: G44.229 Chronic tension-type headache, not intractable (principal); F17.290 Nicotine dependence, other tobacco product, uncomplicated
CPT/HCPCS: 70450; 80053; 85025; 96374; 99283; 99284; J1885

== ENCOUNTER 2025-03-04 18:10 | Emergency (ER) | payer SELFPAY ==
[2025-03-04 18:16] VITALS: BP 154/82; PULSE 107; RESP 18; TEMP 36.9; O2SAT 100; BMI 19.3
[2025-03-04 18:30] VITALS: BP 119/76; PULSE 90; O2SAT 99
--- NOTE | 2025-03-04 18:36 | HMH.EDGENADL ---
Discharge Plan Disposition Patient Disposition: Home, Self-Care Condition: Good Prescriptions Prescriptions: No Action hydroxyzine HCl 25 mg tablet 25 mg PO Q6H PRN (Reason: anxiety) Qty: 30 3RF acetaminophen 325 mg capsule 325 mg PO QID PRN Referrals Follow up/Referrals: Gerald Gant DO [Primary Care Provider, [facility]] - See instructions Activity Restrictions/Add. Instructions Additional Instructions/Restrictions: You may experience concussive symptoms over the next few days consisting of persistent headaches, blurred vision, difficulty concentrating, or dizziness. You can take Tylenol for pain and discomfort. If you begin experience balance problems, recurrent vomiting, the worst headache of your life, or any other worrisome symptoms please return to the ER for further evaluation. Clinical Impressions Clinical Impression: Headache Qualifiers: Headache type: post-traumatic Headache chronicity pattern: acute headache Intractability: not intractable Qualified Code(s): G44.319 - Acute post-traumatic headache, not intractable Print Language Print Language: Sami Discharge ED Provider: Gadiel Thornton General Adult HPI General Chief complaint: Headache Stated complaint: AO 03/04 Hit Head at Work - not filing under WC Time Seen by Provider: 03/04/25 18:14 Mode of Arrival: Ambulatory Source of Information: Patient Description of Symptoms (Recalled from ER Triage Doc. by RN): Pt presents for evaluation of headache. 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 PT states he has a headache that he rates as a 7/10, and took excedrin History of Present Illness HPI narrative: This is a 24-year-old male patient, with past medical history of generalized anxiety disorder, who is presenting to the emergency department today for evaluation of a headache. The patient tells me that he was at work approximately 1 hour ago and he was bending over at the waist and upon standing up he hit his head against a microwave. He did not lose consciousness. He has not had any nausea or vomiting. He has not noticed any swelling or abnormalities of the scalp. He has not had any difficulty with walking. No focal weakness or sensory deficits. No diplopia or blurred vision. Related Data Home Medications ?Medication ?Instructions ?Recorded ?Confirmed acetaminophen 325 mg capsule 325 mg PO QID PRN 03/02/25 03/03/25 Previous Rx's ?Medication ?Instructions ?Recorded hydroxyzine HCl 25 mg tablet 25 mg PO Q6H PRN anxiety #30 tabs 01/05/25 Allergies Allergy/AdvReac Type Severity Reaction Status Date / Time ibuprofen (From Motrin) Allergy Intermediate Unknown Verified 03/03/25 13:55 allergy reaction [facility] Disclaimer: The information contained in this section may have been updated after the patient was seen, as this information can be updated by other users. 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 Marijuana use Hydropneumothorax Hemopneumothorax, left Pneumothorax on right COVID Anxiety URI (upper respiratory infection) Viral gastritis Recurrent spontaneous pneumothorax Pneumothorax Atypical chest pain Viral upper respiratory illness Strep throat Viral syndrome Pre-syncope COVID-19 Influenza B Breath shortness Acute pain of left shoulder Collapse, lung 4 times Surgical History History of lung surgery Social History Smoking Status: Current every day smoker tobacco type: e-cigarettes second hand exposure: Yes alcohol intake: never substance use type: marijuana current occupational status: other Travel in the last 8 weeks?: None household members: family housing: house current occupation: [employer] caffeine: Yes Have you lived/traveled outside [place] in past 30 days?: No Contact w/someone who lives/traveled outside US past 30 days?: No Exposure to someone with infectious disease in past 14 days?: No Do you have a fever (greater than 100.4 F or 38 C)?: No Have you tested positive for COVID-19?: No Exposed to someone with COVID-19 in past 14 days?: No Do you have a sore throat?: No Do you have a cough?: No Do you have any weakness?: No Do you have any diarrhea?: No Are you experiencing any unusual bleeding?: No Do you have any muscle aches/pain?: No Do you have any abdominal pain?: No Are you experiencing loss of taste or smell?: No Other 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 Have you received the Flu Vaccine for this season: Yes Have you received the Pneumonia Vaccine: No ROS Obtained: Yes Systems reviewed as appropriate & no additional complaints except as documented Physical Exam General General appearance: other (See MDM) Respiratory Respiratory exam: Present other (See MDM) Cardiovascular Cardiovascular exam: Present other (See MDM) Neurological Exam Neurological exam: Present other (See MDM) Medical Decision Making Medical Records Medical records reviewed: Yes I reviewed the patient's medical records. Screening: Per USPSTF and CDC recommendations, given the prevalence of disease in our region, it is our hospital?s policy to screen for HIV and viral Hepatitis for all patients aged 18 and over and those with ongoing risk factors. Chinmay Inquiry Pt receiving controlled substance: No Chinmay was queried for this patient: No Vital Signs: 03/04/25 18:16 Temperature 98.5 F Temperature Source Oral Pulse Rate [Right] 107 H Respiratory Rate 18 Blood Pressure [Right Arm] 154/82 H Blood Pressure Mean [Right Arm] 106 Blood Pressure Source [Right Arm] Automatic Cuff Blood Pressure Position [Right Arm] Sitting 02 Sat by Pulse Oximetry 100 Oxygen Delivery Method Room Air Medical Decision Narrative: In summary, this is a 24-year-old male patient who is presenting to the emergency department today for evaluation of a headache after hitting his head on the microwave at work. The patient did not lose consciousness, he has not had any nausea or vomiting, no vision changes, no ataxia. His comorbidities include a past medical history of generalized anxiety disorder which does not complicate his medical management or care. On initial evaluation of the patient they were resting comfortably in no acute distress and nontoxic in appearance. They are hemodynamically stable, saturating well room air, and are neurologically intact. On physical examination he has 5 out of 5 strength in his bilateral upper and lower extremities. Cranial nerves II through XII are intact. On examination of his scalp he has no scalp hematomas, no cranial crepitus, no scalp abrasions or lacerations. He has no C-spine tenderness on exam. Differential diagnosis includes scalp contusion, posttraumatic headache, concussion, among others. I have considered the possibility of intracranial hemorrhage, however the patient is negative by [facility] head CT rules so he is considered very low risk for intracranial pathology and does not necessitate further workup with a CT scan of the head. We will treat the patient with Tylenol here in the emergency department. I have informed him that he may experience concussive symptoms over the next couple of days. We will have him follow-up with his primary care physician and return to the emergency department if he has any new or worsening symptoms. Critical Care Critical Care Time Critical Care Time: No
[2025-03-04] MEDS: ACETAMINOPHEN 500MG TAB 1000 MG PO (18:39)
[2025-03-04 18:48] VITALS: BP 119/76; PULSE 85; RESP 18; TEMP 36.8; O2SAT 98
== END 2025-03-04 18:47 | disposition home or self-care (01) ==
PROVIDERS: Emergency Provider Student in an Organized Health Care Education/Training Program; PCP Student in an Organized Health Care Education/Training Program
DX: G44.319 Acute post-traumatic headache, not intractable (principal); F17.210 Nicotine dependence, cigarettes, uncomplicated; F41.1 Generalized anxiety disorder; W22.8XXA Striking against or struck by other objects, initial encounter
CPT/HCPCS: 99283

== ENCOUNTER 2025-03-19 16:43 | Emergency (ER) | payer SELFPAY ==
[2025-03-19 16:50] VITALS: BP 127/84; PULSE 90; RESP 18; TEMP 36.7; O2SAT 98; BMI 19.9
--- OUTSIDE RECORDS SUMMARY | 2025-03-19 16:52 | XMS_ITS | Clinical Summary ---
Author Organization [facility] Address [address] [place] [address] Care Team Providers Care Director Visual Name Role Phone Self, Referred MD Primary [...] (2 - Td or Tdap) 10/30/2021 10/31/2011 [id number] Vaccine (1 - 2024- season) 2024 [id number] [...] complete this topic Insurance [place] [address] Care Teams Director Visual Relationship Specialty Start Date End Date Self, Referred, PCP - General 08/29/20
--- OUTSIDE RECORDS SUMMARY | 2025-03-19 16:52 | XMS_ITS | Encounter Summary ---
Author Organization [facility] Address [address] [place] [address] Care Team Providers Care Communications Planner Name Role Phone Self, Referred MD Primary Care Provider Unavaila ble Encounter Details Date Type Department Care Team (Late st Contact Info) Description 08/12/2020 [facility] Res[facility] [address] [facility] [place] [address] Carla Marie, RN [facility] [...] Index - - documented in this encounter Functional Status * Encounter Vitals Question Answer Date of Assessment Author BP 115/68 08/01/2020 9:51 AM EDT Carla May, RN Temp 98 08/01/2020 9:51 AM EDT Carla May RN Temp src Oral 08/01/2020 9:51 AM EDT Carla May, IBAN Pulse 72 08/01/2020 9:51 AM EDT Carla May RN Resp 18 08/01/2020 9:51 AM EDT Carla May RN SpO2 97 08/01/2020 9:51 AM EDT Carla May RN Weight 2172.85 08/01/2020 9:51 AM EDT Carla May RN * Total Weight Change Percent Answer Date of Assessment Author 2 08/01/2020 9:51 AM Carla Vaughn RN * Weight Change Since Preop Answer Date of Assessment Author 61.59 08/01/2020 9:51 AM Carla Vaughn RN * Weight Change Since Last Visit Answer Date of Assessment Author 61.59 08/01/2020 9:51 AM Carla Vaughn RN * Weight Change 24 hrs Answer Date of Assessment Author 61.6 08/01/2020 9:51 AM Carla Vaughn RN * BP Location Answer Date of Assessment Author Right arm 08/01/2020 9:51 AM Carla Vaughn RN * Restart Vitals Timer Answer Date of Assessment Author Yes 08/01/2020 9:51 AM Carla Vaughn RN * Weight Change Since Preop Answer Date of Assessment Author 61.6 08/01/2020 9:51 AM Carla Vaughn RN * Weight Change Since Last Visit Answer Date of Assessment Author 61.6 08/01/2020 9:51 AM Carla Vaughn RN * Difference in Weight Since Last Visit Answer Date of Assessment Author 61.6 08/01/2020 9:51 AM Carla Vaughn RN * Temp (in Celsius) for BEAVER IV Answer Date of Assessment Author 36.7 08/01/2020 9:51 AM EDCarla Chatterjee RN * Vitals Timer Question Answer Date of Assessment Author Restart Vitals Timer Yes 08/01/2020 9:51 AM E Carla Ni RN * Encounter Vitals Question Answer Date of Assessment Author BP 115/68 08/01/2020 9:51 AM EDT Carla May RN Temp 98 08/01/2020 9:51 AM EDT Carla May, IBAN Temp src Oral 08/01/2020 9:51 AM EDT Carla May, RN Pulse 72 08/01/2020 9:51 AM EDT Carla May RN Resp 18 08/01/2020 9:51 AM EDT Carla May, RN SpO2 97 08/01/2020 9:51 AM EDT Carla May, RN Weight 2172.85 08/01/2020 9:51 AM EDT Carla May RN * BP Location Answer Date of Assessment Author Right arm 08/01/2020 9:51 AM EDT Carla [place] RN * Restart Vitals Timer Answer Date of Assessment Author Yes 08/01/2020 9:51 AM EDT Carla [place] RN documented as of this encounter Mental Status * Encounter Vitals Question Answer Entry Date Author BP 115/68 08/01/2020 9:51 AM EDT Carla May RN Temp 98 08/01/2020 9:51 AM EDT Carla May RN Temp src Oral 08/01/2020 9:51 AM EDT Carla May RN Pulse 72 08/01/2020 9:51 AM EDT Carla May RN Resp 18 08/01/2020 9:51 AM EDT Carla May, RN SpO2 97 08/01/2020 9:51 AM EDT Carla May RN Weight 2172.85 08/01/2020 9:51 AM EDT Carla May, RN * Total Weight Change Percent Answer Entry Date Author 222108/01/2020 9:51 AM EDT Carla [place] RN * Weight Change Since Preop Answer Entry Date Author 61.59 08/01/2020 9:51 AM EDT Carla Min RN * Weight Change Since Last Visit Answer Entry Date Author 61.59 08/01/2020 9:51 AM EDT Carla [place] RN * Weight Change 24 hrs Answer Entry Date Author 61.6 08/01/2020 9:51 AM EDT Carla [place] RN * BP Location Answer Entry Date Author Right arm 08/01/2020 9:51 AM EDT Carla Min RN * Restart Vitals Timer Answer Entry Date Author Yes 08/01/2020 9:51 AM EDT Carla [place] RN * Weight Change Since Preop Answer Entry Date Author 61.6 08/01/2020 9:51 AM NIDHIT Carla [place] RN * Weight Change Since Last Visit Answer Entry Date Author 61.6 08/01/2020 9:51 AM EDT Carla [place] RN * Difference in Weight Since Last Visit Answer Entry Date Author 61.6 08/01/2020 9:51 AM Carla Vaughn RN * Temp (in Celsius) for BEAVER IV Answer Entry Date Author 36.7 08/01/2020 9:51 AM Carla Vaughn RN * Vitals Timer Question Answer Entry Date Author Restart Vitals Timer Yes 08/01/2020 9:51 AM Carla Clayton RN documented in this encounter Plan of Treatment Not on file documented as of this encounter Visit Diagnoses Not on filedocumented in this encounter Care Teams Communications Planner Relationship Specialty Start Date End Date Rajiv, Kris, PCP - General 08/29/20 documented as of this encounter
--- NOTE | 2025-03-19 16:53 | HMH.EDGENADL ---
Discharge Plan Disposition Chief Complaint: Cough Prescriptions Prescriptions: No Action hydroxyzine HCl 25 mg tablet 25 mg PO Q6H PRN (Reason: anxiety) Qty: 30 3RF acetaminophen 325 mg capsule 325 mg PO QID PRN Referrals Follow up/Referrals: Gerald Gant DO [Primary Care Provider, [facility]] - See instructions Instructions Patient Instructions: Cough Print Language Print Language: Togolese Discharge ED Provider: Danya Dunn General Adult HPI General Chief complaint: Cough Stated complaint: Migraine,cough Time Seen by Provider: 03/19/25 16:53 Mode of Arrival: Ambulatory Source of Information: Patient Description of Symptoms (Recalled from ER Triage Doc. by RN): Patient reports having a cough that started last night and now has a headache. Related Data Home Medications ?Medication ?Instructions ?Recorded ?Confirmed acetaminophen 325 mg capsule 325 mg PO QID PRN 03/02/25 03/03/25 Previous Rx's ?Medication ?Instructions ?Recorded hydroxyzine HCl 25 mg tablet 25 mg PO Q6H PRN anxiety #30 tabs 01/05/25 Allergies Allergy/AdvReac Type Severity Reaction Status Date / Time ibuprofen (From Motrin) Allergy Intermediate Unknown Verified 03/03/25 13:55 allergy reaction PFSH PFS Disclaimer: The information contained in this section may have been updated after the patient was seen, as this information can be updated by other users. 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 Marijuana use Hydropneumothorax Hemopneumothorax, left Pneumothorax on right COVID Anxiety URI (upper respiratory infection) Viral gastritis Recurrent spontaneous pneumothorax Pneumothorax Atypical chest pain Viral upper respiratory illness Strep throat Viral syndrome Pre-syncope COVID-19 Influenza B Breath shortness Acute pain of left shoulder Collapse, lung 4 times Surgical History History of lung surgery Social History Smoking Status: Current every day smoker tobacco type: e-cigarettes second hand exposure: Yes alcohol intake: never substance use type: marijuana current occupational status: other Travel in the last 8 weeks?: None household members: family housing: house current occupation: [employer]: Yes Have you lived/traveled outside [place] in past 30 days?: No Contact w/someone who lives/traveled outside US past 30 days?: No Exposure to someone with infectious disease in past 14 days?: No Do you have a fever (greater than 100.4 F or 38 C)?: No Have you tested positive for COVID-19?: No Exposed to someone with COVID-19 in past 14 days?: No Do you have a sore throat?: No Do you have a cough?: No Do you have any weakness?: No Do you have any diarrhea?: No Are you experiencing any unusual bleeding?: No Do you have any muscle aches/pain?: No Do you have any abdominal pain?: No Are you experiencing loss of taste or smell?: No Other 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 Have you received the Flu Vaccine for this season: Yes Have you received the Pneumonia Vaccine: No Medical Decision Making Medical Records Screening: Per USPSTF and CDC recommendations, given the prevalence of disease in our region, it is our hospital?s policy to screen for HIV and viral Hepatitis for all patients aged 18 and over and those with ongoing risk factors. Vital Signs: 03/19/25 16:50 Temperature 98.1 F Temperature Source Oral Pulse Rate [Radial] 90 Respiratory Rate 18 Blood Pressure [Right Arm] 127/84 Blood Pressure Mean [Right Arm] 98 Blood Pressure Source [Right Arm] Automatic Cuff Blood Pressure Position [Right Arm] Sitting 02 Sat by Pulse Oximetry 98 Oxygen Delivery Method Room Air
[2025-03-19 17:00] VITALS: BP 124/76; PULSE 94; O2SAT 97
--- NOTE | 2025-03-19 17:03 | ED_ITS ---
<Statement entered by Danya Dunn MD - 03/19/25 18:39> I was consulted by the DEBBIE, and we discussed the complexity of the problems being addressed. I approved the treatment and management plan for this patient's care in the emergency department, thus performing a substantive portion of the medical decision making. Danya Dunn MD, ROSCOE, FACEP Discharge Plan Disposition Patient Disposition: Home, Self-Care Prescriptions Prescriptions: No Action hydroxyzine HCl 25 mg tablet 25 mg PO Q6H PRN (Reason: anxiety) Qty: 30 3RF acetaminophen 325 mg capsule 325 mg PO QID PRN Referrals Follow up/Referrals: Gerald Gant DO [Primary Care Provider, Family Practice] - See instructions Activity Restrictions/Add. Instructions Additional Instructions/Restrictions: You are seen emergency room today with complaints of a headache. Would recommend alternating with Tylenol and/or Excedrin or any obtv-bly-nylzavt med ications that will help your headaches at home. Follow-up with your primary care provider as needed. Clinical Impressions Clinical Impression: Headache Qualifiers: Headache type: post-traumatic Headache chronicity pattern: acute headache Intractability: not intractable Qualified Code(s): G44.319 - Acute post- traumatic headache, not intractable Stand Alone Forms Stand Alone Forms: Work/School Release Instructions Patient Instructions: DI for Migraine, DI for Headache Print Language Print Language: Korean Discharge ED Provider: Danya Dunn General Adult HPI General Chief complaint: Cough Stated complaint: Migraine,cough Time Seen by Provider: 03/19/25 16:53 Mode of Arrival: Ambulatory Source of Information: Patient Description of Symptoms (Recalled from ER Triage Doc. by RN): Patient reports having a cough that started last night and now has a headache. History of Present Illness HPI narrative: Mundo Herrera is a 24-year-old male past medical history significant for migraines who presents emergency room tonight with complaints of headache. Patient reports his headache started yesterday. States he took some Excedrin and went to bed for a bit. Headache resolved for several hours, came back last night. Woke up again with a headache this morning. Does not describe this headache as the worst headache of his life. She states it feels like one of his normal headaches. No neck stiffness. No blurry vision or double vision. States he typically takes Excedrin with resolution at home. Says his doctor wanted him to decrease the use of Excedrin due to his elevated heart rate. Patient reports he has had some chills and myalgias that may have started yesterday. Denies any known sick contacts. Denies any cough, chest pain, shortness of breath. No abdominal pain. No focal neurodeficits. Does not take any blood thinners. Reports a headache, rated at a 5/10 at this time. No other complaints at this time. Please note that the above description of symptoms, and this electronic medical record under categorization of recalled from ER triage doctor by RN are reflective of an initial nursing assessment, however, is not reflective of my full history and physical exam that was personally taken and clarified. Consequentially, this proceeding description of symptoms, which may include the patient's cauterized chief complaint in the EMR, do not reflect my personal clinical impression, and the ultimate description of the history of present illness stated complaints should be deferred to this section of this note. Unless stated otherwise were congruent with the section of the note, additional signs, symptoms, or incongruence can be interpreted as in or accurate with my clinical impression. Related Data Home Medications ?Medication ?Instructions ?Recorded ?Confirmed acetaminophen 325 mg capsule 325 mg PO QID PRN 5 03/03/25 Previous Rx's ?Medication ?Instructions ?Recorded hydroxyzine HCl 25 mg tablet 25 mg PO Q6H PRN anxiety #30 tabs 01/05/25 Allergies Allergy/AdvReac Type Severity Reaction Status Date / Time ibuprofen (From Motrin) Allergy Intermediate Unknown Verified 03/03/25 13:55 allergy reaction [facility] Disclaimer: The information contained in this section may have been updated after the patient was seen, as this information can be updated by other users. 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 Marijuana use Hydropneumothorax Hemopneumothorax, left Pneumothorax on right COVID Anxiety URI (upper respiratory infection) Viral gastritis Recurrent spontaneous pneumothorax Pneumothorax Atypical chest pain Viral upper respiratory illness Strep throat Viral syndrome Pre-syncope COVID-19 Influenza B Breath shortness Acute pain of left shoulder Collapse, lung 4 times Surgical History History of lung surgery Social History Smoking Status: Current every day smoker tobacco type: e-cigarettes second hand exposure: Yes alcohol intake: never substance use type: marijuana current occupational status: other Travel in the last 8 weeks?: None household members: family housing: house current occupation: [employer]: Yes Have you lived/traveled outside [place] in past 30 days?: No Contact w/someone who lives/traveled outside [place] past 30 days?: No Exposure to someone with infectious disease in past 14 days?: No Do you have a fever (greater than 100.4 F or 38 C)?: No Have you tested positive for COVID-19?: No Exposed to someone with COVID-19 in past 14 days?: No Do you have a sore throat?: No Do you have a cough?: No Do you have any weakness?: No Do you have any diarrhea?: No Are you experiencing any unusual bleeding?: No Do you have any muscle aches/pain?: No Do you have any abdominal pain?: No Are you experiencing loss of taste or smell?: No Other 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 Have you received the Flu Vaccine for this season: Yes Have you received the Pneumonia Vaccine: No ROS Obtained: Yes All systems reviewed & no additional complaints except as documented Physical Exam General General appearance: alert and in no apparent distress Head Head exam: atraumatic, normocephalic and normal inspection Eye Eye exam: Present normal appearance, PERRL and EOMI ENT ENT exam: Present normal exam, normal oropharynx, mucous membranes moist, TM's normal bilaterally and normal external ear exam Neck Neck exam: Present normal inspection, full ROM and trachea midline; Absent meningismus or lymphadenopathy Chest Chest inspection: Present normal inspection and symmetric chest wall rise; Absent tenderness Respiratory Respiratory exam: Present normal lung sounds bilaterally; Absent respiratory distress Cardiovascular Cardiovascular exam: Present regular rate and normal rhythm; Absent JVD Abdominal Exam Abdominal exam: Present soft and normal bowel sounds; Absent distention, tenderness or guarding Extremities Exam Extremities exam: Present normal inspection, full ROM and normal capillary refill; Absent calf tenderness Back Exam Back exam: Present normal inspection; Absent tenderness Neurological Exam Neurological exam: Present alert and oriented X3 Psychiatric Psychiatric exam: Present normal affect and normal mood Skin Skin exam: Present warm, dry, intact and normal color Lymphatic Lymphatic Findings: no adenopathy Medical Decision Making Medical Records Screening: Per USPSTF and CDC recommendations, given the prevalence of disease in our region, it is our hospital?s policy to screen for HIV and viral Hepatitis for all patients aged 18 and over and those with ongoing risk factors. [place] Inquiry Pt receiving controlled substance: No Vital Signs: 03/19/25 16:50 03/19/25 17:00 03/19/25 17:15 Temperature 98.1 F Temperature Source Oral Pulse Rate 94 H 89 Pulse Rate [Radial] 90 Respiratory Rate 18 Blood Pressure 124/76 120/71 Blood Pressure [Right Arm] 127/84 Blood Pressure Mean [Right Arm] 98 Blood Pressure Source [Right Arm] Automatic Cuff Blood Pressure Position [Right Arm] Sitting 02 Sat by Pulse Oximetry 98 97 98 Oxygen Delivery Method Room Air 03/19/25 17:30 03/19/25 17:45 Temperature Temperature Source Pulse Rate 81 95 H Pulse Rate [Radial] Respiratory Rate Blood Pressure 114/71 121/71 Blood Pressure [Right Arm] Blood Pressure Mean [Right Arm] Blood Pressure Source [Right Arm] Blood Pressure Position [Right Arm] 02 Sat by Pulse Oximetry 97 98 Oxygen Delivery Method Room Air Room Air Lab Data Lab Results 03/19/25 17:04: SARS-CoV-2 (PCR) Not detected, Influenza A Untype (PCR) Not detected, Influenza Type B (PCR) Not detected Orders (Tests/Meds): ED MEDICATIONS Discontinued Medications Generic Name Dose Route Start Last Admin Trade Name Freq PRN Reason Stop Dose Admin Ketorolac Tromethamine 30 mg 03/19/25 16:58 03/19/25 17:09 Ketorolac 30mg/Ml Vial IM 03/19/25 16:59 30 mg ONCE ONE Administration ORDERS Category Date Time Status Rapid PCR Covid and Flu A/B Stat Lab 03/19/25 17:04 Completed Medical Decision Narrative: In summary patient is an 24-year-old male who presents emergency department for evaluation of headache. Headache started yesterday. Did resolve for a few hours with some Excedrin. Headache then came back and continues to be present today. Currently rated a 5 out of 10. No neck stiffness. No fever noted. No blurry or double vision. Does report some bodyaches. Patient is hemodynamically stable upon arrival, afebrile. Unremarkable nonfocal physical exam. Differential diagnosis includes migraine, meningitis, CVA. Initial workup will be conducted with respiratory swabs. Initial interventions include multimodal pain management with IM Toradol. Upon repeat evaluation patient had complete resolution of his headache. Not complaining of any additional symptoms at this time. Flu and COVID swabs were negative.. Given this patient appropriate for discharge. He can follow-up with his primary care provider as needed. He can continue to alternate between Motrin and Tylenol or Excedrin or what ever his choice of [id number] medications for migraine are. Critical Care Critical Care Time Critical Care Time: No
[2025-03-19] MEDS: KETOROLAC 30MG/ML VIAL 30 MG IM (17:09)
[2025-03-19 17:15] VITALS: BP 120/71; PULSE 89; O2SAT 98
[2025-03-19 17:24] LABS: Coronavirus 19, PCR Not Detected (NotDetected); Influenza A, PCR Not Detected (NotDetected); Influenza B, PCR Not Detected (NotDetected)
[2025-03-19 17:30] VITALS: BP 114/71; PULSE 81; O2SAT 97
[2025-03-19 17:45] VITALS: BP 121/71; PULSE 95; O2SAT 98
[2025-03-19 18:25] VITALS: BP 116/71; PULSE 73; RESP 18; TEMP 36.7; O2SAT 97
== END 2025-03-19 18:26 | disposition home or self-care (01) ==
PROVIDERS: Nurse Practitioner Acute Care; Emergency Provider Student in an Organized Health Care Education/Training Program; PCP Student in an Organized Health Care Education/Training Program
DX: G44.89 Other headache syndrome (principal); F17.290 Nicotine dependence, other tobacco product, uncomplicated
CPT/HCPCS: 87636; 96372; 99283; 99284; J1885